=== PATIENT | female | born 1935 | race Caucasian/White ===

== ENCOUNTER 2016-12-11 11:15 | Inpatient (IN) | payer MEDICARE, MEDICAID ==
[2016-12-11 11:16] VITALS: PULSE 81
--- NOTE | 2016-12-11 11:25 | ED PDOC ---
Arrival/HPI - General Time Seen by Provider: 12/11/16 11:20 Historian: Patient, Family, EMS - History of Present Illness Narrative History of Present Illness (Text): 12/11/16 11:15 Marge Still is an 81 year old female, whose past medical history includes CHF, hypertension, COPD, diabetes, and advanced dementia, who is brought in to the emergency department via EMS for vomiting blood. Family reports patient was vomiting blood just prior to them calling. Due to patient's advanced Alzheimer, there is limited history obtained. PMD: Dr. Viera Time/Duration: Prior to Arrival Symptom Onset: Sudden Context: Home Past Medical History - Provider Review Nursing Documentation Reviewed: Yes - Infectious Disease Hx of Infectious Diseases: None - Tetanus Immunization Tetanus Immunization: Unknown - Cardiac Hx Cardiac Disorders: Yes Hx Congestive Heart Failure: Yes Hx Hypertension: Yes - Pulmonary Hx Respiratory Disorders: Yes Hx Chronic Obstructive Pulmonary Disease (COPD): Yes - Neurological Hx Neurological Disorder: Yes Hx Dementia: Yes - HEENT Hx HEENT Disorder: No - Renal Hx Renal Disorder: No - Endocrine/Metabolic Hx Endocrine Disorders: Yes Hx Diabetes Mellitus Type 2: Yes - Hematological/Oncological Hx Blood Disorders: No - Integumentary Hx Dermatological Disorder: Yes Other/Comment: bilateral heels/feet - Musculoskeletal/Rheumatological Hx Musculoskeletal Disorders: No Hx Falls: No - Gastrointestinal Hx Gastrointestinal Disorders: No - Genitourinary/Gynecological Hx Genitourinary Disorders: Yes Hx Urinary Tract Infection: Yes - Psychiatric Hx Psychophysiologic Disorder: Yes Hx Depression: Yes Hx Substance Use: No - Past Surgical History Past Surgical History: Unable to Obtain - Surgical History Other/Comment: CABG- CARDIAC STENTS - Anesthesia Hx Anesthesia: Yes Hx Anesthesia Reactions: No Hx Malignant Hyperthermia: No - Suicidal Assessment Feels Threatened In Home Enviroment: No Family/Social History - Physician Review Nursing Documentation Reviewed: Yes Family/Social History: Unknown Family HX Smoking Status: Never Smoked Hx Alcohol Use: No Hx Substance Use: No Hx Substance Use Treatment: No Allergies/Home Meds Allergies/Adverse Reactions: Allergies No Known Allergies Allergy (Verified 03/30/16 16:18) Home Medications: Home Meds Medication Instructions Recorded Confirmed Zolpidem [Ambien] 10 mg PO HS 11/30/14 12/11/16 risperiDONE [RisperDAL Tab] 0.25 mg PO Q8 11/30/14 12/11/16 Simvastatin 80 mg PO DAILY 10/07/15 12/11/16 Alprazolam [Xanax] 0.5 mg PO BID 01/12/16 12/11/16 Donepezil [Aricept] 10 mg PO DAILY 01/12/16 12/11/16 amLODIPine [Norvasc] 10 mg PO DAILY 01/12/16 12/11/16 Apixaban [Eliquis] 5 mg PO BID 12/11/16 12/11/16 Clobetasol 0.05% [Temovate] 60 gm TP BID 12/11/16 12/11/16 Clopidogrel [Plavix] 75 mg PO DAILY 12/11/16 12/11/16 Levothyroxine [Synthroid] 100 mcg PO DAILY 12/11/16 12/11/16 Review of Systems - Review of Systems Systems not reviewed;Unavailable: Dementia Constitutional: absent: Fevers Respiratory: absent: Cough Gastrointestinal: Hematemesis Physical Exam - Physical Exam Physical Exam Limitations: Uncooperative Vital Signs Reviewed: Yes Vital Signs Temp Pulse Resp BP Pulse Ox 12/11/16 14:45 97.2 F L 82 18 93/52 L 100 12/11/16 14:23 97.8 F 82 18 97/52 L 12/11/16 14:10 99 12/11/16 14:07 95 12/11/16 14:04 98 F 83 16 93/49 L 12/11/16 11:39 97.3 F L 87 18 89/56 L 100 12/11/16 11:15 98 F 101 H 20 89/56 L 100 Appearance: Positive for: Ill-Appearing Pain Distress: Mild Mental Status: Positive for: Alert and Oriented X 3 - Systems Exam Head: Present: Atraumatic, Normocephalic Pupils: Present: PERRL Extroacular Muscles: Present: EOMI Conjunctiva: Present: Normal Mouth: Present: Other (blood in mouth) Respiratory/Chest: Present: Clear to Auscultation. No: Good Air Exchange, Respiratory Distress, Accessory Muscle Use Cardiovascular: Present: Regular Rate and Rhythm. No: Murmurs, Normal S1, S2 Abdomen: No: Tenderness, Distention, Normal Bowel Sounds, Peritoneal Signs, Rebound, Guarding Rectal: Present: Occult Blood, Other (guaiac (+) window glazier: Nurse Santamaria). No: Gross Blood, Melena Neurological: Present: Other (no focal deficits) Skin: Present: Warm, Dry Psychiatric: Present: Alert, Other (uncooperative with exam ). No: Oriented x 3 Medical Decision Making ED Course and Treatment: Upon arrival the pt had a significant amount of blood in her mouth. I suctioned her mouth and cleared up the blood and did not note any source of bleeding in the mouth or throat. 12/11/16 EKG: Ordered, reviewed, and independently interpreted the EKG. Rate : 89 BPM Rhythm : NSR Interpretation : Left Dawes Deviation. Left bundle branch block. Comparison : No previous EKG for comparison. 12/11/16 12:47 Case was discussed with Delaney Che from for consultation. 12/11/16 13:00 Chest X-ray: Creator : Portia Hurtado MD COMPARISON: 03/30/2016. FINDINGS: LUNGS: There is significant patient rotation to the right. The lungs are well inflated and clear. PLEURA: No significant pleural effusion identified, no pneumothorax apparent. CARDIOVASCULAR: The heart is normal in size. OSSEOUS STRUCTURES: No significant abnormalities. VISUALIZED UPPER ABDOMEN: Normal. OTHER FINDINGS: None. IMPRESSION: No active pulmonary disease. Disc w coal equipment operator who eval the pt in the ED - Critical Care Critical Care Minutes: 60 minutes - Lab Interpretations Lab Results: 12/11/16 11:35 12/11/16 11:35 Lab Results 12/11/16 11:35: Troponin I 0.02 D 12/11/16 11:35: PT 14.3 H, INR 1.29 H, APTT 28.3 12/11/16 11:35: WBC 5.2, RBC 2.66 L, Hgb 5.4 L*, Hct 19.0 L*, MCV 71.4 L, MCH 20.3 L, MCHC 28.4 L, RDW 17.9 H, Plt Count 193, MPV 9.4, Gran % 59.5, Lymph % ( Auto) 32.1, [place] % (Auto) 7.0 H, Eos % (Auto) 1.2 L, Baso % (Auto) 0.2, Gran # 3.08, Lymph # 1.7, [place] # 0.4, Eos # 0.1, Baso # 0.01 12/11/16 11:35: Blood Type A POSITIVE, Antibody Screen Negative, Crossmatch See Detail, BBK History Checked Patient has bt 12/11/16 11:35: Sodium 144, Chloride 111 H, Potassium 3.9, Carbon Dioxide 23, Anion Gap 14, BUN 24 H, Creatinine 0.9, Est GFR ( Amer) > 60, Est GFR ( Non-Af Amer) > 60, Random Glucose 159 H, Calcium 9.5, Total Bilirubin 0.5, AST 25, ALT 32, Alkaline Phosphatase 63, Total Protein 5.8, Albumin 2.9 L, Globulin 2.9, Albumin/Globulin Ratio 1.0 L 12/11/16 11:35: pO2 44, VBG pH 7.36, VBG pCO2 44.0, VBG HCO3 24.9, VBG Total CO2 26.3, VBG O2 Sat (Calc) 83.0 H, VBG Base Excess -0.8 L, VBG Potassium 4.0, Sodium 144.0, Chloride 113.0 H, Glucose 169 H, Lactate 2.9 H, FiO2 21.0, Venous Blood Potassium 4.0 I have reviewed the lab results: Yes - RAD Interpretation Radiology Orders: 12/11/16 11:48 CHEST PORTABLE [RAD] Stat Fisher Trawl Net: Radiologist - EKG Interpretation Interpreted by ED Physician: Yes Type: 12 lead EKG - Medication Orders Current Medication Orders: Cyanocobalamin (Vitamin B12 1000 Mcg/Ml Inj) 1,000 mcg IM DAILY OLGA Pantoprazole Sodium (Protonix 40mg Ivpb) 40 mg in 100 mls @ 20 mls/hr IVPB .Q5H OLGA Last Admin: 12/12/16 05:00 Dose: 20 mls/hr eMAR Start Stop Document 12/12/16 05:00 KGD (Rec: 12/12/16 05:03 KGD [id number]) Intravenous Solution Start Date 12/12/16 Start Time 05:03 Iron Sucrose 100 mg/ Sodium (Chloride) 105 mls @ 210 mls/hr IVPB DAILY OLGA Potassium Chloride 40 meq/ (Dextrose/Sodium Chloride) 1,020 mls @ 75 mls/hr IV .[id number] OLGA Levothyroxine Sodium (Synthroid) 100 mcg PO ACB OLGA Discontinued Medications Diphenhydramine HCl (Benadryl) 25 mg IVP ONCE ONE Stop: 12/11/16 21:22 Last Admin: 12/11/16 21:36 Dose: 25 mg IVP Administration Document 12/11/16 21:36 KGD (Rec: 12/11/16 21:36 KGD [id number]) Charges for Administration # of IVP Administrations 1 Furosemide (Lasix) 40 mg IV ONCE ONE Stop: 12/11/16 17:01 Last Admin: 12/11/16 17:37 Dose: 40 mg eMAR Start Stop Document 12/11/16 17:37 JENS (Rec: 12/11/16 17:37 JENS [id number]) Intravenous Solution Start Date 12/11/16 Start Time 17:37 End Date 12/11/16 MAR Blood Pressure Document 12/11/16 17:37 JENS (Rec: 12/11/16 17:37 JENS [id number]) Blood Pressure Blood Pressure (100/60-150/90) 146/62 Sodium Chloride (Sodium Chloride 0.9%) 1,000 mls @ 999 mls/hr IV .Q1H1M STA Stop: 12/11/16 14:25 Last Admin: 12/11/16 17:37 Dose: Iron Sucrose (Venofer) 100 mg IVP ONCE ONE Stop: 12/11/16 23:33 Pantoprazole Sodium (Protonix Inj) 80 mg IVP STAT STA Stop: 12/11/16 11:49 Last Admin: 12/11/16 12:24 Dose: 80 mg IVP Administration Document 12/11/16 12:24 LA (Rec: 12/11/16 12:25 LA [id number]) Charges for Administration # of IVP Administrations 1 - Scribe Statement The provider has reviewed the documentation as recorded by the Maria Chavez Provider Scribe Attestation: All medical record entries made by the Catarinoibpepito were at my direction and personally dictated by me. I have reviewed the chart and agree that the record accurately reflects my personal performance of the history, physical exam, medical decision making, and the department course for this patient. I have also personally directed, reviewed, and agree with the discharge instructions and disposition. Disposition/Present on Arrival - Present on Arrival Any Indicators Present on Arrival: Yes History of DVT/PE: Yes History of Uncontrolled Diabetes: Yes Urinary Catheter: No History Surgical Site Infection Following: None - Disposition Have Diagnosis and Disposition been Completed?: Yes Diagnosis: Upper GI bleeding Disposition: HOSPITALIZED Disposition Time: 12:48 Patient Problems: Current Active Problems Problem Status Onset Upper GI bleeding Acute Condition: SERIOUS
[2016-12-11 12:24] LABS: BASO # 0.01 K/mm3 (0.0-2.0); BASO % 0.2 % (0.0-3.0); EOS # 0.1 (0.0-0.7); EOS % 1.2 % (1.5-5.0); GRAN # 3.08 (1.4-6.5); GRAN % 59.5 % (50.0-68.0); LYMPH # 1.7 (1.2-3.4); LYMPH % 32.1 % (22.0-35.0); MEAN CELL VOLUME 71.4 fl (80.0-105.0); MEAN CORPUSCULAR HEMOGLOBIN 20.3 pg (25.0-35.0); MEAN CORPUSCULAR HGB CONC 28.4 g/dl (31.0-37.0); MEAN PLATELET VOLUME 9.4 fl (7.0-11.0); MONO # 0.4 (0.1-0.6); RED CELL DISTRIBUTION WIDTH 17.9 % (11.5-14.5); WHITE BLOOD COUNT 5.2 10^3/ul (4.5-11.0)
[2016-12-11 12:26] LABS: VENOUS BLOOD GAS BASE EXCESS -0.8 mmol/L (0.0-2.0); VENOUS BLOOD PH 7.36 (7.32-7.43)
[2016-12-11 12:34] LABS: ALKALINE PHOSPHATASE 63 U/L (38-126); ALT/SGPT 32 U/L (7-56); AST/SGOT 25 U/L (14-36); BILIRUBIN,TOTAL 0.5 mg/dL (0.2-1.3); BLOOD UREA NITROGEN 24 mg/dL (7-21); CALCIUM 9.5 mg/dL (8.4-10.5); CARBON DIOXIDE 23 mmol/L (21-33); CHLORIDE 111 mmol/L (98-107); GFR AFRICAN-AMERICAN > 60; GLUCOSE,RANDOM 159 mg/dL (70-110); POTASSIUM 3.9 mmol/L (3.6-5.0); SODIUM 144 mmol/L (132-148); TOTAL PROTEIN 5.8 g/dL (5.8-8.3)
[2016-12-11 12:43] LABS: INR 1.29 (0.93-1.08); PARTIAL THROMBOPLASTIN TIME 28.3 Seconds (25.1-36.5)
--- NOTE | 2016-12-11 12:59 | RAD ---
HISTORY: gi bleed COMPARISON: 03/30/2016. FINDINGS: LUNGS: There is significant patient rotation to the right. The lungs are well inflated and clear. PLEURA: No significant pleural effusion identified, no pneumothorax apparent. CARDIOVASCULAR: The heart is normal in size. OSSEOUS STRUCTURES: No significant abnormalities. VISUALIZED UPPER ABDOMEN: Normal. OTHER FINDINGS: None. IMPRESSION: No active pulmonary disease.
[2016-12-11] MEDS ORDERED: Sodium Chloride 0.9% 1,000 ML IV STA (13:25)
[2016-12-11 13:56] LABS: BASO # 0.01 K/mm3 (0.0-2.0); BASO % 0.2 % (0.0-3.0); EOS % 0.2 % (1.5-5.0); GRAN # 4.26 (1.4-6.5); LYMPH % 17.6 % (22.0-35.0); MEAN CELL VOLUME 70.5 fl (80.0-105.0); MEAN CORPUSCULAR HEMOGLOBIN 20.1 pg (25.0-35.0); MEAN CORPUSCULAR HGB CONC 28.5 g/dl (31.0-37.0); MEAN PLATELET VOLUME 8.7 fl (7.0-11.0); MONO # 0.4 (0.1-0.6); RED CELL DISTRIBUTION WIDTH 17.7 % (11.5-14.5); WHITE BLOOD COUNT 5.7 10^3/ul (4.5-11.0)
[2016-12-11 14:03] LABS: HEMATOCRIT 15.8 % (36.0-48.0)
[2016-12-11] MEDS: Pantoprazole 40mg/100ml IVPB 40 MG/100 ML BAG IVPB SCH ×3 (14:37→23:56)
--- NOTE | 2016-12-11 16:16 | CP.PCM.CON ---
<Delaney Che - Last Filed: 12/11/16 17:07> History of Present Illness - History of Present Illness History of Present Illness: Seen and examined at bedside in the ER this afternoon, Son Len Galaviz at beside. Request for GI consult is for GI bleeding. HPI:this is an 81-year-old female with a past medical history of hypertension, COPD, Advanced Dementia, CHF, Diabetes was brought to the emergency room by EMS for reports of blood oozing from oral cavity. Patient's son Len Galaviz is at the bedside providing the history, patient is unable to provide history, secondary to Advanced Alzheimer's Disease. Patient's son reports that they notice blood ozzing from her mouth with blood clots, did not witness vomiting, this morning and she was cold and clammy, so they called EMS. The patient otherwise had prior episodes of bleeding. In the ER the patient was found to be guaiac positive, no melena or bright red blood per rectum. The patient has history of PEG tube insertions with infection 2, the family opted for no feeding tube insertions. The patient does take food by mouth mainly with, and sure, clear soup, and applesauce. the patient also has a history of coronary artery disease and CABG, patient is also on Plavix. The patient does have episodes of constipation but no reports of melena or bright red blood per rectum. On admission the patient was found to have a hemoglobin of 5.4. Past medical history: Advanced dementia, hypertension, coronary artery disease, congestive heart failure, COPD, hypothyroidism, CABG, diabetes mellitus Surgical history: CABG Family history: Noncontributory Allergies: No known drug allergies Social history: No history of smoking, EtOH or drugs Medications: Reviewed as per JOSE ROS: Unable to review systems with patient secondary to advanced dementia, see HPI Past Patient History - Infectious Disease Hx of Infectious Diseases: None - Tetanus Immunizations Tetanus Immunization: Unknown - Past Social History Smoking Status: Never Smoked - CARDIAC Hx Cardiac Disorders: Yes Hx Congestive Heart Failure: Yes Hx Hypertension: Yes - PULMONARY Hx Respiratory Disorders: Yes Hx Chronic Obstructive Pulmonary Disease (COPD): Yes - NEUROLOGICAL Hx Neurological Disorder: Yes Hx Dementia: Yes - HEENT Hx HEENT Problems: No - RENAL Hx Chronic Kidney Disease: No - ENDOCRINE/METABOLIC Hx Endocrine Disorders: Yes Hx Diabetes Mellitus Type 2: Yes - HEMATOLOGICAL/ONCOLOGICAL Hx Blood Disorders: No - INTEGUMENTARY Hx Dermatological Problems: Yes Other/Comment: bilateral heels/feet - MUSCULOSKELETAL/RHEUMATOLOGICAL Hx Musculoskeletal Disorders: No Hx Falls: No - GASTROINTESTINAL Hx Gastrointestinal Disorders: No - GENITOURINARY/GYNECOLOGICAL Hx Genitourinary Disorders: Yes Hx Urinary Tract Infection: Yes - PSYCHIATRIC Hx Psychophysiologic Disorder: Yes Hx Depression: Yes Hx Substance Use: No - SURGICAL HISTORY Other/Comment: CABG- CARDIAC STENTS - ANESTHESIA Hx Anesthesia: Yes Hx Anesthesia Reactions: No Hx Malignant Hyperthermia: No Meds Allergies/Adverse Reactions: Allergies Allergy/AdvReac Type Severity Reaction Status Date / Time No Known Allergies Allergy Verified 03/30/16 16:18 - Medications Medications: Current Medications Furosemide (Lasix) 40 mg IV ONCE ONE Stop: 12/11/16 17:01 Pantoprazole Sodium (Protonix 40mg Ivpb) 40 mg in 100 mls @ 20 mls/hr IVPB .Q5H OLGA Last Admin: 12/11/16 14:37 Dose: 20 mls/hr Physical Exam - Constitutional Appears: No Acute Distress - Head Exam Head Exam: NORMOCEPHALIC - Eye Exam Eye Exam: Normal appearance. absent: Scleral icterus - ENT Exam ENT Exam: Mucous Membranes Moist - Respiratory Exam Respiratory Exam: NORMAL BREATHING PATTERN. absent: Respiratory Distress - Cardiovascular Exam Cardiovascular Exam: +S1, +S2 - GI/Abdominal Exam GI & Abdominal Exam: Normal Bowel Sounds, Soft, Tenderness (? patient had facial grimacing on palpation). absent: Guarding, Organomegaly, Rebound - Extremities Exam Extremities exam: Positive for: pedal edema, pedal pulses present - Neurological Exam Neurological exam: Altered (awake, cannot follow commands) - Skin Skin Exam: Dry, Warm Additional comments: pale Results - Vital Signs Recent Vital Signs: Last Vital Signs Temp 97.2 F L 12/11/16 14:45 Pulse 82 12/11/16 14:45 Resp 18 12/11/16 14:45 BP 93/52 L 12/11/16 14:45 Pulse Ox 100 12/11/16 14:45 - Labs Result Diagrams: 12/11/16 13:45 12/11/16 11:35 Labs: Laboratory Results - last 24 hr 12/11/16 13:45 WBC 5.7 RBC 2.24 L Hgb 4.5 L* Hct 15.8 L* MCV 70.5 L MCH 20.1 L MCHC 28.5 L RDW 17.7 H Plt Count 146 MPV 8.7 Gran % 75.0 H Lymph % (Auto) 17.6 L [place] % (Auto) 7.0 H Eos % (Auto) 0.2 L Baso % (Auto) 0.2 Gran # 4.26 Lymph # 1.0 L [place] # 0.4 Eos # 0.0 Baso # 0.01 Assessment & Plan - Assessment and Plan (Free Text) Assessment: Assessment: GI bleed (+) guiac, differential to considers peptic ulcer disease, angiodysplasia, blood oozing from oral cavity, r/o ENT involvement. Anemia likley secondary to bleeding, h/o chronic Anemia Advanced dementia CAD CABG DM HTN PLAN: repeat CBC CBC Q6H Start Protonix drip to receive 2 Units PRBC request ENT evaluation for oral cavity bleeding consider EGD evaluation when optimal NPO, IVF for hydration as per ICU team Spoke to the Len Galaviz at bedside who provided history and give consent for patient, contact number given at [phone] Thank you for this consult and for allowing us to participate in your patient care, will follow closely and make further recommendation based upon clinical course. Case was reviewed and discussed w/ Dr. Mitchell covering for Dr. Parry. <Lee Parry V - Last Filed: 12/11/16 22:16> Meds - Medications Medications: Current Medications Pantoprazole Sodium (Protonix 40mg Ivpb) 40 mg in 100 mls @ 20 mls/hr IVPB .Q5H OLGA Last Admin: 12/11/16 18:49 Dose: 20 mls/hr Results - Vital Signs Recent Vital Signs: Last Vital Signs Temp 98.2 F 12/11/16 17:40 Pulse 87 12/11/16 18:50 Resp 15 12/11/16 18:50 BP 128/69 12/11/16 18:45 Pulse Ox 100 12/11/16 18:50 - Labs Result Diagrams: 12/11/16 21:00 12/11/16 21:00 Labs: Laboratory Results - last 24 hr 12/11/16 12/11/16 12/11/16 13:45 18:40 18:40 WBC 5.7 8.7 D RBC 2.24 L 4.77 Hgb 4.5 L* 12.7 D Hct 15.8 L* 37.0 MCV 70.5 L 77.6 L D MCH 20.1 L 26.6 MCHC 28.5 L 34.3 RDW 17.7 H 17.7 H Plt Count 146 116 L MPV 8.7 9.3 Gran % 75.0 H 73.1 H Lymph % (Auto) 17.6 L 17.5 L [place] % (Auto) 7.0 H 9.1 H Eos % (Auto) 0.2 L 0.2 L Baso % (Auto) 0.2 0.1 Gran # 4.26 6.34 Lymph # 1.0 L 1.5 [place] # 0.4 0.8 H Eos # 0.0 0.0 Baso # 0.01 0.01 pO2 58 H VBG pH 7.22 L VBG pCO2 51.0 VBG HCO3 20.9 L VBG Total CO2 22.5 VBG O2 Sat (Calc) 92.8 H VBG Base Excess -7.1 L VBG Potassium > 20.0 H* Sodium 131.0 L Chloride 112.0 H Glucose 106 H Lactate 1.1 FiO2 21.0 Potassium Venous Blood Potassium > 20.0 H* 12/11/16 12/11/16 21:00 21:00 WBC 8.3 RBC 4.86 Hgb 12.7 Hct 37.3 MCV 76.7 L MCH 26.1 MCHC 34.0 RDW 17.2 H Plt Count 117 L MPV 9.6 Gran % Lymph % (Auto) [place] % (Auto) Eos % (Auto) Baso % (Auto) Gran # Lymph # [place] # Eos # Baso # pO2 VBG pH VBG pCO2 VBG HCO3 VBG Total CO2 VBG O2 Sat (Calc) VBG Base Excess VBG Potassium Sodium Chloride Glucose Lactate FiO2 Potassium 3.8 Venous Blood Potassium Attending/Attestation - Attestation I have personally seen and examined this patient.: Yes I have fully participated in the care of the patient.: Yes I have reviewed all pertinent clinical information: Yes Notes (Text): This is an addendum to GI consult report dictated by Delaney Che APN.The patient was seen and examined earlier. Medical records, lab studies, imagings were reviewed. Last 24 hours events reviewed. Agreed with the above treatment plan as outlined in Delaney Che APN's notes the with the addition of the following this 81-year-old patient [place] the possibility history of dementia,CHF COPD paroxysmal atrial fibrillation on Elaquis, status post removal of the PEG tube in view of infection was found to have some blood from coming out from the mouth by family at home. She was brought to the hospital by EMS. Patient's hemoglobin was found to be low 5.4 it was repeated again it was low 4.5 . Patient did receive 3 units transfusions repeat hemoglobin was 12.6. No further episodes of further bleeding noticed today while in the hospital. No melena. Patient is being on Elaquis and last dose was yesterday. We'll continue to closely follow up the hemoglobin and hematocrit will discuss with the family regarding the endoscopic evaluation Continue Protonix IV Thank you very much for allowing us to participate in the care of the patient 12/11/16 22:11
[2016-12-11 16:20] VITALS: BMI 19.6
[2016-12-11 18:45] LABS: VENOUS BLOOD GAS BASE EXCESS -7.1 mmol/L (0.0-2.0); VENOUS BLOOD PH 7.22 (7.32-7.43)
[2016-12-11 19:46] LABS: BASO # 0.01 K/mm3 (0.0-2.0); BASO % 0.1 % (0.0-3.0); EOS % 0.2 % (1.5-5.0); GRAN # 6.34 (1.4-6.5); GRAN % 73.1 % (50.0-68.0); LYMPH # 1.5 (1.2-3.4); LYMPH % 17.5 % (22.0-35.0); MEAN CELL VOLUME 77.6 fl (80.0-105.0); MEAN CORPUSCULAR HEMOGLOBIN 26.6 pg (25.0-35.0); MEAN CORPUSCULAR HGB CONC 34.3 g/dl (31.0-37.0); MEAN PLATELET VOLUME 9.3 fl (7.0-11.0); MONO # 0.8 (0.1-0.6); MONO % 9.1 % (1.0-6.0); RED CELL DISTRIBUTION WIDTH 17.7 % (11.5-14.5); WHITE BLOOD COUNT 8.7 10^3/ul (4.5-11.0)
[2016-12-11] MEDS ORDERED: DiphenhydrAMINE 50 mg/ml Inj IVP ONE (21:21)
[2016-12-11 21:22] LABS: HEMATOCRIT 37.3 % (36.0-48.0); MEAN CELL VOLUME 76.7 fl (80.0-105.0); MEAN CORPUSCULAR HEMOGLOBIN 26.1 pg (25.0-35.0); MEAN PLATELET VOLUME 9.6 fl (7.0-11.0); RED CELL DISTRIBUTION WIDTH 17.2 % (11.5-14.5); WHITE BLOOD COUNT 8.3 10^3/ul (4.5-11.0)
--- NOTE | 2016-12-11 21:58 | CARD ---
APPROVED REPORT EKG Measurement Heart [id number] 128P [id number] <Conclusion> Normal sinus rhythm Left axis deviation Left bundle branch block Abnormal ECG
[2016-12-11] MEDS ORDERED: Iron Sucrose 100 mg/5 ml Inj IVP ONE (23:32)
--- NOTE | 2016-12-12 01:53 | CON ---
DATE: 12/11/2016 HISTORY OF PRESENT ILLNESS: This is an 81-year-old lady with history of hypertension, hyperlipidemia, advanced Alzheimer dementia, long term resident, PEG, coronary artery disease and DVT, who was brought into [facility] Emergency Room, when she was found to be vomiting with heriberto/bright blood. Upon admission to [facility] ER, she was found with mouth full of fresh blood, however at the time of ICU eval at bedside in ER--no blood noticed, patient is able to protect her airways despite advanced dementia.. No more episodes of hematemesis noticed while in the emergency room. Initially, the patient was hypotensive; however, after 1 L of normal saline, blood pressure went up to 115/56 and the patient is not tachycardic as well. She appears to be comfortable. Reportedly, which I was unable to confirm, the patient had a history of DVT and was on Eliquis. However, Eliquis was not listed as one of her medication in the "summary" [facility]. The patient also is on Plavix. Apparently, several of her coronary arteries were stented, but more than one year ago. Plavix is being held. As the patient has advanced Alzheimer dementia, no more details about her history of present illness available. She does not appear to have abdominal pain, chest pain, or shortness of breath. No history of fever, chills, sweats, nausea or diarrhea available as well. MEDICATIONS: Xanax, risperidone, Norvasc, Ambien, simvastatin, Zestril, Synthroid, Aricept, and Plavix. ALLERGIES: NKDA. SOCIAL HISTORY: No alcohol or illicit drug abuse. No tobacco smoking. FAMILY HISTORY: Noncontributory. REVIEW OF SYSTEMS: Review of 12-organ systems other than mentioned in the history of present illness is negative. PAST MEDICAL HISTORY: Hypercholesteremia, hypertension, hypothyroidism, dementia, coronary artery disease, ?DVT on Eliquis. PHYSICAL EXAMINATION: VITAL SIGNS: Blood pressure 116/56, heart rate 90, oxygen saturation 100% on room air. ENT: Head and neck atraumatic. LUNGS: Clear to auscultation bilaterally. HEART: Regular rate and rhythm. S1 and S2 normal. ABDOMEN: Soft, nontender and nondistended. MUSCULOSKELETAL: No C/C/E. NEUROLOGIC: The patient moves all extremities spontaneously. SKIN: Color is moist. PSYCHIATRIC: The patient has advanced dementia and unable to follow commands. LABORATORY DATA: Sodium 144, potassium 3.9, carbon dioxide 23, chloride 111, BUN 24, creatinine 0.9, glucose 169, AST 25, ALT 32, total bilirubin 0.5, albumin 2.9, alkaline phosphatase 63. VBG showed lactic acid 2.9. INR 1.29. Chest x-ray, no active pulmonary disease. ASSESSMENT AND PLAN: This is an 81-year-old lady with hemorrhagic shock secondary to upper gastrointestinal bleeding. The patient does not have a history of liver disease, does not appear to have stigmata of portal hypertension to consider variceal bleed. At present time, we will proceed with two large bore peripheral IV access. 1 L of normal saline fluid bolus was given. Three units of blood were ordered. If the patient continue to require more blood after that, transfusion of blood products (plats and FFP) will be indicated to avoid dilutional coagulopathy. The patient will be started on Protonix drip. GI consult was requested (Dr. Parry) to consider upper endoscopy. We will continue serial CBC and serial VBG with lactic acid. Troponin is pending, and if elevated, may suggest presence of large lesion/ ulcer in the upper gastrointestinal tract. The patient has advanced dementia. I will touch base with patient's family about overall goals of care and to what extent they would want to be aggressive (surgical back up if unable to control bleeding conservatively). Apparently, antiplatelets and anticoagulants will be held. Mechanical deep venous thrombosis prophylaxis will be considered. We will maintain hemoglobin level above 9. ccm time 40 min Rajinder Larios MD [facility]
[2016-12-12 01:55] LABS: HEMATOCRIT 35.7 % (36.0-48.0); MEAN CELL VOLUME 75.8 fl (80.0-105.0); MEAN CORPUSCULAR HEMOGLOBIN 26.5 pg (25.0-35.0); MEAN PLATELET VOLUME 9.4 fl (7.0-11.0); RED CELL DISTRIBUTION WIDTH 16.8 % (11.5-14.5); WHITE BLOOD COUNT 8.8 10^3/ul (4.5-11.0)
[2016-12-12 01:59] LABS: VENOUS BLOOD GAS BASE EXCESS 2.4 mmol/L (0.0-2.0); VENOUS BLOOD PH 7.45 (7.32-7.43)
--- NOTE | 2016-12-12 02:04 | CON ---
DATE: 12/11/2016 REASON FOR CONSULTATION: Cardiac evaluation, status post massive GI bleed, history of coronary artery stent in the past, history of coronary artery disease, status post stent and dementia. BRIEF CLINICAL HISTORY: This is an 81-year-old female with past medical history significant for coronary artery disease, status post stent 20 years ago, hypertension, COPD, diabetes, advanced dementia who had profuse hematemesis and brought here. Admitting hemoglobin was 5, history of dementia, the patient was unable to give a history and information was obtained from the son. Admitting hemoglobin of 5.4. Also, noted the patient has had rectal bleed as well. The patient denies any chest pain, but has dementia, but not in apparent distress. PAST MEDICAL HISTORY: Hypothyroidism, dementia, coronary artery disease, VRE, status post paroxysmal atrial fibrillation, anemia, hypertension, history of DVT, status post IVC filter, history of multiple stent in the past many years ago. DIAGNOSTIC DATA: Previous cardiac workup as follows: The patient had an echo on 07/07/2014, shows ejection fraction , mild mitral regurgitation, moderate tricuspid regurgitation, and RV systolic pressure of 49. Ulcer on both heels. History of proximal atrial fibrillation. CURRENT MEDICATIONS: The patient at home was taking aspirin, Plavix, Xanax, Aricept, levothyroxine, lisinopril, simvastatin, amlodipine, and Risperdal. ALLERGIES: NO KNOWN DRUG ALLERGIES. REVIEW OF SYSTEMS: As per HPI. PHYSICAL EXAMINATION: As follows: VITAL SIGNS: Temperature is afebrile, heart rate is 80, and blood pressure is 97/52. HEENT: PERRLA. Extraocular muscles are intact. NECK: Supple. No carotid bruits or thyromegaly. CHEST: Clear to auscultation. HEART: S1 and S2 regular. ABDOMEN: Soft. EXTREMITIES: Clubbing and cyanosis negative. LABORATORY DATA: Blood workup as follows: WBC of 5.8, hemoglobin of 5.4, hematocrit of 19, and platelet count of 193. Chemistry shows sodium of 140, potassium of 3.9, chloride of 101, carbon dioxide of 23, anion gap of 40, BUN of 24 and creatinine of 0.9. Troponin is 0.2. Total protein is 5.8, albumin is 2 and albumin-globulin ratio 1. EKG shows normal sinus rhythm and no acute ST-T changes noted. IMPRESSION: Massive gastrointestinal bleed, severe anemia, history of coronary artery disease, history of stent in the past, history of deep venous thrombosis, status post inferior vena cava filter, history of pulmonary embolism, advanced dementia, and paroxysmal atrial fibrillation. RECOMMENDATIONS: Type and cross match and transfuse 2 units of blood. Discontinue Plavix. Hold aspirin for now. Stat GI consult, we will follow. Overall, the patient's condition is critical. Long-term prognosis is guarded. Hold medication that she is taking including lisinopril and amlodipine because of low blood pressure. We will follow with you. Thank you Dr. Viera for providing us the opportunity in taking care of the patient. Dayana Steward MD
[2016-12-12] MEDS: Pantoprazole 40mg/100ml IVPB 40 MG/100 ML BAG IVPB SCH ×4 (05:00→21:38)
--- NOTE | 2016-12-12 06:06 | CON ---
OTOLARYNGOLOGY CONSULTATION DATE: 12/11/2016 REFERRING PHYSICIAN: Dr. Chong. CHIEF COMPLAINT: Hematemesis. HISTORY OF PRESENT ILLNESS: This is an 81-year-old female past medical history of CHF, COPD, hypertension, dementia and diabetes who was seen in the emergency room and was brought via EMS for vomiting blood as per the family reports. The family also stated that the patient was vomiting blood prior to them calling. The patient also has advanced Alzheimer's disease and was unable to respond to commands. History is obtained from other medical records. The patient seemed to have blood in the oral cavity and on the clothes around 3 p.m. early this afternoon. The patient was seen by GI and they have recommended consult for ENT to rule out any bleeding from above the glottis. The patient had a hemoglobin of 4.5 in the emergency room and was transfused 1 unit of packed red blood cells. PAST MEDICAL HISTORY: CHF, hypertension, COPD, diabetes, advanced dementia. PAST SURGICAL HISTORY: Unable to obtain. CURRENT MEDICATIONS: Zolpidem, risperidone, simvastatin, Xanax, Napizole, amlodipine, clopidogrel, levothyroxine. ALLERGIES: NO KNOWN DRUG ALLERGIES. FAMILY HISTORY: No pertinent family history. SOCIAL HISTORY: Unable to be obtained from the patient. REVIEW OF SYSTEMS: Unable to be obtained from the patient due to her Alzheimer's disease. OBJECTIVE: VITAL SIGNS: Temperature 98, pulse 87, blood pressure 128/69, respiratory rate 16, O2 100% on 2 liters nasal cannula. GENERAL: The patient is alert. She is lying in bed. Does not follow commands. She is comfortable appearing. HEAD: Normocephalic, atraumatic. EYES: Extraocular muscles are grossly intact. There are no conjunctivitis. The patient is not tracking. NOSE: Nares are patent bilaterally. Some nasal crusting in the left nares. No gross bleeding visualized. EARS: Auricles appears symmetric. There are no masses. Auricles are nontender. FACE: Facial movements are symmetric. MOUTH: The patient with poor dentition. Mucous membranes are moist. Tongue is midline. Uvula is midline. There is no visualized bleeding in the oral cavity or posterior oropharynx. No blood in the gingiva or buccal sulcus. NECK: Supple. Nontender. Symmetric. No masses palpated. FLEXIBLE LARYNGOSCOPY: After preparing the patient with 50:50 mix of lidocaine and Afrin into the nares bilaterally, a flexible laryngoscope was passed to the right naris. Septum was visualized. There is no bleeding noted. The inferior turbinates were 3+. There was no evidence of bleeding bilaterally, but there was some nasal crusting visualized. The scope was passed along the nasal floor and into the nasopharynx. Bilateral eustachian tubes appeared patent and normal. The soft palate appeared normal. The uvula had appeared normal. The base of tongue appeared normal. The vallecula was clear of secretions. The epiglottis was crisp and normal in appearance. The lateral pharyngeal rubi were normal in appearance. Arytenoids, AE folds, false vocal cord and true vocal cards were all normal in appearance. The true vocal cords adapted normally upon phonation. The piriform sinuses appeared clear. However, full visualization of the pyriform sinus was difficulty due to the patient unable to respond to commands. There is no blood visualized at any part during the exam. No blood noted in the post-glottic space. The scope was then removed under direct visualization. The patient tolerated the procedure with no complications. RADIOLOGY: No imaging to be reviewed. ASSESSMENT: This is an 81-year-old female with advanced dementia, chronic obstructive pulmonary disease, congestive heart failure, diabetes, and other comorbidities who presented to the emergency department with hematemesis. On exam no source of bleeding in the oral cavity, bilateral nares, nasopharynx, hypopharynx or supraglottic areas. PLAN: 1. No bleeding noted on exam. 2. Recommend gastrointestinal endoscopy to rule out upper gastrointestinal bleeding once stable. 3. Blood transfusions as needed. 4. May apply bacitracin gently to the bilateral nares to keep nasal mucosa moist. 5. No ENT intervention at this time. Thank you for the consultation. If any other issues arise please reconsult as needed. Be Vazquez DO
--- NOTE | 2016-12-12 06:32 | HP ---
CHIEF COMPLAINT: Vomiting of the blood and lower GI bleeding. HISTORY OF PRESENT ILLNESS: Ms. Marge Still is an 81-year-old female with past medical history of congestive heart failure, hypertension, COPD, diabetes mellitus, and advanced dementia. She is brought to the Emergency Department via EMS for vomiting of the blood. Family reports the patient was vomiting of blood prior to them calling due to the patient's advanced dementia. There is limited history obtained from the patient, but main history was given by the son, Pedro. The patient was not on her baseline, feeling more lethargic, and pale. No fever. No chills. PAST MEDICAL HISTORY: Congestive heart failure, hypertension, history of respiratory failure, COPD, dementia, diabetes mellitus type 2, history of bilateral heel ulcers, history of repeated urinary tract infection, and depression. FAMILY HISTORY: Father and mother noncontributory. HABITS: No smoking, no drugs, and no ethanol. ALLERGIES: THE PATIENT IS NOT ALLERGIC TO ANY MEDICATIONS. HOME MEDICATIONS: Ambien, Risperdal, simvastatin, Xanax, Aricept, Norvasc, Plavix, and Synthroid. REVIEW OF SYSTEMS: The patient is seen and examined on the bedside in the emergency room and have advanced dementia. No fever. No cough. Has hematemesis. Looking pale. She is like nonverbal. No swelling of the legs. PHYSICAL EXAMINATION: VITAL SIGNS: Temperature 97.3, pulse 67, respiratory rate 18, blood pressure 89/56, and pulse oximetry 100. HEENT: Head is normocephalic and atraumatic. Eyes: PERRLA. Extraocular muscles intact. Conjunctivae clear. Nose patent. Mucous membrane moist. NECK: Supple. No carotid bruit. No JVD or thyromegaly. CHEST: Bilaterally symmetrical. HEART: S1 and S2 positive. LUNGS: Clear to auscultation. ABDOMEN: Soft. Positive bowel sounds. No organomegaly. EXTREMITIES: No edema. No cyanosis. NEUROLOGIC: The patient is awake, alert, moving all 4 extremities, but is not able to obey the command. LABORATORY DATA: White blood cell 5.2, hemoglobin 5.4, hematocrit 19.0, and platelets 193. Sodium 144, potassium 3.9, BUN 24, creatinine 0.9, and glucose 159. ASSESSMENT AND PLAN: Ms. Marge Still is an 81-year-old lady with severe symptomatic anemia, hyperglycemia, dehydration, hyperchloremia, came with hematemesis and hypotension. Seen by Gastroenterology, Delaney Che, nurse practitioner of Dr. Parry, history of advanced dementia, history of hypertension, but today have hypotension, coronary artery disease, congestive heart failure, chronic obstructive pulmonary disease, hypothyroidism, coronary artery bypass graft, diabetes mellitus, stool guaiac is also positive, may be the patient has peptic ulcer disease or may be stress ulcer, angiodysplasia, blood oozing from the oral cavity, rule out ENT involvement; her acute anemia , acute on chronic. Repeat CBC q.6 hours , started on Protonix drip, and gave 2 units of packed RBC. Request ENT consult for oral cavity bleeding, need esophagogastroduodenoscopy when optimal as per ID and p.o. and getting IV hydration. Dr. Mitchell is covering Dr. Parry and Delaney Che had discussion done with Dr. Mitchell. Continue present treatment. We will followup. Colette Viera MD MTDIgor
[2016-12-12 06:44] LABS: BASO # 0.02 K/mm3 (0.0-2.0); BASO % 0.3 % (0.0-3.0); EOS # 0.1 (0.0-0.7); EOS % 0.7 % (1.5-5.0); GRAN # 4.62 (1.4-6.5); GRAN % 64.5 % (50.0-68.0); HEMATOCRIT 35.5 % (36.0-48.0); LYMPH # 1.8 (1.2-3.4); LYMPH % 25.4 % (22.0-35.0); MEAN CELL VOLUME 76.8 fl (80.0-105.0); MEAN CORPUSCULAR HEMOGLOBIN 26.2 pg (25.0-35.0); MEAN CORPUSCULAR HGB CONC 34.1 g/dl (31.0-37.0); MEAN PLATELET VOLUME 9.3 fl (7.0-11.0); MONO # 0.7 (0.1-0.6); MONO % 9.1 % (1.0-6.0); RED CELL DISTRIBUTION WIDTH 17.3 % (11.5-14.5); WHITE BLOOD COUNT 7.2 10^3/ul (4.5-11.0)
[2016-12-12 07:12] LABS: ALKALINE PHOSPHATASE 72 U/L (38-126); ALT/SGPT 36 U/L (7-56); AST/SGOT 30 U/L (14-36); BILIRUBIN,TOTAL 2.1 mg/dL (0.2-1.3); BLOOD UREA NITROGEN 26 mg/dL (7-21); CARBON DIOXIDE 24 mmol/L (21-33); CHLORIDE 114 mmol/L (95-110); CHOLESTEROL 119 mg/dL (130-200); GFR AFRICAN-AMERICAN > 60; GLUCOSE,RANDOM 94 mg/dL (70-110); MAGNESIUM 1.7 mg/dL (1.7-2.2); PHOSPHOROUS 2.8 mg/dL (2.5-4.5); POTASSIUM 3.3 mmol/L (3.6-5.0); SODIUM 146 mmol/L (132-148); TOTAL PROTEIN 5.8 g/dL (5.8-8.3)
[2016-12-12 08:04] LABS: IRON 276 ug/dL (45-180)
[2016-12-12] MEDS ORDERED: Potassium Chloride 40 MEQ in Dextrose 5%/0.9% NS 1,000 ML IV SCH ×2 (08:45→09:45)
[2016-12-12] MEDS: Levothyroxine 100 MCG TAB PO SCH (09:50)
[2016-12-12] MEDS ORDERED: Iron Sucrose 100 mg/5 ml Inj IVP SCH (10:00)
--- NOTE | 2016-12-12 12:36 | PN ---
REASON FOR CONSULTATION AND FOLLOWUP: Cardiac evaluation, status post massive GI bleed, history of coronary artery disease, history of stent in the past, status post PTCA, dementia and paroxysmal atrial fibrillation. SUBJECTIVE: The patient is lying in the bed, history of dementia, unable to communicate. OBJECTIVE: GENERAL: Not in apparent distress. VITAL SIGNS: As follows: Temperature afebrile, heart rate 77 and blood pressure 121/67. HEENT: PERRLA. Extraocular muscles intact. NECK: Supple. No carotid bruits or thyromegaly. CHEST: Clear to auscultation. HEART: S1 and S2 regular. ABDOMEN: Soft. EXTREMITIES: Clubbing and cyanosis negative. LABORATORY DATA: Blood workup as follows: WBC 7.2, hemoglobin 12.1, hematocrit 35.5, and platelet count 125. Chemistry shows sodium 130, potassium 3.3, chloride 104, carbon dioxide 24, anion gap of 11, BUN 26 and creatinine 0.8. TSH 0.02. Total protein 5.8, albumin 2.9, albumin-globulin ratio 1. Triglyceride 123, cholesterol 119, LDL 66, HDL 29. Telemetry shows normal sinus, left bundle branch block. The patient has massive GI bleed; admitting hemoglobin 5.4, repeat 4.5. The patient got 3 units of blood and increased to 12.1, persistently 12.1. IMPRESSION: Massive gastrointestinal bleed, bleeding per rectum also noted and upper gastrointestinal fresh blood from oral cavity and nasal cavity; history of coronary artery disease; history of percutaneous transluminal coronary angioplasty ; history of dementia; history of paroxysmal atrial fibrillation and chronic obstructive pulmonary disease. Last echo showed preserved left ventricular function, ejection fraction 55% to 60%, moderate tricuspid regurgitation, mild mitral regurgitation, right ventricular systolic pressure of 49, dated 07/07/2014. RECOMMENDATIONS: Keep n.p.o., off aspirin and Plavix. The patient is cleared from cardiology point of view to go for endoscopy with moderate risk to underlying comorbidity. Dr. Larios asked about the patient. Family mentioned the patient was on Eliquis, I do not require the patient to be on Eliquis, I will talk to Dr. Galaviz in reference to Eliquis, but every anticoagulation and aspirin and Plavix are off. History of DVT, status post IVC filter. We will get eco to assess LV function. Supplement potassium. The patient again is cleared to go for endoscopy, colonoscopy as mentioned yesterday in my physician and nurse communication. Thank you Dr. Viera for providing us the opportunity in taking care of the patient, Marge Still. Dayana Steward MD
--- NOTE | 2016-12-12 12:57 | CARD ---
APPROVED REPORT EXAM: Two-dimensional and M-mode echocardiogram with Doppler and color Doppler. INDICATION Cardiac Disease: CAD 2D DIMENSIONS Left Atrium (2D)3.8 (1.6-4.0cm)IVSd1.1 (0.7-1.1cm) LVDd3.8 (3.9-5.9cm)PWd1.2 (0.7-1.1cm) M-Mode DIMENSIONS Aortic Root2.20 (2.2-3.7cm) Aortic Valve AoV Peak Zinvtqzl523.0cm/Jareth Peak GR.9mmHg Mitral Valve MV E Chjhwmao18.4cm/sMV A Lmplbnsg456.0cm/sE/A ratio0.4 TDI E/Lateral E'0.0E/Medial E'0.0 Tricuspid Valve TR Peak Eyipwopg407kd/sRAP [id number] Peak Gr.39mmHg [id number] LEFT VENTRICLE The Left Ventricle is borderline dilated. There is mild concentric left ventricular hypertrophy. Proximal septal thickening is noted. The systolic function is moderately to severely impaired.EF-25% Significant regional wall motion abnormalities noted. There is severe hypokinesis in the apical anterior wall. Transmitral Doppler flow pattern is Grade III-reversible restrictive diastolic dysfunction. No left ventricle thrombus noted on this study. There is no ventricular septal defect visualized. There is no left ventricular aneurysm. There is no mass noted in the left ventricle. RIGHT VENTRICLE The right ventricle is normal size. There is normal right ventricular wall thickness. The right ventricular systolic function is normal. ATRIA The left atrium size is normal. The right atrium size is normal. The interatrial septum is intact with no evidence for an atrial septal defect. AORTIC VALVE The aortic valve is calcified and displays decreased opening. There is trace aortic regurgitation. There is mild valvular aortic stenosis. There is no aortic valvular vegetation. MITRAL VALVE The mitral valve is thickened but opens well. Mitral annular calcification is mild. Mitral regurgitation is trace. There is no mitral valve stenosis. There is no evidence of mitral valve prolapse. TRICUSPID VALVE The tricuspid valve leaflets are thickened , but open well. There is mild tricuspid regurgitation.[id number] mmof hg. There is no tricuspid valve stenosis. There is no tricuspid valve prolapse or vegetation. PULMONIC VALVE The pulmonic valve is not well visualized. GREAT VESSELS The aortic root is normal in size. The ascending aorta is normal in size. The pulmonary artery is normal. The IVC is normal in size and collapses >50% with inspiration. PERICARDIAL EFFUSION There is no pleural effusion. There is no pericardial effusion. <Conclusion> The Left Ventricle is borderline dilated. There is mild concentric left ventricular hypertrophy. Proximal septal thickening is noted. The systolic function is moderately to severely impaired.EF-25% There is trace aortic regurgitation. Mitral regurgitation is trace. There is mild tricuspid regurgitation.[id number] mmof hg. The IVC is normal in size and collapses >50% with inspiration. There is no pericardial effusion.
--- NOTE | 2016-12-12 13:12 | CP.CCUPN ---
<Atul Ray - Last Filed: 12/12/16 13:05> CCU Subjective - Physician Review Subjective (Free Text): 12/12/16 13:06 Atul Ray D.O. PGY-2, Critical Care Progress Note 81 year old female with a PMH of advanced Alzheimer's dementia and CAD who [place] [facility] [place] [facility] [place] for complaints of fresh bright red blood per mouth per family. Patient was seen and examined at bedside. Patient overnight had no acute events. Patient is nonverbal so unable to obtain information. CCU Objective - Vital Signs / Intake & Output Intake and Output (Last 8hrs): Intake & Output 12/11/16 12/12/16 12/12/16 22:59 06:59 14:59 Intake Total 1035 300 Balance 1035 300 Weight 52 kg Intake: IV 60 300 Left Wrist 300 Right Wrist 60 Blood Product 975 Red Blood Cells Cp2d As3 325 Lr Unit [id number] Red Blood Cells Cpd As1 325 Lr Unit [id number] Red Blood Cells Cpd As1 325 Lr Unit [id number] - Physical Exam Head: Positive for: Atraumatic, Normocephalic Pupils: Positive for: PERRL Extroacular Muscles: Positive for: EOMI Conjunctiva: Positive for: Normal Ears: Positive for: Normal Mouth: Positive for: Dry Nose (External): Positive for: Atraumatic Respiratory/Chest: Positive for: Clear to Auscultation. Negative for: Good Air Exchange, Respiratory Distress, Accessory Muscle Use Cardiovascular: Positive for: Regular Rate and Rhythm. Negative for: Murmurs, Normal S1, S2 Abdomen: Negative for: Tenderness, Distention, Normal Bowel Sounds, Peritoneal Signs, Rebound, Guarding Rectal: Negative for: Gross Blood, Melena Upper Extremity: Positive for: Other (contracted). Negative for: Edema Lower Extremity: Negative for: Edema Neurological: Positive for: Other (awake but not alert, nonverbal at baseline, contracted, does move all 4 extremities) Skin: Positive for: Warm, Dry - Medications Active Medications: Active Medications Generic Name Dose Route Start Last Admin Trade Name Freq PRN Reason Stop Dose Admin Cyanocobalamin 1,000 mcg 12/12/16 10:00 12/12/16 10:00 Vitamin B12 1000 Mcg/Ml Inj IM 1,000 mcg DAILY OLGA Administration Pantoprazole Sodium 40 mg in 100 mls @ 20 mls/hr 12/11/16 13:30 12/12/16 10: 05 Protonix 40mg Ivpb IVPB 20 mls/hr .Q5H OLGA Administration Iron Sucrose 100 mg/ Sodium 105 mls @ 210 mls/hr 12/12/16 10:00 12/12/16 10: 06 Chloride IVPB 210 mls/hr DAILY OLGA Administration Potassium Chloride 40 meq/ 1,020 mls @ 70 mls/hr 12/12/16 09:45 12/12/16 09: 59 Dextrose/Sodium Chloride IV 12/13/16 00:19 70 mls/hr .[id number] OLGA Administration Levothyroxine Sodium 100 mcg 12/12/16 07:30 12/12/16 09:50 Synthroid PO Not Given ACB OLGA - Patient Studies Lab Studies: Lab Studies 12/12/16 12/12/16 12/12/16 Range/Units 05:50 05:50 05:50 WBC (4.5-11.0) 10^3/ul RBC (3.5-6.1) 10^6/uL Hgb (12.0-16.0) g/dL Hct (36.0-48.0) % MCV (80.0-105.0) fl MCH (25.0-35.0) pg MCHC (31.0-37.0) g/dl RDW (11.5-14.5) % Plt Count (120.0-450.0) 10^3/uL MPV (7.0-11.0) fl Gran % (50.0-68.0) % Lymph % (Auto) (22.0-35.0) % [place] % (Auto) (1.0-6.0) % Eos % (Auto) (1.5-5.0) % Baso % (Auto) (0.0-3.0) % Gran # (1.4-6.5) Lymph # (1.2-3.4) [place] # (0.1-0.6) Eos # (0.0-0.7) Baso # (0.0-2.0) K/mm3 pO2 (30-55) mm/Hg VBG pH (7.32-7.43) VBG pCO2 (40-60) VBG HCO3 (21-28) mmol/l VBG Total CO2 (22-28) mmol.L VBG O2 Sat (Calc) (40-65) % VBG Base Excess (0.0-2.0) mmol/L VBG Potassium (3.6-5.2) mmol/L Sodium 146 (132-148) mmol/L Chloride 114 H (98-107) mmol/L Glucose (65-105) mg/dl Lactate (0.7-2.1) mmol/L FiO2 % Potassium 3.3 L (3.6-5.0) mmol/L Carbon Dioxide 24 (21-33) mmol/L Anion Gap 11 (10-20) BUN 26 H (7-21) mg/dL Creatinine 0.8 (0.7-1.2) mg/dL Est GFR ( Amer) > 60 Est GFR (Non-Af Amer) > 60 POC Glucose (mg/dL) (65-110) mg/dL Random Glucose 94 (70-110) mg/dL Hemoglobin A1c 5.9 (4.2-6.5) % Calcium 9.0 (8.4-10.5) mg/dL Phosphorus 2.8 (2.5-4.5) mg/dL Magnesium 1.7 (1.7-2.2) mg/dL Iron (45-180) ug/dL TIBC (265-497) ug/dL % Saturation (20-55) % Total Bilirubin 2.1 H (0.2-1.3) mg/dL AST 30 (14-36) U/L ALT 36 (7-56) U/L Alkaline Phosphatase 72 (38-126) U/L Total Protein 5.8 (5.8-8.3) g/dL Albumin 2.9 L (3.0-4.8) g/dL Globulin 2.9 gm/dL Albumin/Globulin Ratio 1.0 L (1.1-1.8) Triglycerides 123 (35-160) mg/dL Cholesterol 119 L (130-200) mg/dL LDL Cholesterol Direct 66 (0-129) mg/dL HDL Cholesterol 29 (29-60) mg/dL TSH 3rd Generation 0.02 L (0.46-4.68) mIU/mL Venous Blood Potassium (3.6-5.2) mmol/L 12/12/16 12/12/16 12/12/16 Range/Units 05:50 05:50 01:35 WBC 7.2 8.8 (4.5-11.0) 10^3/ul RBC 4.62 4.71 (3.5-6.1) 10^6/uL Hgb 12.1 12.5 (12.0-16.0) g/dL Hct 35.5 L 35.7 L (36.0-48.0) % MCV 76.8 L 75.8 L (80.0-105.0) fl MCH 26.2 26.5 (25.0-35.0) pg MCHC 34.1 35.0 (31.0-37.0) g/dl RDW 17.3 H 16.8 H (11.5-14.5) % Plt Count 125 114 L (120.0-450.0) 10^3/uL MPV 9.3 9.4 (7.0-11.0) fl Gran % 64.5 (50.0-68.0) % Lymph % (Auto) 25.4 (22.0-35.0) % [place] % (Auto) 9.1 H (1.0-6.0) % Eos % (Auto) 0.7 L (1.5-5.0) % Baso % (Auto) 0.3 (0.0-3.0) % Gran # 4.62 (1.4-6.5) Lymph # 1.8 (1.2-3.4) [place] # 0.7 H (0.1-0.6) Eos # 0.1 (0.0-0.7) Baso # 0.02 (0.0-2.0) K/mm3 pO2 (30-55) mm/Hg VBG pH (7.32-7.43) VBG pCO2 (40-60) VBG HCO3 (21-28) mmol/l VBG Total CO2 (22-28) mmol.L VBG O2 Sat (Calc) (40-65) % VBG Base Excess (0.0-2.0) mmol/L VBG Potassium (3.6-5.2) mmol/L Sodium (132-148) mmol/L Chloride (98-107) mmol/L Glucose (65-105) mg/dl Lactate (0.7-2.1) mmol/L FiO2 % Potassium (3.6-5.0) mmol/L Carbon Dioxide (21-33) mmol/L Anion Gap (10-20) BUN (7-21) mg/dL Creatinine (0.7-1.2) mg/dL Est GFR ( Amer) Est GFR (Non-Af Amer) POC Glucose (mg/dL) (65-110) mg/dL Random Glucose (70-110) mg/dL Hemoglobin A1c (4.2-6.5) % Calcium (8.4-10.5) mg/dL Phosphorus (2.5-4.5) mg/dL Magnesium (1.7-2.2) mg/dL Iron 276 H (45-180) ug/dL TIBC 355 (265-497) ug/dL % Saturation 78 H (20-55) % Total Bilirubin (0.2-1.3) mg/dL AST (14-36) U/L ALT (7-56) U/L Alkaline Phosphatase (38-126) U/L Total Protein (5.8-8.3) g/dL Albumin (3.0-4.8) g/dL Globulin gm/dL Albumin/Globulin Ratio (1.1-1.8) Triglycerides (35-160) mg/dL Cholesterol (130-200) mg/dL LDL Cholesterol Direct (0-129) mg/dL HDL Cholesterol (29-60) mg/dL TSH 3rd Generation (0.46-4.68) mIU/mL Venous Blood Potassium (3.6-5.2) mmol/L 12/12/16 12/11/16 12/11/16 Range/Units 01:24 22:09 21:00 WBC 8.3 (4.5-11.0) 10^3/ul RBC 4.86 (3.5-6.1) 10^6/uL Hgb 12.7 (12.0-16.0) g/dL Hct 37.3 (36.0-48.0) % MCV 76.7 L (80.0-105.0) fl MCH 26.1 (25.0-35.0) pg MCHC 34.0 (31.0-37.0) g/dl RDW 17.2 H (11.5-14.5) % Plt Count 117 L (120.0-450.0) 10^3/uL MPV 9.6 (7.0-11.0) fl Gran % (50.0-68.0) % Lymph % (Auto) (22.0-35.0) % [place] % (Auto) (1.0-6.0) % Eos % (Auto) (1.5-5.0) % Baso % (Auto) (0.0-3.0) % Gran # (1.4-6.5) Lymph # (1.2-3.4) [place] # (0.1-0.6) Eos # (0.0-0.7) Baso # (0.0-2.0) K/mm3 pO2 50 (30-55) mm/Hg VBG pH 7.45 H (7.32-7.43) VBG pCO2 38.0 L (40-60) VBG HCO3 26.4 (21-28) mmol/l VBG Total CO2 27.6 (22-28) mmol.L VBG O2 Sat (Calc) 92.7 H (40-65) % VBG Base Excess 2.4 H (0.0-2.0) mmol/L VBG Potassium 3.4 L (3.6-5.2) mmol/L Sodium 145.0 (132-148) mmol/L Chloride 114.0 H (98-107) mmol/L Glucose 108 H (65-105) mg/dl Lactate 1.0 (0.7-2.1) mmol/L FiO2 21.0 % Potassium (3.6-5.0) mmol/L Carbon Dioxide (21-33) mmol/L Anion Gap (10-20) BUN (7-21) mg/dL Creatinine (0.7-1.2) mg/dL Est GFR ( Amer) Est GFR (Non-Af Amer) POC Glucose (mg/dL) 95 (65-110) mg/dL Random Glucose (70-110) mg/dL Hemoglobin A1c (4.2-6.5) % Calcium (8.4-10.5) mg/dL Phosphorus (2.5-4.5) mg/dL Magnesium (1.7-2.2) mg/dL Iron (45-180) ug/dL TIBC (265-497) ug/dL % Saturation (20-55) % Total Bilirubin (0.2-1.3) mg/dL AST (14-36) U/L ALT (7-56) U/L Alkaline Phosphatase (38-126) U/L Total Protein (5.8-8.3) g/dL Albumin (3.0-4.8) g/dL Globulin gm/dL Albumin/Globulin Ratio (1.1-1.8) Triglycerides (35-160) mg/dL Cholesterol (130-200) mg/dL LDL Cholesterol Direct (0-129) mg/dL HDL Cholesterol (29-60) mg/dL TSH 3rd Generation (0.46-4.68) mIU/mL Venous Blood Potassium 3.4 L (3.6-5.2) mmol/L 12/11/16 12/11/16 12/11/16 Range/Units 21:00 18:40 18:40 WBC 8.7 D (4.5-11.0) 10^3/ul RBC 4.77 (3.5-6.1) 10^6/uL Hgb 12.7 D (12.0-16.0) g/dL Hct 37.0 (36.0-48.0) % MCV 77.6 L D (80.0-105.0) fl MCH 26.6 (25.0-35.0) pg MCHC 34.3 (31.0-37.0) g/dl RDW 17.7 H (11.5-14.5) % Plt Count 116 L (120.0-450.0) 10^3/uL MPV 9.3 (7.0-11.0) fl Gran % 73.1 H (50.0-68.0) % Lymph % (Auto) 17.5 L (22.0-35.0) % [place] % (Auto) 9.1 H (1.0-6.0) % Eos % (Auto) 0.2 L (1.5-5.0) % Baso % (Auto) 0.1 (0.0-3.0) % Gran # 6.34 (1.4-6.5) Lymph # 1.5 (1.2-3.4) [place] # 0.8 H (0.1-0.6) Eos # 0.0 (0.0-0.7) Baso # 0.01 (0.0-2.0) K/mm3 pO2 58 H (30-55) mm/Hg VBG pH 7.22 L (7.32-7.43) VBG pCO2 51.0 (40-60) VBG HCO3 20.9 L (21-28) mmol/l VBG Total CO2 22.5 (22-28) mmol.L VBG O2 Sat (Calc) 92.8 H (40-65) % VBG Base Excess -7.1 L (0.0-2.0) mmol/L VBG Potassium > 20.0 H* (3.6-5.2) mmol/L Sodium 131.0 L (132-148) mmol/L Chloride 112.0 H (98-107) mmol/L Glucose 106 H (65-105) mg/dl Lactate 1.1 (0.7-2.1) mmol/L FiO2 21.0 % Potassium 3.8 (3.6-5.0) mmol/L Carbon Dioxide (21-33) mmol/L Anion Gap (10-20) BUN (7-21) mg/dL Creatinine (0.7-1.2) mg/dL Est GFR ( Amer) Est GFR (Non-Af Amer) POC Glucose (mg/dL) (65-110) mg/dL Random Glucose (70-110) mg/dL Hemoglobin A1c (4.2-6.5) % Calcium (8.4-10.5) mg/dL Phosphorus (2.5-4.5) mg/dL Magnesium (1.7-2.2) mg/dL Iron (45-180) ug/dL TIBC (265-497) ug/dL % Saturation (20-55) % Total Bilirubin (0.2-1.3) mg/dL AST (14-36) U/L ALT (7-56) U/L Alkaline Phosphatase (38-126) U/L Total Protein (5.8-8.3) g/dL Albumin (3.0-4.8) g/dL Globulin gm/dL Albumin/Globulin Ratio (1.1-1.8) Triglycerides (35-160) mg/dL Cholesterol (130-200) mg/dL LDL Cholesterol Direct (0-129) mg/dL HDL Cholesterol (29-60) mg/dL TSH 3rd Generation (0.46-4.68) mIU/mL Venous Blood Potassium > 20.0 H* (3.6-5.2) mmol/L 12/11/ Range/Units 13:45 WBC 5.7 (4.5-11.0) 10^3/ul RBC 2.24 L (3.5-6.1) 10^6/uL Hgb 4.5 L* (12.0-16.0) g/dL Hct 15.8 L* (36.0-48.0) % MCV 70.5 L (80.0-105.0) fl MCH 20.1 L (25.0-35.0) pg MCHC 28.5 L (31.0-37.0) g/dl RDW 17.7 H (11.5-14.5) % Plt Count 146 (120.0-450.0) 10^3/uL MPV 8.7 (7.0-11.0) fl Gran % 75.0 H (50.0-68.0) % Lymph % (Auto) 17.6 L (22.0-35.0) % [place] % (Auto) 7.0 H (1.0-6.0) % Eos % (Auto) 0.2 L (1.5-5.0) % Baso % (Auto) 0.2 (0.0-3.0) % Gran # 4.26 (1.4-6.5) Lymph # 1.0 L (1.2-3.4) [place] # 0.4 (0.1-0.6) Eos # 0.0 (0.0-0.7) Baso # 0.01 (0.0-2.0) K/mm3 pO2 (30-55) mm/Hg VBG pH (7.32-7.43) VBG pCO2 (40-60) VBG HCO3 (21-28) mmol/l VBG Total CO2 (22-28) mmol.L VBG O2 Sat (Calc) (40-65) % VBG Base Excess (0.0-2.0) mmol/L VBG Potassium (3.6-5.2) mmol/L Sodium (132-148) mmol/L Chloride (98-107) mmol/L Glucose (65-105) mg/dl Lactate (0.7-2.1) mmol/L FiO2 % Potassium (3.6-5.0) mmol/L Carbon Dioxide (21-33) mmol/L Anion Gap (10-20) BUN (7-21) mg/dL Creatinine (0.7-1.2) mg/dL Est GFR ( Amer) Est GFR (Non-Af Amer) POC Glucose (mg/dL) (65-110) mg/dL Random Glucose (70-110) mg/dL Hemoglobin A1c (4.2-6.5) % Calcium (8.4-10.5) mg/dL Phosphorus (2.5-4.5) mg/dL Magnesium (1.7-2.2) mg/dL Iron (45-180) ug/dL TIBC (265-497) ug/dL % Saturation (20-55) % Total Bilirubin (0.2-1.3) mg/dL AST (14-36) U/L ALT (7-56) U/L Alkaline Phosphatase (38-126) U/L Total Protein (5.8-8.3) g/dL Albumin (3.0-4.8) g/dL Globulin gm/dL Albumin/Globulin Ratio (1.1-1.8) Triglycerides (35-160) mg/dL Cholesterol (130-200) mg/dL LDL Cholesterol Direct (0-129) mg/dL HDL Cholesterol (29-60) mg/dL TSH 3rd Generation (0.46-4.68) mIU/mL Venous Blood Potassium (3.6-5.2) mmol/L Laboratory Results - last 24 hr 12/11/16 12/11/16 12/11/16 13:45 18:40 18:40 WBC 5.7 8.7 D RBC 2.24 L 4.77 Hgb 4.5 L* 12.7 D Hct 15.8 L* 37.0 MCV 70.5 L 77.6 L D MCH 20.1 L 26.6 MCHC 28.5 L 34.3 RDW 17.7 H 17.7 H Plt Count 146 116 L MPV 8.7 9.3 Gran % 75.0 H 73.1 H Lymph % (Auto) 17.6 L 17.5 L [place] % (Auto) 7.0 H 9.1 H Eos % (Auto) 0.2 L 0.2 L Baso % (Auto) 0.2 0.1 Gran # 4.26 6.34 Lymph # 1.0 L 1.5 [place] # 0.4 0.8 H Eos # 0.0 0.0 Baso # 0.01 0.01 pO2 58 H VBG pH 7.22 L VBG pCO2 51.0 VBG HCO3 20.9 L VBG Total CO2 22.5 VBG O2 Sat (Calc) 92.8 H VBG Base Excess -7.1 L VBG Potassium > 20.0 H* Sodium 131.0 L Chloride 112.0 H Glucose 106 H Lactate 1.1 FiO2 21.0 Potassium Carbon Dioxide Anion Gap BUN Creatinine Est GFR ( Amer) Est GFR (Non-Af Amer) POC Glucose (mg/dL) Random Glucose Hemoglobin A1c Calcium Phosphorus Magnesium Iron TIBC % Saturation Total Bilirubin AST ALT Alkaline Phosphatase Total Protein Albumin Globulin Albumin/Globulin Ratio Triglycerides Cholesterol LDL Cholesterol Direct HDL Cholesterol TSH 3rd Generation Venous Blood Potassium > 20.0 H* 12/11/16 12/11/16 12/11/16 21:00 21:00 22:09 WBC 8.3 RBC 4.86 Hgb 12.7 Hct 37.3 MCV 76.7 L MCH 26.1 MCHC 34.0 RDW 17.2 H Plt Count 117 L MPV 9.6 Gran % Lymph % (Auto) [place] % (Auto) Eos % (Auto) Baso % (Auto) Gran # Lymph # [place] # Eos # Baso # pO2 VBG pH VBG pCO2 VBG HCO3 VBG Total CO2 VBG O2 Sat (Calc) VBG Base Excess VBG Potassium Sodium Chloride Glucose Lactate FiO2 Potassium 3.8 Carbon Dioxide Anion Gap BUN Creatinine Est GFR ( Amer) Est GFR (Non-Af Amer) POC Glucose (mg/dL) 95 Random Glucose Hemoglobin A1c Calcium Phosphorus Magnesium Iron TIBC % Saturation Total Bilirubin AST ALT Alkaline Phosphatase Total Protein Albumin Globulin Albumin/Globulin Ratio Triglycerides Cholesterol LDL Cholesterol Direct HDL Cholesterol TSH 3rd Generation Venous Blood Potassium 12/12/16 12/12/16 12/12/16 01:24 01:35 05:50 WBC 8.8 RBC 4.71 Hgb 12.5 Hct 35.7 L MCV 75.8 L MCH 26.5 MCHC 35.0 RDW 16.8 H Plt Count 114 L MPV 9.4 Gran % Lymph % (Auto) [place] % (Auto) Eos % (Auto) Baso % (Auto) Gran # Lymph # [place] # Eos # Baso # pO2 50 VBG pH 7.45 H VBG pCO2 38.0 L VBG HCO3 26.4 VBG Total CO2 27.6 VBG O2 Sat (Calc) 92.7 H VBG Base Excess 2.4 H VBG Potassium 3.4 L Sodium 145.0 Chloride 114.0 H Glucose 108 H Lactate 1.0 FiO2 21.0 Potassium Carbon Dioxide Anion Gap BUN Creatinine Est GFR ( Amer) Est GFR (Non-Af Amer) POC Glucose (mg/dL) Random Glucose Hemoglobin A1c Calcium Phosphorus Magnesium Iron 276 H TIBC 355 % Saturation 78 H Total Bilirubin AST ALT Alkaline Phosphatase Total Protein Albumin Globulin Albumin/Globulin Ratio Triglycerides Cholesterol LDL Cholesterol Direct HDL Cholesterol TSH 3rd Generation Venous Blood Potassium 3.4 L 12/12/16 12/12/16 12/12/16 05:50 05:50 05:50 WBC 7.2 RBC 4.62 Hgb 12.1 Hct 35.5 L MCV 76.8 L MCH 26.2 MCHC 34.1 RDW 17.3 H Plt Count 125 MPV 9.3 Gran % 64.5 Lymph % (Auto) 25.4 [place] % (Auto) 9.1 H Eos % (Auto) 0.7 L Baso % (Auto) 0.3 Gran # 4.62 Lymph # 1.8 [place] # 0.7 H Eos # 0.1 Baso # 0.02 pO2 VBG pH VBG pCO2 VBG HCO3 VBG Total CO2 VBG O2 Sat (Calc) VBG Base Excess VBG Potassium Sodium 146 Chloride 114 H Glucose Lactate FiO2 Potassium 3.3 L Carbon Dioxide 24 Anion Gap 11 BUN 26 H Creatinine 0.8 Est GFR ( Amer) > 60 Est GFR (Non-Af Amer) > 60 POC Glucose (mg/dL) Random Glucose 94 Hemoglobin A1c 5.9 Calcium 9.0 Phosphorus 2.8 Magnesium 1.7 Iron TIBC % Saturation Total Bilirubin 2.1 H AST 30 ALT 36 Alkaline Phosphatase 72 Total Protein 5.8 Albumin 2.9 L Globulin 2.9 Albumin/Globulin Ratio 1.0 L Triglycerides 123 Cholesterol 119 L LDL Cholesterol Direct 66 HDL Cholesterol 29 TSH 3rd Generation Venous Blood Potassium 12/12/16 05:50 WBC RBC Hgb Hct MCV MCH MCHC RDW Plt Count MPV Gran % Lymph % (Auto) [place] % (Auto) Eos % (Auto) Baso % (Auto) Gran # Lymph # [place] # Eos # Baso # pO2 VBG pH VBG pCO2 VBG HCO3 VBG Total CO2 VBG O2 Sat (Calc) VBG Base Excess VBG Potassium Sodium Chloride Glucose Lactate FiO2 Potassium Carbon Dioxide Anion Gap BUN Creatinine Est GFR ( Amer) Est GFR (Non-Af Amer) POC Glucose (mg/dL) Random Glucose Hemoglobin A1c Calcium Phosphorus Magnesium Iron TIBC % Saturation Total Bilirubin AST ALT Alkaline Phosphatase Total Protein Albumin Globulin Albumin/Globulin Ratio Triglycerides Cholesterol LDL Cholesterol Direct HDL Cholesterol TSH 3rd Generation 0.02 L Venous Blood Potassium Fingerstick Blood Sugar Results: 203 Assessment/Plan - Assessment and Plan (Free Text) Assessment: 81 year old female with a PMH of advanced Alzheimer's dementia and CAD who presented for complaints of fresh bright red blood per mouth per family, found to have anemia with Hgb of 5.4 and repeat of 4.5. Plan: Neurological At baseline mentation per family, known advanced Alzheimer's disease and nonverbal No acute changes Continue to monitor Cardiovascular Hemodynamically stable On monitor Pulmnologic Protecting airway, satting well on 2L NC Continue to maintain O2 sat >92% GI Blood likely from GIB, GI consulted and following Minimal intake per PO at home, still NPO Nephro/Electrolytes Mild increase in BUN, started on D5 1/2 NS +40mEq KCl for hypokalemia Follow BMP kelly AM ID Afebrile with no leukocytosis No signs of infection Heme Blood also possibly GIB or upper airway, seen by ENT and had endoscopy without any signs of bleeding S/p 3U PRBCs, Hgb stable in the 12s Following with CBC GI/DVT ppx: protonix/SCDs Dispo: now that her condition has improved we will transfer to med/surg for continued workup Patient was seen and examined and case was discussed at length with attending physician. - Date & Time Date: 12/12/16 Time: 07:50 <Kb Rausch - Last Filed: 12/12/16 13:35> CCU Objective - Vital Signs / Intake & Output Intake and Output (Last 8hrs): Intake & Output 12/11/16 12/12/16 12/12/16 22:59 06:59 14:59 Intake Total 1035 300 Balance 1035 300 Weight 114 lb 10.246 oz Intake: IV 60 300 Left Wrist 300 Right Wrist 60 Blood Product 975 Red Blood Cells Cp2d As3 325 Lr Unit [id number] Red Blood Cells Cpd As1 325 Lr Unit [id number] Red Blood Cells Cpd As1 325 Lr Unit [id number] - Medications Active Medications: Active Medications Generic Name Dose Route Start Last Admin Trade Name Freq PRN Reason Stop Dose Admin Cyanocobalamin 1,000 mcg 12/12/16 10:00 12/12/16 10:00 Vitamin B12 1000 Mcg/Ml Inj IM 1,000 mcg DAILY OLGA Administration Pantoprazole Sodium 40 mg in 100 mls @ 20 mls/hr 12/11/16 13:30 12/12/16 10: 05 Protonix 40mg Ivpb IVPB 20 mls/hr .Q5H OLGA Administration Iron Sucrose 100 mg/ Sodium 105 mls @ 210 mls/hr 12/12/16 10:00 12/12/16 10: 06 Chloride IVPB 210 mls/hr DAILY OLGA Administration Potassium Chloride 40 meq/ 1,020 mls @ 70 mls/hr 12/12/16 09:45 12/12/16 09: 59 Dextrose/Sodium Chloride IV 12/13/16 00:19 70 mls/hr .[id number] OLGA Administration Levothyroxine Sodium 100 mcg 12/12/16 07:30 12/12/16 09:50 Synthroid PO Not Given ACB OLGA - Patient Studies Lab Studies: Lab Studies 12/12/16 12/12/16 12/12/16 Range/Units 05:50 05:50 05:50 WBC (4.5-11.0) 10^3/ul RBC (3.5-6.1) 10^6/uL Hgb (12.0-16.0) g/dL Hct (36.0-48.0) % MCV (80.0-105.0) fl MCH (25.0-35.0) pg MCHC (31.0-37.0) g/dl RDW (11.5-14.5) % Plt Count (120.0-450.0) 10^3/uL MPV (7.0-11.0) fl Gran % (50.0-68.0) % Lymph % (Auto) (22.0-35.0) % [place] % (Auto) (1.0-6.0) % Eos % (Auto) (1.5-5.0) % Baso % (Auto) (0.0-3.0) % Gran # (1.4-6.5) Lymph # (1.2-3.4) [place] # (0.1-0.6) Eos # (0.0-0.7) Baso # (0.0-2.0) K/mm3 pO2 (30-55) mm/Hg VBG pH (7.32-7.43) VBG pCO2 (40-60) VBG HCO3 (21-28) mmol/l VBG Total CO2 (22-28) mmol.L VBG O2 Sat (Calc) (40-65) % VBG Base Excess (0.0-2.0) mmol/L VBG Potassium (3.6-5.2) mmol/L Sodium 146 (132-148) mmol/L Chloride 114 H (98-107) mmol/L Glucose (65-105) mg/dl Lactate (0.7-2.1) mmol/L FiO2 % Potassium 3.3 L (3.6-5.0) mmol/L Carbon Dioxide 24 (21-33) mmol/L Anion Gap 11 (10-20) BUN 26 H (7-21) mg/dL Creatinine 0.8 (0.7-1.2) mg/dL Est GFR ( Amer) > 60 Est GFR (Non-Af Amer) > 60 POC Glucose (mg/dL) (65-110) mg/dL Random Glucose 94 (70-110) mg/dL Hemoglobin A1c 5.9 (4.2-6.5) % Calcium 9.0 (8.4-10.5) mg/dL Phosphorus 2.8 (2.5-4.5) mg/dL Magnesium 1.7 (1.7-2.2) mg/dL Iron (45-180) ug/dL TIBC (265-497) ug/dL % Saturation (20-55) % Total Bilirubin 2.1 H (0.2-1.3) mg/dL AST 30 (14-36) U/L ALT 36 (7-56) U/L Alkaline Phosphatase 72 (38-126) U/L Total Protein 5.8 (5.8-8.3) g/dL Albumin 2.9 L (3.0-4.8) g/dL Globulin 2.9 gm/dL Albumin/Globulin Ratio 1.0 L (1.1-1.8) Triglycerides 123 (35-160) mg/dL Cholesterol 119 L (130-200) mg/dL LDL Cholesterol Direct 66 (0-129) mg/dL HDL Cholesterol 29 (29-60) mg/dL Vitamin B12 (239-931) pg/mL Folate ng/mL TSH 3rd Generation 0.02 L (0.46-4.68) mIU/mL Venous Blood Potassium (3.6-5.2) mmol/L 12/12/16 12/12/16 12/12/16 Range/Units 05:50 05:50 05:50 WBC 7.2 (4.5-11.0) 10^3/ul RBC 4.62 (3.5-6.1) 10^6/uL Hgb 12.1 (12.0-16.0) g/dL Hct 35.5 L (36.0-48.0) % MCV 76.8 L (80.0-105.0) fl MCH 26.2 (25.0-35.0) pg MCHC 34.1 (31.0-37.0) g/dl RDW 17.3 H (11.5-14.5) % Plt Count 125 (120.0-450.0) 10^3/uL MPV 9.3 (7.0-11.0) fl Gran % 64.5 (50.0-68.0) % Lymph % (Auto) 25.4 (22.0-35.0) % [place] % (Auto) 9.1 H (1.0-6.0) % Eos % (Auto) 0.7 L (1.5-5.0) % Baso % (Auto) 0.3 (0.0-3.0) % Gran # 4.62 (1.4-6.5) Lymph # 1.8 (1.2-3.4) [place] # 0.7 H (0.1-0.6) Eos # 0.1 (0.0-0.7) Baso # 0.02 (0.0-2.0) K/mm3 pO2 (30-55) mm/Hg VBG pH (7.32-7.43) VBG pCO2 (40-60) VBG HCO3 (21-28) mmol/l VBG Total CO2 (22-28) mmol.L VBG O2 Sat (Calc) (40-65) % VBG Base Excess (0.0-2.0) mmol/L VBG Potassium (3.6-5.2) mmol/L Sodium (132-148) mmol/L Chloride (98-107) mmol/L Glucose (65-105) mg/dl Lactate (0.7-2.1) mmol/L FiO2 % Potassium (3.6-5.0) mmol/L Carbon Dioxide (21-33) mmol/L Anion Gap (10-20) BUN (7-21) mg/dL Creatinine (0.7-1.2) mg/dL Est GFR ( Amer) Est GFR (Non-Af Amer) POC Glucose (mg/dL) (65-110) mg/dL Random Glucose (70-110) mg/dL Hemoglobin A1c (4.2-6.5) % Calcium (8.4-10.5) mg/dL Phosphorus (2.5-4.5) mg/dL Magnesium (1.7-2.2) mg/dL Iron 276 H (45-180) ug/dL TIBC 355 (265-497) ug/dL % Saturation 78 H (20-55) % Total Bilirubin (0.2-1.3) mg/dL AST (14-36) U/L ALT (7-56) U/L Alkaline Phosphatase (38-126) U/L Total Protein (5.8-8.3) g/dL Albumin (3.0-4.8) g/dL Globulin gm/dL Albumin/Globulin Ratio (1.1-1.8) Triglycerides (35-160) mg/dL Cholesterol (130-200) mg/dL LDL Cholesterol Direct (0-129) mg/dL HDL Cholesterol (29-60) mg/dL Vitamin B12 759 (239-931) pg/mL Folate > 20.0 ng/mL TSH 3rd Generation (0.46-4.68) mIU/mL Venous Blood Potassium (3.6-5.2) mmol/L 12/12/16 12/12/16 12/11/16 Range/Units 01:35 01:24 22:09 WBC 8.8 (4.5-11.0) 10^3/ul RBC 4.71 (3.5-6.1) 10^6/uL Hgb 12.5 (12.0-16.0) g/dL Hct 35.7 L (36.0-48.0) % MCV 75.8 L (80.0-105.0) fl MCH 26.5 (25.0-35.0) pg MCHC 35.0 (31.0-37.0) g/dl RDW 16.8 H (11.5-14.5) % Plt Count 114 L (120.0-450.0) 10^3/uL MPV 9.4 (7.0-11.0) fl Gran % (50.0-68.0) % Lymph % (Auto) (22.0-35.0) % [place] % (Auto) (1.0-6.0) % Eos % (Auto) (1.5-5.0) % Baso % (Auto) (0.0-3.0) % Gran # (1.4-6.5) Lymph # (1.2-3.4) [place] # (0.1-0.6) Eos # (0.0-0.7) Baso # (0.0-2.0) K/mm3 pO2 50 (30-55) mm/Hg VBG pH 7.45 H (7.32-7.43) VBG pCO2 38.0 L (40-60) VBG HCO3 26.4 (21-28) mmol/l VBG Total CO2 27.6 (22-28) mmol.L VBG O2 Sat (Calc) 92.7 H (40-65) % VBG Base Excess 2.4 H (0.0-2.0) mmol/L VBG Potassium 3.4 L (3.6-5.2) mmol/L Sodium 145.0 (132-148) mmol/L Chloride 114.0 H (98-107) mmol/L Glucose 108 H (65-105) mg/dl Lactate 1.0 (0.7-2.1) mmol/L FiO2 21.0 % Potassium (3.6-5.0) mmol/L Carbon Dioxide (21-33) mmol/L Anion Gap (10-20) BUN (7-21) mg/dL Creatinine (0.7-1.2) mg/dL Est GFR ( Amer) Est GFR (Non-Af Amer) POC Glucose (mg/dL) 95 (65-110) mg/dL Random Glucose (70-110) mg/dL Hemoglobin A1c (4.2-6.5) % Calcium (8.4-10.5) mg/dL Phosphorus (2.5-4.5) mg/dL Magnesium (1.7-2.2) mg/dL Iron (45-180) ug/dL TIBC (265-497) ug/dL % Saturation (20-55) % Total Bilirubin (0.2-1.3) mg/dL AST (14-36) U/L ALT (7-56) U/L Alkaline Phosphatase (38-126) U/L Total Protein (5.8-8.3) g/dL Albumin (3.0-4.8) g/dL Globulin gm/dL Albumin/Globulin Ratio (1.1-1.8) Triglycerides (35-160) mg/dL Cholesterol (130-200) mg/dL LDL Cholesterol Direct (0-129) mg/dL HDL Cholesterol (29-60) mg/dL Vitamin B12 (239-931) pg/mL Folate ng/mL TSH 3rd Generation (0.46-4.68) mIU/mL Venous Blood Potassium 3.4 L (3.6-5.2) mmol/L 12/11/16 12/11/16 12/11/16 Range/Units 21:00 21:00 18:40 WBC 8.3 (4.5-11.0) 10^3/ul RBC 4.86 (3.5-6.1) 10^6/uL Hgb 12.7 (12.0-16.0) g/dL Hct 37.3 (36.0-48.0) % MCV 76.7 L (80.0-105.0) fl MCH 26.1 (25.0-35.0) pg MCHC 34.0 (31.0-37.0) g/dl RDW 17.2 H (11.5-14.5) % Plt Count 117 L (120.0-450.0) 10^3/uL MPV 9.6 (7.0-11.0) fl Gran % (50.0-68.0) % Lymph % (Auto) (22.0-35.0) % [place] % (Auto) (1.0-6.0) % Eos % (Auto) (1.5-5.0) % Baso % (Auto) (0.0-3.0) % Gran # (1.4-6.5) Lymph # (1.2-3.4) [place] # (0.1-0.6) Eos # (0.0-0.7) Baso # (0.0-2.0) K/mm3 pO2 58 H (30-55) mm/Hg VBG pH 7.22 L (7.32-7.43) VBG pCO2 51.0 (40-60) VBG HCO3 20.9 L (21-28) mmol/l VBG Total CO2 22.5 (22-28) mmol.L VBG O2 Sat (Calc) 92.8 H (40-65) % VBG Base Excess -7.1 L (0.0-2.0) mmol/L VBG Potassium > 20.0 H* (3.6-5.2) mmol/L Sodium 131.0 L (132-148) mmol/L Chloride 112.0 H (98-107) mmol/L Glucose 106 H (65-105) mg/dl Lactate 1.1 (0.7-2.1) mmol/L FiO2 21.0 % Potassium 3.8 (3.6-5.0) mmol/L Carbon Dioxide (21-33) mmol/L Anion Gap (10-20) BUN (7-21) mg/dL Creatinine (0.7-1.2) mg/dL Est GFR ( Amer) Est GFR (Non-Af Amer) POC Glucose (mg/dL) (65-110) mg/dL Random Glucose (70-110) mg/dL Hemoglobin A1c (4.2-6.5) % Calcium (8.4-10.5) mg/dL Phosphorus (2.5-4.5) mg/dL Magnesium (1.7-2.2) mg/dL Iron (45-180) ug/dL TIBC (265-497) ug/dL % Saturation (20-55) % Total Bilirubin (0.2-1.3) mg/dL AST (14-36) U/L ALT (7-56) U/L Alkaline Phosphatase (38-126) U/L Total Protein (5.8-8.3) g/dL Albumin (3.0-4.8) g/dL Globulin gm/dL Albumin/Globulin Ratio (1.1-1.8) Triglycerides (35-160) mg/dL Cholesterol (130-200) mg/dL LDL Cholesterol Direct (0-129) mg/dL HDL Cholesterol (29-60) mg/dL Vitamin B12 (239-931) pg/mL Folate ng/mL TSH 3rd Generation (0.46-4.68) mIU/mL Venous Blood Potassium > 20.0 H* (3.6-5.2) mmol/L 12/11/16 12/11/16 Range/Units 18:40 13:45 WBC 8.7 D 5.7 (4.5-11.0) 10^3/ul RBC 4.77 2.24 L (3.5-6.1) 10^6/uL Hgb 12.7 D 4.5 L* (12.0-16.0) g/dL Hct 37.0 15.8 L* (36.0-48.0) % MCV 77.6 L D 70.5 L (80.0-105.0) fl MCH 26.6 20.1 L (25.0-35.0) pg MCHC 34.3 28.5 L (31.0-37.0) g/dl RDW 17.7 H 17.7 H (11.5-14.5) % Plt Count 116 L 146 (120.0-450.0) 10^3/uL MPV 9.3 8.7 (7.0-11.0) fl Gran % 73.1 H 75.0 H (50.0-68.0) % Lymph % (Auto) 17.5 L 17.6 L (22.0-35.0) % [place] % (Auto) 9.1 H 7.0 H (1.0-6.0) % Eos % (Auto) 0.2 L 0.2 L (1.5-5.0) % Baso % (Auto) 0.1 0.2 (0.0-3.0) % Gran # 6.34 4.26 (1.4-6.5) Lymph # 1.5 1.0 L (1.2-3.4) [place] # 0.8 H 0.4 (0.1-0.6) Eos # 0.0 0.0 (0.0-0.7) Baso # 0.01 0.01 (0.0-2.0) K/mm3 pO2 (30-55) mm/Hg VBG pH (7.32-7.43) VBG pCO2 (40-60) VBG HCO3 (21-28) mmol/l VBG Total CO2 (22-28) mmol.L VBG O2 Sat (Calc) (40-65) % VBG Base Excess (0.0-2.0) mmol/L VBG Potassium (3.6-5.2) mmol/L Sodium (132-148) mmol/L Chloride (98-107) mmol/L Glucose (65-105) mg/dl Lactate (0.7-2.1) mmol/L FiO2 % Potassium (3.6-5.0) mmol/L Carbon Dioxide (21-33) mmol/L Anion Gap (10-20) BUN (7-21) mg/dL Creatinine (0.7-1.2) mg/dL Est GFR ( Amer) Est GFR (Non-Af Amer) POC Glucose (mg/dL) (65-110) mg/dL Random Glucose (70-110) mg/dL Hemoglobin A1c (4.2-6.5) % Calcium (8.4-10.5) mg/dL Phosphorus (2.5-4.5) mg/dL Magnesium (1.7-2.2) mg/dL Iron (45-180) ug/dL TIBC (265-497) ug/dL % Saturation (20-55) % Total Bilirubin (0.2-1.3) mg/dL AST (14-36) U/L ALT (7-56) U/L Alkaline Phosphatase (38-126) U/L Total Protein (5.8-8.3) g/dL Albumin (3.0-4.8) g/dL Globulin gm/dL Albumin/Globulin Ratio (1.1-1.8) Triglycerides (35-160) mg/dL Cholesterol (130-200) mg/dL LDL Cholesterol Direct (0-129) mg/dL HDL Cholesterol (29-60) mg/dL Vitamin B12 (239-931) pg/mL Folate ng/mL TSH 3rd Generation (0.46-4.68) mIU/mL Venous Blood Potassium (3.6-5.2) mmol/L Laboratory Results - last 24 hr 12/11/16 12/11/16 12/11/16 13:45 18:40 18:40 WBC 5.7 8.7 D RBC 2.24 L 4.77 Hgb 4.5 L* 12.7 D Hct 15.8 L* 37.0 MCV 70.5 L 77.6 L D MCH 20.1 L 26.6 MCHC 28.5 L 34.3 RDW 17.7 H 17.7 H Plt Count 146 116 L MPV 8.7 9.3 Gran % 75.0 H 73.1 H Lymph % (Auto) 17.6 L 17.5 L [place] % (Auto) 7.0 H 9.1 H Eos % (Auto) 0.2 L 0.2 L Baso % (Auto) 0.2 0.1 Gran # 4.26 6.34 Lymph # 1.0 L 1.5 [place] # 0.4 0.8 H Eos # 0.0 0.0 Baso # 0.01 0.01 pO2 58 H VBG pH 7.22 L VBG pCO2 51.0 VBG HCO3 20.9 L VBG Total CO2 22.5 VBG O2 Sat (Calc) 92.8 H VBG Base Excess -7.1 L VBG Potassium > 20.0 H* Sodium 131.0 L Chloride 112.0 H Glucose 106 H Lactate 1.1 FiO2 21.0 Potassium Carbon Dioxide Anion Gap BUN Creatinine Est GFR ( Amer) Est GFR (Non-Af Amer) POC Glucose (mg/dL) Random Glucose Hemoglobin A1c Calcium Phosphorus Magnesium Iron TIBC % Saturation Total Bilirubin AST ALT Alkaline Phosphatase Total Protein Albumin Globulin Albumin/Globulin Ratio Triglycerides Cholesterol LDL Cholesterol Direct HDL Cholesterol Vitamin B12 Folate TSH 3rd Generation Venous Blood Potassium > 20.0 H* 12/11/16 12/11/16 12/11/16 21:00 21:00 22:09 WBC 8.3 RBC 4.86 Hgb 12.7 Hct 37.3 MCV 76.7 L MCH 26.1 MCHC 34.0 RDW 17.2 H Plt Count 117 L MPV 9.6 Gran % Lymph % (Auto) [place] % (Auto) Eos % (Auto) Baso % (Auto) Gran # Lymph # [place] # Eos # Baso # pO2 VBG pH VBG pCO2 VBG HCO3 VBG Total CO2 VBG O2 Sat (Calc) VBG Base Excess VBG Potassium Sodium Chloride Glucose Lactate FiO2 Potassium 3.8 Carbon Dioxide Anion Gap BUN Creatinine Est GFR ( Amer) Est GFR (Non-Af Amer) POC Glucose (mg/dL) 95 Random Glucose Hemoglobin A1c Calcium Phosphorus Magnesium Iron TIBC % Saturation Total Bilirubin AST ALT Alkaline Phosphatase Total Protein Albumin Globulin Albumin/Globulin Ratio Triglycerides Cholesterol LDL Cholesterol Direct HDL Cholesterol Vitamin B12 Folate TSH 3rd Generation Venous Blood Potassium 12/12/16 12/12/16 12/12/16 01:24 01:35 05:50 WBC 8.8 RBC 4.71 Hgb 12.5 Hct 35.7 L MCV 75.8 L MCH 26.5 MCHC 35.0 RDW 16.8 H Plt Count 114 L MPV 9.4 Gran % Lymph % (Auto) [place] % (Auto) Eos % (Auto) Baso % (Auto) Gran # Lymph # [place] # Eos # Baso # pO2 50 VBG pH 7.45 H VBG pCO2 38.0 L VBG HCO3 26.4 VBG Total CO2 27.6 VBG O2 Sat (Calc) 92.7 H VBG Base Excess 2.4 H VBG Potassium 3.4 L Sodium 145.0 Chloride 114.0 H Glucose 108 H Lactate 1.0 FiO2 21.0 Potassium Carbon Dioxide Anion Gap BUN Creatinine Est GFR ( Amer) Est GFR (Non-Af Amer) POC Glucose (mg/dL) Random Glucose Hemoglobin A1c Calcium Phosphorus Magnesium Iron 276 H TIBC 355 % Saturation 78 H Total Bilirubin AST ALT Alkaline Phosphatase Total Protein Albumin Globulin Albumin/Globulin Ratio Triglycerides Cholesterol LDL Cholesterol Direct HDL Cholesterol Vitamin B12 Folate TSH 3rd Generation Venous Blood Potassium 3.4 L 12/12/16 12/12/16 12/12/16 05:50 05:50 05:50 WBC 7.2 RBC 4.62 Hgb 12.1 Hct 35.5 L MCV 76.8 L MCH 26.2 MCHC 34.1 RDW 17.3 H Plt Count 125 MPV 9.3 Gran % 64.5 Lymph % (Auto) 25.4 [place] % (Auto) 9.1 H Eos % (Auto) 0.7 L Baso % (Auto) 0.3 Gran # 4.62 Lymph # 1.8 [place] # 0.7 H Eos # 0.1 Baso # 0.02 pO2 VBG pH VBG pCO2 VBG HCO3 VBG Total CO2 VBG O2 Sat (Calc) VBG Base Excess VBG Potassium Sodium 146 Chloride 114 H Glucose Lactate FiO2 Potassium 3.3 L Carbon Dioxide 24 Anion Gap 11 BUN 26 H Creatinine 0.8 Est GFR ( Amer) > 60 Est GFR (Non-Af Amer) > 60 POC Glucose (mg/dL) Random Glucose 94 Hemoglobin A1c Calcium 9.0 Phosphorus 2.8 Magnesium 1.7 Iron TIBC % Saturation Total Bilirubin 2.1 H AST 30 ALT 36 Alkaline Phosphatase 72 Total Protein 5.8 Albumin 2.9 L Globulin 2.9 Albumin/Globulin Ratio 1.0 L Triglycerides 123 Cholesterol 119 L LDL Cholesterol Direct 66 HDL Cholesterol 29 Vitamin B12 759 Folate > 20.0 TSH 3rd Generation Venous Blood Potassium 12/12/16 12/12/16 05:50 05:50 WBC RBC Hgb Hct MCV MCH MCHC RDW Plt Count MPV Gran % Lymph % (Auto) [place] % (Auto) Eos % (Auto) Baso % (Auto) Gran # Lymph # [place] # Eos # Baso # pO2 VBG pH VBG pCO2 VBG HCO3 VBG Total CO2 VBG O2 Sat (Calc) VBG Base Excess VBG Potassium Sodium Chloride Glucose Lactate FiO2 Potassium Carbon Dioxide Anion Gap BUN Creatinine Est GFR ( Amer) Est GFR (Non-Af Amer) POC Glucose (mg/dL) Random Glucose Hemoglobin A1c 5.9 Calcium Phosphorus Magnesium Iron TIBC % Saturation Total Bilirubin AST ALT Alkaline Phosphatase Total Protein Albumin Globulin Albumin/Globulin Ratio Triglycerides Cholesterol LDL Cholesterol Direct HDL Cholesterol Vitamin B12 Folate TSH 3rd Generation 0.02 L Venous Blood Potassium Assessment/Plan - Assessment and Plan (Free Text) Plan: Patient seen and examined on rounds with resident, agree with note with following additions/exceptions: Pt is 81 year old female with a PMH of advanced Alzheimer's dementia and CAD who presented for complaints of fresh bright red blood per mouth per family, found to have anemia with Hgb of 5.4 and repeat of 4.5 s/p 3u PRBC, with repeat Hgb 12.3 x 2. Pt afebrile, HD stable, comfortable, awake, mental status is at baseline. GI is following. Anemia GIB Alzheimers disease Recommend: - supp o2 as needed - follow up cultures - hold BP meds - monitor HH, would hold off further transfusions for now, HH 12.3, INR acceptable - follow up ECHO - follow up GI - NPO - PPI drip - DVT ppx, SCDs - Stable, transfer to telemetry
[2016-12-12 13:23] LABS: FOLATE > 20.0 ng/mL
[2016-12-12 14:14] LABS: VENOUS BLOOD GAS BASE EXCESS 1.2 mmol/L (0.0-2.0); VENOUS BLOOD PH 7.39 (7.32-7.43)
[2016-12-12] MEDS ORDERED: Etomidate 20 mg/10ml Inj IV ONE ×2 (15:36→15:40)
[2016-12-12] MEDS ORDERED: Propofol 10 mg/ml Inj (20 ML) ONE (15:37)
--- NOTE | 2016-12-12 22:52 | PN ---
SUBJECTIVE: The patient is an 81-year-old female. The patient is seen and examined on the bedside, looking comfortable. is getting better. Blood pressure is stabilizing. The patient is not verbal, is not able to give us review of system or complaints, but no fever, no chills. No nausea, vomiting or diarrhea. No more bleeding. PHYSICAL EXAMINATION: VITAL SIGNS: Temperature 98, pulse 84, blood pressure 139/81 and respiratory rate 20. HEENT: Head is normocephalic and atraumatic. Eyes: PERRLA. Extraocular muscles are intact. Conjunctivae are clear. Nose is patent. NECK: Supple. No carotid bruits, JVD or thyromegaly. CHEST: Bilaterally symmetrical. HEART: S1 and S2 positive. LUNGS: Clear to auscultation. ABDOMEN: Soft. Bowel sounds present. No organomegaly. EXTREMITIES: No edema. No cyanosis. NEUROLOGICALLY: The patient is awake and alert. Moving all 4 extremities. No focal deficits. MEDICATIONS: Ambien, iron, potassium, Protonix, Synthroid, vitamin and Xanax. LABORATORY DATA: White blood cell 7.2; hemoglobin 12.1, on admission it was 5.4; hematocrit 35.5 and platelets 125. Sodium 146, potassium 3.3, chloride 114, BUN 23, creatinine 0.8. Total bilirubin 2.1. ASSESSMENT AND PLAN: Ms. Marge Still is an 81-year-old lady who cam with symptomatic severe anemia; hypokalemia; hyperchloremia; has massive gastrointestinal bleeding, bleeding per rectum, also noted an upper gastrointestinal fresh blood came from oral cavity and nasal cavity; history of coronary artery disease, history of percutaneous transluminal coronary angioplasty; advanced dementia; paroxysmal atrial fibrillation; chronic obstructive pulmonary disease. Echocardiography done, reviewed by me. The patient was n.p.o., off the aspirin and Plavix. History of deep venous thrombosis, status post inferior vena cava filter. Supplement potassium. Drum Straightener cleared the patient for colonoscopy and endoscopy. Seen by the ICU team. Seen by Be Vazquez also. History of hypothyroidism. The patient is nonverbal, is not able to give review of system. Cardiovascularly hemodynamically stable. Blood pressure is sustaining. Oxygen saturation is in 90s. GI is on the case. The patient has a history of suction with methicillin-resistant Staphylococcus aureus in the foot, ID consult also called. I asked the ICU team if the patient is stable enough to be transferred out of the ICU. Meanwhile continue present treatment with labs. We will follow up. Colette Viera MD [facility]
--- NOTE | 2016-12-13 02:06 | CON ---
PULMONARY CONSULTATION DATE: 12/12/2016 REFERRING PHYSICIAN: Dr. Viera. REASON FOR CONSULTATION: The patient has hemoptysis versus hematemesis, witnessed by the family, brought in to emergency room: HISTORY OF PRESENT ILLNESS: Has multiple other medical issues including advanced dementia, severe cardiomyopathy and LV ejection fraction about 20% or so, also has a pulmonary hypertension, hypertension, diabetes, chronic lung disease. She was seen by ENT. No bleeding site was observed, but ENT recommended Robitussin to the nostril to avoid dryness and bleed. No mucosal bleeding was noted also. GI consult was called and has endoscopy. There is no obvious site of bleeding and no active blood were seen. She is lying in bed, head at 35 degrees. Family is at the bedside. Presently, there is no bleeding. No vomiting. No hematuria apparently. She used to have a G-tube, but after multiple incidents of pulling the G-tube, family decided not to place one. Understanding risks of aspiration and respiratory failure. PAST MEDICAL HISTORY: As per history of present illness. FAMILY HISTORY: Not significant cardiopulmonary disease reported. SOCIAL HISTORY: Nonsmoker, nondrinker. ALLERGIES: NONE KNOWN. MEDICATIONS: She is on IV iron supplement, potassium and fluid, Protonix 40 mg daily, Synthroid 100 mcg daily, vitamin B12 of 1000 mcg IM daily. REVIEW OF SYSTEMS: She had episode of blood from the mouth, vomiting versus epistaxis versus hemoptysis. No chest pain reported. No vomiting. No leg pain or leg swelling. PHYSICAL EXAMINATION GENERAL: Lying in the bed, no acute distress. VITAL SIGNS: Temperature is 98, heart rate is 84, respiratory rate is 20, blood pressure 139/81, pulse ox 100% on 3 L nasal cannula. HEENT: Dry mucous membrane. NECK: Supple. No JVD. LUNGS: With poor effort, but fair airflow. HEART: S1 and S2. ABDOMEN: Soft, nontender and nondistended. EXTREMITIES: There is no edema. NEUROLOGICAL: Awake, alert, nonverbal. Does not follow my command. LABORATORY DATA: Shows hemoglobin 12.1. On admission, her hemoglobin was 4.5, hematocrit 15.8, WBC 5.7. The last hemoglobin from today 12.1, hematocrit 35.5, WBC 7.2. Her INR was 1.29, PTT 28. Blood gas shows pH 7.39. It is a VBG. PCO2 of 44, O2 of 22. Chemistry shows sodium 136, potassium 3.3, chloride 114, bicarbonate 24, BUN 26, creatinine 0.8, glucose 94, hemoglobin A1c 5.9, calcium 9.0, phosphorus 2.8, magnesium 1.7, iron is 276, AST 30, total bili 2.1, ALT is 36, albumin is 2.9, cholesterol is 119, vitamin B12 is 759, folate is more than 20, TSH is 0.07. Microbiology: Blood cultures have been negative. Endoscopy report review other than polyp, there is no other finding. Echocardiogram shows severe cardiomyopathy with pulmonary hypertension. IMPRESSION AND PLAN: Severe anemia, witnessed blood from the mouth, advanced dementia, cardiomyopathy, pulmonary hypertension, hypertension, chronic lung disease. The patient had been on Plavix, which had been discontinued. Also, had been on Coumadin, which is stopped. I have suggested getting a CAT scan of the chest and neck soft tissue, rule out any site of bleeding. Continue follow hemoglobin and hematocrit closely, but for now no more anticoagulation. Understanding risk of thromboembolic disease. Overall, poor prognosis. Continue supportive care. Thank you and we will follow with you. Dayana Simms MD
[2016-12-13 06:40] LABS: BASO # 0.01 K/mm3 (0.0-2.0); EOS # 0.1 (0.0-0.7); RED CELL DISTRIBUTION WIDTH 17.6 % (11.5-14.5)
[2016-12-13 07:33] LABS: ALB/GLOB RATIO 0.9 (1.1-1.8); ALKALINE PHOSPHATASE 67 U/L (38-126); ALT/SGPT 35 U/L (7-56); AST/SGOT 25 U/L (14-36); BILIRUBIN,TOTAL 1.3 mg/dL (0.2-1.3); BLOOD UREA NITROGEN 12 mg/dL (7-21); CALCIUM 9.2 mg/dL (8.4-10.5); CARBON DIOXIDE 25 mmol/L (21-33); CHLORIDE 118 mmol/L (95-110); GFR AFRICAN-AMERICAN > 60; GLUCOSE,RANDOM 127 mg/dL (70-110); MAGNESIUM 1.6 mg/dL (1.7-2.2); PHOSPHOROUS 2.5 mg/dL (2.5-4.5); POTASSIUM 3.6 mmol/L (3.6-5.0); SODIUM 148 mmol/L (132-148); TOTAL PROTEIN 5.3 g/dL (5.8-8.3)
[2016-12-13 07:51] LABS: BASO % 0.1 % (0.0-3.0); EOS % 1.2 % (1.5-5.0); GRAN # 5.2 (1.4-6.5); GRAN % 70.7 % (50.0-68.0); HEMATOCRIT 33.8 % (36.0-48.0); LYMPH # 1.3 (1.2-3.4); LYMPH % 17.6 % (22.0-35.0); MEAN CELL VOLUME 77.9 fl (80.0-105.0); MEAN CORPUSCULAR HEMOGLOBIN 25.6 pg (25.0-35.0); MEAN CORPUSCULAR HGB CONC 32.8 g/dl (31.0-37.0); MEAN PLATELET VOLUME 9.1 fl (7.0-11.0); MONO # 0.8 (0.1-0.6); MONO % 10.4 % (1.0-6.0); WHITE BLOOD COUNT 7.4 10^3/ul (4.5-11.0)
[2016-12-13] MEDS: Levothyroxine 100 MCG TAB PO SCH (08:45)
--- NOTE | 2016-12-13 09:56 | CT ---
PROCEDURE: CT Neck, Chest, without contrast HISTORY: hemoptosis COMPARISON: None. TECHNIQUE: Contrast dose: Radiation dose: Total exam DLP = 870 mGy-cm. This CT exam was performed using one or more of the following dose reduction techniques: Automated exposure control, adjustment of the mA and/or kV according to patient size, and/or use of iterative reconstruction technique. FINDINGS: CT OF THE NECK: PHARYNX: Nasopharynx: Unremarkable. Oropharnx: Unremarkable. Hypopharynx: Unremarkable. LYMPH NODES: Unremarkable. VASCULATURE: Unremarkable. GLANDS: Unremarkable. CERVICAL SPINE: Unremarkable. CT OF THE CHEST: LUNGS: Clear lungs. Visualized airway clear. MEDIASTINUM: Unremarkable thoracic aorta. No aneurysm or dissection. Coronary artery calcifications. The heart is normal in size Pulmonary arterial truck unremarkable. No vascular congestion. No lymphadenopathy. PLEURA: No pleural fluid. No pneumothorax. BONES: No fracture. No destructive lesion. IMPRESSION: No acute findings. No evidence of pulmonary infiltrate or mass.
[2016-12-13] MEDS: Pantoprazole 40mg/100ml IVPB 40 MG/100 ML BAG IVPB SCH (10:23)
--- NOTE | 2016-12-13 13:04 | CP.PCM.PN ---
<Delaney Che - Last Filed: 12/13/16 13:04> Subjective - Date & Time of Evaluation Date of Evaluation: 12/13/16 Time of Evaluation: 10:35 - Subjective Subjective: S&E at bedside, no acute overnight events reported. No reports of overt GI bleeding. Had EGD yesterday found to have ulcerated polyps with biopsy done, no active bleeding. Await for swallow evaluation. Objective - Vital Signs/Intake and Output Vital Signs (last 24 hours): Temp Pulse Resp BP Pulse Ox 98.7 F 73 18 120/76 98 12/13/16 07:58 12/13/16 07:58 12/13/16 07:58 12/13/16 07:58 12/13/16 07:58 Intake and Output: 12/13/16 12/13/16 06:59 18:59 Intake Total 600 Output Total 650 Balance -50 - Medications Medications: Current Medications Alprazolam (Xanax) 0.25 mg PO HS OLGA PRN Reason: Protocol Stop: 12/19/16 22:01 Last Admin: 12/12/16 22:15 Dose: 0.25 mg Cyanocobalamin (Vitamin B12 1000 Mcg/Ml Inj) 1,000 mcg IM DAILY OLGA Last Admin: 12/13/16 10:24 Dose: 1,000 mcg Iron Sucrose 100 mg/ Sodium (Chloride) 105 mls @ 210 mls/hr IVPB DAILY OLGA Last Admin: 12/13/16 10:24 Dose: 210 mls/hr Levothyroxine Sodium (Synthroid) 100 mcg PO ACB OLGA Last Admin: 12/13/16 08:45 Dose: Not Given Pantoprazole Sodium (Protonix Inj) 40 mg IVP DAILY OLGA Zolpidem Tartrate (Ambien) 10 mg PO HS PRN; Protocol PRN Reason: Insomnia Last Admin: 12/12/16 22:15 Dose: 10 mg - Labs Labs: 12/13/16 07:45 12/13/16 06:15 PT 14.3 SECONDS (9.4-12.5) H 12/11/16 11:35 INR 1.29 (0.93-1.08) H 12/11/16 11:35 APTT 28.3 Seconds (25.1-36.5) 12/11/16 11:35 - Constitutional Appears: No Acute Distress - Eye Exam Eye Exam: Normal appearance. absent: Scleral icterus - ENT Exam ENT Exam: Mucous Membranes Moist - Neck Exam Neck Exam: Normal Inspection - Respiratory Exam Respiratory Exam: NORMAL BREATHING PATTERN. absent: Respiratory Distress - Cardiovascular Exam Cardiovascular Exam: +S2. absent: +S1 - GI/Abdominal Exam GI & Abdominal Exam: Soft, Normal Bowel Sounds. absent: Guarding, Tenderness, Rebound - Extremities Exam Extremities Exam: absent: Pedal Edema Additional comments: contracted left lower leg - Neurological Exam Neurological Exam: Altered, Awake - Skin Skin Exam: Dry, Warm Assessment and Plan - Assessment and Plan (Free Text) Assessment: Assessment: GI bleed (+) guiac, s/p EGD ulcerated polyp w/ biopsy Anemia likley secondary to bleeding, h/o chronic Anemia Advanced dementia CAD CABG DM HTN PLAN: monitor H/H on Iron and B12 fu egd bx decrease Protonix to daily, dc drip can advance diet to puree, pending swallow evaluation. Seen and discussed w/ Dr. Parry. <Lee Parry V - Last Filed: 12/13/16 23:18> Objective - Vital Signs/Intake and Output Vital Signs (last 24 hours): Temp Pulse Resp BP Pulse Ox 97.4 F L 74 20 120/78 94 L 12/13/16 16:00 12/13/16 16:00 12/13/16 16:00 12/13/16 16:00 12/13/16 16:00 Intake and Output: 12/13/16 12/14/16 18:59 06:59 Intake Total 120 120 Balance 120 120 - Medications Medications: Current Medications Alprazolam (Xanax) 0.25 mg PO HS [facility] PRN Reason: Protocol Stop: 12/19/16 22:01 Last Admin: 12/13/16 22:21 Dose: 0.25 mg Cyanocobalamin (Vitamin B12 1000 Mcg/Ml Inj) 1,000 mcg IM DAILY [facility] Last Admin: 12/13/16 10:24 Dose: 1,000 mcg Iron Sucrose 100 mg/ Sodium (Chloride) 105 mls @ 210 mls/hr IVPB DAILY OLGA Last Admin: 12/13/16 10:24 Dose: 210 mls/hr Levothyroxine Sodium (Synthroid) 100 mcg PO ACB [facility] Last Admin: 12/13/16 08:45 Dose: Not Given Pantoprazole Sodium (Protonix Inj) 40 mg IVP DAILY OLGA Zolpidem Tartrate (Ambien) 10 mg PO HS PRN; Protocol PRN Reason: Insomnia Last Admin: 12/13/16 22:21 Dose: 10 mg - Labs Labs: 12/13/16 07:45 12/13/16 06:15 PT 14.3 SECONDS (9.4-12.5) H 12/11/16 11:35 INR 1.29 (0.93-1.08) H 12/11/16 11:35 APTT 28.3 Seconds (25.1-36.5) 12/11/16 11:35 Attending/Attestation - Attestation I have personally seen and examined this patient.: Yes I have fully participated in the care of the patient.: Yes I have reviewed all pertinent clinical information, including history, physical exam and plan: Yes Notes (Text): p 12/13/16 23:18
[2016-12-13] MEDS ORDERED: Magnesium Sulfate 1 gm in D5W 1 GM/100 ML BAG IVPB ONE (14:24)
--- NOTE | 2016-12-13 15:52 | PN ---
DATE: 12/13/2016 PULMONARY PROGRESS NOTE REFERRING PHYSICIAN: Dr. Viera. SUBJECTIVE: She is lying in the bed, head at 45 degrees. Daughter is at bedside, just had her lunch. She has no acute distress since hospitalization. There is no more bleeding. Had a CT of the neck and chest done. There is no cough. No sputum production. No hemoptysis. No hematemesis. No hematuria. No diarrhea reported. She does with p.o. intake. She is on modified diet. PHYSICAL EXAMINATION: GENERAL: In no acute distress. VITAL SIGNS: Temperature is 98, heart rate is 73, respiratory rate is 18, blood pressure 120/76, pulse ox 98% on room air. HEENT: Dry mucous membrane. Small oral cavity. NECK: Supple. No JVD. LUNGS: With poor effort, but fair airflow with few rhonchi. HEART: S1 and S2. ABDOMEN: Soft, nontender. No organomegaly. EXTREMITIES: There is no edema. NEUROLOGIC: Awake, alert, nonverbal. Does not follow much command. MEDICATIONS: She is on Ambien 10 mg at bedtime p.r.n. She is on IV iron, also Protonix 40 mg daily, Synthroid 100 mcg daily, vitamin B12 1000 mcg IM daily, Xanax 0.25 mg at bedtime. LABORATORY DATA: Shows hemoglobin 11.1, hematocrit 36.8, WBC 7.4, platelets are 103. VBG shows pH 7.39, pCO2 of 44, O2 of 22. Her sodium is 148, potassium 3.6, chloride 118, bicarbonate is 25, BUN 12, creatinine 0.7, glucose 127, calcium 9.2, phosphorus 2.5, magnesium is 1.6, AST 26, ALT 35, alkaline phosphatase is 67, albumin is 2.5, TSH of 0.02. Microbiology: Blood cultures have been negative. CT of the soft tissue of the neck and chest is unremarkable. IMPRESSION AND PLAN: Severe anemia. No sign of active bleed. All the workup is negative including endoscopy, panendoscopy, CT of the neck and chest. Since admission, no more bleeding status post transfusion. Also Plavix has been discontinued. Has advanced dementia, cardiomyopathy, pulmonary hypertension, hypertension, chronic lung disease. Spoke to the patient's family at bedside. All the questions answered. We will recommend to keep head elevated at 45 degrees, very high risk for recurrent aspiration. Continue supportive care. Followup H and H. May need to keep her off the anticoagulation. Follow up labs in the morning. Thank you and we will follow with you. Dayana Simms MD
--- NOTE | 2016-12-14 00:48 | PN ---
DATE: 12/13/2016 LOCATION: The patient is in room #567, bed #1. REASON FOR FOLLOWUP: Coronary artery disease, history of stent insertion, dementia, paroxysmal atrial fibrillation, massive GI bleeding, severe anemia. SUBJECTIVE: The patient is lying flat in bed without any respiratory distress. PHYSICAL EXAMINATION: VITAL SIGNS: Blood pressure 120/78, respirations 20, pulse 74, temperature 97.4. HEENT: Head is normocephalic. Eyes: Pupils normal. Conjunctivae normal. NECK: JVP low. Carotids equal. THORAX: AP diameter normal. LUNGS: Clear. CARDIOVASCULAR: S1 and S2. ABDOMEN: Soft and nontender. There is no organomegaly. Bowel sounds normal. EXTREMITIES: No clubbing, no cyanosis. LABORATORY DATA: WBC 7.4. Hemoglobin 11.1; on admission, the patient's hemoglobin was 4.5. Hematocrit 33.8; on admission, hematocrit was 15.8. Platelets are 103; on admission, it was 146. Sodium 148, potassium 3.6, BUN 12, creatinine 0.7 and random sugar 110. Calcium and phosphorus are normal. Magnesium 1.6. AST 25, ALT 35. Total protein 5.3, bilirubin 2.5. TSH 0.02. CAT scan of the chest and neck is negative. DIAGNOSES: Massive gastrointestinal bleeding post endoscopy, the patient had 2 polyps, one was ulcerated; probably, she bled from that ulcerated polyp, biopsy was taken, biopsy reports are pending; coronary artery disease; history of coronary angioplasty and stent insertion; dementia; history of paroxysmal atrial fibrillation. The patient had echocardiography on 12/12/2016, showed borderline dilated LV, mild concentric left ventricular hypertrophy, proximal septal thickening is noted, systolic function is moderate to severely decreased with moderate to severely impaired LV function with ejection fraction approximately 25%, trace aortic regurgitation, mitral regurgitation is trace, mild tricuspid regurgitation, RVSP 49 mmHg. Hypomagnesemia. PLAN: We will give magnesium. We will repeat labs in the morning. We will repeat T3, free T4 and TSH again. We will check CBC also in the morning. The patient's biopsy reports on gastric polyps are pending. We will start pureed and Ensure Plus and we will follow. Dayana Galaviz MD
--- NOTE | 2016-12-14 03:31 | CON ---
DATE: 12/13/2016 The patient is in bed, was seen earlier this morning in room #567, bed #1. CHIEF COMPLAINT: The patient has advanced dementia, unable to give any history. HISTORY OF PRESENT ILLNESS: This is an 81-year-old female with end-stage dementia, pseudomembranous colitis, atrial fibrillation, coronary artery disease, history of E. coli bacteremia secondary to E. coli urinary tract infection, anxiety and hypothyroidism, history of PEG tube placement, PTCA, IVC filter, with no known allergies, was admitted with acute blood loss and gastrointestinal bleeding with severe anemia, found to have a heel ulcer which in the past had gone VRE, and Infectious Disease consultation requested. REVIEW OF SYSTEMS: Reveals no fevers or chills. Reported no chest pain. Reported no shortness of breath. The patient is a poor historian. PAST MEDICAL HISTORY: Significant for advanced end-stage dementia, pseudomembranous colitis, atrial fibrillation, coronary artery disease, E. coli bacteremia, E. coli urinary tract infection, anxiety and hypothyroidism. PAST SURGICAL HISTORY: Significant for PEG tube, PTCA, IVC. ALLERGIES: THE PATIENT HAS NO KNOWN ALLERGIES. MEDICATIONS AT HOME: She is on Eliquis, Risperdal, Zestril, Ambien, Plavix, Aricept and Synthroid. PHYSICAL EXAMINATION GENERAL: The patient is in bed, in no acute distress, chronically ill, debilitated, cachectic. VITAL SIGNS: Temperature is 97, blood pressure is 120/70, respiratory rate of 20 and heart rate of 73 with a BMI of 17. HEENT: Unremarkable. NECK: Supple. LUNGS: Decreased breath sounds. HEART: Normal S1 and S2. ABDOMEN: Soft, nontender. EXTREMITIES: Examination of the left heel reveals a small ulcer, approximately the size of a nickel and is superficial with no evidence of any discharge. No evidence of any infection. LABORATORY DATA: Laboratory examination reveals patient's initial hemoglobin was 4.5 and when the patient received transfusion, hemoglobin was upto 11. Coagulation is noted. Chemistries were reviewed. ASSESSMENT AND PLAN: This is an 81-year-old female with dementia, advanced end-stage; pseudomembranous colitis; atrial fibrillation; coronary artery disease; Escherichia coli bacteremia; Escherichia coli urinary tract infection; anxiety and hypothyroidism, severe. 1. Acute blood loss, gastrointestinal bleed with severe anemia with hemoglobin of 4. 2. Left heel ulcer with a history of vancomycin-resistant enterococci, no evidence of infection at this time. We would not treat with any antibiotics, and the patient as described above has infection. We will follow closely. Indra Curtis MD
[2016-12-14 06:48] LABS: HEMATOCRIT 29.7 % (36.0-48.0); MEAN CELL VOLUME 78.6 fl (80.0-105.0); MEAN CORPUSCULAR HEMOGLOBIN 25.9 pg (25.0-35.0); MEAN PLATELET VOLUME 9.7 fl (7.0-11.0); RED CELL DISTRIBUTION WIDTH 18.6 % (11.5-14.5); WHITE BLOOD COUNT 6.2 10^3/ul (4.5-11.0)
[2016-12-14 07:14] LABS: BLOOD UREA NITROGEN 17 mg/dL (7-21); CALCIUM 8.9 mg/dL (8.4-10.5); CARBON DIOXIDE 25 mmol/L (21-33); CHLORIDE 117 mmol/L (98-107); GFR AFRICAN-AMERICAN > 60; GLUCOSE,RANDOM 107 mg/dL (70-110); MAGNESIUM 2.1 mg/dL (1.7-2.2); PHOSPHOROUS 2.8 mg/dL (2.5-4.5); POTASSIUM 3.7 mmol/L (3.6-5.0); SODIUM 147 mmol/L (132-148)
[2016-12-14 07:21] LABS: FREE T4 3.02 ng/dL (0.78-2.19)
[2016-12-14 07:34] LABS: T3 0.56 ng/mL (0.97-1.69); THYROID STIMULATING HORMONE 0.19 mIU/mL (0.46-4.68)
--- NOTE | 2016-12-14 08:41 | CP.PCM.PN ---
<Delaney Che - Last Filed: 12/14/16 08:41> Subjective - Date & Time of Evaluation Date of Evaluation: 12/14/16 Time of Evaluation: 08:37 - Subjective Subjective: S&E at bedside, chart reviewed, no acute overnight events reported. Patient had swallow eval and recommend puree thin, pt. tolerated intake, no hematemesis or bleeding per rectum. Neck and chest Ct scan negative for acute findings. Objective - Vital Signs/Intake and Output Vital Signs (last 24 hours): Temp Pulse Resp BP Pulse Ox 97.0 F L 91 H 18 112/62 94 L 12/14/16 07:30 12/14/16 07:30 12/14/16 07:30 12/14/16 07:30 12/14/16 07:30 Intake and Output: 12/14/16 12/14/16 06:59 18:59 Intake Total 120 Balance 120 - Medications Medications: Current Medications Alprazolam (Xanax) 0.25 mg PO HS [facility] PRN Reason: Protocol Stop: 12/19/16 22:01 Last Admin: 12/13/16 22:21 Dose: 0.25 mg Cyanocobalamin (Vitamin B12 1000 Mcg/Ml Inj) 1,000 mcg IM DAILY [facility] Last Admin: 12/13/16 10:24 Dose: 1,000 mcg Iron Sucrose 100 mg/ Sodium (Chloride) 105 mls @ 210 mls/hr IVPB DAILY [facility] Last Admin: 12/13/16 10:24 Dose: 210 mls/hr Levothyroxine Sodium (Synthroid) 100 mcg PO ACB [facility] Last Admin: 12/13/16 08:45 Dose: Not Given Pantoprazole Sodium (Protonix Inj) 40 mg IVP DAILY [facility] Zolpidem Tartrate (Ambien) 10 mg PO HS PRN; Protocol PRN Reason: Insomnia Last Admin: 12/13/16 22:21 Dose: 10 mg - Labs Labs: 12/14/16 06:41 12/14/16 06:41 PT 14.3 SECONDS (9.4-12.5) H 12/11/16 11:35 INR 1.29 (0.93-1.08) H 12/11/16 11:35 APTT 28.3 Seconds (25.1-36.5) 12/11/16 11:35 - Constitutional Appears: No Acute Distress - Eye Exam Eye Exam: Normal appearance. absent: Scleral icterus - ENT Exam ENT Exam: Mucous Membranes Moist - Neck Exam Neck Exam: Normal Inspection - Respiratory Exam Respiratory Exam: NORMAL BREATHING PATTERN. absent: Respiratory Distress - Cardiovascular Exam Cardiovascular Exam: +S1, +S2 - GI/Abdominal Exam GI & Abdominal Exam: Soft, Normal Bowel Sounds. absent: Guarding, Tenderness, Rebound - Extremities Exam Extremities Exam: Normal Capillary Refill. absent: Calf Tenderness, Pedal Edema - Neurological Exam Neurological Exam: Altered, Awake - Skin Skin Exam: Dry, Warm Assessment and Plan - Assessment and Plan (Free Text) Assessment: Assessment: GI bleed (+) guiac, s/p EGD ulcerated polyp w/ biopsy Anemia likley secondary to bleeding, h/o chronic Anemia Advanced dementia CAD CABG DM HTN PLAN: monitor H/H on IV Iron and B12 fu egd bx, results pending continue Protonix to daily continue diet to puree Seen and discussed w/ Dr. Parry. <Lee Parry V - Last Filed: 12/14/16 22:16> Objective - Vital Signs/Intake and Output Vital Signs (last 24 hours): Temp Pulse Resp BP Pulse Ox 98 F 77 18 123/68 96 12/14/16 16:03 12/14/16 16:03 12/14/16 16:03 12/14/16 16:03 12/14/16 16:03 Intake and Output: 12/14/16 12/15/16 18:59 06:59 Intake Total 540 60 Balance 540 60 - Medications Medications: Current Medications Alprazolam (Xanax) 0.25 mg PO [facility] PRN Reason: Protocol Stop: 12/19/16 22:01 Last Admin: 12/13/16 22:21 Dose: 0.25 mg Cyanocobalamin (Vitamin B12 1000 Mcg/Ml Inj) 1,000 mcg IM DAILY [facility] Last Admin: 12/14/16 12:01 Dose: 1,000 mcg Iron Sucrose 100 mg/ Sodium (Chloride) 105 mls @ 210 mls/hr IVPB DAILY [facility] Last Admin: 12/14/16 12:01 Dose: 210 mls/hr Levothyroxine Sodium (Synthroid) 100 mcg PO ACB [facility] Last Admin: 12/14/16 12:01 Dose: 100 mcg Pantoprazole Sodium (Protonix Inj) 40 mg IVP DAILY [facility] Last Admin: 12/14/16 12:01 Dose: 40 mg Zolpidem Tartrate (Ambien) 10 mg PO HS PRN; Protocol PRN Reason: Insomnia Last Admin: 12/13/16 22:21 Dose: 10 mg - Labs Labs: 12/14/16 06:41 12/14/16 06:41 PT 14.3 SECONDS (9.4-12.5) H 12/11/16 11:35 INR 1.29 (0.93-1.08) H 12/11/16 11:35 APTT 28.3 Seconds (25.1-36.5) 12/11/16 11:35 Attending/Attestation - Attestation I have personally seen and examined this patient.: Yes I have fully participated in the care of the patient.: Yes I have reviewed all pertinent clinical information, including history, physical exam and plan: Yes Notes (Text): p 12/14/16 22:16
--- NOTE | 2016-12-14 08:55 | PN ---
DATE: 12/13/2016 SUBJECTIVE: The patient is an 81-year-old female. The patient was seen and examined at the bedside in the morning, looks comfortable. No nausea, vomiting, diarrhea. No fever. No chills. The patient has advanced dementia. She is not able to give review of systems. Started feeding. No more bleeding. No cough, wheezing, or shortness of breath. No sputum production. No constipation or diarrhea. She is getting modified diet. PHYSICAL EXAMINATION: VITAL SIGNS: Temperature 98, heart rate 73, respiratory rate 18, blood pressure 120/76, and pulse oximetry 98% on room air. HEENT: Head; normocephalic and atraumatic. Eyes; PERRLA. Extraocular muscles intact. Conjunctivae clear. Nose patent. NECK: Supple. No carotid bruits, JVD, or thyromegaly. CHEST: Bilaterally symmetrical. HEART: S1 and S2 positive. LUNGS: Clear to auscultation. ABDOMEN: Soft. Nontender. No organomegaly. EXTREMITIES: No edema, no cyanosis. NEUROLOGICAL: The patient is awake and alert, nonverbal. Does not follow simple commands, but moving all 4 extremities. MEDICATIONS: Ambien, Protonix, Synthroid, vitamin B12, and Xanax. LABORATORY DATA: Hemoglobin 11.1, hematocrit 36.8, white blood cells 7.4, platelets 103. Sodium 148, potassium 3.6, BUN 12, creatinine 0.7, glucose 127. AST 26, ALT 35, Blood cultures have been negative. CT of the soft tissues of the neck and chest is unremarkable. ASSESSMENT AND PLAN: Ms. Cheko Bird is an 81-year-old lady with advanced dementia, multiple medical problems, came with severe symptomatic anemia. No signs of active bleeding. All workup is negative including endoscopy. CT of the neck and chest is unremarkable. Couple of blood transfusions given. Catheter discontinued by the bible worker. Cardiomyopathy, pulmonary hypertension, hypertension and coronary artery disease. We recommended to keep head elevated at 45 degrees to avoid aspiration precautions. Continue supportive care. Monitoring hemoglobin and hematocrit. Gastric and deep venous thrombosis prophylaxis. Reviewed Dr. Simms's notes and Delaney Che' notes. We will follow up. Colette Maximiliano, MD [facility] # [id number] [facility]
[2016-12-14] MEDS: Levothyroxine 100 MCG TAB PO SCH (12:01)
--- NOTE | 2016-12-15 00:07 | PN ---
DATE: 12/14/2016 LOCATION: The patient is in room 567, bed 1. REASON FOR CONSULTATION: Coronary artery disease, history of stent insertion, dementia, paroxysmal atrial fibrillation, massive GI bleeding, severe anemia. SUBJECTIVE: The patient is lying flat in bed without any respiratory distress. PHYSICAL EXAMINATION VITAL SIGNS: Blood pressure 123/68, respirations 18, pulse 77 and temperature 98. HEENT: Head is normocephalic. Eyes; pupils normal. Conjunctivae slightly pale. NECK: JVP low. Carotids equal. THORAX: AP diameter normal. LUNGS: Clear. CARDIOVASCULAR: S1 and S2. ABDOMEN: Soft and nontender. There is no organomegaly. EXTREMITIES: No clubbing, no cyanosis. LABORATORY DATA: WBC 6.2, hemoglobin 9.8, hematocrit 29.7 and platelets are 114. Sodium 147, potassium 3.7, BUN 17, creatinine 0.7, sugar random 134, calcium 7.8, phosphorus 2.8 and magnesium 2.1. Free T4 of 3.02, total T3 of 0.[address] chest and neck is negative. DIAGNOSES: Massive gastrointestinal bleeding, status post endoscopy, biopsies of 2 polyps were done, one polyp was ulcerated which probably was the cause of bleeding. Depending on the biopsy reports from the polyps further therapy will be initiated, history of coronary artery disease, history of coronary angioplasty, stent insertion, dementia, history of paroxysmal atrial fibrillation, cardiomyopathy on echo 12/12/2016 with left ventricular ejection fraction close to 25%, mild tricuspid regurgitation, right ventricular systolic pressure 49 mmHg. PLAN:Low TSH, High T3 so will hold Synthyriod Medication The patient's magnesium is normal today. The patient's biopsy report is pending. In the meantime, the patient is on Protonix 40 IV daily, we will hold levothyroxine until TSH come down and we will follow with you closely. Dayana Galaviz MD [facility]
--- NOTE | 2016-12-15 04:07 | PN ---
DATE: 12/14/2016 SUBJECTIVE: The patient is in bed, in no acute distress, nontoxic. PHYSICAL EXAMINATION VITAL SIGNS: Temperature is 98, blood pressure is 120/60 and respiratory rate of 18. HEENT: Unremarkable. NECK: Supple. LUNGS: Decreased breath sounds. HEART: Normal S1 and S2. ABDOMEN: Soft and nontender. LABORATORY DATA: Reveals a white count of 6.2, hemoglobin of 9 and platelets of 114. Chemistry reveals a BUN of 17 and creatinine of 0.7. Microbiology reveals blood cultures negative. ASSESSMENT AND PLAN: 1. This is an 81-year-old female with end-stage dementia, pseudomembranous colitis, atrial fibrillation, coronary artery disease, history of Escherichia coli bacteremia secondary to Escherichia coli urinary tract infection, anxiety, hypothyroidism, history of percutaneous endoscopic gastrostomy tube placement, percutaneous transluminal coronary angioplasty, inferior vena cava filter placement, and admitted in this admission with acute blood loss, gastrointestinal bleeding with severe anemia with hemoglobin of 4. 2. Left heel ulcer, history of a vancomycin-resistant enterococcus from that ulcer, currently no evidence of infection at that site and patient is seen early this morning. The patient is currently off of antibiotics. Gastroenterology is following the patient. Overall prognosis is poor. Indra Curtis MD
--- NOTE | 2016-12-15 05:21 | PN ---
DATE: 12/14/2016 REFERRING PHYSICIAN: Dr. Viera. SUBJECTIVE: She is lying in the bed, head at 45 degrees. Very quiet. Does not follow command. Occasionally verbalizes. No cough. No sputum production. No hemoptysis. No hematemesis. No hematuria. No diarrhea. No leg pain or leg swelling. OBJECTIVE: GENERAL: No acute distress. VITAL SIGNS: Temperature is 98, heart rate is 77, respiratory rate is 18, blood pressure 123/68 and pulse ox 96% on room air. HEENT: Moist mucous membrane. No ulcer or thrush noted. NECK: Supple. No JVD. LUNGS: Fair airflow with rhonchi. HEART: S1 and S2. ABDOMEN: Soft, nontender and nondistended. EXTREMITIES: No edema. NEUROLOGIC: Awake, alert, not much verbal. Does not follow commands. MEDICATIONS: She is on Ambien 10 mg at bedtime p.r.n., IV iron, Protonix 40 mg daily, Synthroid 100 mcg daily, vitamin B12 1000 mcg IM daily and Xanax 0.25 mg at bedtime p.r.n. LABORATORY DATA: Shows hemoglobin 9.8, hematocrit 29.7, WBC 6.2 and platelets 114. Sodium 147, potassium 3.7, chloride 117, bicarbonate 25, BUN 17, creatinine 0.7, glucose 107, calcium 8.9, phosphorus 2.8 and magnesium 2.1. Microbiology; blood cultures have been negative. IMPRESSION AND PLAN: Severe anemia, status post transfusion on IV iron and B12, status post endoscopy, panendoscopy, CT of the neck and chest, which are all unremarkable. She has advanced dementia, been on Plavix and aspirin for severe cardiomyopathy and cardiac arrhythmia, presently off anticoagulation. High risk for thromboembolic disease, but cannot anticoagulate because of severe anemia. I would suggest continue iron, B12, keep head at 45 degrees, fall precautions and aspiration precautions. Thank you and we will follow with you. Dayana Simms MD
--- NOTE | 2016-12-15 08:27 | PN ---
SUBJECTIVE: The patient is an 81 years old female. The patient is seen and examined at the bedside, looking comfortable. No nausea, vomiting, diarrhea. No hematuria or hematochezia. No swelling of the legs. No chest pain or palpitations. The patient is nonverbal. She is not able to give a review of systems, but do not like fever. Neck and chest CAT scan is negative for acute findings. PHYSICAL EXAMINATION: VITAL SIGNS: Temperature 97.0, pulse 91, respiratory rate 18, blood pressure 112/52, and pulse oximetry 94. HEENT: Head is normocephalic and atraumatic. Eyes: PERRLA. Extraocular muscles intact. Conjunctivae clear. Nose patent. Mucous membrane moist. NECK: Supple. No carotid bruit. No JVD or thyromegaly. CHEST: Bilaterally symmetrical. HEART: S1 and S2 positive. LUNGS: Clear to auscultation. ABDOMEN: Soft. Bowel sounds present. No organomegaly. EXTREMITIES: No edema. No cyanosis. NEUROLOGIC: The patient is awake, alert, moving all 4 extremities. No focal deficits. MEDICATIONS: Xanax, cyanocobalamin, chloride, Synthroid, Protonix, and Somnia. LABORATORY DATA: White blood cell 6.2, hemoglobin 9.2, hematocrit 29.7, platelets 140. Sodium 143, potassium 3.7, BUN 17, creatinine 0.7, glucose of 107. ASSESSMENT AND PLAN: Ms. Marge Still is an 81 years old lady with anemia, status post blood transfusion; thrombocytopenia; has a history of gastrointestinal bleeding, stool guaiac positive, ulceration, polyp with biopsy; anemia likely secondary to bleeding with history of chronic anemia; advanced dementia; coronary artery disease, coronary artery bypass grafting; diabetes mellitus; hypertension. getting intravenous iron infusion and B12. Follow up with esophagogastroduodenoscopy, biopsy, results are pending. Continue Protonix daily. Continue diet, puree, as tolerated as per Gastrointestinal. Reviewed Dr. Curtis, Dr. Galaviz, and Dr. Simms's notes also. History of percutaneous endoscopic gastrostomy tube placement, inferior vena cava filter, advanced dementia, pseudomembranous colitis, history of atrial fibrillation, hypothyroidism, history of Escherichia coli bacteremia, acute blood loss, ulcer with the history of vancomycin-resistant Enterococcus. No evidence of infection at this time and so, according to Infectious Disease, we will not give any antibiotics. We will follow up. Gastrointestinal and deep venous thrombosis prophylaxis. Colette Viera MD [facility]
--- NOTE | 2016-12-15 11:23 | PN ---
DATE: 12/15/2016 The patient is an 81-year-old female. REASON FOR CONSULTATION/FOLLOW UP: Coronary artery disease, history of severe dementia, paroxysmal atrial fibrillation, massive GI bleeding, severe anemia status post multiple packed RBC transfusion, status post EGD. SUBJECTIVE: The patient is demented and unable to give any history, but not in apparent distress. OBJECTIVE: GENERAL: Lying flat in the bed, not in apparent distress. VITAL SIGNS: As follows; temperature afebrile, heart rate 77, and blood pressure 128/59. HEENT: PERRLA. Extraocular muscles intact. NECK: Supple. No carotid bruits or thyromegaly. CHEST: Clear to auscultation. HEART: S1 and S2 regular. ABDOMEN: Soft. EXTREMITIES: Clubbing and cyanosis negative. LABORATORY DATA: Blood workup as follows, WBC 6.2, hemoglobin , hematocrit 29.7, and platelet count 114. Chemistry shows sodium 147, potassium 3.7, chloride 101, carbon dioxide 25, anion gap of 9, BUN 23 and creatinine 0.7. IMPRESSION: Massive gastrointestinal bleed, status post endoscopy,biopsies of 2 polyps were done. Ulcerated polyp probably because of bleeding. History of coronary artery disease, history of multiple stent placement, dementia,paroxysmal atrial fibrillation, cardiomyopathy, last echocardiogram 12/12/2016, left ventricle ejection fraction of 25%, mild mitral regurgitation, right ventricular systolic pressure 49, history of deep vein thrombosis, history of pulmonary embolism, the patient was on Eliquis at home. Yesterday, TSH was 0.02, probably secondary to exogenic Levoxyl being given. Monitor hemoglobin and hematocrit closely because the patient dropped yesterday. Repeat blood workup tomorrow. The patient was on 100 mcg of levothyroxine, repeat on Sunday. Hold all anticoagulation as well as Eliquis. We will follow with you H and H. Repeat the blood workup in the morning. Thank you Dr. Viera for providing us the opportunity in taking care of the patient. Dayana Steward MD
--- NOTE | 2016-12-15 13:12 | CP.PCM.PN ---
<Delaney Che - Last Filed: 12/15/16 13:12> Subjective - Date & Time of Evaluation Date of Evaluation: 12/15/16 Time of Evaluation: 10:25 - Subjective Subjective: Patient was seen and examined at the bedside earlier this morning,tolerated Ensure, no reports of hematemesis or melena. No acute overnight events reported. Objective - Vital Signs/Intake and Output Vital Signs (last 24 hours): Temp Pulse Resp BP Pulse Ox 98.9 F 77 18 128/59 L 97 12/15/16 07:24 12/15/16 07:24 12/15/16 07:24 12/15/16 07:24 12/15/16 07:24 Intake and Output: 12/15/16 12/15/16 06:59 18:59 Intake Total 160 Output Total 0 Balance 160 - Medications Medications: Current Medications Alprazolam (Xanax) 0.25 mg PO HS [facility] PRN Reason: Protocol Stop: 12/19/16 22:01 Last Admin: 12/14/16 22:20 Dose: 0.25 mg Cyanocobalamin (Vitamin B12 1000 Mcg/Ml Inj) 1,000 mcg IM DAILY [facility] Last Admin: 12/15/16 09:35 Dose: 1,000 mcg Iron Sucrose 100 mg/ Sodium (Chloride) 105 mls @ 210 mls/hr IVPB DAILY [facility] Last Admin: 12/15/16 09:35 Dose: 210 mls/hr Levothyroxine Sodium (Synthroid) 100 mcg PO ACB [facility] Last Admin: 12/14/16 12:01 Dose: 100 mcg Pantoprazole Sodium (Protonix Inj) 40 mg IVP DAILY [facility] Last Admin: 12/15/16 09:34 Dose: 40 mg Zolpidem Tartrate (Ambien) 10 mg PO HS PRN; Protocol PRN Reason: Insomnia Last Admin: 12/14/16 22:26 Dose: 10 mg - Labs Labs: 12/14/16 06:41 12/14/16 06:41 PT 14.3 SECONDS (9.4-12.5) H 12/11/16 11:35 INR 1.29 (0.93-1.08) H 12/11/16 11:35 APTT 28.3 Seconds (25.1-36.5) 12/11/16 11:35 - Constitutional Appears: No Acute Distress - Eye Exam Eye Exam: Normal appearance. absent: Scleral icterus - ENT Exam ENT Exam: Mucous Membranes Moist - Respiratory Exam Respiratory Exam: NORMAL BREATHING PATTERN. absent: Respiratory Distress - Cardiovascular Exam Cardiovascular Exam: +S1, +S2 - GI/Abdominal Exam GI & Abdominal Exam: Soft, Normal Bowel Sounds. absent: Guarding, Tenderness, Rebound - Neurological Exam Neurological Exam: Altered, Awake - Skin Skin Exam: Dry, Warm Assessment and Plan - Assessment and Plan (Free Text) Assessment: Assessment: GI bleed (+) guiac, s/p EGD ulcerated polyp w/ biopsy Anemia likley secondary to bleeding, h/o chronic Anemia Advanced dementia CAD CABG DM HTN PLAN: monitor H/H on IV Iron and B12 fu egd bx, results pending continue Protonix to daily continue diet to puree Seen and discussed w/ Dr. Parry.RU I did I had <Lee Parry V - Last Filed: 12/15/16 23:52> Objective - Vital Signs/Intake and Output Vital Signs (last 24 hours): Temp Pulse Resp BP Pulse Ox 99.3 F 83 20 123/81 93 L 12/15/16 16:00 12/15/16 16:00 12/15/16 16:00 12/15/16 16:00 12/15/16 16:00 Intake and Output: 12/15/16 12/16/16 18:59 06:59 Intake Total 360 180 Balance 360 180 - Medications Medications: Current Medications Alprazolam (Xanax) 0.25 mg PO HS [facility] PRN Reason: Protocol Stop: 12/19/16 22:01 Last Admin: 12/15/16 22:10 Dose: 0.25 mg Cyanocobalamin (Vitamin B12 1000 Mcg/Ml Inj) 1,000 mcg IM DAILY [facility] Last Admin: 12/15/16 09:35 Dose: 1,000 mcg Iron Sucrose 100 mg/ Sodium (Chloride) 105 mls @ 210 mls/hr IVPB DAILY [facility] Last Admin: 12/15/16 09:35 Dose: 210 mls/hr Levothyroxine Sodium (Synthroid) 100 mcg PO ACB [facility] Last Admin: 12/14/16 12:01 Dose: 100 mcg Pantoprazole Sodium (Protonix Inj) 40 mg IVP DAILY [facility] Last Admin: 12/15/16 09:34 Dose: 40 mg Zolpidem Tartrate (Ambien) 10 mg PO HS PRN; Protocol PRN Reason: Insomnia Last Admin: 12/15/16 22:10 Dose: 10 mg - Labs Labs: 12/14/16 06:41 12/14/16 06:41 PT 14.3 SECONDS (9.4-12.5) H 12/11/16 11:35 INR 1.29 (0.93-1.08) H 12/11/16 11:35 APTT 28.3 Seconds (25.1-36.5) 12/11/16 11:35 Attending/Attestation - Attestation I have personally seen and examined this patient.: Yes I have fully participated in the care of the patient.: Yes I have reviewed all pertinent clinical information, including history, physical exam and plan: Yes Notes (Text): p 12/15/16 23:52
--- NOTE | 2016-12-15 18:15 | PN ---
DATE: 12/15/2016 PULMONARY PROGRESS NOTE REFERRING PHYSICIAN: Colette Viera MD SUBJECTIVE: The patient lying in the bed, sleepy, arousable. Does not follow much command. Not much verbal. Had some cough. No hemoptysis or hematemesis. No hematuria. No diarrhea reported. OBJECTIVE: GENERAL: In no acute distress. VITAL SIGNS: Temperature is 98, heart rate is 77, respiratory rate is 18, blood pressure 128/59, pulse ox 97% on room air. HEENT: Moist mucous membranes. No ulcer or thrush noted. NECK: Supple. No JVD. LUNGS: Has a poor effort, but fair airflow with few rhonchi. HEART: S1 and S2. ABDOMEN: Soft, nontender, and nondistended. EXTREMITIES: There is no edema. NEUROLOGIC: Sleepy, arousable, nonverbal. Does not follow commands. MEDICATIONS: She is on Ambien 10 mg at bedtime p.r.n., IV iron. Also on Protonix 40 mg daily, Synthroid 100 mcg vitamin B12 at 1000 mcg IM daily, and Xanax 0.25 mg at bedtime. LABORATORY DATA: Shows blood sugar of 128. Microbiology: Blood culture has been negative. Rectal swab shows no VRE detected. IMPRESSION AND PLAN: Severe anemia status post transfusion and anticoagulation and platelet inhibitor, has severe dementia, oropharyngeal dysphagia, high risk for aspiration. Has some cough which probably is related to aspiration causing bronchitis. She has a cardiomyopathy with cardiac arrhythmia, high risk for thromboembolic disease, being treated conservatively, supportive care is being done. Keep head elevated at 45 degrees. Aspiration precautions. Fall precautions. Follow up labs. Overall, poor prognosis. We will keep the patient comfortable. Dayana Simms MD
[2016-12-16 07:18] LABS: BASO # 0.01 K/mm3 (0.0-2.0); BASO % 0.2 % (0.0-3.0); EOS # 0.2 (0.0-0.7); GRAN # 3.54 (1.4-6.5); HEMATOCRIT 29.4 % (36.0-48.0); LYMPH # 1.6 (1.2-3.4); LYMPH % 27.7 % (22.0-35.0); MEAN CELL VOLUME 82.6 fl (80.0-105.0); MEAN CORPUSCULAR HEMOGLOBIN 26.1 pg (25.0-35.0); MEAN CORPUSCULAR HGB CONC 31.6 g/dl (31.0-37.0); MEAN PLATELET VOLUME 10.3 fl (7.0-11.0); MONO # 0.5 (0.1-0.6); MONO % 9.1 % (1.0-6.0); WHITE BLOOD COUNT 5.9 10^3/ul (4.5-11.0)
[2016-12-16 07:33] LABS: ALKALINE PHOSPHATASE 57 U/L (38-126); ALT/SGPT 27 U/L (7-56); AST/SGOT 18 U/L (14-36); BILIRUBIN,TOTAL 0.9 mg/dL (0.2-1.3); BLOOD UREA NITROGEN 21 mg/dL (7-21); CALCIUM 9.3 mg/dL (8.4-10.5); CARBON DIOXIDE 27 mmol/L (21-33); CHLORIDE 121 mmol/L (98-107); GFR AFRICAN-AMERICAN > 60; GLUCOSE,RANDOM 111 mg/dL (70-110); MAGNESIUM 2.1 mg/dL (1.7-2.2); PHOSPHOROUS 2.2 mg/dL (2.5-4.5); POTASSIUM 3.7 mmol/L (3.6-5.0); SODIUM 154 mmol/L (132-148); TOTAL PROTEIN 5.3 g/dL (5.8-8.3)
--- NOTE | 2016-12-16 11:49 | CON ---
HISTORY OF PRESENT ILLNESS: An 81-year-old female, well-known to the [facility] Team, seen at bedside for a consultation, evaluation and management of the right heel ulceration. The patient has a history of heel ulcerations that have gone on to resolve in the past. PAST MEDICAL HISTORY: Significant for advanced dementia, coronary artery disease, congestive heart failure, longstanding diabetes, hypertension, COPD, hypothyroidism. PAST SURGICAL HISTORY: Significant for coronary artery bypass graft. FAMILY HISTORY: Unremarkable. ALLERGIES: THE PATIENT HAS NO KNOWN DRUG ALLERGIES. SOCIAL HISTORY: There is no history of illicit drug use, alcohol abuse, smoking, or tobacco products. MEDICATIONS: All medications are noted in an MAR. LABORATORY FINDINGS: Reveal a white count of 5.9, hemoglobin of 9.3, hematocrit of 29.4, platelet count of 110. There is no microbiology report on her wound. PHYSICAL EXAMINATION: VITAL SIGNS: Revealed temperature of 98.4, pulse rate of 74, blood pressure of 121/65, respiratory rate of 20. OBJECTIVE: EXTREMITIES: Nonpalpable posterior tibial pulse and a weakly palpable dorsalis pedis pulse noted bilaterally. The patient does not respond to 5.07 g monofilament wire testing bilaterally. Capillary filling time is delayed x10. Lower extremity skin presents thin, shining and discolored. There is noted to be a full-thickness ulceration on the right heel that measures approximately 1.5 cm x 0.8 cm x 0.2 cm. Base of the ulcer is a mixture of fibrotic and granular tissue. The wound does not probe to bone. There is no purulence to suggest underlying abscess formation. The area is void of any edema or erythema to suggest cellulitis. ASSESSMENT: Diabetic right heel ulceration. PLAN: The patient's wound was examined. Culture was taken and submitted for sensitivities. X-rays will be ordered to rule out osteomyelitis. Wound was cleansed with normal sterile saline and application of Bactroban and a dry sterile dressing was applied. We will continue to offload it all times using the foam multi Podus boots. Dr. Curtis's note was read and appreciated. We will await culture and sensitivity results, and the patient will be seen and followed daily. Flakito Paul DPM
--- NOTE | 2016-12-16 14:35 | RAD ---
PROCEDURE: Right Foot Radiographs. HISTORY: right heel ulceration COMPARISON: None. FINDINGS: BONES: No evidence of osteomyelitis. Considerable by artifact created by overlying bandages. Diffuse osteopenia. JOINTS: Multi joint degenerative change. SOFT TISSUES: Normal. OTHER FINDINGS: None. IMPRESSION: No acute findings related to/accounting for the clinical presentation. Limitations of the current examination: Overlying bandage obscures fine detail.
--- NOTE | 2016-12-16 23:39 | PN ---
PULMONARY PROGRESS NOTE DATE: 12/16/2016 REFERRING PHYSICIAN: Colette Viera MD SUBJECTIVE: The patient is lying in the bed. Family, son and daughter is at bedside. She is sleepy, arousable. Not much cough. No sputum production. Very poor p.o. intake. Does have a cough with feedings. No vomiting. No hematuria. No diarrhea reported. PHYSICAL EXAMINATION GENERAL: No acute distress. VITAL SIGNS: Temperature is 98, heart rate is 74, respiratory rate is 20, blood pressure is 121/65 and pulse oximetry 99% on room air. HEENT: Moist mucous membranes. Small oral cavity. NECK: Supple. No JVD. LUNGS: Has poor effort, but scattered rhonchi. HEART: S1 and S2. ABDOMEN: Soft and nontender. No organomegaly. EXTREMITIES: No edema. NEUROLOGIC: Sleepy and arousable, not much verbal. Does not follows commands. MEDICATIONS: She is Ambien 10 mg at bedtime p.r.n., Bactroban ointment to affected area twice a day, IV iron, Protonix 40 mg daily, Synthroid 100 mcg ACB, vitamin B12 1000 mcg IM daily and Xanax 0.25 mg at bedtime. LABORATORY DATA: Shows hemoglobin 9.3, hematocrit 29.4, WBC 5.9 and platelet count is 110. Sodium 154, potassium 3.7, chloride 121, bicarbonate 27, BUN 21, creatinine 0.7, glucose 111, calcium is 9.3, phosphorous 2.2 and magnesium 2.1. AST 18, ALT 27, alk phos is 57 and albumin is 2.6. Microbiology; blood cultures, there is no growth. Has a foot x-ray done, ordered by Podiatry, shows no acute finding related to accounting for a clinical presentation. IMPRESSION AND PLAN: Severe anemia status post transfusion, severe upper gastrointestinal bleed, dementia, oropharyngeal dysphagia, high risk for aspiration. The patient has a cardiomyopathy, cardiac arrhythmia. On admission, the patient was on antiplatelet and anticoagulation, which have been stopped. So far there is no sign of bleed. The patient was started on iron. Spoke to the patient's family at bedside. All the questions answered. Overall poor prognosis. Continue supportive care. Keep head 45 degrees. High risk for thromboembolic disease as well as pressure ulcer. Thank you and we will follow with you. Dayana Simms MD [facility] # [phone]
--- NOTE | 2016-12-17 12:53 | CP.PCM.PN ---
Subjective - Date & Time of Evaluation Date of Evaluation: 12/17/16 Time of Evaluation: 11:55 - Subjective Subjective: Comfortable in bed, no fevers. Objective - Vital Signs/Intake and Output Vital Signs (last 24 hours): Temp Pulse Resp BP Pulse Ox 97.6 F 84 18 116/60 99 12/17/16 07:41 12/17/16 07:41 12/17/16 07:41 12/17/16 07:41 12/17/16 07:41 Intake and Output: 12/17/16 12/17/16 06:59 18:59 Intake Total Balance - Medications Medications: Current Medications Alprazolam (Xanax) 0.25 mg PO HS [facility] PRN Reason: Protocol Stop: 12/19/16 22:01 Last Admin: 12/16/16 21:38 Dose: 0.25 mg Cyanocobalamin (Vitamin B12 1000 Mcg/Ml Inj) 1,000 mcg IM DAILY [facility] Last Admin: 12/17/16 10:35 Dose: 1,000 mcg Iron Sucrose 100 mg/ Sodium (Chloride) 105 mls @ 210 mls/hr IVPB DAILY [facility] Last Admin: 12/17/16 10:35 Dose: 210 mls/hr Levothyroxine Sodium (Synthroid) 100 mcg PO ACB [facility] Last Admin: 12/14/16 12:01 Dose: 100 mcg Mupirocin (Bactroban Ointment) 0 gm TOP BID [facility] Last Admin: 12/17/16 10:44 Dose: 1 applic Pantoprazole Sodium (Protonix Inj) 40 mg IVP DAILY [facility] Last Admin: 12/17/16 10:35 Dose: 40 mg Zolpidem Tartrate (Ambien) 10 mg PO HS PRN; Protocol PRN Reason: Insomnia Last Admin: 12/16/16 21:38 Dose: 10 mg - Labs Labs: 12/16/16 07:00 12/16/16 07:00 PT 14.3 SECONDS (9.4-12.5) H 12/11/16 11:35 INR 1.29 (0.93-1.08) H 12/11/16 11:35 APTT 28.3 Seconds (25.1-36.5) 12/11/16 11:35 - Constitutional Appears: Non-toxic - Head Exam Head Exam: NORMAL INSPECTION - ENT Exam ENT Exam: Mucous Membranes Moist - Neck Exam Neck Exam: absent: Meningismus - Respiratory Exam Respiratory Exam: Decreased Breath Sounds - Cardiovascular Exam Cardiovascular Exam: +S1, +S2 - GI/Abdominal Exam GI & Abdominal Exam: Soft. absent: Tenderness Assessment and Plan - Assessment and Plan (Free Text) Plan: Assessment bilateral heel infected ulcers without evidence of infection history of heel ulcer infections with VRE, Corynebacterium and Pseudomonas ( localized infection without systemic signs of infection) history of urinary tract infection with ESBL E. coli UTI history of right foot skin and skin structure infection history of PEG site skin and skin structure infection with Strep and Klebsiella dementia COPD HTN anxiety coronary artery disease atrial fibrillation history of E. coli bacteremia and UTI Plan continue to monitor off systemic antibiotics since she is at risk for nosocomial infections
--- NOTE | 2016-12-17 13:40 | CP.PCM.PN ---
<Sachin England - Last Filed: 12/17/16 13:35> Subjective - Date & Time of Evaluation Date of Evaluation: 12/17/16 Time of Evaluation: 13:35 - Subjective Subjective: Podiatry Progress Note - Dr. Thomas 81 year old female patient PMHx dementia, CAD, CHF, DM, HTN, COPD, hypothyroidism seen at bedside regarding right heel ulcerations. HPI unable to be obtained due to patient's mental status. Patient awake, grimacing, and moaning during time of visit. Nursing denies any acute events overnight. Objective - Vital Signs/Intake and Output Vital Signs (last 24 hours): Temp Pulse Resp BP Pulse Ox 97.6 F 84 18 116/60 99 12/17/16 07:41 12/17/16 07:41 12/17/16 07:41 12/17/16 07:41 12/17/16 07:41 Intake and Output: 12/17/16 12/17/16 06:59 18:59 Intake Total 240 Balance 240 - Medications Medications: Current Medications Alprazolam (Xanax) 0.25 mg PO HS [facility] PRN Reason: Protocol Stop: 12/19/16 22:01 Last Admin: 12/16/16 21:38 Dose: 0.25 mg Cyanocobalamin (Vitamin B12 1000 Mcg/Ml Inj) 1,000 mcg IM DAILY [facility] Last Admin: 12/17/16 10:35 Dose: 1,000 mcg Iron Sucrose 100 mg/ Sodium (Chloride) 105 mls @ 210 mls/hr IVPB DAILY [facility] Last Admin: 12/17/16 10:35 Dose: 210 mls/hr Levothyroxine Sodium (Synthroid) 100 mcg PO ACB [facility] Last Admin: 12/14/16 12:01 Dose: 100 mcg Mupirocin (Bactroban Ointment) 0 gm TOP BID [facility] Last Admin: 12/17/16 10:44 Dose: 1 applic Pantoprazole Sodium (Protonix Inj) 40 mg IVP DAILY [facility] Last Admin: 12/17/16 10:35 Dose: 40 mg Zolpidem Tartrate (Ambien) 10 mg PO HS PRN; Protocol PRN Reason: Insomnia Last Admin: 12/16/16 21:38 Dose: 10 mg - Labs Labs: 12/16/16 07:00 12/16/16 07:00 PT 14.3 SECONDS (9.4-12.5) H 12/11/16 11:35 INR 1.29 (0.93-1.08) H 12/11/16 11:35 APTT 28.3 Seconds (25.1-36.5) 12/11/16 11:35 - Constitutional Appears: Well, Non-toxic, No Acute Distress - Extremities Exam Additional comments: Vasc: DP pulses weakly palpable 1/4 b/l. PT pulses nonpalpable b/l. CFT delayed x10. Temperature gradient cool to cool. No edema noted. Neuro: Unable to be assessed 2/2 patient's mental status. Derm: Lower extremity skin appears thin and friable with waxy, hypopigmented skin to bilateral heels from previously healed ulcerations. Xerosis overlying right heel hypopigmentation. No open lesions noted. Ortho: Rigid contracture of knee joints, L>R. Digital contractures bilateral. Pain on palpation unable to be fully assessed 2/2 mental status however patient winces with movement of bilateral feet. - Neurological Exam Neurological Exam: Awake Assessment and Plan - Assessment and Plan (Free Text) Assessment: 81 year old female patient PMHx dementia, DM with healed bilateral heel ulcerations Plan: Patient seen and evaluated at bedside Discussed with attending, Dr. Thomas Labs and vitals reviewed = afebrile, WBC 5.9 yesterday 12/16/16 Right Foot XR reviewed - negative for OM Optifoam applied to bilateral heels Will continue to monitor for skin breakdown to heels b/l Continue heel offloading boots Podiatry will continue to follow patient while in house <Bess Thomas - Last Filed: 12/24/16 13:34> Objective - Vital Signs/Intake and Output Vital Signs (last 24 hours): Temp Pulse Resp BP Pulse Ox 98.7 F 68 20 126/77 97 12/24/16 07:26 12/24/16 07:26 12/24/16 07:26 12/24/16 07:26 12/24/16 07:26 Intake and Output: 12/24/16 12/24/16 06:59 18:59 Intake Total 240 Balance 240 - Medications Medications: Current Medications Cyanocobalamin (Vitamin B12 1000 Mcg/Ml Inj) 1,000 mcg IM DAILY [facility] Last Admin: 12/24/16 09:45 Dose: 1,000 mcg Iron Sucrose 100 mg/ Sodium (Chloride) 105 mls @ 210 mls/hr IVPB DAILY [facility] Last Admin: 12/24/16 12:51 Dose: 210 mls/hr Insulin Human Lispro (Humalog Low) 0 units SC ACHS [facility] PRN Reason: Protocol Last Admin: 12/24/16 12:50 Dose: Not Given Levothyroxine Sodium (Synthroid) 112 mcg PO ACB [facility] Last Admin: 12/24/16 08:05 Dose: 112 mcg Mupirocin (Bactroban Ointment) 0 gm TOP BID [facility] Last Admin: 12/24/16 09:45 Dose: 1 applic Pantoprazole Sodium (Protonix Inj) 40 mg IVP Q12 [facility] Last Admin: 12/24/16 09:45 Dose: 40 mg Potassium Phos/Sodium Phos (Neutra-Phos) 1 pkt PO TID [facility] Stop: 12/24/16 23:59 Last Admin: 12/24/16 13:01 Dose: 1 pkt Potassium Phos/Sodium Phos (Neutra-Phos) 1 pkt PO TID [facility] Stop: 12/26/16 23:59 Zolpidem Tartrate (Ambien) 10 mg PO HS PRN; Protocol PRN Reason: Insomnia Last Admin: 12/24/16 00:50 Dose: 10 mg - Labs Labs: 12/24/16 07:20 12/24/16 07:20 PT 12.1 SECONDS (9.4-12.5) 12/18/16 09:00 INR 1.10 (0.93-1.08) H 12/18/16 09:00 APTT 29.1 Seconds (25.1-36.5) 12/18/16 09:00 Attending/Attestation - Attestation I have personally seen and examined this patient.: Yes I have fully participated in the care of the patient.: Yes I have reviewed all pertinent clinical information, including history, physical exam and plan: Yes
--- NOTE | 2016-12-17 18:45 | PN ---
PULMONARY PROGRESS NOTE DATE: 12/17/2016 REFERRING PHYSICIAN: Dr. Viera. SUBJECTIVE: The patient is lying in the bed. Daughter is at bedside. Feeding her lunch. She is not much verbal. Does not follow commands. Not much cough today. No vomiting. No hematuria. No diarrhea. No leg swelling reported. PHYSICAL EXAMINATION: GENERAL: In no acute distress. VITAL SIGNS: Temperature is 98, heart rate is 84, respiratory rate is 18, blood pressure 116/60 and pulse ox 99% on room air. HEENT: Moist mucous membrane. NECK: Supple. No JVD. LUNGS: Few scattered rhonchi. HEART: S1 and S2. ABDOMEN: Soft and nontender. No organomegaly. EXTREMITIES: No edema. NEUROLOGIC: Awake, alert and nonverbal. Does not follow command. MEDICATIONS: She is on Ambien 10 mg h.s. p.r.n., bacitracin ointment to affected area, iron sucrose IV daily, Protonix 40 mg daily, Synthroid 100 mcg daily, vitamin B12 1000 mcg IM daily and Xanax 0.25 mg h.s. LABORATORY DATA: Shows hemoglobin 9.3, hematocrit 29.4, WBC 5.9 and platelets 110. Blood sugar is 116. Microbiology: Blood cultures, there is not growth. IMPRESSION AND PLAN: Severe anemia, status post transfusion, presently on IV iron and B12 vitamins. Has advanced dementia, oropharyngeal dysphagia, high risk for aspiration and high risk for pressure ulcers. Spoke to the patient's daughter at bedside. All their questions answered. Severe cardiomyopathy with cardiac arrhythmia. High risk for thromboembolic disease. Continue supportive care and aspiration precaution. Thank you and we will follow with you. Dayana Simms MD
--- NOTE | 2016-12-17 20:31 | PN ---
DATE: SUBJECTIVE: The patient is an 81-year-old female. The patient seen and examined at the bedside. The patient is awake, alert, and but confused. No nausea or vomiting. No fever. No chest pain. The patient is not good historian, but do not look like he has swelling of the body. PHYSICAL EXAMINATION VITAL SIGNS: Temperature 97.6, pulse 84, respiratory rate 18, blood pressure 116/60, and pulse oximetry 99. HEENT: Head is normocephalic and atraumatic. Eyes: PERRLA. Extraocular muscles intact. Conjunctivae clear. Nose patent. Mucous membrane moist. NECK: Supple. No carotid bruit. No JVD or thyromegaly. CHEST: Bilaterally symmetrical. HEART: S1 and S2 positive. LUNGS: Clear to auscultation. ABDOMEN: Soft. Bowel sounds present. No organomegaly. EXTREMITIES: No edema. No cyanosis. NEUROLOGIC: The patient is awake, alert, but is confused. MEDICATIONS: Xanax, vitamin B12, iron, levothyroxine, Bactroban, pantoprazole, Ambien. LABORATORY DATA: White blood cell 5.9, hemoglobin 9.3, hematocrit 29.4, platelets 110. Sodium 154, potassium 3.7, BUN 21, creatinine 0.7, glucose of 111. ASSESSMENT AND PLAN: Ms. Marge Still is an 81-year-old female with anemia, hyperglycemia, hyperchloremia, thrombocytopenia, has bilaterally heel infected ulcers without evidence of infection, history of heel ulcers, infection with vancomycin-resistant enterococcus, Corynebacterium and pseudomonas localize infection without systemic signs of infection, history of urinary tract infection with ESBL urinary tract infection, history of right foot skin and skin structure infection, history of percutaneous endoscopic gastrostomy tube placement and removed and history of infection of the percutaneous endoscopic gastrostomy tube place, dementia, advanced chronic obstructive pulmonary disease, hypertension, anxiety, hypothyroidism, coronary artery disease, atrial fibrillation. The patient has severe anemia, status post blood transfusion. [place] on the case. Gastrointestinal and deep venous thrombosis prophylaxis. Repeat labs. We will follow. Colette Viera MD
--- NOTE | 2016-12-18 02:00 | PN ---
DATE: 12/16/2016 SUBJECTIVE: The patient is an 81-year-old female. The patient was seen and examined on 12/16/2016. No change in the status. Discussion done with the family. No fever. No chills. Does have cough with feeding. No vomiting. No diarrhea. No hematuria or hematochezia. No shortness of breath. PHYSICAL EXAMINATION: VITAL SIGNS: Temperature 98, heart rate 74, respiratory rate 20, blood pressure 120/65, and pulse oximetry 99% on room air. HEENT: Head normocephalic and atraumatic. Eyes; PERRLA. Extraocular muscles intact. Conjunctivae clear. Nose patent. NECK: Supple. No carotid bruit. No JVD or thyromegaly. LUNGS: Has poor effort, but scattered rhonchi.. HEART: S1 and S2 positive. ABDOMEN: Soft. No organomegaly. EXTREMITIES: No edema. No cyanosis. NEUROLOGICALLY: The patient is awake. Not follows command and is not much verbal, awake, but is confused. LABORATORY DATA: Hemoglobin 9.3, hematocrit 29.4, white blood cells 5.9, platelets 110. Sodium 154, potassium 3.47. BUN 21 and creatinine 0.7. AST 18 and ALT 27. MEDICATIONS: Ambien, Bactroban, Protonix, Synthroid, vitamin B 12 injections, and Xanax. ASSESSMENT AND PLAN: Ms. Marge Still is an 81-year-old lady with severe anemia status post blood transfusion, history of coronary artery disease, history of gastrointestinal bleeding, dementia, oropharyngeal dysphagia, high risk of aspiration, history of hypothyroidism, cardiomyopathy, and cardiac arrhythmias. The patient was on antiplatelets, anticoagulation, which have been stopped because of severe anemia. There are no obvious signs of bleeding. The patient is getting iron and B12. Discussion done with the family. Discussion done with Dr. Parry. Prognosis is poor overall. Gastrointestinal and deep venous thrombosis prophylaxis. We will follow up. Colette Viera MD
--- NOTE | 2016-12-18 04:21 | PN ---
DATE: 12/17/2016 SUBJECTIVE: This patient was seen and evaluated earlier today. The patient is being on pureed diet being fed by the family members mostly. Tolerating it. PHYSICAL EXAMINATION: VITAL SIGNS: Temperature is 99, blood pressure 139/62. HEENT: Atraumatic. Anicteric. NECK: Supple. HEART: S1 and S2 heard. LUNGS: Bilateral air entry present. ABDOMEN: Soft. No mass, no tenderness. EXTREMITIES: Dressings present of the wound. LABORATORY DATA: There is no recent labs today. IMPRESSION: This 81-year-old patient with advanced dementia on pureed diet with assistance, presented with upper gastrointestinal bleeding. The patient was on Eliquis for paroxysmal atrial fibrillation, history of deep venous thrombosis before. The patient was found to have endoscopy, found to have a large ulcerated polypoid lesion from the fundus extending to the cardia. There was also another polypoid lesion noticed in the antrum in the pylorus extending both into the prepyloric area and also in the duodenum. 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 The one ulcerated polyp in the fundus was hyperplastic polyp. PLAN: Plan is for endoscopy and polypectomy of the fundal polyp. We may consider attempt to polypectomy and also argon plasma coagulation treatment of this adenomatous areas in the duodenum. I will continue to closely follow up her care and suggest further management based on the clinical course. Lee Parry MD
[2016-12-18] MEDS ORDERED: Dextrose 5%/0.45% NS 1,000 ML IV SCH (08:45)
--- NOTE | 2016-12-18 08:59 | PN ---
DATE: 12/15/2016 SUBJECTIVE: The patient is an 81-year-old female. The patient is seen and examined on the bedside, looking comfortable. No nausea, vomiting, diarrhea. No hematochezia. No hematuria. No swelling of the legs. No chest pain, no palpitation. No headache. No dizziness. The patient is nonverbal. She is not a good historian. PHYSICAL EXAMINATION: VITAL SIGNS: Temperature 98, heart rate 77, respiratory rate 18, blood pressure 128/59, and pulse oximetry 97% on room air. HEENT: Head is normocephalic and atraumatic. Eyes; PERRLA. Extraocular muscles are intact. Conjunctivae are clear. Nose is patent. Mucous membranes are moist. NECK: Supple. No carotid bruits. No JVD or thyromegaly. CHEST: Bilaterally symmetrical. HEART: S1 and S2 positive. ABDOMEN: Soft. Nontender. No organomegaly. EXTREMITIES: No edema. No cyanosis. NEUROLOGIC: The patient is sleepy. Arousable. Nonverbal. Does not follow command. MEDICATIONS: Ambien, iron infusion, Protonix, Synthroid, vitamin B12, and Xanax. LABORATORY DATA: We do not have recent labs today, but I reviewed old labs. Blood sugar is 128. ASSESSMENT AND PLAN: Ms. Cheko Bird is an 81-year-old female with severe anemia, status post blood transfusion, was on anticoagulation , oropharyngeal dysphagia, high risk for aspiration, hypothyroidism, coronary artery disease, history of sacral and feet decubitus ulcer, severe dementia, cardiomyopathy, cardiac arrhythmias, high risk of thromboembolic disease, treated by conservatively. Supportive care is being done. Keep head elevated. Aspiration precautions. Gastrointestinal and deep venous thrombosis prophylaxis. Repeat labs. We will follow up. Lots of family discussion done with Dr. Parry to plan about workup to know the cause of anemia, but he said he will discuss with the patient's brother and Dr. Galaviz and will plan according to that. Colette Viera MD [facility]
[2016-12-18 09:28] LABS: BASO # 0.01 K/mm3 (0.0-2.0); BASO % 0.2 % (0.0-3.0); EOS # 0.2 (0.0-0.7); EOS % 3.2 % (1.5-5.0); GRAN # 2.79 (1.4-6.5); HEMATOCRIT 28.5 % (36.0-48.0); LYMPH # 1.4 (1.2-3.4); LYMPH % 29.6 % (22.0-35.0); MEAN CELL VOLUME 85.1 fl (80.0-105.0); MEAN CORPUSCULAR HEMOGLOBIN 26.3 pg (25.0-35.0); MEAN CORPUSCULAR HGB CONC 30.9 g/dl (31.0-37.0); MONO # 0.4 (0.1-0.6); RED CELL DISTRIBUTION WIDTH 22.3 % (11.5-14.5); WHITE BLOOD COUNT 4.7 10^3/ul (4.5-11.0)
[2016-12-18 09:37] LABS: ALB/GLOB RATIO 0.8 (1.1-1.8); ALKALINE PHOSPHATASE 52 U/L (38-126); ALT/SGPT 27 U/L (7-56); AST/SGOT 17 U/L (14-36); BILIRUBIN,TOTAL 0.6 mg/dL (0.2-1.3); BLOOD UREA NITROGEN 25 mg/dL (7-21); CALCIUM 9.2 mg/dL (8.4-10.5); CARBON DIOXIDE 31 mmol/L (21-33); CHLORIDE 122 mmol/L (98-107); GFR AFRICAN-AMERICAN > 60; GLUCOSE,RANDOM 113 mg/dL (70-110); POTASSIUM 3.6 mmol/L (3.6-5.0); SODIUM 155 mmol/L (132-148); TOTAL PROTEIN 5.3 g/dL (5.8-8.3)
[2016-12-18 09:58] LABS: INR 1.1 (0.93-1.08); PARTIAL THROMBOPLASTIN TIME 29.1 Seconds (25.1-36.5)
--- NOTE | 2016-12-18 13:29 | CP.PCM.PN ---
<Delaney Che - Last Filed: 12/18/16 13:30> Subjective - Date & Time of Evaluation Date of Evaluation: 12/18/16 Time of Evaluation: 13:23 - Subjective Subjective: S&E at bedside earlier today, No acute overnight events reported, was to have repeat EGD for polyp removal today, sodium elevated. No reports of N/V or overt GI bleeding. Objective - Vital Signs/Intake and Output Vital Signs (last 24 hours): Temp Pulse Resp BP Pulse Ox 98.8 F 71 16 112/71 99 12/18/16 07:30 12/18/16 07:30 12/18/16 07:30 12/18/16 07:30 12/18/16 07:30 Intake and Output: 12/18/16 12/18/16 06:59 18:59 Intake Total 120 Balance 120 - Medications Medications: Current Medications Alprazolam (Xanax) 0.25 mg PO HS OLGA PRN Reason: Protocol Stop: 12/19/16 22:01 Last Admin: 12/17/16 21:16 Dose: 0.25 mg Cyanocobalamin (Vitamin B12 1000 Mcg/Ml Inj) 1,000 mcg IM DAILY OLGA Last Admin: 12/18/16 09:33 Dose: 1,000 mcg Iron Sucrose 100 mg/ Sodium (Chloride) 105 mls @ 210 mls/hr IVPB DAILY OLGA Last Admin: 12/18/16 09:32 Dose: 210 mls/hr Dextrose (Dextrose 5% In Water 1000 Ml) 1,000 mls @ 100 mls/hr IV .Q10H OLGA Insulin Human Lispro (Humalog Low) 0 units SC ACHS OLGA PRN Reason: Protocol Levothyroxine Sodium (Synthroid) 100 mcg PO ACB OLGA Last Admin: 12/14/16 12:01 Dose: 100 mcg Mupirocin (Bactroban Ointment) 0 gm TOP BID OLGA Last Admin: 12/18/16 09:31 Dose: 1 applic Pantoprazole Sodium (Protonix Inj) 40 mg IVP DAILY OLGA Last Admin: 12/17/16 10:35 Dose: 40 mg Zolpidem Tartrate (Ambien) 10 mg PO HS PRN; Protocol PRN Reason: Insomnia Last Admin: 12/17/16 21:16 Dose: 10 mg - Labs Labs: 12/18/16 09:00 12/18/16 09:00 PT 12.1 SECONDS (9.4-12.5) 12/18/16 09:00 INR 1.10 (0.93-1.08) H 12/18/16 09:00 APTT 29.1 Seconds (25.1-36.5) 12/18/16 09:00 - Constitutional Appears: No Acute Distress - Eye Exam Eye Exam: Normal appearance. absent: Scleral icterus - ENT Exam ENT Exam: Mucous Membranes Moist - Neck Exam Neck Exam: Normal Inspection - Respiratory Exam Respiratory Exam: NORMAL BREATHING PATTERN. absent: Respiratory Distress - Cardiovascular Exam Cardiovascular Exam: +S1, +S2 - GI/Abdominal Exam GI & Abdominal Exam: Soft, Normal Bowel Sounds. absent: Guarding, Tenderness, Rebound - Extremities Exam Extremities Exam: absent: Calf Tenderness, Pedal Edema - Neurological Exam Neurological Exam: Altered, Awake - Skin Skin Exam: Dry, Warm Assessment and Plan - Assessment and Plan (Free Text) Assessment: Assessment: Hypernatremia GI bleed (+) guiac, s/p EGD ulcerated polyp, gastric antrum adenomatous polyp, no H pylori Anemia likley secondary to bleeding, h/o chronic Anemia Advanced dementia CAD CABG DM HTN PLAN: monitor H/H on D5W@100cc/hr on IV Iron and B12 continue Protonix to daily resume diet to puree NPO 12 midnight for egd 02/18/16 Elevated sodium, case reviewed w/ Dr. Samuel, anesthesia, recommend to correct sodium, will plan for tomorrow, spoke to nursing staff Seen and discussed w/ Dr. Parry. <Lee Parry V - Last Filed: 12/18/16 22:12> Objective - Vital Signs/Intake and Output Vital Signs (last 24 hours): Temp Pulse Resp BP Pulse Ox 99.3 F 71 21 126/77 100 12/18/16 16:00 12/18/16 16:00 12/18/16 16:00 12/18/16 16:00 12/18/16 16:00 Intake and Output: 12/18/16 12/19/16 18:59 06:59 Intake Total 0 Balance 0 - Medications Medications: Current Medications Alprazolam (Xanax) 0.25 mg PO HS OLGA PRN Reason: Protocol Stop: 12/19/16 22:01 Last Admin: 12/18/16 21:04 Dose: 0.25 mg Cyanocobalamin (Vitamin B12 1000 Mcg/Ml Inj) 1,000 mcg IM DAILY [facility] Last Admin: 12/18/16 09:33 Dose: 1,000 mcg Iron Sucrose 100 mg/ Sodium (Chloride) 105 mls @ 210 mls/hr IVPB DAILY OLGA Last Admin: 12/18/16 09:32 Dose: 210 mls/hr Dextrose (Dextrose 5% In Water 1000 Ml) 1,000 mls @ 100 mls/hr IV .Q10H OLGA Last Admin: 12/18/16 15:45 Dose: 100 mls/hr Insulin Human Lispro (Humalog Low) 0 units SC ACHS OLGA PRN Reason: Protocol Last Admin: 12/18/16 21:04 Dose: Not Given Levothyroxine Sodium (Synthroid) 100 mcg PO ACB OLGA Last Admin: 12/14/16 12:01 Dose: 100 mcg Mupirocin (Bactroban Ointment) 0 gm TOP BID [facility] Last Admin: 12/18/16 17:20 Dose: 1 applic Pantoprazole Sodium (Protonix Inj) 40 mg IVP DAILY [facility] Last Admin: 12/18/16 10:45 Dose: 40 mg Zolpidem Tartrate (Ambien) 10 mg PO HS PRN; Protocol PRN Reason: Insomnia Last Admin: 12/18/16 21:04 Dose: 10 mg - Labs Labs: 12/18/16 09:00 12/18/16 09:00 PT 12.1 SECONDS (9.4-12.5) 12/18/16 09:00 INR 1.10 (0.93-1.08) H 12/18/16 09:00 APTT 29.1 Seconds (25.1-36.5) 12/18/16 09:00 Attending/Attestation - Attestation I have personally seen and examined this patient.: Yes I have fully participated in the care of the patient.: Yes I have reviewed all pertinent clinical information, including history, physical exam and plan: Yes Notes (Text): This is an addendum to GI progress report dictated by Delaney Che APN.The patient was seen and examined earlier. Medical records, lab studies, imagings were reviewed. Last 24 hours events reviewed. Agreed with the above treatment plan as outlined in Delaney Che APN's notes the with the addition of the following the patient was scheduled for EGD polypectomy off the fundal polyp which was ulcerated. The pylorus polypoid lesion extending to the antrum and the bulb was found to be adenomatous present time would not contemplate treating both at the same time. Today's labs sodium was found to be high. Discussed with anesthesiologist the procedure was rescheduled further optimization and correction of the hypernatremia . 12/18/16 22:08 EGD
--- NOTE | 2016-12-18 16:43 | PN ---
DATE: 12/18/2016 LOCATION: The patient in room 567, bed 1 REASON FOR CONSULTATION AND FOLLOWUP: Coronary artery disease, history of severe dementia, paroxysmal atrial fibrillation, massive GI bleeding, severe, anemia, status post multiple blood transfusions, status post EGD. SUBJECTIVE: The patient lying flat in bed without any apparent respiratory distress. PHYSICAL EXAMINATION: VITAL SIGNS: Blood pressure 112/71, respirations 16, pulse 71, and temperature 98.8. HEENT: Head is normocephalic. Eyes: Pupils normal. Conjunctivae slightly pale. NECK: JVP low. Carotid equal. THORAX: AP diameter normal. LUNGS: Clear. CARDIOVASCULAR: S1 and S2. ABDOMEN: Soft and nontender. No organomegaly. EXTREMITIES: No clubbing. No cyanosis. LABORATORY DATA: WBC 4.7, hemoglobin 8.8, hematocrit 28.5, and platelet 122. Sodium 155, potassium 3.6, BUN 25, creatinine is 0.8. Random sugar 157. AST 17, ALT 27, total protein 5.3, albumin 2.4. DIAGNOSES: Massive gastrointestinal bleeding, severe anemia, multiple blood transfusions, two polyps in the stomach on esophagogastroduodenoscopy status post biopsy. Biopsy report shows one is hyperplastic gastric mucosa and second is tubular adenoma and stain for Helicobacter pylori is negative. Cardiomyopathy, last echocardiogram on 12/12/2016, showed left ventricle ejection fraction of 25%, mild mitral regurgitation, right ventricle systolic pressure 49 mmHg, history of deep vein thrombosis, history of pulmonary embolism. The patient was on Eliquis at home. TSH decreased on this admission. High sodium suggestive of dehydration. PLAN: The patient's levothyroxine has been already put on hold. We will start 5% dextrose in water to help hypernatremia, which is related to dehydration. Protonix 40 mg IV daily. Iron sucrose has been already ordered. The patient on D normal saline 60 mL an hour. We will change it to D5W 100 mL an hour and repeat labs in the morning. The patient is supposed to go for endoscopy for removal of polyp today and we will continue to follow. Dayana Galaviz MD
[2016-12-18] MEDS: Insulin Lispro (humaLOG) LOW Coverage SC SCH ×2 (17:20→21:04)
--- NOTE | 2016-12-19 00:43 | PN ---
PULMONARY PROGRESS NOTE REFERRING PHYSICIAN: Dr. Viera. SUBJECTIVE: She is lying in the bed. Family is at bedside. Has been n.p.o for possible endoscopy. Not much cough. No sputum production. No hematuria. No diarrhea. No leg swelling reported. OBJECTIVE: GENERAL: In no acute distress. VITAL SIGNS: Temperature is 98, heart rate is 71, respiratory rate is 20, blood pressure 126/77 and pulse ox 100% on room air. HEENT: Moist mucous membrane. Has some secretion. NECK: Supple. No JVD. LUNGS: Fair airflow with few rhonchi. HEART: S1 and S2. ABDOMEN: Soft and nontender. No organomegaly. EXTREMITIES: No edema. NEUROLOGIC: Awake, alert and nonverbal. Does not follow command. MEDICATIONS: She is on Ambien 10 mg at bedtime p.r.n., Bactroban ointment twice a day, IV fluid D5 100 mL per hour, insulin coverage, iron IV, Protonix 40 mg daily, Synthroid 100 mcg a.c.b., vitamin B12 1000 mcg daily and Xanax 0.25 mg at bedtime LABORATORY DATA: Shows hemoglobin 8.8, hematocrit 28.5, WBC 4.7 and platelet count is 122. INR 1.10, PTT 29. Sodium 155, potassium 3.6, chloride 122, bicarbonate 31, BUN 25, creatinine 0.8, glucose 113, calcium 9.2, AST 17, ALT 27, alk phos is 52 and albumin is 2.4. Microbiology; blood culture, there is no growth. IMPRESSION AND PLAN: Severe anemia, status post transfusion, presently on IV iron and B12, advanced dementia, oropharyngeal dysphagia, high risk for aspiration, high risk for pressure ulcer. The patient is n.p.o for endoscopy today. The patient seen by me in the morning. Thank you and we will follow with you. Dayana Simms MD
[2016-12-19 07:19] LABS: BASO # 0.01 K/mm3 (0.0-2.0); BASO % 0.2 % (0.0-3.0); EOS # 0.2 (0.0-0.7); EOS % 2.6 % (1.5-5.0); GRAN # 3.75 (1.4-6.5); GRAN % 58.4 % (50.0-68.0); HEMATOCRIT 26.8 % (36.0-48.0); LYMPH % 30.5 % (22.0-35.0); MEAN CELL VOLUME 84.5 fl (80.0-105.0); MEAN CORPUSCULAR HEMOGLOBIN 26.2 pg (25.0-35.0); MEAN PLATELET VOLUME 9.9 fl (7.0-11.0); MONO # 0.5 (0.1-0.6); MONO % 8.3 % (1.0-6.0); RED CELL DISTRIBUTION WIDTH 22.4 % (11.5-14.5); WHITE BLOOD COUNT 6.4 10^3/ul (4.5-11.0)
[2016-12-19] MEDS: Insulin Lispro (humaLOG) LOW Coverage SC SCH ×4 (07:47→21:49)
[2016-12-19 08:02] LABS: ALB/GLOB RATIO 0.9 (1.1-1.8); ALKALINE PHOSPHATASE 42 U/L (38-126); ALT/SGPT 25 U/L (7-56); AST/SGOT 21 U/L (14-36); BILIRUBIN,TOTAL 0.6 mg/dL (0.2-1.3); BLOOD UREA NITROGEN 23 mg/dL (7-21); CALCIUM 8.5 mg/dL (8.4-10.5); CARBON DIOXIDE 27 mmol/L (21-33); CHLORIDE 112 mmol/L (98-107); GFR AFRICAN-AMERICAN > 60; GLUCOSE,RANDOM 131 mg/dL (70-110); PHOSPHOROUS 1.7 mg/dL (2.5-4.5); POTASSIUM 3.6 mmol/L (3.6-5.0); SODIUM 142 mmol/L (132-148); TOTAL PROTEIN 4.9 g/dL (5.8-8.3)
--- NOTE | 2016-12-19 08:13 | PN ---
DATE: 12/18/2016 SUBJECTIVE: The patient was seen and examined on the bedside, looking comfortable. No nausea, vomiting, or diarrhea. No hematuria or hematochezia. No swelling of the legs. No chest pain, no palpitations. No fever. No chills. The patient is a very poor historian and is not able to give the review of systems. Daughter was on the bedside, a length of time discussion done, all questions answered. The patient does not look like in acute overnight events reported. She is supposed to go for EGD for polyp removal today. Sodium was elevated. No reports of nausea or vomiting and overt GI bleeding as per family. Procedure was postponed due to the abnormal electrolytes. PHYSICAL EXAMINATION: VITAL SIGNS: Temperature 98.8, pulse 71, respiratory rate 16, blood pressure 112/71, and pulse oximetry 99. HEENT: Head is normocephalic and atraumatic. Eyes; PERRLA. EOMs are intact. Conjunctivae are clear. Nose is patent. Mucous membrane moist. NECK: Supple. No carotid bruits, JVD, or thyromegaly. CHEST: Bilaterally symmetrical. HEART: S1 and S2 positive. LUNGS: Clear to auscultation. ABDOMEN: Soft. Bowel sounds present. No organomegaly. EXTREMITIES: No edema. No cyanosis. NEUROLOGIC: The patient is awake and alert. Moving all four extremities. No focal deficits. MEDICATIONS: Vitamin B12 , dextrose, lispro, Synthroid, Bactroban ointment, Protonix, and Ambien. LABORATORY DATA: White blood cell 4.7, hemoglobin 8.8, hematocrit 28.5, and platelet 122. Sodium 155, potassium 3.6, BUN 25, creatinine 0.8, and glucose 113. ASSESSMENT AND PLAN: Ms. Cheko Bird is an 81-year-old lady with severe anemia, hypernatremia, hyperchloremia, hyper BUN, and hyperglycemia; has gastrointestinal bleeding, guaiac positive, status post EGD with resection of polyp, gastric antrum, adenoma, status polyp but no history of Helicobacter pylori, anemia likely secondary to bleeding, history of chronic anemia, advanced dementia, coronary artery disease, coronary artery bypass graft, diabetes mellitus, hypertension, hypothyroidism. The patient is supposed to go for EGD today and removal of the polyp, but because of hypernatremia, the procedure was held. After fixing electrolytes . tomorrow, we will go for endoscopy as per GI . Discussion done with the daughter. We will follow up. Colette Viera MD MTDIgor
[2016-12-19] MEDS ORDERED: Propofol 10 mg/ml Inj (20 ML) ONE (13:29)
[2016-12-19] MEDS ORDERED: Etomidate 20 mg/10ml Inj IV ONE (13:31)
--- NOTE | 2016-12-19 13:51 | PN ---
DATE: 12/19/2016 REASON FOR CONSULTATION AND FOLLOWUP: Coronary artery disease, history of advance dementia, paroxysmal atrial fibrillation, massive GI bleed, fever, anemia, status post multiple packed RBC transfusion for EGD today and removal of the gastric polyp. SUBJECTIVE: Unable to communicate because of severe advanced dementia. PHYSICAL EXAMINATION GENERAL: Lying flat in the bed, not in apparent distress. Not active bleeding. VITAL SIGNS: Temperature afebrile, heart rate 60, blood pressure 115/64. HEENT: PERRLA intact. NECK: Supple. No carotid bruits or thyromegaly. CHEST: Clear to auscultation. HEART: S1 and S2 regular. ABDOMEN: Soft. EXTREMITIES: Clubbing and cyanosis negative. LABORATORY DATA: Blood workup as follows: WBC 6.5, hemoglobin 8.3, hematocrit 26.8, platelet 121. Chemistry shows sodium 142, potassium 3.6, chloride 102, carbon dioxide 27, anion gap of 7, BUN 26, and creatinine 0.7. IMPRESSION: An 81-year-old female with a past medical history significant for coronary artery disease status post history of multiple percutaneous transluminal coronary angioplasty, advanced dementia, admitted with heriberto hemoptysis, severe anemia, status post multiple packed red blood cell transfusion, history of endoscopy and biopsy was done. 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 The patient had a recent echocardiography done on 12/12/2016, ejection fraction 25%, mild mitral regurgitation, history of deep vein thrombosis, was on Eliquis at home. Yesterday, the patient was hypernatremic, so endoscopy was canceled and scheduled today. Today, sodium is normal. RECOMMENDATION: Supplement potassium, the patient is cleared from cardiac point of view to go for removal of the polyp, which is in the body of the stomach and another polyp that is in the gastroduodenal junction mass will be done later versus medical treatment. The patient is off Eliquis since admission. In the interim, continue IV fluid. TSH was low because of probably which thyroid was given. T3, T4 was low and free T4 was high consistent with levothyroxine therapy. We will follow up with you. The patient again is cleared from cardiac point of view to go for endoscopy and removal of the polyp with moderate to high risk and underlying comorbidity, but no associated contraindication. We will follow with you. We will supplement potassium. Patient is continuously dropping H&H, posttransfusion hemoglobin buildup to the 2 hours, now it is 8.3. Patient needs resection of the polyp which is possibly bleeding site. We will repeat H&H, CBC and SMA-7 in the morning. Dayana Steward MD
[2016-12-19] MEDS ORDERED: Sodium Chloride 0.9% 1,000 ML IV SCH (14:30)
[2016-12-19] MEDS ORDERED: Methylene Blue 10 mg/mL(10ml) IV ONE (14:40)
--- NOTE | 2016-12-19 16:07 | CP.PCM.CON ---
<Mik Matias - Last Filed: 12/19/16 15:58> History of Present Illness - History of Present Illness History of Present Illness: ICU Consult note. Dr. Rausch Patient with baseline advanced dementia. History obtained as per chart review. 81yo F w/ PMHx of HTN, COPD, advanced dementia, CHF, CAD, DM here for evaluation of upper GI bleeding. ICU was consulted today for close monitoring s/ p Upper EGD with evidence of active bleeding from polyp in gastric fundus/ cardia. Patient received two clips and epi was injected with hemostasis. As per GI, patient has advanced dementia, and patient's son has been making all medical decisions. As per chart, patient has had prior episodes of GI bleeding. Patient has hx of prior PEG tube insertions with infections. PMHx: Advanced dementia, HTN, COPD, CHF, CAD, DM PSHx: CABG Social Hx: No tobacco, no etoh, no drugs Unable to obtain full ROS due to patient's baseline condition Review of Systems - Review of Systems Systems not reviewed;Unavailable: Dementia, Altered Mental Status Past Patient History - Infectious Disease Hx of Infectious Diseases: None - Tetanus Immunizations Tetanus Immunization: Unknown - Past Medical History & Family History Past Medical History?: Yes - Past Social History Smoking Status: Never Smoked Alcohol: None - CARDIAC Hx Congestive Heart Failure: Yes Hx Hypertension: Yes - PULMONARY Hx Chronic Obstructive Pulmonary Disease (COPD): Yes - NEUROLOGICAL Hx Neurological Disorder: Yes Hx Dementia: Yes - HEENT Hx HEENT Problems: No - RENAL Hx Chronic Kidney Disease: No - ENDOCRINE/METABOLIC Hx Diabetes Mellitus Type 2: Yes - HEMATOLOGICAL/ONCOLOGICAL Hx Blood Transfusions: Yes (12/11/16) Hx Blood Transfusion Reaction: No - INTEGUMENTARY Hx Dermatological Problems: Yes Other/Comment: bilateral heels/feet - MUSCULOSKELETAL/RHEUMATOLOGICAL Hx Musculoskeletal Disorders: No Hx Falls: No - GASTROINTESTINAL Hx Gastrointestinal Disorders: No - GENITOURINARY/GYNECOLOGICAL Hx Genitourinary Disorders: Yes Hx Urinary Tract Infection: Yes - PSYCHIATRIC Hx Psychophysiologic Disorder: Yes Hx Depression: Yes Hx Substance Use: No - SURGICAL HISTORY Hx Surgeries: Yes - ANESTHESIA Hx Anesthesia Reactions: No Hx Malignant Hyperthermia: No Meds Allergies/Adverse Reactions: Allergies Allergy/AdvReac Type Severity Reaction Status Date / Time No Known Allergies Allergy Verified 03/30/16 16:18 - Medications Medications: Current Medications Alprazolam (Xanax) 0.25 mg PO HS [facility] PRN Reason: Protocol Stop: 12/19/16 22:01 Last Admin: 12/18/16 21:04 Dose: 0.25 mg Cyanocobalamin (Vitamin B12 1000 Mcg/Ml Inj) 1,000 mcg IM DAILY [facility] Last Admin: 12/19/16 09:54 Dose: 1,000 mcg Iron Sucrose 100 mg/ Sodium (Chloride) 105 mls @ 210 mls/hr IVPB DAILY [facility] Last Admin: 12/19/16 09:53 Dose: 210 mls/hr Dextrose (Dextrose 5% In Water 1000 Ml) 1,000 mls @ 100 mls/hr IV .Q10H [facility] Last Admin: 12/19/16 09:55 Dose: 100 mls/hr Sodium Chloride (Sodium Chloride 0.9%) 1,000 mls @ 75 mls/hr IV .[id number] [facility] Stop: 12/19/16 16:31 Insulin Human Lispro (Humalog Low) 0 units SC ACHS [facility] PRN Reason: Protocol Last Admin: 12/19/16 11:58 Dose: Not Given Levothyroxine Sodium (Synthroid) 100 mcg PO ACB [facility] Last Admin: 12/14/16 12:01 Dose: 100 mcg Mupirocin (Bactroban Ointment) 0 gm TOP BID [facility] Last Admin: 12/19/16 09:55 Dose: 1 applic Pantoprazole Sodium (Protonix Inj) 40 mg IVP DAILY [facility] Last Admin: 12/19/16 09:54 Dose: 40 mg Zolpidem Tartrate (Ambien) 10 mg PO HS PRN; Protocol PRN Reason: Insomnia Last Admin: 12/18/16 21:04 Dose: 10 mg Physical Exam - Constitutional Appears: No Acute Distress - Head Exam Head Exam: ATRAUMATIC, NORMAL INSPECTION, NORMOCEPHALIC - Respiratory Exam Respiratory Exam: NORMAL BREATHING PATTERN. absent: Respiratory Distress - Cardiovascular Exam Cardiovascular Exam: RRR, +S1, +S2. absent: JVD - GI/Abdominal Exam GI & Abdominal Exam: Soft. absent: Distended, Firm, Guarding, Rebound, Rigid - Extremities Exam Extremities exam: Positive for: normal inspection. Negative for: calf tenderness - Back Exam Back exam: NORMAL INSPECTION - Neurological Exam Additional comments: Baseline dementia. Patient currently somnolent but does localize to painful stimuli Results - Vital Signs Recent Vital Signs: Last Vital Signs Temp 98.2 F 12/19/16 15:50 Pulse 51 L 12/19/16 15:50 Resp 17 12/19/16 15:50 BP 130/66 12/19/16 15:50 Pulse Ox 100 12/19/16 15:50 - Labs Result Diagrams: 12/19/16 07:11 12/19/16 07:11 Labs: Laboratory Results - last 24 hr 12/18/16 12/18/16 12/18/16 09:00 16:29 21:03 WBC RBC Hgb Hct MCV MCH MCHC RDW Plt Count MPV Gran % Lymph % (Auto) Jewell % (Auto) Eos % (Auto) Baso % (Auto) Gran # Lymph # Jewell # Eos # Baso # Sodium Potassium Chloride Carbon Dioxide Anion Gap BUN Creatinine Est GFR ( Amer) Est GFR (Non-Af Amer) POC Glucose (mg/dL) 216 H 182 H Random Glucose Calcium Phosphorus Magnesium Total Bilirubin AST ALT Alkaline Phosphatase Total Protein Albumin Globulin Albumin/Globulin Ratio Blood Type A POSITIVE Antibody Screen Negative Crossmatch See Detail BBK History Checked Patient has bt 12/18/16 12/19/16 12/19/16 21:43 07:11 07:11 WBC 6.4 D RBC 3.17 L Hgb 8.3 L Hct 26.8 L MCV 84.5 MCH 26.2 MCHC 31.0 RDW 22.4 H Plt Count 121 MPV 9.9 Gran % 58.4 Lymph % (Auto) 30.5 Jewell % (Auto) 8.3 H Eos % (Auto) 2.6 Baso % (Auto) 0.2 Gran # 3.75 Lymph # 2.0 Jewell # 0.5 Eos # 0.2 Baso # 0.01 Sodium 142 Potassium 3.6 Chloride 112 H Carbon Dioxide 27 Anion Gap 7 L BUN 23 H Creatinine 0.7 Est GFR ( Amer) > 60 Est GFR (Non-Af Amer) > 60 POC Glucose (mg/dL) 199 H Random Glucose 131 H Calcium 8.5 Phosphorus 1.7 L Magnesium 2.0 Total Bilirubin 0.6 AST 21 ALT 25 Alkaline Phosphatase 42 Total Protein 4.9 L Albumin 2.3 L Globulin 2.7 Albumin/Globulin Ratio 0.9 L Blood Type Antibody Screen Crossmatch BBK History Checked 12/19/16 12/19/16 07:33 11:19 WBC RBC Hgb Hct MCV MCH MCHC RDW Plt Count MPV Gran % Lymph % (Auto) Jewell % (Auto) Eos % (Auto) Baso % (Auto) Gran # Lymph # Jewell # Eos # Baso # Sodium Potassium Chloride Carbon Dioxide Anion Gap BUN Creatinine Est GFR ( Amer) Est GFR (Non-Af Amer) POC Glucose (mg/dL) 137 H 128 H Random Glucose Calcium Phosphorus Magnesium Total Bilirubin AST ALT Alkaline Phosphatase Total Protein Albumin Globulin Albumin/Globulin Ratio Blood Type Antibody Screen Crossmatch BBK History Checked Assessment & Plan - Assessment and Plan (Free Text) Assessment: 81yo F with PMHx of advanced dementia, HTN, DM, COPD, CHF, CAD, DM here for evaluation after upper GI bleeding. 12/19: s/p endoscopy with evidence of actively bleeding gastric fundus/cardia polyp; two clips placed and epi injected with hemostasis. Neuro: Baseline dementia localizes to painful stimuli Cardiac: Hx of CAD, s/p CABG K 3.6. will administer KCL 20meq Cardiology following, appreciate recs Resp: hx of COPD Pulmonology following GI: Hb down to 8.3 this morning, s/p 1U PRBC Taken for EGD 12/19: observed active bleeding from gastric fundus/cardia polyp. S /p clips x2 and epi injection with hemost Monitor h/h protonix 40mg IV q12 Endo: Hx of DM Accuckecks ACHS insulin SS Heme: Hb 8.3 this morning. Was given 1U pRBC f/u CBC q8h ID: Right heel diabetic wound Podiatry following continue wound care and heel pressure supports PPx: Patient is high risk for bed sores, continue q2 turns. No AC for now due active bleeding Protonix 40mg q12 [address] Miracle Matias PGY1 <Kb Rausch - Last Filed: 12/19/16 17:22> Meds - Medications Medications: Current Medications Alprazolam (Xanax) 0.25 mg PO HS [facility] PRN Reason: Protocol Stop: 12/19/16 22:01 Last Admin: 12/18/16 21:04 Dose: 0.25 mg Cyanocobalamin (Vitamin B12 1000 Mcg/Ml Inj) 1,000 mcg IM DAILY [facility] Last Admin: 12/19/16 09:54 Dose: 1,000 mcg Iron Sucrose 100 mg/ Sodium (Chloride) 105 mls @ 210 mls/hr IVPB DAILY [facility] Last Admin: 12/19/16 09:53 Dose: 210 mls/hr Potassium Chloride (Potassium Chloride 10 Meq/100 Ml) 10 meq in 100 mls @ 100 mls/hr IVPB Q2H [facility] Stop: 12/19/16 19:14 Last Admin: 12/19/16 17:05 Dose: 100 mls/hr Insulin Human Lispro (Humalog Low) 0 units SC ACHS [facility] PRN Reason: Protocol Last Admin: 12/19/16 17:11 Dose: Not Given Levothyroxine Sodium (Synthroid) 100 mcg PO ACB [facility] Last Admin: 12/14/16 12:01 Dose: 100 mcg Mupirocin (Bactroban Ointment) 0 gm TOP BID [facility] Last Admin: 12/19/16 17:02 Dose: 1 applic Pantoprazole Sodium (Protonix Inj) 40 mg IVP Q12 [facility] Zolpidem Tartrate (Ambien) 10 mg PO HS PRN; Protocol PRN Reason: Insomnia Last Admin: 12/18/16 21:04 Dose: 10 mg Results - Vital Signs Recent Vital Signs: Last Vital Signs Temp 98.2 F 12/19/16 16:02 Pulse 58 L 12/19/16 16:02 Resp 29 H 12/19/16 16:02 BP 132/64 12/19/16 16:02 Pulse Ox 100 12/19/16 16:02 - Labs Result Diagrams: 12/19/16 07:11 12/19/16 07:11 Labs: Laboratory Results - last 24 hr 12/18/16 12/18/16 12/18/16 09:00 21:03 21:43 WBC RBC Hgb Hct MCV MCH MCHC RDW Plt Count MPV Gran % Lymph % (Auto) Jewell % (Auto) Eos % (Auto) Baso % (Auto) Gran # Lymph # Jewell # Eos # Baso # Sodium Potassium Chloride Carbon Dioxide Anion Gap BUN Creatinine Est GFR ( Amer) Est GFR (Non-Af Amer) POC Glucose (mg/dL) 182 H 199 H Random Glucose Calcium Phosphorus Magnesium Total Bilirubin AST ALT Alkaline Phosphatase Total Protein Albumin Globulin Albumin/Globulin Ratio Blood Type A POSITIVE Antibody Screen Negative Crossmatch See Detail BBK History Checked Patient has bt 12/19/16 12/19/16 12/19/16 07:11 07:11 07:33 WBC 6.4 D RBC 3.17 L Hgb 8.3 L Hct 26.8 L MCV 84.5 MCH 26.2 MCHC 31.0 RDW 22.4 H Plt Count 121 MPV 9.9 Gran % 58.4 Lymph % (Auto) 30.5 Jewell % (Auto) 8.3 H Eos % (Auto) 2.6 Baso % (Auto) 0.2 Gran # 3.75 Lymph # 2.0 Jewell # 0.5 Eos # 0.2 Baso # 0.01 Sodium 142 Potassium 3.6 Chloride 112 H Carbon Dioxide 27 Anion Gap 7 L BUN 23 H Creatinine 0.7 Est GFR ( Amer) > 60 Est GFR (Non-Af Amer) > 60 POC Glucose (mg/dL) 137 H Random Glucose 131 H Calcium 8.5 Phosphorus 1.7 L Magnesium 2.0 Total Bilirubin 0.6 AST 21 ALT 25 Alkaline Phosphatase 42 Total Protein 4.9 L Albumin 2.3 L Globulin 2.7 Albumin/Globulin Ratio 0.9 L Blood Type Antibody Screen Crossmatch BBK History Checked 12/19/16 12/19/16 11:19 17:09 WBC RBC Hgb Hct MCV MCH MCHC RDW Plt Count MPV Gran % Lymph % (Auto) Jewell % (Auto) Eos % (Auto) Baso % (Auto) Gran # Lymph # Jewell # Eos # Baso # Sodium Potassium Chloride Carbon Dioxide Anion Gap BUN Creatinine Est GFR ( Amer) Est GFR (Non-Af Amer) POC Glucose (mg/dL) 128 H 124 H Random Glucose Calcium Phosphorus Magnesium Total Bilirubin AST ALT Alkaline Phosphatase Total Protein Albumin Globulin Albumin/Globulin Ratio Blood Type Antibody Screen Crossmatch BBK History Checked Assessment & Plan - Assessment and Plan (Free Text) Assessment: Patient seen and examined, with resident, agree with note with following additions/exceptions: Pt is 81yo F w/ PMHx of HTN, COPD, advanced dementia, CHF, CAD, DM here for evaluation of upper GI bleeding, s/p Upper EGD with evidence of active bleeding from polyp in gastric fundus/cardia, received two clips and epi was injected with hemostasis. Currently afebrile, HD stable, comfortable, mental status at baseline. HH 8.3, received 1u prbc, INR acceptable. Anemia GIB Dementia CAD DM CHF Recommend: - supp o2 as needed - follow up cultures - monitor HH closely, transfuse goal of HH>9 - hold Antiplatelet agents, HSQ - PPI - NPO - if further bleeding occurs may require IR embolization - SCDs - FS control - monitor in MICU
[2016-12-19 19:29] LABS: BASO # 0.01 K/mm3 (0.0-2.0); BASO % 0.2 % (0.0-3.0); EOS # 0.2 (0.0-0.7); EOS % 2.4 % (1.5-5.0); GRAN % 60.6 % (50.0-68.0); LYMPH # 1.9 (1.2-3.4); LYMPH % 29.2 % (22.0-35.0); MEAN CELL VOLUME 84.7 fl (80.0-105.0); MEAN CORPUSCULAR HEMOGLOBIN 26.7 pg (25.0-35.0); MEAN CORPUSCULAR HGB CONC 31.6 g/dl (31.0-37.0); MONO # 0.5 (0.1-0.6); MONO % 7.6 % (1.0-6.0); WHITE BLOOD COUNT 6.6 10^3/ul (4.5-11.0)
--- NOTE | 2016-12-19 22:33 | PN ---
PULMONARY PROGRESS NOTE DATE: 12/19/2016 REFERRING PHYSICIAN: Dr. Viera. SUBJECTIVE: The patient is examined and seen in recovery room status post EGD, found to have ulcerative bleeding, polyp requiring clipping and epinephrine injection which seems like helping with decreasing the bleed. She is comfortable and sleeping. No cough at this point. No hematemesis. No leg pain or leg swelling. PHYSICAL EXAMINATION: GENERAL: No acute distress. VITAL SIGNS: Temperature is 98, heart rate is 58, respiratory rate is 20, blood pressure 132/64, and pulse ox is 100% on 3 L of nasal cannula. HEENT: Moist mucous membrane. Crowded airway. NECK: Supple. No JVD. LUNGS: Fair airflow with few rhonchi. HEART: S1 and S2. ABDOMEN: Positive bowel sounds. Soft and nontender. No organomegaly. EXTREMITIES: No edema. NEUROLOGIC: Sleepy. MEDICATIONS: She is on Ambien 10 mg at bedtime p.r.n., Bactroban ointment to affected area, insulin coverage, IV iron, also getting IV fluid with potassium, Protonix 40 mg IV twice a day, Synthroid 100 mcg a.c.b., vitamin B12 1000 mcg IM daily and Xanax 0.25 mg at bedtime. LABORATORY DATA: Shows hemoglobin 8.3, hematocrit 26.8, WBC 6.4 and platelet count is 121. Sodium 142, potassium 3.6, chloride 112, bicarbonate 27, BUN 23, creatinine 0.7, glucose 131, calcium is 8.5, phosphorus 1.7, magnesium 2.0, AST 21, ALT 27, alkaline phosphatase is 42 and albumin is 2.3. IMPRESSION AND PLAN: Stomach ulcerated polyp with active bleed, status post esophagogastroduodenoscopy, status post epinephrine injection and clipping, severe anemia requiring transfusion, advanced dementia, oropharyngeal dysphagia, on modified diet, B12 and iron deficiency. Case discussed with Dr. Parry. Look at the video pictures in endoscopy room to appreciate . The patient will be seen by [facility] and transferred to ICU for close monitoring. Very poor candidate for any surgery. Have to manage conservatively. I did speak to the family for further workup. High risk for massive gastrointestinal bleed and . Followup plan in the morning and we will follow with you. Dayana Simms MD [facility] # [id number]
--- NOTE | 2016-12-20 03:25 | PN ---
DATE: SUBJECTIVE: The patient is an 81-year-old female. The patient is seen and examined at the bedside. She is transferred in the unit status post EGD, found to have ulcerative actively bleeding polyp located in the body of the stomach, a polyp requiring clipping and epinephrine injections, which seems slightly helping with decrease of bleeding as per Dr. Parry. 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 The patient looks comfortable. No nausea, vomiting or diarrhea. No hematuria or hematochezia, but the patient is n.p.o. because of recent procedure. PHYSICAL EXAMINATION: VITAL SIGNS: Temperature 98, heart rate 58, respiratory rate 20, blood pressure 130/60, and pulse oximetry 100% on 3 liters nasal cannula. HEENT: Head is normocephalic and atraumatic. Eyes; PERRLA. Extraocular muscles are intact. Conjunctivae are clear. Nose is patent. Mucous membrane moist. NECK: Supple. No carotid bruits, JVD, or thyromegaly. CHEST: Bilaterally symmetrical. HEART: S1 and S2 positive. LUNGS: Clear to auscultation. ABDOMEN: Soft. Bowel sounds present. No organomegaly. EXTREMITIES: No edema. No cyanosis. NEUROLOGIC: The patient is awake and alert. Moving all four extremities, but is confused. MEDICATIONS: Ambien, Bactroban ointment on effected area, potassium, Protonix, Synthroid, Vitamin B12, and Xanax. LABORATORY DATA: Hemoglobin 8.3, hematocrit 26.8, white blood cells 6.4, and platelets 121. Sodium 142, potassium 3.6, BUN 23, and creatinine 0.7. AST 21 and ALT 27. ASSESSMENT AND PLAN: Ms. Marge Still is an 81-year-old lady with upper gastrointestinal bleeding, severe anemia status post blood transfusion, has ulcerated bleeding stomach polyp status post esophagogastroduodenoscopy status post epinephrine injection and clipping of the bleeding ulcer, advanced dementia, and oropharyngeal dysphagia on modified diet, but today the patient is n.p.o. Discussion done with Dr. Parry. Occasional history of hypothyroidism, coronary artery disease. Gastrointestinal and deep venous thrombosis prophylaxis. Repeat labs. We will follow. Colette Viera MD
[2016-12-20 06:20] LABS: BASO # 0.01 K/mm3 (0.0-2.0); BASO % 0.1 % (0.0-3.0); EOS # 0.1 (0.0-0.7); EOS % 1.7 % (1.5-5.0); GRAN % 72.7 % (50.0-68.0); HEMATOCRIT 30.4 % (36.0-48.0); LYMPH # 1.3 (1.2-3.4); LYMPH % 19.4 % (22.0-35.0); MEAN CELL VOLUME 82.4 fl (80.0-105.0); MEAN CORPUSCULAR HEMOGLOBIN 26.6 pg (25.0-35.0); MEAN CORPUSCULAR HGB CONC 32.2 g/dl (31.0-37.0); MEAN PLATELET VOLUME 10.5 fl (7.0-11.0); MONO # 0.4 (0.1-0.6); MONO % 6.1 % (1.0-6.0); RED CELL DISTRIBUTION WIDTH 20.8 % (11.5-14.5); WHITE BLOOD COUNT 6.9 10^3/ul (4.5-11.0)
[2016-12-20 06:31] LABS: ALB/GLOB RATIO 0.9 (1.1-1.8); ALKALINE PHOSPHATASE 49 U/L (38-126); ALT/SGPT 26 U/L (7-56); AST/SGOT 23 U/L (14-36); BILIRUBIN,TOTAL 0.7 mg/dL (0.2-1.3); BLOOD UREA NITROGEN 22 mg/dL (7-21); CALCIUM 8.6 mg/dL (8.4-10.5); CARBON DIOXIDE 26 mmol/L (21-33); CHLORIDE 113 mmol/L (98-107); GFR AFRICAN-AMERICAN > 60; GLUCOSE,RANDOM 111 mg/dL (70-110); MAGNESIUM 1.9 mg/dL (1.7-2.2); PHOSPHOROUS 1.5 mg/dL (2.5-4.5); SODIUM 142 mmol/L (132-148); TOTAL PROTEIN 5.1 g/dL (5.8-8.3)
[2016-12-20] MEDS: Insulin Lispro (humaLOG) LOW Coverage SC SCH ×4 (08:17→22:16)
--- NOTE | 2016-12-20 09:54 | CP.PCM.PN ---
Subjective - Date & Time of Evaluation Date of Evaluation: 12/20/16 Time of Evaluation: 09:20 - Subjective Subjective: Comfortable in bed, no fevers overnight, had EGD and clipping of bleeding gastric polyp yesterday. Objective - Vital Signs/Intake and Output Vital Signs (last 24 hours): Temp Pulse Resp BP Pulse Ox 97.8 F 66 16 128/81 100 12/20/16 04:00 12/20/16 05:50 12/20/16 05:50 12/20/16 05:00 12/20/16 05:50 Intake and Output: 12/19/16 12/20/16 18:59 06:59 Intake Total 920 Output Total 250 Balance 670 - Medications Medications: Current Medications Cyanocobalamin (Vitamin B12 1000 Mcg/Ml Inj) 1,000 mcg IM DAILY [facility] Last Admin: 12/19/16 09:54 Dose: 1,000 mcg Iron Sucrose 100 mg/ Sodium (Chloride) 105 mls @ 210 mls/hr IVPB DAILY [facility] Last Admin: 12/19/16 09:53 Dose: 210 mls/hr Insulin Human Lispro (Humalog Low) 0 units SC ACHS [facility] PRN Reason: Protocol Last Admin: 12/19/16 21:49 Dose: Not Given Levothyroxine Sodium (Synthroid) 100 mcg PO ACB [facility] Last Admin: 12/14/16 12:01 Dose: 100 mcg Mupirocin (Bactroban Ointment) 0 gm TOP BID [facility] Last Admin: 12/19/16 17:02 Dose: 1 applic Pantoprazole Sodium (Protonix Inj) 40 mg IVP Q12 [facility] Last Admin: 12/19/16 21:20 Dose: 40 mg Zolpidem Tartrate (Ambien) 10 mg PO HS PRN; Protocol PRN Reason: Insomnia Last Admin: 12/18/16 21:04 Dose: 10 mg - Labs Labs: 12/20/16 05:10 12/19/16 07:11 PT 12.1 SECONDS (9.4-12.5) 12/18/16 09:00 INR 1.10 (0.93-1.08) H 12/18/16 09:00 APTT 29.1 Seconds (25.1-36.5) 12/18/16 09:00 - Constitutional Appears: Chronically Ill - Head Exam Head Exam: NORMAL INSPECTION - Neck Exam Neck Exam: absent: Meningismus - Respiratory Exam Respiratory Exam: Decreased Breath Sounds - Cardiovascular Exam Cardiovascular Exam: +S1, +S2 - GI/Abdominal Exam GI & Abdominal Exam: Soft. absent: Tenderness Assessment and Plan - Assessment and Plan (Free Text) Plan: Assessment bilateral heel infected ulcers without evidence of infection GI bleeding S/P EGD and clipping of bleeding gastric polyp POD #1 history of heel ulcer infections with VRE, Corynebacterium and Pseudomonas ( localized infection without systemic signs of infection) history of urinary tract infection with ESBL E. coli UTI history of right foot skin and skin structure infection history of PEG site skin and skin structure infection with Strep and Klebsiella dementia COPD HTN anxiety coronary artery disease atrial fibrillation history of E. coli bacteremia and UTI Plan continue to monitor off systemic antibiotics since she is at risk for hospital- acquired infections
--- NOTE | 2016-12-20 11:06 | CP.CCUPN ---
<Kannan Romero - Last Filed: 12/20/16 11:19> CCU Subjective - Physician Review Subjective (Free Text): Patient seen and examined at bedside. Resting comfortably in bed. No acute overnight events. Patient has baseline dementia and no further information could be ascertained at this time. 12/20/16 11:03 CCU Objective - Vital Signs / Intake & Output Vital Signs (Last 4 hours): Vital Signs Temp Pulse Resp BP Pulse Ox 12/20/16 08:30 62 18 100 12/20/16 08:20 63 15 100 12/20/16 08:10 64 29 H 100 12/20/16 08:00 98.7 F 60 18 135/47 L 100 12/20/16 07:50 62 11 L 100 12/20/16 07:40 60 12 100 12/20/16 07:30 63 22 100 12/20/16 07:20 63 17 100 12/20/16 07:10 66 12 100 Intake and Output (Last 8hrs): Intake & Output 12/19/16 12/20/16 12/20/16 22:59 06:59 14:59 Intake Total 920 Output Total 250 Balance 920 -250 Intake: IV 320 Left Wrist 320 Oral 600 Output: Urine 250 Urine, Voided 250 - Physical Exam Head: Positive for: Atraumatic, Normocephalic Pupils: Positive for: PERRL Conjunctiva: Positive for: Normal Ears: Positive for: Normal Mouth: Positive for: Dry Nose (External): Positive for: Atraumatic Respiratory/Chest: Positive for: Clear to Auscultation. Negative for: Good Air Exchange, Respiratory Distress, Accessory Muscle Use Cardiovascular: Positive for: Regular Rate and Rhythm, Bradycardic. Negative for: Murmurs, Normal S1, S2 Abdomen: Negative for: Tenderness, Distention, Normal Bowel Sounds, Peritoneal Signs, Rebound, Guarding Upper Extremity: Positive for: Other (contracted). Negative for: Edema Lower Extremity: Negative for: Edema Neurological: Positive for: Other (awake but not alert, nonverbal at baseline, contracted, does move all 4 extremities) Skin: Positive for: Warm, Dry Psychiatric: Positive for: Alert, Other (uncooperative with exam ). Negative for: Oriented x 3 - Medications Active Medications: Active Medications Generic Name Dose Route Start Last Admin Trade Name Freq PRN Reason Stop Dose Admin Cyanocobalamin 1,000 mcg 12/12/16 10:00 12/20/16 09:25 Vitamin B12 1000 Mcg/Ml Inj IM 1,000 mcg DAILY [facility] Administration Iron Sucrose 100 mg/ Sodium 105 mls @ 210 mls/hr 12/12/16 10:00 12/20/16 10: 06 Chloride IVPB 210 mls/hr DAILY [facility] Administration Insulin Human Lispro 0 units 12/18/16 16:30 12/20/16 08:17 Humalog Low SC Not Given ACHS [facility] Protocol Levothyroxine Sodium 100 mcg 12/12/16 07:30 12/14/16 12:01 Synthroid PO 100 mcg ACB [facility] Administration Mupirocin 0 gm 12/16/16 13:00 12/19/16 17:02 Bactroban Ointment TOP 1 applic BID [facility] Administration Pantoprazole Sodium 40 mg 12/19/16 22:00 12/20/16 09:25 Protonix Inj IVP 40 mg Q12 [facility] Administration Zolpidem Tartrate 10 mg 12/12/16 21:36 12/18/16 21:04 Ambien PO 10 mg HS PRN Administration Insomnia Protocol - Patient Studies Lab Studies: Lab Studies 12/20/16 12/20/16 12/19/16 Range/Units 05:10 05:10 21:44 WBC 6.9 (4.5-11.0) 10^3/ul RBC 3.69 (3.5-6.1) 10^6/uL Hgb 9.8 L (12.0-16.0) g/dL Hct 30.4 L (36.0-48.0) % MCV 82.4 (80.0-105.0) fl MCH 26.6 (25.0-35.0) pg MCHC 32.2 (31.0-37.0) g/dl RDW 20.8 H (11.5-14.5) % Plt Count 114 L (120.0-450.0) 10^3/uL MPV 10.5 (7.0-11.0) fl Gran % 72.7 H (50.0-68.0) % Lymph % (Auto) 19.4 L (22.0-35.0) % [place] % (Auto) 6.1 H (1.0-6.0) % Eos % (Auto) 1.7 (1.5-5.0) % Baso % (Auto) 0.1 (0.0-3.0) % Gran # 5.00 (1.4-6.5) Lymph # 1.3 (1.2-3.4) [place] # 0.4 (0.1-0.6) Eos # 0.1 (0.0-0.7) Baso # 0.01 (0.0-2.0) K/mm3 Sodium 142 (132-148) mmol/L Potassium 4.0 (3.6-5.0) mmol/L Chloride 113 H (98-107) mmol/L Carbon Dioxide 26 (21-33) mmol/L Anion Gap 7 L (10-20) BUN 22 H (7-21) mg/dL Creatinine 0.7 (0.7-1.2) mg/dL Est GFR ( Amer) > 60 Est GFR (Non-Af Amer) > 60 POC Glucose (mg/dL) 125 H (65-110) mg/dL Random Glucose 111 H (70-110) mg/dL Calcium 8.6 (8.4-10.5) mg/dL Phosphorus 1.5 L (2.5-4.5) mg/dL Magnesium 1.9 (1.7-2.2) mg/dL Total Bilirubin 0.7 (0.2-1.3) mg/dL AST 23 (14-36) U/L ALT 26 (7-56) U/L Alkaline Phosphatase 49 (38-126) U/L Total Protein 5.1 L (5.8-8.3) g/dL Albumin 2.3 L (3.0-4.8) g/dL Globulin 2.7 gm/dL Albumin/Globulin Ratio 0.9 L (1.1-1.8) Blood Type Antibody Screen Crossmatch BBK History Checked 12/19/16 12/19/16 12/19/16 Range/Units 19:28 17:09 11:19 WBC 6.6 (4.5-11.0) 10^3/ul RBC 3.78 (3.5-6.1) 10^6/uL Hgb 10.1 L (12.0-16.0) g/dL Hct 32.0 L (36.0-48.0) % MCV 84.7 (80.0-105.0) fl MCH 26.7 (25.0-35.0) pg MCHC 31.6 (31.0-37.0) g/dl RDW 21.0 H (11.5-14.5) % Plt Count (120.0-450.0) 10^3/uL MPV (7.0-11.0) fl Gran % 60.6 (50.0-68.0) % Lymph % (Auto) 29.2 (22.0-35.0) % [place] % (Auto) 7.6 H (1.0-6.0) % Eos % (Auto) 2.4 (1.5-5.0) % Baso % (Auto) 0.2 (0.0-3.0) % Gran # 4.00 (1.4-6.5) Lymph # 1.9 (1.2-3.4) [place] # 0.5 (0.1-0.6) Eos # 0.2 (0.0-0.7) Baso # 0.01 (0.0-2.0) K/mm3 Sodium (132-148) mmol/L Potassium (3.6-5.0) mmol/L Chloride (98-107) mmol/L Carbon Dioxide (21-33) mmol/L Anion Gap (10-20) BUN (7-21) mg/dL Creatinine (0.7-1.2) mg/dL Est GFR ( Amer) Est GFR (Non-Af Amer) POC Glucose (mg/dL) 124 H 128 H (65-110) mg/dL Random Glucose (70-110) mg/dL Calcium (8.4-10.5) mg/dL Phosphorus (2.5-4.5) mg/dL Magnesium (1.7-2.2) mg/dL Total Bilirubin (0.2-1.3) mg/dL AST (14-36) U/L ALT (7-56) U/L Alkaline Phosphatase (38-126) U/L Total Protein (5.8-8.3) g/dL Albumin (3.0-4.8) g/dL Globulin gm/dL Albumin/Globulin Ratio (1.1-1.8) Blood Type Antibody Screen Crossmatch BBK History Checked 12/18/16 Range/Units 09:00 WBC (4.5-11.0) 10^3/ul RBC (3.5-6.1) 10^6/uL Hgb (12.0-16.0) g/dL Hct (36.0-48.0) % MCV (80.0-105.0) fl MCH (25.0-35.0) pg MCHC (31.0-37.0) g/dl RDW (11.5-14.5) % Plt Count (120.0-450.0) 10^3/uL MPV (7.0-11.0) fl Gran % (50.0-68.0) % Lymph % (Auto) (22.0-35.0) % [place] % (Auto) (1.0-6.0) % Eos % (Auto) (1.5-5.0) % Baso % (Auto) (0.0-3.0) % Gran # (1.4-6.5) Lymph # (1.2-3.4) [place] # (0.1-0.6) Eos # (0.0-0.7) Baso # (0.0-2.0) K/mm3 Sodium (132-148) mmol/L Potassium (3.6-5.0) mmol/L Chloride (98-107) mmol/L Carbon Dioxide (21-33) mmol/L Anion Gap (10-20) BUN (7-21) mg/dL Creatinine (0.7-1.2) mg/dL Est GFR ( Amer) Est GFR (Non-Af Amer) POC Glucose (mg/dL) (65-110) mg/dL Random Glucose (70-110) mg/dL Calcium (8.4-10.5) mg/dL Phosphorus (2.5-4.5) mg/dL Magnesium (1.7-2.2) mg/dL Total Bilirubin (0.2-1.3) mg/dL AST (14-36) U/L ALT (7-56) U/L Alkaline Phosphatase (38-126) U/L Total Protein (5.8-8.3) g/dL Albumin (3.0-4.8) g/dL Globulin gm/dL Albumin/Globulin Ratio (1.1-1.8) Blood Type A POSITIVE Antibody Screen Negative Crossmatch See Detail BBK History Checked Patient has bt Laboratory Results - last 24 hr 12/18/16 12/19/16 12/19/16 09:00 11:19 17:09 WBC RBC Hgb Hct MCV MCH MCHC RDW Plt Count MPV Gran % Lymph % (Auto) [place] % (Auto) Eos % (Auto) Baso % (Auto) Gran # Lymph # [place] # Eos # Baso # Sodium Potassium Chloride Carbon Dioxide Anion Gap BUN Creatinine Est GFR ( Amer) Est GFR (Non-Af Amer) POC Glucose (mg/dL) 128 H 124 H Random Glucose Calcium Phosphorus Magnesium Total Bilirubin AST ALT Alkaline Phosphatase Total Protein Albumin Globulin Albumin/Globulin Ratio Blood Type A POSITIVE Antibody Screen Negative Crossmatch See Detail BBK History Checked Patient has bt 12/19/16 12/19/16 12/20/16 19:28 21:44 05:10 WBC 6.6 6.9 RBC 3.78 3.69 Hgb 10.1 L 9.8 L Hct 32.0 L 30.4 L MCV 84.7 82.4 MCH 26.7 26.6 MCHC 31.6 32.2 RDW 21.0 H 20.8 H Plt Count 114 L MPV 10.5 Gran % 60.6 72.7 H Lymph % (Auto) 29.2 19.4 L [place] % (Auto) 7.6 H 6.1 H Eos % (Auto) 2.4 1.7 Baso % (Auto) 0.2 0.1 Gran # 4.00 5.00 Lymph # 1.9 1.3 [place] # 0.5 0.4 Eos # 0.2 0.1 Baso # 0.01 0.01 Sodium Potassium Chloride Carbon Dioxide Anion Gap BUN Creatinine Est GFR ( Amer) Est GFR (Non-Af Amer) POC Glucose (mg/dL) 125 H Random Glucose Calcium Phosphorus Magnesium Total Bilirubin AST ALT Alkaline Phosphatase Total Protein Albumin Globulin Albumin/Globulin Ratio Blood Type Antibody Screen Crossmatch BBK History Checked 12/20/16 05:10 WBC RBC Hgb Hct MCV MCH MCHC RDW Plt Count MPV Gran % Lymph % (Auto) [place] % (Auto) Eos % (Auto) Baso % (Auto) Gran # Lymph # [place] # Eos # Baso # Sodium 142 Potassium 4.0 Chloride 113 H Carbon Dioxide 26 Anion Gap 7 L BUN 22 H Creatinine 0.7 Est GFR ( Amer) > 60 Est GFR (Non-Af Amer) > 60 POC Glucose (mg/dL) Random Glucose 111 H Calcium 8.6 Phosphorus 1.5 L Magnesium 1.9 Total Bilirubin 0.7 AST 23 ALT 26 Alkaline Phosphatase 49 Total Protein 5.1 L Albumin 2.3 L Globulin 2.7 Albumin/Globulin Ratio 0.9 L Blood Type Antibody Screen Crossmatch BBK History Checked Fingerstick Blood Sugar Results: 116 Review of Systems - Review of Systems Review of Systems: 12 point review of systems cannot be ascertained at this time due to altered mental status Critical Care Progress Note - Nutrition Nutrition: Nutrition Category Date Time Status NPO Diet [DIET] Diets 12/19/16 Dinner Ordered Assessment/Plan - Assessment and Plan (Free Text) Assessment: Patient is a 81 year old female with a PMHx of advanced dementia, HTN, DM, COPD , CHF, CAD, DM who was admitted for evaluation and treatment for an upper GI bleeding. Patient is s/p endoscopy with evidence of actively bleeding gastric fundus/cardia polyp. Two clips placed and epi injected with hemostasis. Plan: Neuro: Baseline dementia Localizes to painful stimuli Cardiac: HR trended, reviewed, and appreciated, will continue to monitor closely BPs trended, reviewed, and appreciated, will continue to monitor closely Hx of CAD, s/p CABG Cardiology following- appreciate recommendations Pulmonology: Hx of COPD Saturating above 92% on RA GI: Hb stable, s/p 1U pRBC Hgbs trended, reviewed, and appreciated, will continue to monitor closely Taken for EGD 12/19: observed active bleeding from gastric fundus/cardia polyp. S /p clips x2 and epi injection with hemost Protonix 40mg IV q12 Endo: Hx of DM Accuckecks ACHS Insulin SS Heme: Hb stable, s/p 1U pRBC Hgbs trended, reviewed, and appreciated, will continue to monitor closely ID: Right heel diabetic wound Podiatry following continue wound care and heel pressure supports PPx: Patient is high risk for bed sores, continue q2 turns. No AC for now due active bleeding Protonix 40mg q12 Dispo: Critical care team will sign off at this time. Transfer patient to tele. Please re-consult if needed. Thank you for the opportunity to participate in the care of this patient Patient seen, case discussed with, and plan approved by attending physician, Dr. Larios. <Rajinder Larios - Last Filed: 12/20/16 15:09> CCU Objective - Vital Signs / Intake & Output Vital Signs (Last 4 hours): Vital Signs Pulse Resp BP Pulse Ox 12/20/16 14:10 62 19 100 12/20/16 14:05 62 27 H 12/20/16 14:00 63 16 147/94 H 100 12/20/16 13:56 79 18 12/20/16 13:50 68 32 H 12/20/16 13:40 63 12 100 12/20/16 13:38 61 132/80 12/20/16 12:06 60 12 126/58 L 100 12/20/16 12:01 60 19 126/58 L 100 12/20/16 12:00 61 13 99 12/20/16 11:59 60 31 H 142/73 100 12/20/16 11:50 60 13 100 12/20/16 11:40 60 100 12/20/16 11:30 61 100 12/20/16 11:20 62 15 99 12/20/16 11:10 61 18 100 Intake and Output (Last 8hrs): Intake & Output 12/20/16 12/20/16 12/20/16 06:59 14:59 22:59 Output Total 250 Balance -250 Output: Urine 250 Urine, Voided 250 - Medications Active Medications: Active Medications Generic Name Dose Route Start Last Admin Trade Name Nasimq PRN Reason Stop Dose Admin Cyanocobalamin 1,000 mcg 12/12/16 10:00 12/20/16 09:25 Vitamin B12 1000 Mcg/Ml Inj IM 1,000 mcg DAILY [facility] Administration Iron Sucrose 100 mg/ Sodium 105 mls @ 210 mls/hr 12/12/16 10:00 12/20/16 10: 06 Chloride IVPB 210 mls/hr DAILY [facility] Administration Insulin Human Lispro 0 units 12/18/16 16:30 12/20/16 08:17 Humalog Low SC Not Given ACHS [facility] Protocol Levothyroxine Sodium 100 mcg 12/12/16 07:30 12/14/16 12:01 Synthroid PO 100 mcg ACB [facility] Administration Mupirocin 0 gm 12/16/16 13:00 12/20/16 10:09 Bactroban Ointment TOP 1 applic BID [facility] Administration Pantoprazole Sodium 40 mg 12/19/16 22:00 12/20/16 09:25 Protonix Inj IVP 40 mg Q12 [facility] Administration Zolpidem Tartrate 10 mg 12/12/16 21:36 12/18/16 21:04 Ambien PO 10 mg HS PRN Administration Insomnia Protocol - Patient Studies Lab Studies: Lab Studies 12/20/16 12/20/16 12/19/16 Range/Units 05:10 05:10 21:44 WBC 6.9 (4.5-11.0) 10^3/ul RBC 3.69 (3.5-6.1) 10^6/uL Hgb 9.8 L (12.0-16.0) g/dL Hct 30.4 L (36.0-48.0) % MCV 82.4 (80.0-105.0) fl MCH 26.6 (25.0-35.0) pg MCHC 32.2 (31.0-37.0) g/dl RDW 20.8 H (11.5-14.5) % Plt Count 114 L (120.0-450.0) 10^3/uL MPV 10.5 (7.0-11.0) fl Gran % 72.7 H (50.0-68.0) % Lymph % (Auto) 19.4 L (22.0-35.0) % [place] % (Auto) 6.1 H (1.0-6.0) % Eos % (Auto) 1.7 (1.5-5.0) % Baso % (Auto) 0.1 (0.0-3.0) % Gran # 5.00 (1.4-6.5) Lymph # 1.3 (1.2-3.4) [place] # 0.4 (0.1-0.6) Eos # 0.1 (0.0-0.7) Baso # 0.01 (0.0-2.0) K/mm3 Sodium 142 (132-148) mmol/L Potassium 4.0 (3.6-5.0) mmol/L Chloride 113 H (98-107) mmol/L Carbon Dioxide 26 (21-33) mmol/L Anion Gap 7 L (10-20) BUN 22 H (7-21) mg/dL Creatinine 0.7 (0.7-1.2) mg/dL Est GFR ( Amer) > 60 Est GFR (Non-Af Amer) > 60 POC Glucose (mg/dL) 125 H (65-110) mg/dL Random Glucose 111 H (70-110) mg/dL Calcium 8.6 (8.4-10.5) mg/dL Phosphorus 1.5 L (2.5-4.5) mg/dL Magnesium 1.9 (1.7-2.2) mg/dL Total Bilirubin 0.7 (0.2-1.3) mg/dL AST 23 (14-36) U/L ALT 26 (7-56) U/L Alkaline Phosphatase 49 (38-126) U/L Total Protein 5.1 L (5.8-8.3) g/dL Albumin 2.3 L (3.0-4.8) g/dL Globulin 2.7 gm/dL Albumin/Globulin Ratio 0.9 L (1.1-1.8) Blood Type Antibody Screen Crossmatch BBK History Checked 12/19/16 12/19/16 12/18/16 Range/Units 19:28 17:09 09:00 WBC 6.6 (4.5-11.0) 10^3/ul RBC 3.78 (3.5-6.1) 10^6/uL Hgb 10.1 L (12.0-16.0) g/dL Hct 32.0 L (36.0-48.0) % MCV 84.7 (80.0-105.0) fl MCH 26.7 (25.0-35.0) pg MCHC 31.6 (31.0-37.0) g/dl RDW 21.0 H (11.5-14.5) % Plt Count (120.0-450.0) 10^3/uL MPV (7.0-11.0) fl Gran % 60.6 (50.0-68.0) % Lymph % (Auto) 29.2 (22.0-35.0) % [place] % (Auto) 7.6 H (1.0-6.0) % Eos % (Auto) 2.4 (1.5-5.0) % Baso % (Auto) 0.2 (0.0-3.0) % Gran # 4.00 (1.4-6.5) Lymph # 1.9 (1.2-3.4) [place] # 0.5 (0.1-0.6) Eos # 0.2 (0.0-0.7) Baso # 0.01 (0.0-2.0) K/mm3 Sodium (132-148) mmol/L Potassium (3.6-5.0) mmol/L Chloride (98-107) mmol/L Carbon Dioxide (21-33) mmol/L Anion Gap (10-20) BUN (7-21) mg/dL Creatinine (0.7-1.2) mg/dL Est GFR ( Amer) Est GFR (Non-Af Amer) POC Glucose (mg/dL) 124 H (65-110) mg/dL Random Glucose (70-110) mg/dL Calcium (8.4-10.5) mg/dL Phosphorus (2.5-4.5) mg/dL Magnesium (1.7-2.2) mg/dL Total Bilirubin (0.2-1.3) mg/dL AST (14-36) U/L ALT (7-56) U/L Alkaline Phosphatase (38-126) U/L Total Protein (5.8-8.3) g/dL Albumin (3.0-4.8) g/dL Globulin gm/dL Albumin/Globulin Ratio (1.1-1.8) Blood Type A POSITIVE Antibody Screen Negative Crossmatch See Detail BBK History Checked Patient has bt Laboratory Results - last 24 hr 12/18/16 12/19/16 12/19/16 09:00 17:09 19:28 WBC 6.6 RBC 3.78 Hgb 10.1 L Hct 32.0 L MCV 84.7 MCH 26.7 MCHC 31.6 RDW 21.0 H Plt Count MPV Gran % 60.6 Lymph % (Auto) 29.2 [place] % (Auto) 7.6 H Eos % (Auto) 2.4 Baso % (Auto) 0.2 Gran # 4.00 Lymph # 1.9 [place] # 0.5 Eos # 0.2 Baso # 0.01 Sodium Potassium Chloride Carbon Dioxide Anion Gap BUN Creatinine Est GFR ( Amer) Est GFR (Non-Af Amer) POC Glucose (mg/dL) 124 H Random Glucose Calcium Phosphorus Magnesium Total Bilirubin AST ALT Alkaline Phosphatase Total Protein Albumin Globulin Albumin/Globulin Ratio Blood Type A POSITIVE Antibody Screen Negative Crossmatch See Detail BBK History Checked Patient has bt 12/19/16 12/20/16 12/20/16 21:44 05:10 05:10 WBC 6.9 RBC 3.69 Hgb 9.8 L Hct 30.4 L MCV 82.4 MCH 26.6 MCHC 32.2 RDW 20.8 H Plt Count 114 L MPV 10.5 Gran % 72.7 H Lymph % (Auto) 19.4 L [place] % (Auto) 6.1 H Eos % (Auto) 1.7 Baso % (Auto) 0.1 Gran # 5.00 Lymph # 1.3 [place] # 0.4 Eos # 0.1 Baso # 0.01 Sodium 142 Potassium 4.0 Chloride 113 H Carbon Dioxide 26 Anion Gap 7 L BUN 22 H Creatinine 0.7 Est GFR ( Amer) > 60 Est GFR (Non-Af Amer) > 60 POC Glucose (mg/dL) 125 H Random Glucose 111 H Calcium 8.6 Phosphorus 1.5 L Magnesium 1.9 Total Bilirubin 0.7 AST 23 ALT 26 Alkaline Phosphatase 49 Total Protein 5.1 L Albumin 2.3 L Globulin 2.7 Albumin/Globulin Ratio 0.9 L Blood Type Antibody Screen Crossmatch BBK History Checked Critical Care Progress Note - Nutrition Nutrition: Nutrition Category Date Time Status NPO Diet [DIET] Diets 12/19/16 Dinner Ordered Attending/Attestation - Attestation I have personally seen and examined this patient.: Yes I have fully participated in the care of the patient.: Yes I have reviewed all pertinent clinical information: Yes Notes (Text): 12/20/16 15:07 81 yo female with advanced dementia, came to icu with upper gi bleed, now s/p therapeutic upper GI endoscopy with acheived hemostasis. Hemodynamically and respiratory stable. Hb level is stable, no overt bleed. Ok to downgrade to tele ccm time 40 min
--- NOTE | 2016-12-20 11:41 | CP.PCM.PN ---
<Delaney Che - Last Filed: 12/20/16 11:42> Subjective - Date & Time of Evaluation Date of Evaluation: 12/20/16 Time of Evaluation: 06:40 - Subjective Subjective: Seen and examined and the chart was reviewed earlier this morning, the patient status post endoscopy found to have gastric polyp with bleeding, status post epinephrine injection and 2 hemoclips. The patient remains nothing by mouth, nursing staff denies any episodes of hematemesis or any overt GI bleed. Objective - Vital Signs/Intake and Output Vital Signs (last 24 hours): Temp Pulse Resp BP Pulse Ox 98.7 F 62 18 135/47 L 100 12/20/16 08:00 12/20/16 08:30 12/20/16 08:30 12/20/16 08:00 12/20/16 08:30 Intake and Output: 12/20/16 12/20/16 06:59 18:59 Intake Total 920 Output Total 250 Balance 670 - Medications Medications: Current Medications Cyanocobalamin (Vitamin B12 1000 Mcg/Ml Inj) 1,000 mcg IM DAILY [facility] Last Admin: 12/20/16 09:25 Dose: 1,000 mcg Iron Sucrose 100 mg/ Sodium (Chloride) 105 mls @ 210 mls/hr IVPB DAILY [facility] Last Admin: 12/20/16 10:06 Dose: 210 mls/hr Insulin Human Lispro (Humalog Low) 0 units SC ACHS [facility] PRN Reason: Protocol Last Admin: 12/20/16 08:17 Dose: Not Given Levothyroxine Sodium (Synthroid) 100 mcg PO ACB [facility] Last Admin: 12/14/16 12:01 Dose: 100 mcg Mupirocin (Bactroban Ointment) 0 gm TOP BID [facility] Last Admin: 12/20/16 10:09 Dose: 1 applic Pantoprazole Sodium (Protonix Inj) 40 mg IVP Q12 [facility] Last Admin: 12/20/16 09:25 Dose: 40 mg Zolpidem Tartrate (Ambien) 10 mg PO HS PRN; Protocol PRN Reason: Insomnia Last Admin: 12/18/16 21:04 Dose: 10 mg - Labs Labs: 12/20/16 05:10 12/20/16 05:10 PT 12.1 SECONDS (9.4-12.5) 12/18/16 09:00 INR 1.10 (0.93-1.08) H 12/18/16 09:00 APTT 29.1 Seconds (25.1-36.5) 12/18/16 09:00 - Constitutional Appears: No Acute Distress - Eye Exam Eye Exam: Normal appearance. absent: Scleral icterus - ENT Exam ENT Exam: Mucous Membranes Moist - Neck Exam Neck Exam: Normal Inspection - Respiratory Exam Respiratory Exam: Decreased Breath Sounds, NORMAL BREATHING PATTERN. absent: Respiratory Distress - Cardiovascular Exam Cardiovascular Exam: +S1, +S2 - GI/Abdominal Exam GI & Abdominal Exam: Soft, Normal Bowel Sounds. absent: Guarding, Tenderness, Organomegaly, Rebound - Neurological Exam Neurological Exam: Altered, Awake - Skin Skin Exam: Dry, Warm Assessment and Plan - Assessment and Plan (Free Text) Assessment: Assessment: Status post repeat EGD, found 15 mm polyp with bleeding, status post sclerotherapy and hemoclips 2 GI bleed and hematemesis/(+) guiac, s/p EGD ulcerated polyp, gastric antrum adenomatous polyp, no H pylori Anemia, secondary to GI bleed, status post a unit of packed RBC on 12/29/2016 Advanced dementia CAD CABG DM HTN PLAN: monitor H/H and for GI bleeding on IV Iron and B12 continue Protonix BID continue NPO and IVF for hydration. Seen and discussed w/ Dr. Parry. <Lee Parry V - Last Filed: 12/20/16 22:54> Objective - Vital Signs/Intake and Output Vital Signs (last 24 hours): Temp Pulse Resp BP Pulse Ox 98 F 65 16 98/74 L 100 12/20/16 20:00 12/20/16 20:00 12/20/16 20:00 12/20/16 20:00 12/20/16 20:00 Intake and Output: 12/20/16 12/21/16 18:59 06:59 Intake Total 337 Output Total 200 Balance 137 - Medications Medications: Current Medications Cyanocobalamin (Vitamin B12 1000 Mcg/Ml Inj) 1,000 mcg IM DAILY [facility] Last Admin: 12/20/16 09:25 Dose: 1,000 mcg Iron Sucrose 100 mg/ Sodium (Chloride) 105 mls @ 210 mls/hr IVPB DAILY [facility] Last Admin: 12/20/16 10:06 Dose: 210 mls/hr Insulin Human Lispro (Humalog Low) 0 units SC ACHS [facility] PRN Reason: Protocol Last Admin: 12/20/16 22:16 Dose: Not Given Levothyroxine Sodium (Synthroid) 100 mcg PO ACB [facility] Last Admin: 12/14/16 12:01 Dose: 100 mcg Mupirocin (Bactroban Ointment) 0 gm TOP BID [facility] Last Admin: 12/20/16 17:35 Dose: 1 applic Pantoprazole Sodium (Protonix Inj) 40 mg IVP Q12 [facility] Last Admin: 12/20/16 21:40 Dose: 40 mg Zolpidem Tartrate (Ambien) 10 mg PO HS PRN; Protocol PRN Reason: Insomnia Last Admin: 12/20/16 21:39 Dose: 10 mg - Labs Labs: 12/20/16 05:10 12/20/16 05:10 PT 12.1 SECONDS (9.4-12.5) 12/18/16 09:00 INR 1.10 (0.93-1.08) H 12/18/16 09:00 APTT 29.1 Seconds (25.1-36.5) 12/18/16 09:00 Attending/Attestation - Attestation I have personally seen and examined this patient.: Yes I have fully participated in the care of the patient.: Yes I have reviewed all pertinent clinical information, including history, physical exam and plan: Yes Notes (Text): This is an addendum to GI progress report dictated by Delaney Che APN.The patient was seen and examined earlier. Medical records, lab studies, imagings were reviewed. Last 24 hours events reviewed. Agreed with the above treatment plan as outlined in Delaney Che APN's notes the with the addition of the following patient comfortable no further episodes of vomiting had bowel movements brown stool On examination abdomen soft no tenderness Hemoglobin appears stable Discussed with the patient's family at length With start the patient on insurance supplement This patient had a large ulcerated polyp in the cardia extending to fundus with active bleeding noticed in during the last endoscopy done yesterday. No polypectomy was attempted anyactive bleeding. The base of the polyp was injected with epinephrine and clips were applied to the base perfect hemostasis was obtained. Patient may require repeat endoscopy to evaluate the area in few days time. patient also has a mother 1.5 cm polypoid lesion in the prepyloric area extending to the duodenal bulb across the pylorus. Biopsy was reported as adenomatous polyp Patient was on a liquids for paroxysmal atrial fibrillation and also history of DVT before we need to hold his anticoagulation. Active bleeding issue is resolved Will slowly advance the diet. The concern is the 2 clips were at the cardia area covering this EG junction. The plan is to start the pure diet at least after 48 hours 12/20/16 22:49
--- NOTE | 2016-12-20 12:54 | PN ---
DATE: 12/20/2016 REASON FOR CONSULTATION AND FOLLOWUP: Coronary artery disease, history of advance dementia, paroxysmal atrial fibrillation, massive GI bleed, anemia, status post EGD, status post polypectomy and sclerotherapy therapy, postprocedure in ICU. SUBJECTIVE: The patient was unable to communicate, history of advanced dementia. OBJECTIVE: Not in apparent distress, lying flat in the bed in ICU 128 bed 1. PHYSICAL EXAMINATION: VITAL SIGNS: Temperature afebrile, heart rate 66, blood pressure 122/81. HEENT: PERRLA. Extraocular muscles are intact. NECK: Supple. No carotid bruits or thyromegaly. CHEST: Clear to auscultation. HEART: S1 and S2 regular. ABDOMEN: Soft. EXTREMITIES: Clubbing and cyanosis negative. LABORATORY DATA: WBC 6.9, hemoglobin 9.8, hematocrit 30.4, platelet count . Chemistry shows sodium 142, potassium 4, chloride 101, carbon dioxide 26, anion gap of 7, BUN 22, and creatinine 0.7. Total protein 5.8, albumin 2.9, albumin-globulin ratio 0.7. IMPRESSION: Status post EGD, status post polypectomy of ulcerated polyp and sclerotherapy and clipping, history of massive GI bleed, history of multiple transfusions, history of coronary artery disease, status post PTCA, advanced dementia, paroxysmal atrial fibrillation of the normal sinus, history of deep venous thrombosis. RECOMMENDATION: Monitor H and H. If H and H remain stable, can be transferred to telemetry. Continue levothyroxine. History of PEG in the past, infected PEG, status post removal of the PEG. High risk of bleeding. History of another polyp at gastroduodenal junction and polyp fundus of the stomach is removed. We will repeat CBC in the morning to admit the patient. We will follow with you closely. Thank you Dr. Viera for providing us the opportunity in taking care of the patient. Dayana Steward MD
--- NOTE | 2016-12-20 18:53 | PN ---
DATE: 12/20/2016 PULMONARY PROGRESS NOTE REFERRING PHYSICIAN: Colette Viera MD. SUBJECTIVE: She is lying in the bed, comfortable, on supplement oxygen, has been n.p.o. since yesterday, EGD, daughter is at bedside. The patient awake, alert, nonverbal, does not follow much command. No hemoptysis or hematemesis. No hematuria. No leg pain or leg swelling reported. OBJECTIVE: GENERAL: No acute distress. VITAL SIGNS: Temperature is 98, heart rate is 62, respiratory rate is 19, blood pressure 147/94, and pulse ox is 100% on nasal cannula. HEENT: Small oral cavity. NECK: Supple. No JVD. LUNGS: Fair airflow with rhonchi. HEART: S1 and S2. ABDOMEN: Positive bowel sounds. Soft and nontender. No organomegaly. EXTREMITIES: There is no edema. NEUROLOGIC: Awake, alert, nonverbal. Does not follow command. MEDICATIONS: She is on Ambien 10 mg at bedtime p.r.n., insulin coverage, IV iron, Protonix 40 mg twice a day, Synthroid 100 mcg daily, vitamin B12 of 1000 mcg IM daily. LABORATORY DATA: Shows hemoglobin 9.8, hematocrit 30.4, WBC 6.9 and platelet count is 114. Sodium 142, potassium 4.0, chloride 113, bicarbonate 26, BUN 22, creatinine 0.7, glucose 111, calcium is 8.6, phosphorus 1.5, magnesium 1.9, AST 23, ALT 26, alk phos is 49, and albumin is 2.3. IMPRESSION AND PLAN: Had ulcerative bleeding ulcer in the stomach requiring injection as well as clipping with some success, advanced dementia, severe anemia, oropharyngeal dysphagia. Case discussed with the patient's daughter at bedside. All the questions answered. Also spoke to nursing staff. Requested out-of-bed to reclining chair, fall precaution though. Need to discuss with Dr. Parry for further approach should we keep the patient n.p.o. for now. Continue pump inhibitor and start PPN or TPN. It is a GI call. Keep head elevated at 45 degrees. If no TPN or PPN started, we will need to start IV fluid. Continue supplement oxygen. High risk for pressure ulcer, keep SCD to lower extremity. Also high risk for thromboembolic disease because of cardiomyopathy. Overall poor prognosis. Continue supportive care. Thank you, and we will follow with you. Dayana Simms MD
--- NOTE | 2016-12-21 02:09 | PN ---
DATE: 12/20/2016 SUBJECTIVE: The patient is an 81-year-old female. The patient was seen and examined on the bedside on 12/20/2016. Daughter and [id number] was sitting on the bedside, looking comfortable, hungry. The patient is awake, alert, nonverbal, does not follow much command. No hemoptysis or hematemesis. No hematuria. No leg pain or leg swelling reported. EGD was done yesterday. PHYSICAL EXAMINATION VITAL SIGNS: Temperature 98, heart rate 62, respiratory rate is 19, blood pressure 140/94, and pulse oximetry 100% on nasal cannula. HEENT: Head is normocephalic and atraumatic. Eyes; PERRLA. Extraocular muscles are intact. Conjunctivae are clear. Nose is patent. Mucous membrane moist. NECK: Supple. No carotid bruits, JVD, or thyromegaly. CHEST: Bilaterally symmetrical. HEART: S1 and S2 positive. LUNGS: Fair coarse with rhonchi. ABDOMEN: Bowel sounds positive. Soft, nontender. No organomegaly. EXTREMITIES: No edema, no cyanosis. NEUROLOGICAL: Awake, alert, nonverbal. Does not follow commands. MEDICATIONS: Ambien, insulin coverage, Protonix, Synthroid, and vitamin B12. LABORATORY DATA: Hemoglobin 9.8, hematocrit 30.4, white blood cells 6.9, and platelets 140. Sodium 142, potassium 4.0, BUN 22, and creatinine 0.7. AST 23 and ALT 26. ASSESSMENT AND PLAN: Ms. Marge Still is an 81-year-old lady came with severe anemia due to ulcerative lesion in the stomach having actively bleeding requiring ingestion as well as clipping with some successes, advanced dementia, severe anemia, oropharyngeal dysphagia. Dr. Parry started liquid diet. The patient has history of hypothyroidism, hypertension, hypercholesteremia, coronary artery disease, Physical Therapy, out of bed. Gastrointestinal and deep venous thrombosis prophylaxis. Repeat labs. We will follow up. Colette Viera MD
[2016-12-21 06:28] LABS: EOS # 0.2 (0.0-0.7); EOS % 2.9 % (1.5-5.0); GRAN # 3.12 (1.4-6.5); GRAN % 60.8 % (50.0-68.0); HEMATOCRIT 30.6 % (36.0-48.0); LYMPH # 1.5 (1.2-3.4); LYMPH % 28.3 % (22.0-35.0); MEAN CELL VOLUME 82.7 fl (80.0-105.0); MEAN CORPUSCULAR HEMOGLOBIN 26.8 pg (25.0-35.0); MEAN CORPUSCULAR HGB CONC 32.4 g/dl (31.0-37.0); MONO # 0.4 (0.1-0.6); RED CELL DISTRIBUTION WIDTH 21.1 % (11.5-14.5); WHITE BLOOD COUNT 5.1 10^3/ul (4.5-11.0)
[2016-12-21 06:49] LABS: ALB/GLOB RATIO 0.9 (1.1-1.8); ALKALINE PHOSPHATASE 60 U/L (38-126); ALT/SGPT 28 U/L (7-56); AST/SGOT 25 U/L (14-36); BILIRUBIN,TOTAL 0.7 mg/dL (0.2-1.3); BLOOD UREA NITROGEN 20 mg/dL (7-21); CALCIUM 8.7 mg/dL (8.4-10.5); CARBON DIOXIDE 27 mmol/L (21-33); CHLORIDE 111 mmol/L (98-107); GFR AFRICAN-AMERICAN > 60; GLUCOSE,RANDOM 91 mg/dL (70-110); POTASSIUM 3.9 mmol/L (3.6-5.0); SODIUM 142 mmol/L (132-148); TOTAL PROTEIN 5.1 g/dL (5.8-8.3)
[2016-12-21 06:56] LABS: PHOSPHOROUS 1.4 mg/dL (2.5-4.5)
[2016-12-21] MEDS: Insulin Lispro (humaLOG) LOW Coverage SC SCH ×4 (07:35→22:00)
[2016-12-21] MEDS: Levothyroxine 100 MCG TAB PO SCH (07:36)
[2016-12-21] MEDS ORDERED: Potassium Phosphate 3 mmol/ml Inj IV ONE (08:00)
[2016-12-21] MEDS ORDERED: Potassium Phosphate 15 MMOLE in Sodium Chloride 0.9% 250 ML IVPB ONE ×2 (08:15→08:53)
--- NOTE | 2016-12-21 09:24 | CP.PCM.PN ---
Subjective - Date & Time of Evaluation Date of Evaluation: 12/21/16 Time of Evaluation: 09:10 - Subjective Subjective: Comfortable in bed, no fevers. Objective - Vital Signs/Intake and Output Vital Signs (last 24 hours): Temp Pulse Resp BP Pulse Ox 98.3 F 56 L 17 139/73 100 12/21/16 04:00 12/21/16 04:00 12/21/16 04:00 12/21/16 04:00 12/21/16 04:00 Intake and Output: 12/20/16 12/21/16 18:59 06:59 Intake Total 337 Output Total 200 Balance 137 - Medications Medications: Current Medications Cyanocobalamin (Vitamin B12 1000 Mcg/Ml Inj) 1,000 mcg IM DAILY [facility] Last Admin: 12/20/16 09:25 Dose: 1,000 mcg Iron Sucrose 100 mg/ Sodium (Chloride) 105 mls @ 210 mls/hr IVPB DAILY [facility] Last Admin: 12/20/16 10:06 Dose: 210 mls/hr Insulin Human Lispro (Humalog Low) 0 units SC ACHS [facility] PRN Reason: Protocol Last Admin: 12/20/16 22:16 Dose: Not Given Levothyroxine Sodium (Synthroid) 100 mcg PO ACB [facility] Last Admin: 12/14/16 12:01 Dose: 100 mcg Mupirocin (Bactroban Ointment) 0 gm TOP BID [facility] Last Admin: 12/20/16 17:35 Dose: 1 applic Pantoprazole Sodium (Protonix Inj) 40 mg IVP Q12 [facility] Last Admin: 12/20/16 21:40 Dose: 40 mg Zolpidem Tartrate (Ambien) 10 mg PO HS PRN; Protocol PRN Reason: Insomnia Last Admin: 12/20/16 21:39 Dose: 10 mg - Labs Labs: 12/20/16 05:10 12/20/16 05:10 PT 12.1 SECONDS (9.4-12.5) 12/18/16 09:00 INR 1.10 (0.93-1.08) H 12/18/16 09:00 APTT 29.1 Seconds (25.1-36.5) 12/18/16 09:00 - Constitutional Appears: Non-toxic - Head Exam Head Exam: NORMAL INSPECTION - ENT Exam ENT Exam: Mucous Membranes Moist - Neck Exam Neck Exam: absent: Meningismus - Respiratory Exam Respiratory Exam: Decreased Breath Sounds - Cardiovascular Exam Cardiovascular Exam: +S1, +S2 - GI/Abdominal Exam GI & Abdominal Exam: Soft. absent: Tenderness Assessment and Plan - Assessment and Plan (Free Text) Plan: Assessment bilateral heel infected ulcers without evidence of infection GI bleeding S/P EGD and clipping of bleeding gastric polyp POD #2 history of heel ulcer infections with VRE, Corynebacterium and Pseudomonas ( localized infection without systemic signs of infection) history of urinary tract infection with ESBL E. coli UTI history of right foot skin and skin structure infection history of PEG site skin and skin structure infection with Strep and Klebsiella dementia COPD HTN anxiety coronary artery disease atrial fibrillation history of E. coli bacteremia and UTI Plan continue to monitor off systemic antibiotics since she is at risk for healthcare -associated infections
--- NOTE | 2016-12-21 19:29 | PN ---
DATE: 12/21/2016 REASON FOR CONSULTATION AND FOLLOWUP: Coronary artery disease, history of advanced dementia, paroxysmal atrial fibrillation, GI bleed, anemia, status post EGD, status post polypectomy and sclerotherapy, postprocedure in ICU for observation. SUBJECTIVE: The patient was unable to communicate because of advanced dementia. OBJECTIVE: GENERAL: Not in apparent distress, lying flat in the bed. VITAL SIGNS: As follows: Temperature afebrile, heart rate 64, blood pressure 122/75. HEENT: PERRLA. Extraocular muscles intact. NECK: Supple. No carotid bruits or thyromegaly. CHEST: Clear to auscultation. HEART: S1 and S2 regular. ABDOMEN: Soft. EXTREMITIES: Clubbing and cyanosis negative. LABORATORY DATA: Blood workup as follows: WBC 5.5, hemoglobin 9.9, hematocrit 30.6, platelet count 131. Chemistry shows sodium 141, potassium 3.9, chloride 111, carbon dioxide 26, anion gap of 8, BUN 20, creatinine 0.7, phosphorus 1.4, total protein 5.1, albumin 2.4, albumin-globulin ratio 0.9. IMPRESSION: Severe hypophosphatemia; mild hypokalemia; protein-calorie malnutrition, [id number] which was present on admission, mild; gastrointestinal bleed, massive, status post endoscopy, status post removal of the polyp and clipping and sclerotherapy; history of coronary artery disease; history of hypothyroidism; history of paroxysmal atrial fibrillation, now is normal sinus; history of deep vein thrombosis. RECOMMENDATIONS: Monitor H and H. Discussed with GI, Dr. Parry, who will put pureed diet and then progressively increase as tolerated, and also for melena or bright red blood per rectum, monitor for bleeding. Monitor for drop in H and H. History of PEG in the past, history of removal of the PEG. As mentioned, progress the diet to pureed and monitor H and H. We will follow with you. In the interim, continue supplement IV. Thank you Dr. Viera for providing us the opportunity in taking care of the patient, Marge Still. Dayana Steward MD [facility] # [id number]
--- NOTE | 2016-12-22 00:25 | PN ---
DATE: 12/21/2016 SUBJECTIVE: This patient was seen and evaluated earlier today. The patient is comfortable. The patient has no further episodes of bleeding. PHYSICAL EXAMINATION VITAL SIGNS: Temperature 98.1, blood pressure 115/66, pulse 82, O2 saturation 100%. HEENT: Atraumatic. Anicteric. NECK: Supple. HEART: S1 and S2 heard. LUNGS: Bilateral air entry present. ABDOMEN: Soft. There is no tenderness. EXTREMITIES: No cyanosis. No clubbing. LABORATORY DATA: Hemoglobin 9.9, hematocrit 30.6, WBC 5.1, platelets 131. Phosphorus 1.4. IMPRESSION: This 81-year-old patient with: 1. Status post upper gastrointestinal bleeding secondary to the ulcerated polyp,had status post clipping of the base and the injection hemostasis. No further episode of bleeding. Hemoglobin stable. Discussed with Dr. Galaviz, slowly advance the diet to pureed diet. 2. History of paroxysmal atrial fibrillation, deep venous thrombosis in the past. The patient is off the Eliquis. In view of this large bleeding, decision was to called off the Eliquis at least for 2 to 3 weeks. Consider repeating endoscopy before restarting the Eliquis. Followup of the hemoglobin and hematocrit. We will start on a pureed diet. Thank you very much for allowing us to participate in the care of the patient. Lee Parry MD
[2016-12-22 06:19] LABS: EOS # 0.2 (0.0-0.7); GRAN # 3.08 (1.4-6.5); GRAN % 58.6 % (50.0-68.0); HEMATOCRIT 30.5 % (36.0-48.0); LYMPH # 1.5 (1.2-3.4); LYMPH % 29.1 % (22.0-35.0); MEAN CELL VOLUME 82.4 fl (80.0-105.0); MEAN CORPUSCULAR HEMOGLOBIN 26.5 pg (25.0-35.0); MEAN CORPUSCULAR HGB CONC 32.1 g/dl (31.0-37.0); MEAN PLATELET VOLUME 10.6 fl (7.0-11.0); MONO # 0.5 (0.1-0.6); MONO % 9.3 % (1.0-6.0); RED CELL DISTRIBUTION WIDTH 21.6 % (11.5-14.5); WHITE BLOOD COUNT 5.3 10^3/ul (4.5-11.0)
[2016-12-22 06:36] LABS: ALB/GLOB RATIO 0.9 (1.1-1.8); ALKALINE PHOSPHATASE 61 U/L (38-126); ALT/SGPT 30 U/L (7-56); AST/SGOT 28 U/L (14-36); BILIRUBIN,TOTAL 0.5 mg/dL (0.2-1.3); BLOOD UREA NITROGEN 20 mg/dL (7-21); CALCIUM 8.8 mg/dL (8.4-10.5); CARBON DIOXIDE 28 mmol/L (21-33); CHLORIDE 111 mmol/L (98-107); GFR AFRICAN-AMERICAN > 60; GLUCOSE,RANDOM 108 mg/dL (70-110); MAGNESIUM 2.2 mg/dL (1.7-2.2); POTASSIUM 3.9 mmol/L (3.6-5.0); SODIUM 143 mmol/L (132-148); TOTAL PROTEIN 5.4 g/dL (5.8-8.3)
[2016-12-22 07:05] LABS: PHOSPHOROUS 1.3 mg/dL (2.5-4.5)
[2016-12-22] MEDS: Levothyroxine 100 MCG TAB PO SCH (07:30)
[2016-12-22] MEDS ORDERED: Sodium Phosphate 15 MMOLE in Sodium Chloride 0.9% 250 ML IVPB ONE ×2 (08:03→14:15)
[2016-12-22] MEDS: Insulin Lispro (humaLOG) LOW Coverage SC SCH ×4 (08:21→22:01)
--- NOTE | 2016-12-22 08:41 | PN ---
DATE: 12/21/2016 SUBJECTIVE: The patient is seen and examined at the bedside, looking comfortable. No nausea, vomiting, or diarrhea. No hematuria or hematochezia. No swelling of the legs. No chest pain. No palpitation. No headache or dizziness. The patient is awake and alert, but confused, looks anxious, looks like she is hungry. PHYSICAL EXAMINATION VITAL SIGNS: Temperature 98.2, pulse 56, respiratory rate 17, blood pressure 113/76, pulse oximetry 100. HEENT: Head is normocephalic and atraumatic. Eyes: PERRLA. Extraocular muscles are intact. Conjunctivae are clear. Nose is patent. Mucous membrane moist. NECK: Supple. No carotid bruits, JVD, or thyromegaly. CHEST: Bilaterally symmetrical. HEART: S1 and S2 positive. LUNGS: Clear to auscultation. ABDOMEN: Soft. Bowel sounds present. No organomegaly. EXTREMITIES: No edema. No cyanosis. NEUROLOGIC: The patient is awake and alert. Moving all 4 extremities. No focal deficits. MEDICATIONS: Iron, insulin, levothyroxine, Bactroban ointment, Protonix, and Ambien. LABORATORY DATA: White blood cells 6.9, hemoglobin 9.8, hematocrit 30.4, platelets 114. Sodium 142, potassium 4.0, BUN 32, creatinine 0.7, glucose 111. ASSESSMENT AND PLAN: lady with anemia, thrombocytopenia, hyperchloremia, hyperglycemia, has bilaterally heel infected ulcers without evidence of infection, gastrointestinal bleeding, status post EGD, clipped of bleeding gastric polyps, peptic ulcer disease #2, history of heel ulcer infected with vancomycin-resistant enterococcus, vitamin B12 deficiency, Corynebacterium and Pseudomonas localized infection without systemic signs of infection, history of urinary tract infection with extended-spectrum beta-lactamases and Escherichia coli urinary tract infection, history of right foot skin and skin structure infection, history of percutaneous endoscopic gastrostomy site skin and skin structure infection with Klebsiella, dementia, chronic obstructive pulmonary disease, hypertension, anxiety, coronary artery disease exacerbation, history of Escherichia coli bacteremia and urinary tract infection. The patient has history of dementia, hypothyroidism, coronary artery disease. We will follow up. Discussion done with the nursing staff and Dr. Galaviz. GI and prophylaxis. We will follow up. Colette Viera MD [facility]
--- NOTE | 2016-12-22 08:59 | PN ---
DATE: 12/21/2016 REFERRING PHYSICIAN: Dr. Viera. SUBJECTIVE: She is lying in the bed, head at 45 degrees. Started own diet today. Has a very poor appetite. No hematemesis, no melena, no leg swelling reported. PHYSICAL EXAMINATION GENERAL: In no acute distress. VITAL SIGNS: Temperature is 98, heart rate is 67, respiratory rate is 20, blood pressure 115/66, pulse ox 100% on nasal cannula. HEENT: Moist mucous membranes. Small oral cavity. Crowded airway. NECK: Supple. No JVD. LUNGS: Fair airflow with few rhonchi. HEART: S1 and S2. ABDOMEN: Soft and nontender. No organomegaly. EXTREMITIES: No edema. NEUROLOGIC: Awake, alert, nonverbal. Does not follow commands. MEDICATIONS: She is on Ambien 10 mg at bedtime p.r.n., Bactroban ointment to affected area, insulin coverage, IV sucrose daily, Protonix 40 mg twice a day, Synthroid 100 mcg , vitamin B12 of 1000 mcg daily. LABORATORY DATA: Shows hemoglobin 9.9, hematocrit 30.6, WBC 5.1, platelet count is 131. Sodium 142, potassium 3.9, chloride 111, bicarbonate 27, BUN 20, creatinine 0.7, glucose 91. Calcium 8.7, phosphorous 1.4, magnesium 2.0. AST 25, ALT 28, alkaline phosphatase is 60. Albumin is 2.4. IMPRESSION AND PLAN: Gastric ulcerative polyps with active bleed status post clipping and injection of the polyp, anemia, severe dementia, bronchitis secondary to aspiration, cardiomyopathy, cardiac arrhythmia. Spoke to nursing staff. Patient seen by Gastroenterology. May continue supportive care. Conservative therapy. Overall poor prognosis. SCD to lower extremity. H2 arturo. Follow up labs in the morning. Thank you, and we will follow with you. Dayana Simms MD
--- NOTE | 2016-12-22 09:51 | CP.PCM.PN ---
Subjective - Date & Time of Evaluation Date of Evaluation: 12/22/16 Time of Evaluation: 09:30 - Subjective Subjective: Comfortable in bed, not in distress, afebrile, no fevers overnight. Objective - Vital Signs/Intake and Output Vital Signs (last 24 hours): Temp Pulse Resp BP Pulse Ox 98.4 F 67 67 H 125/64 23 L 12/22/16 04:00 12/22/16 04:00 12/22/16 04:00 12/22/16 04:00 12/22/16 04:00 Intake and Output: 12/21/16 12/22/16 18:59 06:59 Intake Total 1350 50 Output Total 250 250 Balance 1100 -200 - Medications Medications: Current Medications Cyanocobalamin (Vitamin B12 1000 Mcg/Ml Inj) 1,000 mcg IM DAILY [facility] Last Admin: 12/21/16 09:10 Dose: 1,000 mcg Iron Sucrose 100 mg/ Sodium (Chloride) 105 mls @ 210 mls/hr IVPB DAILY [facility] Last Admin: 12/21/16 09:07 Dose: 210 mls/hr Insulin Human Lispro (Humalog Low) 0 units SC ACHS [facility] PRN Reason: Protocol Last Admin: 12/21/16 22:00 Dose: Not Given Levothyroxine Sodium (Synthroid) 100 mcg PO ACB [facility] Last Admin: 12/21/16 07:36 Dose: 100 mcg Mupirocin (Bactroban Ointment) 0 gm TOP BID [facility] Last Admin: 12/21/16 17:10 Dose: 1 applic Pantoprazole Sodium (Protonix Inj) 40 mg IVP Q12 [facility] Last Admin: 12/21/16 21:57 Dose: 40 mg Zolpidem Tartrate (Ambien) 10 mg PO HS PRN; Protocol PRN Reason: Insomnia Last Admin: 12/21/16 21:57 Dose: 10 mg - Labs Labs: 12/22/16 05:30 12/21/16 05:30 PT 12.1 SECONDS (9.4-12.5) 12/18/16 09:00 INR 1.10 (0.93-1.08) H 12/18/16 09:00 APTT 29.1 Seconds (25.1-36.5) 12/18/16 09:00 - Constitutional Appears: Non-toxic, Chronically Ill - Head Exam Head Exam: NORMAL INSPECTION - Neck Exam Neck Exam: absent: Meningismus - Respiratory Exam Respiratory Exam: Decreased Breath Sounds - Cardiovascular Exam Cardiovascular Exam: +S1, +S2 - GI/Abdominal Exam GI & Abdominal Exam: Soft. absent: Tenderness Assessment and Plan - Assessment and Plan (Free Text) Plan: Assessment bilateral heel infected ulcers without evidence of infection GI bleeding S/P EGD and clipping of bleeding gastric polyp POD #3 history of heel ulcer infections with VRE, Corynebacterium and Pseudomonas ( localized infection without systemic signs of infection) history of urinary tract infection with ESBL E. coli UTI history of right foot skin and skin structure infection history of PEG site skin and skin structure infection with Strep and Klebsiella dementia COPD HTN anxiety coronary artery disease atrial fibrillation history of E. coli bacteremia and UTI Plan continue to monitor off systemic antibiotics since she is at risk for nosocomial infections
--- NOTE | 2016-12-22 13:40 | PN ---
DATE: 12/22/2016 REASON FOR CONSULTATION AND FOLLOWUP: Coronary artery disease; history of advance dementia; paroxysmal atrial fibrillation; GI bleed, massive, status post EGD, status post removal of polyp and sclerotherapy; hypophosphatemia. SUBJECTIVE: The patient is unable to communicate, history of advanced dementia. PHYSICAL EXAMINATION: GENERAL: Not in any apparent distress, lying flat on the bed. Nursing staff at night did not mention any unusual symptoms. The patient is fairly stable. VITAL SIGNS: Temperature afebrile, heart rate 67, and blood pressure 125/64. HEENT: PERRLA. Extraocular muscles intact. NECK: Supple. No carotid bruits or thyromegaly. CHEST: Clear to auscultation. HEART: S1 and S2, regular. ABDOMEN: Soft. EXTREMITIES: Clubbing and cyanosis negative. LABORATORY DATA: Blood workup as follows: WBC 5.8, hemoglobin 9.8, hematocrit 30.5, platelet count 163. Chemistry shows sodium 143, potassium 3.9, chloride 111, carbon dioxide 28, anion gap of 8, BUN 20, creatinine 0.7, glucose 108, phosphorus 1.3, magnesium 2.2. Total protein 5.4, albumin 2.5, and albumin-globulin ratio 0.9. IMPRESSION: Severe hypophosphatemia; protein-calorie malnutrition, [id number], which was present since admission; anemia; gastrointestinal bleed, massive; gastric polyp, bleeding polyp, status post polypectomy, status post sclerotherapy; H and H is stable; history of advanced dementia; history of coronary artery disease with multiple stents; history of paroxysmal atrial fibrillation; history of deep venous thrombosis, was on Eliquis at home. Now, the patient is in normal sinus. RECOMMENDATION: Continue to hold anticoagulation. Pureed diet was started yesterday, is tolerating, is still monitored for bleeding the patient is having melena, but no bright red blood per rectum, not actively bleeding. History of PEG in the past, history of removal of PEG in the past because of infection. Hypophosphatemia; recommendation, supplement phosphorous. Monitor H and H. We will follow with you. Thank you Dr. Viera for providing us the opportunity in taking care of the patient, Marge Still. Dayana Steward MD
--- NOTE | 2016-12-22 23:11 | CP.PCM.PN ---
<Darlin Frank - Last Filed: 12/22/16 23:08> Subjective - Date & Time of Evaluation Date of Evaluation: 12/22/16 Time of Evaluation: 23:08 - Subjective Subjective: 81 yr female history of Advanced Dementia, COPD, HTN, Anxiety, CAD, Afib, UTI (ESBL, E. coli bacteremia), B/L ulcers (infection w/ VRE, corynebacterium, pseudomonas), GI bleed s/p EGD clipping of bleeding gastric polyp, PEG ( infection w/ Strep, Klebisella). Today, she is resting comfortably in bed, less agitation noted. Undetectable fever, chills, N/V, or urinary symptoms. No distress noted Objective - Vital Signs/Intake and Output Vital Signs (last 24 hours): Temp Pulse Resp BP Pulse Ox 98.8 F 81 19 131/65 98 12/22/16 16:25 12/22/16 16:25 12/22/16 16:25 12/22/16 16:25 12/22/16 16:25 Intake and Output: 12/22/16 12/23/16 18:59 06:59 Intake Total 850 480 Output Total 400 Balance 450 480 - Medications Medications: Current Medications Cyanocobalamin (Vitamin B12 1000 Mcg/Ml Inj) 1,000 mcg IM DAILY [facility] Last Admin: 12/22/16 10:02 Dose: 1,000 mcg Iron Sucrose 100 mg/ Sodium (Chloride) 105 mls @ 210 mls/hr IVPB DAILY [facility] Last Admin: 12/22/16 10:04 Dose: 210 mls/hr Insulin Human Lispro (Humalog Low) 0 units SC ACHS [facility] PRN Reason: Protocol Last Admin: 12/22/16 22:01 Dose: Not Given Levothyroxine Sodium (Synthroid) 100 mcg PO ACB [facility] Last Admin: 12/22/16 07:30 Dose: 100 mcg Mupirocin (Bactroban Ointment) 0 gm TOP BID [facility] Last Admin: 12/22/16 10:03 Dose: 1 applic Pantoprazole Sodium (Protonix Inj) 40 mg IVP Q12 [facility] Last Admin: 12/22/16 22:06 Dose: 40 mg Zolpidem Tartrate (Ambien) 10 mg PO HS PRN; Protocol PRN Reason: Insomnia Last Admin: 12/22/16 22:06 Dose: 10 mg - Labs Labs: 12/22/16 05:30 12/22/16 05:30 PT 12.1 SECONDS (9.4-12.5) 12/18/16 09:00 INR 1.10 (0.93-1.08) H 12/18/16 09:00 APTT 29.1 Seconds (25.1-36.5) 12/18/16 09:00 - Constitutional Appears: Confused, Chronically Ill - Head Exam Head Exam: NORMAL INSPECTION - Eye Exam Eye Exam: Normal appearance - ENT Exam ENT Exam: Mucous Membranes Dry - Neck Exam Neck Exam: Normal Inspection - Respiratory Exam Respiratory Exam: Decreased Breath Sounds, NORMAL BREATHING PATTERN - Cardiovascular Exam Cardiovascular Exam: +S1, +S4 - GI/Abdominal Exam GI & Abdominal Exam: Soft, Normal Bowel Sounds - Extremities Exam Additional comments: limited ROM - Neurological Exam Neurological Exam: Alert - Psychiatric Exam Psychiatric exam: Normal Affect, Normal Mood - Skin Skin Exam: Dry, Normal Color, Warm Assessment and Plan (1) Skin abnormality Status: Chronic (2) Anemia Status: Acute (3) Hypophosphatemia Status: Acute (4) Dementia Status: Chronic (5) Hypoalbuminemia due to protein-calorie malnutrition Status: Acute (6) Diabetes mellitus Status: Chronic (7) COPD (chronic obstructive pulmonary disease) Status: Chronic (8) CHF (congestive heart failure) Status: Chronic (9) Hypothyroidism Status: Chronic (10) GERD (gastroesophageal reflux disease) Status: Chronic (11) Insomnia Status: Chronic (12) Hematemesis Status: Resolved - Assessment and Plan (Free Text) Plan: Skin abnormalities * Dr. Dina Urrutia - ID * Continue to monitor off systemic abx since at risk for noscomial infxn Anemia * Prescribed iron IV & vitamin b12 * Will repeat labs. * GI on the case. Hypophosphatemia * Chronic Dementia * Chronic. Poor prognosis. Hypoalbuminuria, protein calorie malnutrition * Advanced diet to pureed. * Anorexia noted. DM II, Hyperglycemia * Prescribed Insulin COPD * Dr. Waylon Simms - Quality Project Manager * Poor prognosis, Supportive care. Conservative therapy. SCD to BLE. H2 arturo. CHF * Dr. Waylon Steward - Cardio * Hold anticoagulation, pureed diet. Hypothyroidism * Stable, on levothyroxine GERD * Stable Insomnia * Stable Hematemesis * Dr. Regina Parry - GI * May repeat Endoscopy before restarting eliquis. f/u Anemia. Pureed diet. <Colette Viera - Last Filed: 12/23/16 09:21> Objective - Vital Signs/Intake and Output Vital Signs (last 24 hours): Temp Pulse Resp BP Pulse Ox 98.0 F 68 20 121/71 96 12/23/16 07:30 12/23/16 07:30 12/23/16 07:30 12/23/16 07:30 12/23/16 07:30 Intake and Output: 12/23/16 12/23/16 06:59 18:59 Intake Total 1200 Balance 1200 - Medications Medications: Current Medications Cyanocobalamin (Vitamin B12 1000 Mcg/Ml Inj) 1,000 mcg IM DAILY [facility] Last Admin: 12/22/16 10:02 Dose: 1,000 mcg Iron Sucrose 100 mg/ Sodium (Chloride) 105 mls @ 210 mls/hr IVPB DAILY [facility] Last Admin: 12/22/16 10:04 Dose: 210 mls/hr Insulin Human Lispro (Humalog Low) 0 units SC ACHS [facility] PRN Reason: Protocol Last Admin: 12/23/16 08:23 Dose: Not Given Levothyroxine Sodium (Synthroid) 100 mcg PO ACB [facility] Last Admin: 12/23/16 08:17 Dose: 100 mcg Mupirocin (Bactroban Ointment) 0 gm TOP BID [facility] Last Admin: 12/22/16 10:03 Dose: 1 applic Pantoprazole Sodium (Protonix Inj) 40 mg IVP Q12 [facility] Last Admin: 12/22/16 22:06 Dose: 40 mg Zolpidem Tartrate (Ambien) 10 mg PO HS PRN; Protocol PRN Reason: Insomnia Last Admin: 12/22/16 22:06 Dose: 10 mg - Labs Labs: 12/23/16 07:00 12/23/16 07:00 PT 12.1 SECONDS (9.4-12.5) 12/18/16 09:00 INR 1.10 (0.93-1.08) H 12/18/16 09:00 APTT 29.1 Seconds (25.1-36.5) 12/18/16 09:00 Assessment and Plan - Assessment and Plan (Free Text) Assessment: Subjective: 81 yr female history of Advanced Dementia, COPD, HTN, Anxiety, CAD, Afib, UTI (ESBL, E. coli bacteremia), B/L ulcers (infection w/ VRE, corynebacterium, pseudomonas), GI bleed s/p EGD clipping of bleeding gastric polyp, PEG ( infection w/ Strep, Klebisella). Today, she is resting comfortably in bed, less agitation noted. Undetectable fever, chills, N/V, or urinary symptoms. No distress noted pt is s/e at bed side , looking comfortable .agreed all above . d/d with family
--- NOTE | 2016-12-22 23:46 | PN ---
DATE: 12/22/2016 SUBJECTIVE: This patient was seen and evaluated earlier today. The patient is now tolerating the pureed diet. PHYSICAL EXAMINATION: GENERAL: The patient is lying on the bed. VITAL SIGNS: Temperature is 98.8, pulse 81, blood pressure is 131/65, respirations 19 and O2 sat 98%. HEENT: Atraumatic. Anicteric. NECK: Supple. HEART: S1 and S2 heard. LUNGS: Bilateral air entry present. ABDOMEN: Soft. There is no mass palpable. No tenderness. EXTREMITIES: No cyanosis, no clubbing. Left heel dressing present. LABORATORY DATA: Hemoglobin 9.8, hematocrit 30.5, WBC 5.3 and platelets 163. Chemistry is essentially unremarkable except phosphate is 1.3. IMPRESSION: This 81-year-old patient status post gastrointestinal bleeding secondary to the ulcerated polyp, had a clip placement placed at the base of the polyp. The patient also got an injection of the epinephrine. This assisted complete hemostasis. The patient did have an active bleeding at the time of just before the endoscopy. No polypectomy was done, only the clipping of the base of the polyps are done, which has sustained the hemostasis. I did have detailed discussion with Dr. Galaviz. PLAN: The plan is to hold off the Eliquis at least for 2 to 3 weeks time and restart the pureed diet if the patient remains stable. The patient can be followed. The patient can have repeat endoscopy as an outpatient in 3 weeks time. The patient has dysphagia, able to tolerate the pureed food and thickened liquid. Thank you very much for allowing us to participate in the care of the patient. The patient has low phosphate level and the patient is being supplemented. Lee Parry MD
--- NOTE | 2016-12-23 02:40 | PN ---
PULMONARY PROGRESS NOTE DATE: 12/22/2016 REFERRING PHYSICIAN: Colette Viera MD SUBJECTIVE: The patient is lying in the bed, head at 45 degrees. No acute distress. Awake, nonverbal, and does not follow commands. No cough. No sputum production. No nausea. No vomiting. No diarrhea. No leg pain or leg swelling. OBJECTIVE: GENERAL: In no acute distress. VITAL SIGNS: Temperature is 98, heart rate is 81, respiratory rate is 18, blood pressure is 131/65, and pulse oximetry is 98% on room air. HEENT: Moist mucous membranes. Small oral cavity. NECK: Supple. No JVD. LUNGS: Has a fair airflow with rhonchi. HEART: S1 and S2. ABDOMEN: Soft and nontender. No organomegaly. EXTREMITIES: There is no edema. NEUROLOGIC: Awake and alert, nonverbal, and does not follow commands. LABORATORY DATA: Shows hemoglobin 9.8, hematocrit 30.5, WBC 5.3, and platelet count is 163. Sodium 143, potassium 3.9, chloride 111, bicarbonate 28, BUN 20, creatinine 0.7, glucose 108, calcium is 8.8, and phosphorous 1.3. AST 28, ALT 30, alkaline phosphatase is 61, and albumin is 2.4. MEDICATIONS: She is on Ambien 10 mg at bedtime p.r.n., Bactroban ointment to affected area, iron sucrose, Protonix 40 mg twice a day, Synthroid 100 mcg daily, and vitamin B12 of 1000 mcg IM daily. IMPRESSION AND PLAN: Ulcerative polyp with bleeding in the stomach, requiring clipping and injection; severe anemia; dementia; bronchitis secondary to aspiration; cardiomyopathy; cardiac arrhythmia; off anticoagulation; on pump inhibitor; aspiration precaution; keep head at 45 degrees; and gastric prophylaxis. Sequential compression device to lower extremity. Continue to follow electrolytes and replace phosphorus. Thank you and we will follow with you. Dayana Simms MD
[2016-12-23 07:41] LABS: BASO # 0.01 K/mm3 (0.0-2.0); BASO % 0.2 % (0.0-3.0); EOS # 0.2 (0.0-0.7); EOS % 3.4 % (1.5-5.0); GRAN # 2.44 (1.4-6.5); GRAN % 51.6 % (50.0-68.0); HEMATOCRIT 28.9 % (36.0-48.0); LYMPH # 1.6 (1.2-3.4); MEAN CELL VOLUME 83.8 fl (80.0-105.0); MEAN CORPUSCULAR HEMOGLOBIN 26.7 pg (25.0-35.0); MEAN CORPUSCULAR HGB CONC 31.8 g/dl (31.0-37.0); MEAN PLATELET VOLUME 10.7 fl (7.0-11.0); MONO # 0.6 (0.1-0.6); MONO % 11.8 % (1.0-6.0); WHITE BLOOD COUNT 4.7 10^3/ul (4.5-11.0)
[2016-12-23 08:12] LABS: BLOOD UREA NITROGEN 17 mg/dL (7-21); CALCIUM 8.5 mg/dL (8.4-10.5); CARBON DIOXIDE 28 mmol/L (21-33); CHLORIDE 112 mmol/L (98-107); GFR AFRICAN-AMERICAN > 60; GLUCOSE,RANDOM 92 mg/dL (70-110); MAGNESIUM 2.1 mg/dL (1.7-2.2); PHOSPHOROUS 2.1 mg/dL (2.5-4.5); POTASSIUM 3.8 mmol/L (3.6-5.0); SODIUM 143 mmol/L (132-148)
[2016-12-23] MEDS: Levothyroxine 100 MCG TAB PO SCH (08:17)
[2016-12-23] MEDS: Insulin Lispro (humaLOG) LOW Coverage SC SCH ×3 (08:23→17:34)
--- NOTE | 2016-12-23 13:32 | PN ---
DATE: 12/23/2016 REASON FOR CONSULTATION AND FOLLOWUP: Coronary artery disease, history of advanced dementia, paroxysmal atrial fibrillation, massive GI bleed, status post cauterization, status post endoscopy and sclerotherapy, and electrolyte imbalance. SUBJECTIVE: The patient is noncommunicable secondary to advanced dementia, lying flat, and not in apparent distress. OBJECTIVE: GENERAL: Not in apparent distress. VITAL SIGNS: As follows; temperature afebrile, heart rate 68, and blood pressure 121/71. HEENT: PERRLA. Extraocular muscles intact. NECK: Supple. No carotid bruit or thyromegaly. CHEST: Clear to auscultation. HEART: S1 and S2 regular. ABDOMEN: Soft. EXTREMITIES: Clubbing and cyanosis negative. LABORATORY DATA: Blood workup as follows; WBC 4.7, hemoglobin 9.1, hematocrit 28.9, and platelet count 169. Chemistry shows sodium 143, potassium 3.9, chloride 102, carbon dioxide 28, anion gap of 7, BUN 17, and creatinine is 0.7. TSH 5.52. IMPRESSION: Hypothyroidism, on Levoxyl; massive gastrointestinal bleed, status post endoscopy; status post sclerotherapy and polypectomy. Second polyp at gastroduodenal junction, history of coronary artery disease, advanced dementia, and paroxysmal atrial fibrillation, now in normal sinus. RECOMMENDATIONS: We will increase Levoxyl to 112 mcg daily, continue Prograf. Diet as tolerated. Supplement electrolyte as needed. We will give Neutra-Phos p.o. one pack 3 times a day. The patient get the benefit of TCU evaluation. Dayana Steward MD
[2016-12-23] MEDS: Potassium & Sodium Phosphate PO SCH ×2 (16:10→19:47)
--- NOTE | 2016-12-23 20:21 | PN ---
DATE: 12/23/2016 SUBJECTIVE: This patient was seen and evaluated earlier today. The patient is tolerating the pureed diet. No complaints. No further episodes of bleeding per rectum or vomiting. PHYSICAL EXAMINATION: VITAL SIGNS: The patient is afebrile, blood pressure is 121/71, her pulse 68. HEENT: Atraumatic. Anicteric. NECK: Supple. HEART: S1 and S2 heard. LUNGS: Bilateral air entry present. ABDOMEN: Soft. There is no tenderness. EXTREMITIES: Left heel dressing present. LABORATORY DATA: Hemoglobin is stable at 9.2, hematocrit 28.9 and white cell count 4.7. BUN 17 and creatinine 0.7. IMPRESSION: This 81-year-old patient admitted with gastrointestinal bleeding has a large polypoid lesion in the fundus extending to the cardia. The patient did have active bleeding, had an endoscopy, clipping of the base of the polyp was done with the patient attained hemostasis. The patient has a history of paroxysmal atrial fibrillation and deep venous thrombosis in the past. The patient was on Eliquis in the past, which has been on hold. PLAN: The plan is to continue the pureed diet, PPI and the patient would need a repeat endoscopy in about three week's time prior to the restarting the patient on Eliquis. Thank you very much for allowing us to participate in the care of the patient. The patient also has a hypophosphatemia on supplement. Lee Parry MD
--- NOTE | 2016-12-23 21:43 | PN ---
DATE: 12/23/2016 PULMONARY PROGRESS NOTE REFERRING PHYSICIAN: Colette Viera MD. SUBJECTIVE: The patient is lying on the bed, head 45 degrees. Awake, alert, nonverbal and does not follow commands. No acute distress. Not much cough. No sputum production. No hemoptysis, no hematemesis, no hematuria, no diarrhea reported. OBJECTIVE: GENERAL: In no acute distress. VITAL SIGNS: Temperature is 98, heart rate is 68, respiratory rate is 20, blood pressure 121/71, and pulse oximetry is 96% on nasal cannula. HEENT: Moist mucous membranes. Small oral cavity. NECK: Supple. No JVD. LUNGS: Has a few scattered rhonchi. HEART: S1, S2. ABDOMEN: Soft, nontender. No organomegaly. EXTREMITIES: No edema. NEUROLOGIC: Awake, alert, nonverbal and does not follow commands. MEDICATIONS: She is on Ambien 10 mg at bedtime p.r.n., insulin coverage, iron sucrose IV, also on K-Phos 1 pack 3 times a day, Protonix 40 mg twice a day, Synthroid 112 mcg and vitamin B12 1000 mcg daily. LABORATORY DATA: Shows hemoglobin 9.2, hematocrit 28.9, WBC is 4.7, platelets 169. Sodium 142, potassium 3.8, chloride 112, bicarbonate 28, BUN 17, creatinine 0.7, glucose 92, calcium is 8.5, phosphorus is 2.1, magnesium is 2.1. IMPRESSION AND PLAN: Ulcerative polyp in the stomach with bleeding requiring transfusions, advanced dementia, bronchitis, cardiomyopathy, cardiac arrhythmia, of anticoagulation; high risk thromboembolic disease, malnourished high risk for pressure ulcers, high risk for aspiration, high risk for bleeding. Continue present care. Followup H and H, supportive care. Overall poor prognosis. I will follow with you. Dayana Simms MD
[2016-12-24] MEDS: Insulin Lispro (humaLOG) LOW Coverage SC SCH ×2 (06:33→12:50)
[2016-12-24] MEDS ORDERED: Levothyroxine 100 MCG TAB PO SCH (07:30)
[2016-12-24 07:43] LABS: BASO # 0.01 K/mm3 (0.0-2.0); BASO % 0.2 % (0.0-3.0); EOS # 0.2 (0.0-0.7); EOS % 3.1 % (1.5-5.0); GRAN # 3.22 (1.4-6.5); GRAN % 59.3 % (50.0-68.0); HEMATOCRIT 30.2 % (36.0-48.0); LYMPH # 1.4 (1.2-3.4); LYMPH % 25.6 % (22.0-35.0); MEAN CELL VOLUME 84.6 fl (80.0-105.0); MEAN CORPUSCULAR HEMOGLOBIN 27.5 pg (25.0-35.0); MEAN CORPUSCULAR HGB CONC 32.5 g/dl (31.0-37.0); MEAN PLATELET VOLUME 10.7 fl (7.0-11.0); MONO # 0.6 (0.1-0.6); MONO % 11.8 % (1.0-6.0); RED CELL DISTRIBUTION WIDTH 23.3 % (11.5-14.5); WHITE BLOOD COUNT 5.4 10^3/ul (4.5-11.0)
[2016-12-24] MEDS: Levothyroxine 112 MCG TAB PO SCH (08:05)
[2016-12-24 08:07] LABS: ALB/GLOB RATIO 0.9 (1.1-1.8); ALKALINE PHOSPHATASE 63 U/L (38-126); ALT/SGPT 37 U/L (7-56); AST/SGOT 40 U/L (14-36); BILIRUBIN,TOTAL 0.6 mg/dL (0.2-1.3); BLOOD UREA NITROGEN 14 mg/dL (7-21); CALCIUM 8.9 mg/dL (8.4-10.5); CARBON DIOXIDE 25 mmol/L (21-33); CHLORIDE 110 mmol/L (98-107); GFR AFRICAN-AMERICAN > 60; GLUCOSE,RANDOM 94 mg/dL (70-110); MAGNESIUM 2.1 mg/dL (1.7-2.2); PHOSPHOROUS 1.8 mg/dL (2.5-4.5); POTASSIUM 4.2 mmol/L (3.6-5.0); SODIUM 137 mmol/L (132-148); TOTAL PROTEIN 5.4 g/dL (5.8-8.3)
[2016-12-24] MEDS: Potassium & Sodium Phosphate PO SCH ×3 (09:45→18:03)
--- NOTE | 2016-12-24 13:04 | PN ---
DATE: REASON FOR CONSULTATION AND FOLLOWUP: Coronary artery disease, history of advanced dementia, paroxysmal atrial fibrillation, massive GI bleed, status post cauterization, status post polypectomy from gastric wall, and electrolyte imbalance. PHYSICAL EXAMINATION: VITAL SIGNS: Temperature afebrile, heart rate 60 and blood pressure 126/72. HEENT: PERRLA. Extraocular muscles are intact. NECK: Supple. No carotid bruits or thyromegaly. CHEST: Clear to auscultation. HEART: S1 and S2 regular. ABDOMEN: Soft. EXTREMITIES: Clubbing and cyanosis negative. LABORATORY DATA: Blood workup as follows: WBC 5.5, hemoglobin 9.8, hematocrit 30.2, and platelet count 180. Chemistry shows sodium of 137, potassium of 4.2, chloride of 110, carbon dioxide of 25, anion gap of 16, BUN of 14, and creatinine of 0.7. Total protein of 5.6, albumin of 2.6, and albumin-globulin ratio of 0.6. IMPRESSION: Hypothyroidism on Levoxyl, massive gastrointestinal bleed status post endoscopy status post sclerotherapy and polypectomy, second polyp at gastroduodenal junction, history of coronary artery disease, advanced dementia, paroxysmal atrial fibrillation, now in normal sinus. RECOMMENDATIONS: Yesterday, I increased Levoxyl to 112 mcg daily, continue Neutra-Phos, continue pureed diet, advance the diet as tolerated, monitor H and H. So far hemoglobin remained stable. If remained stable, we will repeat tomorrow. Consider TCU evaluation. If H and H remain stable, we will follow with you. Repeat the blood workup tomorrow. Monitor electrolytes. Thank you Dr. Viera for providing us the opportunity in taking care of the patient. We will continue Neutra-Phos to supplement. We will follow with you. We will continue to supplement Neutra-Phos. We will repeat the blood workup in the morning. Dayana Steward MD
--- NOTE | 2016-12-24 17:00 | CP.PCM.PN ---
Subjective - Date & Time of Evaluation Date of Evaluation: 12/24/16 Time of Evaluation: 10:50 - Subjective Subjective: Comfortable, no fevers, not in distress. Objective - Vital Signs/Intake and Output Vital Signs (last 24 hours): Temp Pulse Resp BP Pulse Ox 98.4 F 74 20 141/73 98 12/24/16 16:00 12/24/16 16:00 12/24/16 16:00 12/24/16 16:00 12/24/16 16:00 Intake and Output: 12/24/16 12/24/16 06:59 18:59 Intake Total 240 240 Balance 240 240 - Medications Medications: Current Medications Cyanocobalamin (Vitamin B12 1000 Mcg/Ml Inj) 1,000 mcg IM DAILY [facility] Last Admin: 12/24/16 09:45 Dose: 1,000 mcg Iron Sucrose 100 mg/ Sodium (Chloride) 105 mls @ 210 mls/hr IVPB DAILY [facility] Last Admin: 12/24/16 12:51 Dose: 210 mls/hr Insulin Human Lispro (Humalog Low) 0 units SC ACHS [facility] PRN Reason: Protocol Last Admin: 12/24/16 12:50 Dose: Not Given Levothyroxine Sodium (Synthroid) 112 mcg PO ACB [facility] Last Admin: 12/24/16 08:05 Dose: 112 mcg Mupirocin (Bactroban Ointment) 0 gm TOP BID [facility] Last Admin: 12/24/16 09:45 Dose: 1 applic Pantoprazole Sodium (Protonix Inj) 40 mg IVP Q12 [facility] Last Admin: 12/24/16 09:45 Dose: 40 mg Potassium Phos/Sodium Phos (Neutra-Phos) 1 pkt PO TID [facility] Stop: 12/24/16 23:59 Last Admin: 12/24/16 13:01 Dose: 1 pkt Potassium Phos/Sodium Phos (Neutra-Phos) 1 pkt PO TID [facility] Stop: 12/26/16 23:59 Zolpidem Tartrate (Ambien) 10 mg PO HS PRN; Protocol PRN Reason: Insomnia Last Admin: 12/24/16 00:50 Dose: 10 mg - Labs Labs: 12/24/16 07:20 12/24/16 07:20 PT 12.1 SECONDS (9.4-12.5) 12/18/16 09:00 INR 1.10 (0.93-1.08) H 12/18/16 09:00 APTT 29.1 Seconds (25.1-36.5) 12/18/16 09:00 - Constitutional Appears: Non-toxic, No Acute Distress - Head Exam Head Exam: NORMAL INSPECTION - ENT Exam ENT Exam: Mucous Membranes Moist - Neck Exam Neck Exam: absent: Lymphadenopathy, Meningismus - Respiratory Exam Respiratory Exam: Decreased Breath Sounds - Cardiovascular Exam Cardiovascular Exam: +S1, +S2 - GI/Abdominal Exam GI & Abdominal Exam: Soft. absent: Tenderness Assessment and Plan - Assessment and Plan (Free Text) Plan: Assessment bilateral heel infected ulcers without evidence of infection GI bleeding S/P EGD and clipping of bleeding gastric polyp POD #5 history of heel ulcer infections with VRE, Corynebacterium and Pseudomonas ( localized infection without systemic signs of infection) history of urinary tract infection with ESBL E. coli UTI history of right foot skin and skin structure infection history of PEG site skin and skin structure infection with Strep and Klebsiella dementia COPD HTN anxiety coronary artery disease atrial fibrillation history of E. coli bacteremia and UTI Plan continue to monitor off systemic antibiotics since she is at risk for hospital- acquired infections
--- NOTE | 2016-12-25 01:54 | PN ---
DATE: 12/24/2016 PULMONARY PROGRESS NOTE REFERRING PHYSICIAN: Colette Viera MD SUBJECTIVE: She is lying on the bed, head 45 degrees. Son is feeding her lunch. Nonverbal, does not follow command. No significant cough. No sputum production. No hemoptysis, no hematemesis, no hematuria, no diarrhea reported. OBJECTIVE: GENERAL: In no acute distress. VITAL SIGNS: Temperature is 98, heart rate is 74, respiratory rate is 16, blood pressure 141/73, and pulse oximetry is 98% on room air. HEENT: Moist mucous membrane. No ulcer or thrush noted. NECK: Supple. No JVD. LUNGS: Has a fair airflow with rhonchi. HEART: S1 and S2. ABDOMEN: Soft and nontender. No organomegaly. EXTREMITIES: There is no edema. NEUROLOGIC: Awake and alert, nonverbal, and does not follow commands. MEDICATIONS: She is on Ambien 10 mg at bedtime p.r.n., iron IV, Neutra-Phos 1 pack 3 times a day, Protonix 40 mg twice a day, Synthroid 112 mcg a.c.b., vitamin B12 1000 mcg IM daily. LABORATORY DATA: Shows, hemoglobin 9.8, hematocrit 30.2, WBC 5.4, platelet count is 180. Sodium 137, potassium 4.2, chloride 110, bicarbonate 25, BUN 14, creatinine 0.7, glucose is 94, calcium is 8.9, phosphorus 1.8, magnesium 2.1. AST 40, ALT 37, alkaline phosphatase is 63, albumin 2.6. IMPRESSION AND PLAN: Ulcerative stomach polyp with bleeding, requiring transfusion, clipping, epinephrine injection, advance dementia, bronchitis, cardiomyopathy, cardiac arrhythmia, off anticoagulation because of high risk for bleed , and high risk for thromboembolic disease, overall poor prognosis, aspiration precaution, gastric prophylaxis, SCDs to lower extremity. Continue to follow CBC. Thank you and we will follow with you. Dayana Simms MD
--- NOTE | 2016-12-25 02:25 | PN ---
SUBJECTIVE: The patient is an 81-year-old female. The patient seen and examined at the bedside. Son was sitting on the bedside. Also, as per son today, she ate very well. Feeling better. Awake, alert, but still confused. No nausea or vomiting. No headache. No chest pain. No palpitation. The patient is not able to give good review of systems. PHYSICAL EXAMINATION: VITAL SIGNS: Temperature 98.4, pulse 74, blood pressure 141/73, and respiratory rate 20. HEENT: Head is normocephalic and atraumatic. Eyes: PERRLA. Extraocular muscles are intact. Conjunctivae are clear. Nose is patent. Mucous membrane moist. NECK: Supple. No carotid bruits, JVD, or thyromegaly. CHEST: Bilaterally symmetrical. HEART: S1 and S2 positive. LUNGS: Clear to auscultation. ABDOMEN: Soft. Bowel sounds present. No organomegaly. EXTREMITIES: No edema. No cyanosis. NEUROLOGIC: The patient is awake and alert. Moving all 4 extremities. No focal deficits, but confused. MEDICATIONS: Ambien, Bactroban, insulin, Neutra-Phos, Protonix, Synthroid, and vitamin B12. LABORATORY DATA: White blood cells 5.4, hemoglobin 9.8, hematocrit 30.2, platelets 180. Sodium 157, potassium 4.2, BUN 40, creatinine 0.7. ASSESSMENT AND PLAN: Ms. Marge Stlil is an 81-year-old lady with hyperchloremia, hypophosphatemia, and abnormal liver function test, came with severe anemia, status post couple of blood transfusions; history of coronary artery disease, congestive heart failure, status post cardiac stenting; hypothyroidism; advanced dementia; has history of infected ulcers without evidence of infection as per Infectious Disease; gastrointestinal bleeding, status post esophagogastroduodenoscopy and clipping and cauterization of bleeding gastric polyps, postoperative day 5; history of heel ulcer infections; history of urinary tract infection with extended-spectrum beta-lactamases Escherichia coli; history of percutaneous endoscopic gastrostomy tube placement; chronic obstructive pulmonary disease; and anxiety. Continue monitoring. The patient is off systemic antibiotics. Discussion done with the patient's sonLen has been done for a longtime about discharge planning. We will wait for tcu evaluation to accept the patient. Otherwise, we will discharge the patient to home. Continue present treatment. Repeat labs. We will follow up. Colette Viera MD MTDIgor
[2016-12-25] MEDS: Insulin Lispro (humaLOG) LOW Coverage SC SCH ×5 (03:20→21:43)
[2016-12-25 06:52] LABS: BASO # 0.01 K/mm3 (0.0-2.0); BASO % 0.2 % (0.0-3.0); EOS # 0.1 (0.0-0.7); EOS % 2.6 % (1.5-5.0); GRAN # 2.94 (1.4-6.5); GRAN % 55.2 % (50.0-68.0); HEMATOCRIT 30.4 % (36.0-48.0); LYMPH # 1.6 (1.2-3.4); MEAN CELL VOLUME 84.9 fl (80.0-105.0); MEAN CORPUSCULAR HEMOGLOBIN 27.1 pg (25.0-35.0); MEAN CORPUSCULAR HGB CONC 31.9 g/dl (31.0-37.0); MEAN PLATELET VOLUME 10.3 fl (7.0-11.0); MONO # 0.6 (0.1-0.6); WHITE BLOOD COUNT 5.3 10^3/ul (4.5-11.0)
[2016-12-25 07:23] LABS: BLOOD UREA NITROGEN 16 mg/dL (7-21); CALCIUM 8.9 mg/dL (8.4-10.5); CARBON DIOXIDE 27 mmol/L (21-33); CHLORIDE 108 mmol/L (98-107); GFR AFRICAN-AMERICAN > 60; GLUCOSE,RANDOM 98 mg/dL (70-110); MAGNESIUM 2.1 mg/dL (1.7-2.2); PHOSPHOROUS 2.1 mg/dL (2.5-4.5); POTASSIUM 4.2 mmol/L (3.6-5.0); SODIUM 137 mmol/L (132-148)
[2016-12-25] MEDS: Levothyroxine 112 MCG TAB PO SCH (08:20)
--- NOTE | 2016-12-25 09:39 | PN ---
DATE: 12/23/2016 SUBJECTIVE: The patient is seen and examined on the bedside. Looking comfortable. No nausea. No vomiting. No diarrhea. No hematemesis. No hematochezia. The patient is not a good historian. No fever. No chills. No headache. No dizziness. Status post endoscopy and sclerotherapy. PHYSICAL EXAMINATION: VITAL SIGNS: Temperature 98.6, pulse 68, blood pressure 121/71, and respiratory rate 18. HEENT: Head; normocephalic, atraumatic. Eyes, PERRLA. Extraocular muscles are intact. Conjunctivae are clear. Nose is patent. Mucous membranes moist. NECK: Supple. No carotid bruits. No JVD or thyromegaly. CHEST: Bilaterally symmetrical. HEART: S1 and S2 positive. LUNGS: Clear to auscultation. ABDOMEN: Soft. Bowel sounds present. No organomegaly. EXTREMITIES: No edema. No cyanosis. NEUROLOGIC: The patient is awake, alert. Moving all 4 extremities. No focal deficits. LABORATORY DATA: White blood cells 4.7, hemoglobin 9.1, hematocrit 28.9, and platelets 159. Sodium 143, potassium 3.9, BUN 17, and creatinine 0.7. TSH 5.52. ASSESSMENT AND PLAN: Ms. Cheko Bird is an 81-year-old with hypothyroidism, getting levothyroxine; history of anemia due to massive gastrointestinal bleeding status post endoscopy, status post polyp ligation and sclerotherapy; status post blood transfusion multiple times; coronary artery disease, cardiac stenting; advanced dementia; paroxysmal atrial fibrillation; and chronic obstructive pulmonary disease. Dr. Steward increased levothyroxine to 112. Continue iron replacement. Advance diet. Supplement electrolytes. Give Neutra-Phos p.o. We will try to do TCU. Review Dr. Simms's notes and Dr. Steward and Dr. Parry's notes also. Bronchitis secondary to aspiration and cardiomyopathy. He is on pump inhibitors. Aspiration precautions. We will follow up. Colette Viera MD
--- NOTE | 2016-12-25 10:07 | PN ---
DATE: 12/24/2016 SUBJECTIVE: This patient was seen and evaluated earlier today. The patient tolerating the pureed diet. No further episodes of bleeding. PHYSICAL EXAMINATION: VITAL SIGNS: On examination, afebrile. Blood pressure 141/73, pulse 74. HEENT: Atraumatic. Anicteric. NECK: Supple. HEART: S1 and S2 heard. LUNGS: Bilateral air entry present. ABDOMEN: Soft. There is not tenderness. EXTREMITIES: No cyanosis. No clubbing. Left heel ulcer dressing present. LABORATORY DATA: Hemoglobin is stable at 9.8. IMPRESSION: This is an 81-year-old patient with gastrointestinal bleeding from the large polypoid lesion in the fundus extending to cardia. The patient did have an active bleeding during the endoscopy, had status post clipping of the polyp base done along with epinephrine injection hemostasis. The patient remained stable now. Eliquis has been on hold. The patient is on Eliquis for paroxysmal atrial fibrillation and also history of DVT. The patient is on purred diet and PPI, tolerating hemoglobin stable. The patient is to repeat the endoscopy after about another 2 to 3 weeks' time. We will consider restarting the Eliquis at that time. The patient also has pyloric adenomatous lesion. Endoscopic management has to be addressed later once the bleeding source is taken care of. Thank you very much for allowing us to participate in the care of the patient. Lee Parry MD
[2016-12-25] MEDS: Potassium & Sodium Phosphate PO SCH ×3 (10:27→17:46)
--- NOTE | 2016-12-25 12:16 | CP.PCM.PN ---
Subjective - Date & Time of Evaluation Date of Evaluation: 12/25/16 Time of Evaluation: 11:35 - Subjective Subjective: Comfortable in bed, no fevers, no diarrhea noted. Objective - Vital Signs/Intake and Output Vital Signs (last 24 hours): Temp Pulse Resp BP Pulse Ox 98.2 F 62 20 119/69 97 12/25/16 07:30 12/25/16 07:30 12/25/16 07:30 12/25/16 07:30 12/25/16 07:30 Intake and Output: 12/25/16 12/25/16 06:59 18:59 Intake Total 480 Balance 480 - Medications Medications: Current Medications Cyanocobalamin (Vitamin B12 1000 Mcg/Ml Inj) 1,000 mcg IM DAILY [facility] Last Admin: 12/24/16 09:45 Dose: 1,000 mcg Iron Sucrose 100 mg/ Sodium (Chloride) 105 mls @ 210 mls/hr IVPB DAILY [facility] Last Admin: 12/24/16 12:51 Dose: 210 mls/hr Insulin Human Lispro (Humalog Low) 0 units SC ACHS [facility] PRN Reason: Protocol Last Admin: 12/25/16 03:20 Dose: Not Given Levothyroxine Sodium (Synthroid) 112 mcg PO ACB [facility] Last Admin: 12/24/16 08:05 Dose: 112 mcg Mupirocin (Bactroban Ointment) 0 gm TOP BID [facility] Last Admin: 12/24/16 18:03 Dose: 1 applic Pantoprazole Sodium (Protonix Inj) 40 mg IVP Q12 [facility] Last Admin: 12/24/16 22:46 Dose: 40 mg Potassium Phos/Sodium Phos (Neutra-Phos) 1 pkt PO TID [facility] Stop: 12/26/16 23:59 Zolpidem Tartrate (Ambien) 10 mg PO HS PRN; Protocol PRN Reason: Insomnia Last Admin: 12/24/16 20:36 Dose: 10 mg - Labs Labs: 12/25/16 06:30 12/25/16 06:30 PT 12.1 SECONDS (9.4-12.5) 12/18/16 09:00 INR 1.10 (0.93-1.08) H 12/18/16 09:00 APTT 29.1 Seconds (25.1-36.5) 11/06/17 09:00 - Constitutional Appears: Non-toxic - Head Exam Head Exam: NORMAL INSPECTION - Respiratory Exam Respiratory Exam: Decreased Breath Sounds - Cardiovascular Exam Cardiovascular Exam: +S1, +S2 - GI/Abdominal Exam GI & Abdominal Exam: Soft. absent: Tenderness Assessment and Plan - Assessment and Plan (Free Text) Plan: Assessment bilateral heel infected ulcers without evidence of infection GI bleeding S/P EGD and clipping of bleeding gastric polyp POD #6 history of heel ulcer infections with VRE, Corynebacterium and Pseudomonas ( localized infection without systemic signs of infection) history of urinary tract infection with ESBL E. coli UTI history of right foot skin and skin structure infection history of PEG site skin and skin structure infection with Strep and Klebsiella dementia COPD HTN anxiety coronary artery disease atrial fibrillation history of E. coli bacteremia and UTI Plan continue to monitor off systemic antibiotics since she is at risk for healthcare -associated infections
--- NOTE | 2016-12-25 15:55 | PN ---
DATE: 12/25/2016 LOCATION: The patient is in room 563, bed 1. REASON FOR CONSULTATION AND FOLLOWUP: Coronary artery disease, history of advanced dementia, paroxysmal atrial fibrillation, massive GI bleed, status post cauterization and clip insertion to the bleeding polyp in the stomach, status post electrolyte imbalance and blood transfusion. SUBJECTIVE: The patient is lying flat in bed without any respiratory distress. PHYSICAL EXAMINATION: VITAL SIGNS: Blood pressure is 119/69, respirations 20, pulse 62, temperature 98.2. HEENT: Head is normocephalic. Eyes: Pupils normal. Conjunctivae slightly pale. NECK: JVP low. Carotid equal. THORAX: AP diameter normal. LUNGS: Clear. CARDIOVASCULAR: S1 and S2. ABDOMEN: Soft, nontender. No organomegaly. Bowel sounds normal. EXTREMITIES: No clubbing. No cyanosis. LABORATORY DATA: WBC 5.3, hemoglobin 9.7, hematocrit 30.4, and platelet 185. Sodium 137, potassium 4.2, BUN 16, creatinine 0.8, sugar 98, calcium 8.9, phosphorus 2.1, magnesium 2.1, TSH on 12/23/2016 5.52. DIAGNOSES: Gastrointestinal bleeding, status post blood transfusions, insertion of clip to the bleeding polyp, coronary artery disease, history of angioplasty and stent insertion, paroxysmal atrial fibrillation, advanced dementia, hypothyroidism, hypophosphatemia. PLAN: The patient's Levoxyl has been increased to 112 mcg p.o. daily. The patient is on pureed diet. We will give phosphorus therapy. The patient also on Protonix 40 IV q. 12 hours, Neutra-Phos 1 packet p.o. t.i.d., vitamin B12 1000 mcg IM daily. We will try to transfer the patient to Transitional Care Unit. Dayana Galaviz MD
--- NOTE | 2016-12-25 23:54 | PN ---
DATE: 12/25/2016 PULMONARY PROGRESS NOTE REFERRING PHYSICIAN: Colette Viera MD SUBJECTIVE: She is lying in the bed, head at 45 degrees. Son is at bedside, feeding her dinner. There is no significant cough and no sputum production. No hematemesis and no melena. No leg pain or leg swelling. OBJECTIVE: GENERAL: In no acute distress. VITAL SIGNS: Temperature is 98, heart rate is 72, respiratory rate is 20, blood pressure is 116/64, and pulse oximetry is 96% on room air. HEENT: Moist mucous membrane. Small oral cavity. NECK: Supple. No JVD. LUNGS: Have a fair airflow with few rhonchi. HEART: S1 and S2. ABDOMEN: Soft and nontender. No organomegaly. EXTREMITIES: No edema. NEUROLOGIC: Awake and alert, nonverbal, and does not follow commands. MEDICATIONS: She is on Ambien 10 mg at bedtime p.r.n., insulin coverage, IV sucrose, Neutra-Phos p.o. 3 times a day, Protonix 40 mg twice a day, Synthroid 112 mcg daily, and vitamin B12 1000 mcg daily. LABORATORY DATA: Shows hemoglobin of 9.7, hematocrit of 30.4, WBC of 5.3, and platelet count is 185. Sodium is 137, potassium is 4.2, chloride is 108, bicarbonate is 27, BUN is 16, and creatinine is 0.8. Glucose is 98, calcium is 9.8, phosphorus is 2.1, and magnesium is 2.1. IMPRESSION AND PLAN: Ulcerative stomach polyp with bleeding, requiring transfusion, status post clipping of polyp; advanced dementia, bronchitis, cardiomyopathy, cardiac arrhythmia, off anticoagulation, high risk for thromboembolic disease, and also high risk for pressure ulcer. Need close monitoring for further bleed. Poor candidate for surgery. I spoke to the patient's son at bedside. All the questions answered. Continue gastric prophylaxis. Sequential compression devices to lower extremity. Follow up laboratories in the morning. Thank you and we will follow with you. Dayana Simms MD
[2016-12-26 07:16] LABS: MEAN CELL VOLUME 85.3 fl (80.0-105.0); MEAN CORPUSCULAR HEMOGLOBIN 26.9 pg (25.0-35.0); MEAN CORPUSCULAR HGB CONC 31.6 g/dl (31.0-37.0); MEAN PLATELET VOLUME 10.2 fl (7.0-11.0); RED CELL DISTRIBUTION WIDTH 24.8 % (11.5-14.5); WHITE BLOOD COUNT 4.5 10^3/ul (4.5-11.0)
[2016-12-26 07:26] VITALS: RESP 18
[2016-12-26] MEDS: Insulin Lispro (humaLOG) LOW Coverage SC SCH ×3 (07:30→17:23)
--- NOTE | 2016-12-26 08:46 | PN ---
DATE: 12/25/2016 SUBJECTIVE: This patient was seen and evaluated earlier today. The patient is tolerating the pureed diet and no further episodes of bleeding. PHYSICAL EXAMINATION: VITAL SIGNS: Stable. Temperature is 98, blood pressure is 116/64, respirations 20, and O2 saturation is 98%. HEENT: Atraumatic and anicteric. NECK: Supple. HEART: S1 and S2 heard. LUNGS: Bilateral air entry present. ABDOMEN: Soft. EXTREMITIES: There is a dressing present on the right heel area. LABORATORY DATA: Hemoglobin 9.7, hematocrit 30.4, WBC 5.3, and platelets 185. IMPRESSION: This is an 81-year-old patient, status post gastrointestinal bleeding with a large polyp ulcerated in the fundus extending into the cardia, status post clipping and injection. Hemoglobin is stable, tolerating the pureed diet. The patient also has another polyp in the pylorus extending from prepyloric area to pylorus area. Biopsy showed adenoma. I had a detailed discussion with the patient's son. The plan is to repeat the endoscopy in 3 weeks' time. Paroxysmal atrial fibrillation and deep venous thrombosis and anticoagulation is on hold. The patient was on Eliquis before. We will consider restarting it after evaluating the repeat endoscopy. The family prefers to have a conservative management. The patient is on PPI, we will continue that and other comorbidities include hypothyroidism. Lee Parry MD
--- NOTE | 2016-12-26 09:00 | PN ---
DATE: 12/25/2016 SUBJECTIVE: The patient is examined at the bedside. She is little bit anxious. No nausea or vomiting. Denies any hematuria or hematochezia. No swelling of the leg. No chest pain or palpitation. No headache or dizziness. The patient is not a big historian. PHYSICAL EXAMINATION VITAL SIGNS: Temperature 98.6, blood pressure 119/69, pulse oximetry 20. HEENT: Head is normocephalic and atraumatic. Eyes, PERRLA. Extraocular muscles are intact. Conjunctivae are clear. Nose is patent. Mucous membranes are moist. NECK: Supple. No carotid bruits, JVD or thyromegaly. CHEST: Bilaterally symmetrical. HEART: S1 and S2 positive. LUNGS: Clear to auscultation. ABDOMEN: Soft. Bowel sounds present. No organomegaly. EXTREMITIES: No edema. No cyanosis. NEUROLOGIC: The patient is awake and alert, but is confused. LABORATORY DATA: White blood cells 5.3, hemoglobin 9.7, hematocrit 30.4, platelet 185. Sodium 137, potassium 4.2, BUN 15, creatinine 0.9, sugar 98, TSH 5.52. ASSESSMENT AND PLAN: Ms. Marge Still is an 81-year-old lady with advanced dementia with gastrointestinal bleeding, severe anemia status post blood transfusion, upper endoscopy and gastric polyp was clipped and cauterization by Dr. Parry, coronary artery disease, history of angioplasty, cardiac stenting, paroxysmal atrial fibrillation, hypophosphatemia, electrolyte imbalance, increased the patient's Levoxyl to 112 mcg p.o. daily. The patient is getting pureed diet. Continue Protonix with GI prophylaxis. B12, also giving physical therapy with tcu transfer . As soon as we will get bed, we will transfer there. We will follow up. Colette Viera MD MTDD
[2016-12-26] MEDS: Levothyroxine 112 MCG TAB PO SCH (10:52)
[2016-12-26] MEDS: Potassium & Sodium Phosphate PO SCH ×3 (10:52→17:20)
--- NOTE | 2016-12-26 11:50 | CP.PCM.PN ---
<Delaney Che - Last Filed: 12/26/16 11:50> Subjective - Date & Time of Evaluation Date of Evaluation: 12/26/16 Time of Evaluation: 10:40 - Subjective Subjective: S&E at bedside, chart reviewed, no acute overnight events. No reports of overt GI bleeding. Objective - Vital Signs/Intake and Output Vital Signs (last 24 hours): Temp Pulse Resp BP Pulse Ox 98.1 F 62 18 156/79 H 99 12/26/16 07:24 12/26/16 07:24 12/26/16 07:24 12/26/16 07:24 12/26/16 07:24 Intake and Output: 12/26/16 12/26/16 06:59 18:59 Intake Total 240 Balance 240 - Medications Medications: Current Medications Cyanocobalamin (Vitamin B12 1000 Mcg/Ml Inj) 1,000 mcg IM DAILY [facility] Last Admin: 12/26/16 10:54 Dose: 1,000 mcg Iron Sucrose 100 mg/ Sodium (Chloride) 105 mls @ 210 mls/hr IVPB DAILY [facility] Last Admin: 12/26/16 10:57 Dose: 210 mls/hr Insulin Human Lispro (Humalog Low) 0 units SC ACHS [facility] PRN Reason: Protocol Last Admin: 12/25/16 21:43 Dose: Not Given Levothyroxine Sodium (Synthroid) 112 mcg PO ACB [facility] Last Admin: 12/26/16 10:52 Dose: 112 mcg Mupirocin (Bactroban Ointment) 0 gm TOP BID [facility] Last Admin: 12/26/16 10:51 Dose: 1 applic Pantoprazole Sodium (Protonix Inj) 40 mg IVP Q12 [facility] Last Admin: 12/26/16 10:53 Dose: 40 mg Potassium Phos/Sodium Phos (Neutra-Phos) 1 pkt PO TID [facility] Stop: 12/26/16 23:59 Last Admin: 12/26/16 10:52 Dose: 1 pkt Zolpidem Tartrate (Ambien) 10 mg PO HS PRN; Protocol PRN Reason: Insomnia Last Admin: 12/25/16 21:43 Dose: 10 mg - Labs Labs: 12/26/16 06:45 12/25/16 06:30 PT 12.1 SECONDS (9.4-12.5) 12/18/16 09:00 INR 1.10 (0.93-1.08) H 12/18/16 09:00 APTT 29.1 Seconds (25.1-36.5) 12/18/16 09:00 - Constitutional Appears: No Acute Distress - Eye Exam Eye Exam: Normal appearance. absent: Scleral icterus - ENT Exam ENT Exam: Mucous Membranes Moist - Respiratory Exam Respiratory Exam: NORMAL BREATHING PATTERN. absent: Respiratory Distress - Cardiovascular Exam Cardiovascular Exam: +S1, +S2 - GI/Abdominal Exam GI & Abdominal Exam: Soft, Normal Bowel Sounds. absent: Guarding, Tenderness, Rebound - Neurological Exam Neurological Exam: Altered, Awake - Skin Skin Exam: Dry, Warm Assessment and Plan - Assessment and Plan (Free Text) Assessment: Assessment: Status post repeat EGD, found 15 mm polyp with bleeding, status post sclerotherapy and hemoclips 2 GI bleed and hematemesis/(+) guiac, s/p EGD ulcerated polyp, gastric antrum adenomatous polyp, no H pylori Anemia, secondary to GI bleed, status post a unit of packed RBC on 12/29/2016 Advanced dementia CAD CABG DM HTN PLAN: monitor H/H and for GI bleeding on IV Iron and B12 decrease Protonix 40 mg from BID to daily continue puree diet repeat EGD in 3 weeks from last EGD (12/19/16) plan for DC to TCU Seen and discussed w/ Dr. Parry. <Lee Parry V - Last Filed: 12/26/16 20:05> Objective - Vital Signs/Intake and Output Vital Signs (last 24 hours): Temp Pulse Resp BP Pulse Ox 98 F 64 18 140/70 96 12/26/16 16:30 12/26/16 16:30 12/26/16 16:30 12/26/16 16:30 12/26/16 16:30 Intake and Output: 12/26/16 12/27/16 18:59 06:59 Intake Total 480 Balance 480 - Labs Labs: 12/26/16 06:45 12/25/16 06:30 PT 12.1 SECONDS (9.4-12.5) 12/18/16 09:00 INR 1.10 (0.93-1.08) H 12/18/16 09:00 APTT 29.1 Seconds (25.1-36.5) 12/18/16 09:00 Attending/Attestation - Attestation I have personally seen and examined this patient.: Yes I have fully participated in the care of the patient.: Yes I have reviewed all pertinent clinical information, including history, physical exam and plan: Yes Notes (Text): This is an addendum to GI progress report dictated by Delaney Che APN.The patient was seen and examined earlier. Medical records, lab studies, imagings were reviewed. Last 24 hours events reviewed. Agreed with the above treatment plan as outlined in Delaney Che APN's notes the with the addition of the following on examination abdomen soft no tenderness Hemoglobin stable We will reduce the dose of PPI to once daily Repeat EGD in 3 weeks from the time of last endoscopy Patient is off elaquis Could consider subcutaneous heparin for DVT prophylaxis 12/26/16 20:02
--- NOTE | 2016-12-26 12:20 | CP.PCM.PN ---
Subjective - Date & Time of Evaluation Date of Evaluation: 12/26/16 Time of Evaluation: 11:20 - Subjective Subjective: Comfortable in bed, no fevers. Objective - Vital Signs/Intake and Output Vital Signs (last 24 hours): Temp Pulse Resp BP Pulse Ox 98.1 F 62 18 156/79 H 99 12/26/16 07:24 12/26/16 07:24 12/26/16 07:24 12/26/16 07:24 12/26/16 07:24 Intake and Output: 12/26/16 12/26/16 06:59 18:59 Intake Total 240 Balance 240 - Medications Medications: Current Medications Cyanocobalamin (Vitamin B12 1000 Mcg/Ml Inj) 1,000 mcg IM DAILY [facility] Last Admin: 12/26/16 10:54 Dose: 1,000 mcg Iron Sucrose 100 mg/ Sodium (Chloride) 105 mls @ 210 mls/hr IVPB DAILY [facility] Last Admin: 12/26/16 10:57 Dose: 210 mls/hr Insulin Human Lispro (Humalog Low) 0 units SC ACHS [facility] PRN Reason: Protocol Last Admin: 12/25/16 21:43 Dose: Not Given Levothyroxine Sodium (Synthroid) 112 mcg PO ACB [facility] Last Admin: 12/26/16 10:52 Dose: 112 mcg Mupirocin (Bactroban Ointment) 0 gm TOP BID [facility] Last Admin: 12/26/16 10:51 Dose: 1 applic Pantoprazole Sodium (Protonix Ec Tab) 40 mg PO ACB [facility] Potassium Phos/Sodium Phos (Neutra-Phos) 1 pkt PO TID [facility] Stop: 12/26/16 23:59 Last Admin: 12/26/16 10:52 Dose: 1 pkt Zolpidem Tartrate (Ambien) 10 mg PO HS PRN; Protocol PRN Reason: Insomnia Last Admin: 12/25/16 21:43 Dose: 10 mg - Labs Labs: 12/26/16 06:45 12/25/16 06:30 PT 12.1 SECONDS (9.4-12.5) 12/18/16 09:00 INR 1.10 (0.93-1.08) H 12/18/16 09:00 APTT 29.1 Seconds (25.1-36.5) 12/18/16 09:00 - Constitutional Appears: Chronically Ill - Head Exam Head Exam: NORMAL INSPECTION - Respiratory Exam Respiratory Exam: Decreased Breath Sounds - Cardiovascular Exam Cardiovascular Exam: +S1, +S2 - GI/Abdominal Exam GI & Abdominal Exam: Soft. absent: Tenderness Assessment and Plan - Assessment and Plan (Free Text) Plan: Assessment bilateral heel infected ulcers without evidence of infection GI bleeding S/P EGD and clipping of bleeding gastric polyp POD #7 history of heel ulcer infections with VRE, Corynebacterium and Pseudomonas ( localized infection without systemic signs of infection) history of urinary tract infection with ESBL E. coli UTI history of right foot skin and skin structure infection history of PEG site skin and skin structure infection with Strep and Klebsiella dementia COPD HTN anxiety coronary artery disease atrial fibrillation history of E. coli bacteremia and UTI Plan continue to monitor off systemic antibiotics since she is at risk for nosocomial infections
--- NOTE | 2016-12-26 15:47 | PN ---
DATE: 12/26/2016 REASON FOR CONSULTATION: Coronary artery disease, history of advanced dementia, paroxysmal atrial fibrillation, massive GI bleed, and status post endoscopy and cauterization. SUBJECTIVE: The patient is lying flat in the bed. . No evidence of melena or hematemesis or hemoptysis noted. OBJECTIVE: GENERAL: Lying flat in the bed, not in apparent distress, not communicable because of dementia, but not in apparent distress. VITAL SIGNS: Temperature afebrile, heart rate is 98, and blood pressure 147/76. HEENT: PERRLA. Extraocular muscles intact. NECK: Supple. No carotid bruits or thyromegaly. CHEST: Clear to auscultation. HEART: S1 and S2 regular. ABDOMEN: Soft. EXTREMITIES: Clubbing and cyanosis negative. LABORATORY DATA: Blood workup as follows, WBC 4.5, hemoglobin 10.9, hematocrit 32.0, and platelet count 230. Chemistry shows sodium 130, potassium 4.2, chloride 108, carbon dioxide 27, anion gap of 6, BUN 15, and creatinine 0.8. TSH 5.52 on 100 mcg of Levoxyl, so increased to 112. IMPRESSION: Hypothyroidism, gastrointestinal bleed, dementia, paroxysmal atrial fibrillation, polyp and gastroparesis for removal of gastric polyp, and cauterization and clipping. No further episode of obvious bleeding noted, history of coronary artery disease, status post percutaneous transluminal coronary angioplasty. RECOMMENDATIONS: As mentioned, continue Levoxyl 112, continue Neutra-Phos, continue iron supplement, and repeat the blood workup in the morning. The patient will get the benefit from TCU evaluation and transfer to TCU when the bed is available. We will repeat the blood workup in the morning including CBC, calcium, magnesium, and phosphorous. Dayana Steward MD
[2016-12-26 16:31] VITALS: BP 140/70; PULSE 64; TEMP 98; O2SAT 96
--- NOTE | 2016-12-26 22:55 | PN ---
DATE: 12/26/2016 PULMONARY PROGRESS NOTE REFERRING PHYSICIAN: Colette Viera MD SUBJECTIVE: The patient is lying in the bed, head at 45 degrees, much more awake and alert, nonverbal, and does not follow much commands. No nausea. No vomiting. No diarrhea. No leg pain or leg swelling. OBJECTIVE: GENERAL: In no acute distress. VITAL SIGNS: Temperature 98, heart rate 64, respiratory rate is 18, blood pressure 140/70, pulse ox 96% on room air. HEENT: Moist mucous membrane. No ulcer or oral thrush noted. Has a poor dentition. NECK: Supple. No JVD. LUNGS: Has a fair airflow with few rhonchi. HEART: S1 and S2. ABDOMEN: Soft and nontender. No organomegaly. EXTREMITIES: No edema. NEUROLOGIC: Awake, alert, nonverbal, does not follow commands. MEDICATIONS: Reviewed and noted. No new changes in the medication reported since yesterday. LABORATORY DATA: Reviewed and noted. Hemoglobin 10.1, hematocrit 32.0, WBC 4.5, and platelet count is 203. Blood sugar 123. IMPRESSION AND PLAN: Ulcerative gastric polyp with bleeding, requiring multi units of transfusion, status post endoscopy and clipping of polyp, advanced dementia, bronchitis, cardiomyopathy, and cardiac arrhythmia. Keep head elevated at 45 degrees. Aspiration precaution. Gastric prophylaxis. Sequential compression devices to lower extremities. Supplement iron. Follow up H&H. Continue supportive care. Thank you and we will follow with you. Dayana Simms MD
[2016-12-27] MEDS ORDERED: Pantoprazole 40 mg EC Tab PO SCH (07:30)
--- NOTE | 2016-12-27 14:27 | DS ---
The patient is an 81 years old female. Patient was admitted in [facility] on 12/11/2016 and discharged on 12/26/2016, into TCU for further treatment. CHIEF COMPLAINT: Vomiting of the blood and lower GI bleeding. HISTORY OF PRESENT ILLNESS: Ms. Cheko Bird is an 81 years old female with past medical history of congestive heart failure, hypertension, hypothyroidism, COPD, diabetes mellitus, advanced dementia. She was brought to the Emergency Room Department via EMS for vomiting of the blood. It was fresh red blood. The family reports that the patient was vomiting of blood prior to coming to emergency room. We admitted the patient. A couple of blood transfusions were given. Did endoscopy by Dr. Parry. Neck and chest CAT scan done, seen by Dr. Rasta Urrutia, Dr. Parry, Dr. Simms, and Dr. Galaviz. Patient improved, started on a liquid diet, tolerated slowly, but is not able to do her ADL. Plan was to give her a little bit of physical therapy, so she can start her ADL, that is why TCU rehab evaluation done, PAST MEDICAL HISTORY: Hypothyroidism, congestive heart failure, hypertension, history of respiratory failure, COPD, dementia, diabetes mellitus type 2, history of bilateral heel ulcers, history of repeated urinary tract infection, and depression. FAMILY HISTORY: Father and mother noncontributory. HABITS: No smoking, no drugs, no ethanol. ALLERGIES: THE PATIENT IS NOT ALLERGIC TO ANY MEDICATIONS. HOME MEDICATIONS: Reviewed by me. REVIEW OF SYSTEMS: The patient is seen and examined on the bedside, looking comfortable. No nausea, vomiting, or diarrhea. No hematuria or hematochezia. No swelling of the legs. No chest pain. No palpitations. No headache. No dizziness. No fever. No chills. Tolerated food very well. PHYSICAL EXAMINATION: VITAL SIGNS: Temperature 98.1, pulse 62, respiratory rate 18, blood pressure 156/65, pulse oxymetry 99. HEENT: Normocephalic and atraumatic. Eyes: PERRLA. Extraocular muscles intact. Conjunctivae clear. Nose patent. Mucous membrane moist. NECK: Supple. No carotid bruits, JVD, or thyromegaly. HEART: S1 and S2 positive. LUNGS: Clear to auscultation. ABDOMEN: Soft. Bowel sounds present. No organomegaly. EXTREMITIES: No edema. No cyanosis. NEUROLOGIC: The patient is awake and alert. Moving all 4 extremities. No focal deficits. LABORATORY DATA: White blood cells 4.5, hemoglobin 10.1, hematocrit 32.2, platelets 230. Sodium 137, potassium 4.2, BUN 16, creatinine 0.8, glucose 98. ASSESSMENT: Ms. Cheko Bird is an 81 years old lady with anemia, hyperchloremia, bilateral heel ulcers without evidence of infection, gastrointestinal bleeding, status post esophagogastroduodenoscopy and clipping of bleeding gastric polyp, postoperative day #7, history of heel ulcers and infection with vancomycin-resistant enterococcus, history of advanced dementia, chronic obstructive pulmonary disease, hypertension, anxiety, coronary artery disease, atrial fibrillation, history of Escherichia coli bacteremia and urinary tract infection. PLAN: Continue present treatment, antibiotics, physical therapy, out of bed. Transfer the patient to TCU for the continuity of care. Colette Viera MD MTDD
== END 2016-12-26 18:13 | DRG 377 ==
LOC: ED 11:15 → ERH 12:48 → CCU 14:59 → 5RNO 12-12 19:03 → CCU 12-19 16:15 → 5RNO 12-22 13:50
PROVIDERS: ADMIT Internal Medicine; ATTEND Internal Medicine
PROC: 30233N1 Transfusion of Nonautologous Red Blood Cells into Peripheral Vein, Percutaneous Approach (ICD-10-PCS; 2016-12-11)
PROC: 0DB68ZX Excision of Stomach, Via Natural or Artificial Opening Endoscopic, Diagnostic (ICD-10-PCS; 2016-12-12)
PROC: 0W3P8ZZ Control Bleeding in Gastrointestinal Tract, Via Natural or Artificial Opening Endoscopic (ICD-10-PCS; principal; 2016-12-19 13:30)
PROC: 3E0G8GC Introduction of Other Therapeutic Substance into Upper GI, Via Natural or Artificial Opening Endoscopic (ICD-10-PCS; 2016-12-19 13:30)
DX: K25.4 Chronic or unspecified gastric ulcer with hemorrhage (principal); D62 Acute posthemorrhagic anemia; E43 Unspecified severe protein-calorie malnutrition; E87.0 Hyperosmolality and hypernatremia; I42.9 Cardiomyopathy, unspecified; L97.429 Non-pressure chronic ulcer of left heel and midfoot with unspecified severity; Z68.1 Body mass index [BMI] 19.9 or less, adult; K31.84 Gastroparesis; E83.42 Hypomagnesemia; I50.9 Heart failure, unspecified; L89.159 Pressure ulcer of sacral region, unspecified stage; I11.0 Hypertensive heart disease with heart failure; E11.43 Type 2 diabetes mellitus with diabetic autonomic (poly)neuropathy; G30.9 Alzheimer's disease, unspecified; F02.80 Dementia in other diseases classified elsewhere, unspecified severity, without behavioral disturbance, psychotic disturbance, mood disturbance, and anxiety; D13.1 Benign neoplasm of stomach; E11.621 Type 2 diabetes mellitus with foot ulcer; I48.0 Paroxysmal atrial fibrillation; E86.0 Dehydration; F32.9 Major depressive disorder, single episode, unspecified; I08.1 Rheumatic disorders of both mitral and tricuspid valves; J44.9 Chronic obstructive pulmonary disease, unspecified; I27.20 Pulmonary hypertension, unspecified; E03.9 Hypothyroidism, unspecified; E87.6 Hypokalemia; I25.10 Atherosclerotic heart disease of native coronary artery without angina pectoris; R13.12 Dysphagia, oropharyngeal phase; E78.00 Pure hypercholesterolemia, unspecified; F41.9 Anxiety disorder, unspecified; E53.8 Deficiency of other specified B group vitamins; E83.39 Other disorders of phosphorus metabolism; Z86.718 Personal history of other venous thrombosis and embolism; Z95.5 Presence of coronary angioplasty implant and graft; Z95.1 Presence of aortocoronary bypass graft; Z79.01 Long term (current) use of anticoagulants; Z79.4 Long term (current) use of insulin

== ENCOUNTER 2016-12-26 18:13 | Inpatient (IN) | payer MEDICARE, MEDICAID ==
[2016-12-26 18:44] VITALS: BMI 16.5
[2016-12-26 19:41] VITALS: BP 131/85; PULSE 67; RESP 20; TEMP 99.2; O2SAT 94
--- NOTE | 2016-12-26 19:59 | PCM.RRT ---
<TheresaMateo - Last Filed: 12/26/16 19:56> WOOD MACHINIST APPRENTICE Nurse Assessment - Situation Date: 12/26/16 Time WOOD MACHINIST APPRENTICE was called: 19:29 WOOD MACHINIST APPRENTICE Responder Arrival Time: 19:30 WOOD MACHINIST APPRENTICE Location:: Transitional Care Unit Room Number: 302-1 WOOD MACHINIST APPRENTICE Reason for Call: Respiratory Distress (Possible aspiration) WOOD MACHINIST APPRENTICE Called By: RN - IV IV Inserted during WOOD MACHINIST APPRENTICE?: No - Respiratory Oxygen Delivery Method: Room Air I.Reason for WOOD MACHINIST APPRENTICE - A) Acute Change in Patient: Subjective: Per nursing, son was at bedside with patient. Son stated that patient began coughing and he believed she may be choking. WOOD MACHINIST APPRENTICE was called due to possible aspiration. On response, patient was non-verbal, but mumbling, which according to nursing and son is her baseline. Pt has history of aspiration. According to nursing, pt did not have any seizure like activity, biting of tongue, LOC, or rolling of eyes. Pt was noted to have aspiration content on bed, nursing attempted to suction out aspiration but had minimal return. EKG and CXR was performed at bedside. Pt's PMD was contacted, who requested patient to be transferred to the ED. Start of WOOD MACHINIST APPRENTICE T 98.9 BP 158/86 HR 79 O2 99% Glucose 121 End of WOOD MACHINIST APPRENTICE BP 125/92 HR 84 - Neurological Status (Select all that apply): Follows Commands. absent: Verbal (non verbal) - Constitutional Appears: In Acute Distress, Cachectic - Head Head Exam: ATRAUMATIC, NORMAL INSPECTION, NORMOCEPHALIC - Eyes Eye Exam: EOMI, Normal appearance, PERRL - Respiratory Exam Respiratory Exam: Clear to Ausculation Bilateral. absent: Accessory Muscle Use , Rales, Rhonchi, Wheezes, Respiratory Distress - Cardiovascular Exam Cardiovascular Exam: RRR, +S1, +S2. absent: Diastolic murmur, Gallop, Rubs, Murmur - GI/Abdominal Exam GI & Abdominal Exam: Soft. absent: Distended, Guarding, Tenderness, Rebound - Neurological Exam Neurological Exam: Awake. absent: Alert, Oriented x3 - Extremities Exam Extremities Exam: Normal Capillary Refill, Normal Inspection Plan - Assessment of Findings&Treatment Plan 1. Possible Aspiration Pneumonia - CBC, CMP - CXR - EKG - elevate head of bed - Transferred to ED for further assessment <Kenia Hopper - Last Filed: 12/26/16 20:27> Attending/Attestation - Attestation I have personally seen and examined this patient.: Yes I have fully participated in the care of the patient.: Yes I have reviewed all pertinent clinical information, including history, physical exam and plan: Yes Notes (Text): 12/26/16 20:27 Agree with assessment and plan.
[2016-12-26] MEDS ORDERED: Insulin Lispro (humaLOG) LOW Coverage SC SCH (22:00)
--- NOTE | 2016-12-27 00:44 | DS ---
The patient is an 81-year-old female. The patient was admitted in the TCU on 12/26/2016. Just after few hours she started shortness of breath, may be aspiration and rapid response was on. Dr. Hopper did the rapid response. The patient was never seen on TCU. For more details see either Dr. Hopper's rapid response notes or see my discharge summary on the medical floor. Colette Viera MD
--- NOTE | 2016-12-27 01:01 | HP ---
The patient is an 81-year-old female. HISTORY OF PRESENT ILLNESS: Actually, the patient is an 81-year-old lady was admitted on medical side for upper GI bleeding, treatment got stabilized, transferred on 12/26/2016. The patient was seen last time by me on the medical floor on 12/26/2016, and I did discharge summary on 12/26/2016. The patient was transferred to TCU on the evening of 12/26/2016. Just after transfer, there was rapid response, handled by Dr. David Hopper. The patient has survived rapid response after transfer, but the patient was seen by me on the medical floor integrative medicine physician on 12/26/2016 and because of that response, the patient was transferred to ER. From ER, we will decide, I think the patient will go to medical floor. The patient was not seen by me on TCU. For details, see Dr. David Hopper's rapid response report or see my discharge summary on the medical side. Colette Viera MD
[2016-12-27] MEDS ORDERED: Iron Sucrose 100 mg/5 ml Inj IVPB SCH (06:00)
[2016-12-27] MEDS ORDERED: Levothyroxine 112 MCG TAB PO SCH (06:30)
--- NOTE | 2016-12-27 07:27 | RAD ---
HISTORY: rr COMPARISON: Portable chest 12/11/2016. FINDINGS: LUNGS: Patient rotated toward the right once again however no significant old changes appreciated in the pulmonary parenchyma grossly. No definite infiltrate bilaterally. PLEURA: No significant pleural effusion identified, no pneumothorax apparent. CARDIOVASCULAR: Normal. OSSEOUS STRUCTURES: No significant abnormalities. VISUALIZED UPPER ABDOMEN: Normal. OTHER FINDINGS: None. IMPRESSION: Patient remains rotated toward the right without definite interval acute cardiopulmonary disease appreciable.
[2016-12-27] MEDS ORDERED: Potassium & Sodium Phosphate PO SCH (10:00)
--- NOTE | 2016-12-27 17:19 | CARD ---
APPROVED REPORT EKG Measurement Heart [id number] <Conclusion> Normal sinus rhythm Left axis deviation Left bundle branch block Abnormal ECG
== END 2016-12-26 19:41 | disposition short-term general hospital (02) | DRG 377 ==
LOC: TRCU 18:13
PROVIDERS: ADMIT Internal Medicine; ATTEND Internal Medicine
DX: K92.2 Gastrointestinal hemorrhage, unspecified (principal); J69.0 Pneumonitis due to inhalation of food and vomit; R64 Cachexia; Z68.1 Body mass index [BMI] 19.9 or less, adult

== ENCOUNTER 2016-12-26 19:54 | Inpatient (IN) | payer MEDICARE, MEDICAID ==
[2016-12-26 19:55] VITALS: PULSE 81
--- NOTE | 2016-12-26 20:29 | ED PDOC ---
Arrival/HPI - General Chief Complaint: Seizure Time Seen by Provider: 12/26/16 19:56 Historian: Family (son ), Other (witnesses of seizure-like activity) - History of Present Illness Narrative History of Present Illness (Text): 12/26/16 20:20 A 81 year old female, whose past medical history includes hypertension, Alzheimer's/Dementia, recent upper GI bleed s/p gastric bypass, presents to the emergency department complaining of episode of witnessed possible partial seizure-like activity.According to witnesses, including patient's son, patient began shaking, face turned red, possibly gagging . Patient was suctioned at the time, urinary incontinence was questioned. Patient had no apparent LOC or vomiting. Patient was subsequently transferred to the ER from TCU for further evaluation. . PMD: Dr. Viera Past Medical History - Provider Review Nursing Documentation Reviewed: Yes - Infectious Disease Hx of Infectious Diseases: None - Tetanus Immunization Tetanus Immunization: Unknown - Cardiac Hx Congestive Heart Failure: Yes Hx Hypertension: Yes - Pulmonary Hx Chronic Obstructive Pulmonary Disease (COPD): Yes - Neurological Hx Neurological Disorder: Yes Hx Dementia: Yes - HEENT Hx HEENT Disorder: No - Renal Hx Renal Disorder: No - Endocrine/Metabolic Hx Diabetes Mellitus Type 2: Yes - Hematological/Oncological Hx Blood Transfusions: Yes (12/11/16) Hx Blood Transfusion Reaction: No - Integumentary Hx Dermatological Disorder: Yes Other/Comment: bilateral heels/feet - Musculoskeletal/Rheumatological Hx Musculoskeletal Disorders: No Hx Falls: No - Gastrointestinal Hx Gastrointestinal Disorders: No - Genitourinary/Gynecological Hx Genitourinary Disorders: Yes Hx Urinary Tract Infection: Yes - Psychiatric Hx Psychophysiologic Disorder: Yes Hx Depression: Yes Hx Substance Use: No - Past Surgical History Past Surgical History: Unable to Obtain - Surgical History Other/Comment: CABG- CARDIAC STENTS - Anesthesia Hx Anesthesia Reactions: No Hx Malignant Hyperthermia: No - Suicidal Assessment Feels Threatened In Home Enviroment: No Family/Social History - Physician Review Nursing Documentation Reviewed: Yes Family/Social History: Hypertension Smoking Status: Never Smoked Hx Alcohol Use: No Hx Substance Use: No Hx Substance Use Treatment: No Allergies/Home Meds Allergies/Adverse Reactions: Allergies No Known Allergies Allergy (Verified 03/30/16 16:18) Home Medications: Home Meds Medication Instructions Recorded Confirmed risperiDONE [RisperDAL Tab] 0.25 mg PO Q8 11/30/14 12/26/16 Simvastatin 80 mg PO DAILY 10/07/15 12/26/16 Alprazolam [Xanax] 0.5 mg PO BID 01/12/16 12/26/16 Donepezil [Aricept] 10 mg PO DAILY 01/12/16 12/26/16 amLODIPine [Norvasc] 10 mg PO DAILY 01/12/16 12/26/16 Apixaban [Eliquis] 5 mg PO BID 12/11/16 12/26/16 Clobetasol 0.05% [Temovate] 60 gm TP BID 12/11/16 12/26/16 Clopidogrel [Plavix] 75 mg PO DAILY 12/11/16 12/26/16 Review of Systems - Physician Review All systems were reviewed & negative as marked: Yes - Review of Systems Gastrointestinal: absent: Vomiting Neurological: absent: Other (no LOC ) Physical Exam Vital Signs Reviewed: Yes Vital Signs Temp Pulse Resp BP Pulse Ox 12/27/16 00:14 77 105/72 98 12/26/16 21:01 71 20 138/85 99 12/26/16 19:59 98 F 81 24 138/86 100 Temperature: Afebrile Blood Pressure: Normal Pulse: Regular Respiratory Rate: Normal Appearance: Positive for: Well-Appearing Pain Distress: None Mental Status: Positive for: Alert and Oriented X 3 - Systems Exam Head: Present: Atraumatic, Normocephalic Pupils: Present: PERRL Extroacular Muscles: Present: EOMI Conjunctiva: Present: Normal Mouth: Present: Moist Mucous Membranes Neck: Present: Normal Range of Motion Respiratory/Chest: Present: Clear to Auscultation, Good Air Exchange. No: Respiratory Distress, Accessory Muscle Use Cardiovascular: Present: Regular Rate and Rhythm, Normal S1, S2. No: Murmurs Abdomen: Present: Normal Bowel Sounds. No: Tenderness, Distention, Peritoneal Signs Back: Present: Normal Inspection Upper Extremity: Present: Normal Inspection. No: Cyanosis, Edema Lower Extremity: Present: Normal Inspection. No: Edema Neurological: Present: GCS=15, CN II-XII Intact, Speech Normal, Other (no focal deficits) Skin: Present: Warm, Dry, Normal Color. No: Rashes Psychiatric: Present: Alert, Oriented x 3, Normal Insight, Normal Concentration Medical Decision Making ED Course and Treatment: 12/26/16 20:25 Impression: 81 year old female with seizure-like activity. Differential Diagnosis included but are not limited to: near syncope vs. partial seizure vs. aspiration vs. mucus plug Plan: -- EKG -- Head CT -- Labs -- Reassess and disposition Prior Visits: Notes and results from previous visits were reviewed. Patient was last seen in the emergency department on 12/11/2016 for vomiting blood. Patient was admitted. Progress Notes: EKG: Ordered, reviewed, and independently interpreted the EKG. Rate : 81 BPM Rhythm : NSR Interpretation : Left axis deviation, non-specific IVD, non-specific T-wave changes. Comparison : No previous EKG for comparison. CT Head Without Intravenous Contrast FINDINGS: Brain: No acute intracranial hemorrhage. Age-appropriate periventricular white matter disease. No edema. Ventricles: Age-appropriate ventriculomegaly. Bones: No acute displaced fracture. Sinuses: Unremarkable as visualized. No acute sinusitis. Mastoid air cells: Unremarkable as visualized. No mastoid effusion. IMPRESSION: No acute intracranial hemorrhage, or suspicious mass effect. Dictated and Authenticated by: Serenity Chase MD 12/26/2016 9:50 PM Eastern Time ([place] & [place]) 12/26/16 23:24 Chest xray from TCU: grossly normal (rotated). 12/26/16 23:[address] Viera, who accepts patient under her service to be admitted to [facility] obs. Dr. Galaviz on consult. - Lab Interpretations Lab Results: 12/26/16 20:30 12/26/16 22:25 Lab Results 12/26/16 22:25: Sodium 137, Potassium 6.3 H* D, Chloride 109 H, Carbon Dioxide 24, Anion Gap 10, BUN 24 H, Creatinine 0.6 L, Est GFR ( Amer) > 60, Est GFR (Non-Af Amer) > 60, Random Glucose 109, Calcium 9.0, Total Bilirubin 1.5 H, AST 101 H D, ALT 28, Alkaline Phosphatase 70, Lactate Dehydrogenase 1741 H, Total Creatine Kinase 90, Troponin I 0.04 D, Total Protein 7.3, Albumin 3.5, Globulin 3.8, Albumin/Globulin Ratio 0.9 L 12/26/16 20:44: POC Glucose (mg/dL) 101 11/14/17 20:30: WBC 6.1 D, RBC 3.84, Hgb 10.8 L, Hct 33.0 L, MCV 85.9, MCH 28.1 , MCHC 32.7, RDW 25.4 H, Plt Count 249, MPV 9.9 12/26/16 20:30: PT 10.4, INR 0.96, APTT 29.1 - RAD Interpretation Radiology Orders: 12/26/16 20:13 HEAD W/O CONTRAST [CT] Stat - Medication Orders Current Medication Orders: Discontinued Medications Alprazolam (Xanax) 0.5 mg PO ONCE ONE Stop: 12/26/16 21:08 Last Admin: 12/26/16 22:00 Dose: 0.5 mg Zolpidem Tartrate (Ambien) 10 mg PO STAT STA PRN Reason: Protocol Stop: 12/26/16 21:08 Last Admin: 12/26/16 22:00 Dose: 10 mg - Scribe Statement The provider has reviewed the documentation as recorded by the Maria Hdez Provider Scribe Attestation: All medical record entries made by the Maria were at my direction and personally dictated by me. I have reviewed the chart and agree that the record accurately reflects my personal performance of the history, physical exam, medical decision making, and the department course for this patient. I have also personally directed, reviewed, and agree with the discharge instructions and disposition. Disposition/Present on Arrival - Present on Arrival Any Indicators Present on Arrival: No History of DVT/PE: Yes History of Uncontrolled Diabetes: Yes Urinary Catheter: No History of Decub. Ulcer: No History Surgical Site Infection Following: None - Disposition Have Diagnosis and Disposition been Completed?: Yes Diagnosis: Near syncope Disposition: HOSPITALIZED Disposition Time: 23:30 Patient Problems: Current Active Problems Problem Status Onset Near syncope Acute Condition: STABLE
[2016-12-26 20:55] LABS: INR 0.96 (0.93-1.08); PARTIAL THROMBOPLASTIN TIME 29.1 Seconds (25.1-36.5)
[2016-12-26 20:56] LABS: MEAN CELL VOLUME 85.9 fl (80.0-105.0); MEAN CORPUSCULAR HEMOGLOBIN 28.1 pg (25.0-35.0); MEAN CORPUSCULAR HGB CONC 32.7 g/dl (31.0-37.0); MEAN PLATELET VOLUME 9.9 fl (7.0-11.0); RED CELL DISTRIBUTION WIDTH 25.4 % (11.5-14.5); WHITE BLOOD COUNT 6.1 10^3/ul (4.5-11.0)
--- NOTE | 2016-12-26 21:50 | CT ---
EXAM: CT Head Without Intravenous Contrast CLINICAL HISTORY: 81 years old, female; Condition or disease; Convulsions or seizures; Unspecified; Additional info: Possible seizure TECHNIQUE: Axial computed tomography images of the head/brain without intravenous contrast. All CT scans at this facility use one or more dose reduction techniques, viz.: automated exposure control; ma/kV adjustment per patient size (including targeted exams where dose is matched to indication; i.e. head); or iterative reconstruction technique. COMPARISON: CT - HEAD W/O CONTRAST 2015-01-25 17:58 FINDINGS: Brain: No acute intracranial hemorrhage. Age-appropriate periventricular white matter disease. No edema. Ventricles: Age-appropriate ventriculomegaly. Bones: No acute displaced fracture. Sinuses: Unremarkable as visualized. No acute sinusitis. Mastoid air cells: Unremarkable as visualized. No mastoid effusion. IMPRESSION: No acute intracranial hemorrhage, or suspicious mass effect.
[2016-12-26 22:40] LABS: ALB/GLOB RATIO 0.9 (1.1-1.8); ALKALINE PHOSPHATASE 70 U/L (38-126); ALT/SGPT 28 U/L (7-56); AST/SGOT 101 U/L (14-36); BILIRUBIN,TOTAL 1.5 mg/dL (0.2-1.3); TOTAL PROTEIN 7.3 g/dL (5.8-8.3)
[2016-12-26 22:41] LABS: POTASSIUM 6.3 mmol/L (3.6-5.0)
[2016-12-26 22:42] LABS: BLOOD UREA NITROGEN 24 mg/dL (7-21); CARBON DIOXIDE 24 mmol/L (21-33); CHLORIDE 109 mmol/L (98-107); GFR AFRICAN-AMERICAN > 60; GLUCOSE,RANDOM 109 mg/dL (70-110); SODIUM 137 mmol/L (132-148); TROPONIN I 0.04 ng/mL
[2016-12-27 06:09] VITALS: BMI 152992.3
[2016-12-27] MEDS ORDERED: Levalbuterol 0.63 MG/3 ML Inhal Soln UD IH PRN (09:01)
[2016-12-27] MEDS: Pantoprazole 40 mg EC Tab PO SCH (09:30)
[2016-12-27] MEDS: Insulin Reg-LOW-Coverage SC SCH ×3 (11:23→21:23)
[2016-12-27] MEDS: Ferrous Sulfate 300 mg/5 mL Liq UD PO SCH ×2 (13:46→17:35)
--- NOTE | 2016-12-27 19:45 | CON ---
DATE: 12/27/2016 LOCATION: In room 272, bed 2. REASON FOR CONSULTATION: Coronary artery disease, paroxysmal atrial fibrillation, GI bleeding, LV dysfunction. HISTORY OF PRESENT ILLNESS: The patient is an 81-year-old female, who known to have coronary artery disease status post stent insertion, hypertension, COPD, diabetes, advanced dementia, who was admitted to the medical floor with massive GI bleeding. On endoscopy had shown 2 polyps, 1 of the polyp was ulcerated that was the cause of bleeding for which the patient has clipping done and the patient so far has stopped bleeding. The patient received multiple blood transfusion at the time of bleeding. The patient now lying flat in bed without any chest pain, shortness of breath, or palpitations. PAST MEDICAL HISTORY: Positive for coronary artery disease, status post stent insertion, paroxysmal atrial fibrillation, GI bleeding as mentioned above, hypertension, history of DVT, status post IVC filter, history of multiple stents in the past, hypothyroidism, advanced dementia, gastric polyps, adenomatous, 2 polyps. The patient's recent cardiac workup. The patient had an echo Doppler on 12/12/2016, which showed borderline dilated left ventricle, mild concentric left ventricle hypertrophy, proximal septal thickening is noted, systolic function is moderate to severely impaired with ejection fraction of 25%, trace aortic regurgitation, trace mitral regurgitation, mild tricuspid regurgitation, RVSP 49 mmHg, suggestive of mild pulmonary hypertension. HOME MEDICATION: Included aspirin, Eliquis, Xanax, Aricept, levothyroxine, lisinopril, simvastatin, amlodipine, and Risperdal. ALLERGIES: NO KNOWN ALLERGIES. PERSONAL HISTORY: No history of smoking or drinking. REVIEW OF SYSTEMS: All the systems reviewed. Positive mentioned in the history, otherwise negative. PHYSICAL EXAMINATION VITAL SIGNS: Blood pressure 120/64, respirations 21, pulse 60 and temperature 97.2. HEENT: Head is normocephalic. Eyes: Pupils normal. Conjunctiva slightly pale. NECK: JVP low. Carotids are equal. THORAX: AP diameter normal. LUNGS: Clear. CARDIOVASCULAR: S1 and S2. ABDOMEN: Soft. No tenderness. No organomegaly. Bowel sound normal. EXTREMITIES: No clubbing, no cyanosis. The patient has slight contracture on one of the lower limb. LABORATORY DATA: WBC is 6.1, hemoglobin 10.8, hematocrit 33.0, and platelets 249. Sodium 137, potassium 4.1, BUN 24, creatinine 0.6, sugar 107 and 83. Total bilirubin 1.5. AST of 101, ALT 28, LDH 1741. Total protein and albumin are normal. EKG showed normal sinus rhythm, left axis deviation, left bundle-branch block pattern. Chest x-ray; no significant abnormality noted. The patient remains rotated towards the right. CT scan of the head no acute intracranial hemorrhage or suspicions mass effect. DIAGNOSES: Coronary artery disease status post stent insertion, paroxysmal atrial fibrillation, advanced dementia, gastrointestinal bleeding, adenomatous polyps, one of them ulcerated polyp, left ventricular dysfunction, anemia, status post massive gastrointestinal bleeding, history of deep venous thrombosis, status post inferior vena cava filter, history of pulmonary embolism, advanced dementia, hypothyroidism, and hypertension. PLAN: The patient is on Ambien 10 mg at bedtime p.r.n., Aricept 10 mg p.o. daily, ferrous sulphate 300 mg p.o. t.i.d., folic acid 1 mg daily, amlodipine 10 mg daily, Protonix 40 mg p.o. a.c.b., levothyroxine 112 mcg p.o. daily, cyanocobalamin 100 mcg p.o. daily, Xopenex handheld nebulizer therapy. The patient due to GI bleeding, is not a candidate for anticoagulation at this point; however we will put Ecotrin 81 mg p.o. daily and the patient already on Protonix. Discussed the case with Dr. Parry, Register Repairer and will follow. Dayana Galaviz MD
[2016-12-27] MEDS ORDERED: Insulin Reg-LOW-Coverage SC SCH (22:00)
[2016-12-27 23:52] VITALS: O2SAT 99
[2016-12-28] MEDS: Levothyroxine 112 MCG TAB PO SCH ×2 (05:30→07:55)
[2016-12-28] MEDS: Pantoprazole 40 mg EC Tab PO SCH ×2 (05:30→07:54)
[2016-12-28 06:34] LABS: HEMATOCRIT 30.1 % (36.0-48.0); MEAN CELL VOLUME 86.7 fl (80.0-105.0); MEAN CORPUSCULAR HGB CONC 32.2 g/dl (31.0-37.0); MEAN PLATELET VOLUME 9.6 fl (7.0-11.0); RED CELL DISTRIBUTION WIDTH 25.6 % (11.5-14.5); WHITE BLOOD COUNT 4.1 10^3/ul (4.5-11.0)
[2016-12-28] MEDS ORDERED: Pantoprazole 40 mg EC Tab PO SCH (07:30)
[2016-12-28] MEDS: Insulin Reg-LOW-Coverage SC SCH ×4 (07:54→22:26)
[2016-12-28 08:01] LABS: ALB/GLOB RATIO 0.9 (1.1-1.8); ALKALINE PHOSPHATASE 56 U/L (38-126); ALT/SGPT 36 U/L (7-56); AST/SGOT 33 U/L (14-36); BILIRUBIN,TOTAL 0.5 mg/dL (0.2-1.3); BLOOD UREA NITROGEN 21 mg/dL (7-21); CALCIUM 8.7 mg/dL (8.4-10.5); CARBON DIOXIDE 28 mmol/L (21-33); CHLORIDE 108 mmol/L (98-107); GFR AFRICAN-AMERICAN > 60; GLUCOSE,RANDOM 90 mg/dL (70-110); POTASSIUM 3.8 mmol/L (3.6-5.0); SODIUM 139 mmol/L (132-148); TOTAL PROTEIN 5.4 g/dL (5.8-8.3)
--- NOTE | 2016-12-28 10:05 | CP.PCM.CON ---
<Richard Armstrong - Last Filed: 12/28/16 12:18> History of Present Illness - History of Present Illness History of Present Illness: Neurology consult note for Dr. Adkins's service - Zahra Armstrong PGY2 HPI: Patient is a 81 year-old female with past medical history of HTN, COPD, advanced dementia, CHF, CAD and DM that originally presented to [facility] 12/12/16 with reports of active gastrointestinal bleed. Patient with baseline advanced dementia therefore history obtained via chart review. Patient had been subsequently been transfused pRBC, admitted to the ICU and underwent an EGD which showed evidence of active bleeding from a polyp in gastric fundus/ cardia. She had received two clips and epinephrine was injected to obtain hemostasis. She had subsequently improved, was downgraded to the general medical floor and thereafter discharged to the transitional care unit for physical rehabilitation. On 12/26/16, a rapid response was called after the patient's son had witnessed the patient coughing/gaging and believed she may have choked or aspirated. Per nursing at that time, there was no report of loss of consciousness, tongue biting or seizure-like activity. She was noted to have aspiration content on the bed and her mouth was suctioned. She was thereafter transferred to the ED for further evaluation. A CT Head was done which revealed no acute intracranial abnormalities. Neurology was consulted for evaluation of altered mental status. 12point ROS limited due to patient's baseline condition PMHx: Advanced dementia, HTN, COPD, CHF, CAD, DM PSHx: CABG, prior PEG tube insertions complicated by infection and subsequently removed Allergies: NKDA Social Hx: No tobacco, alcohol or illicit drug use Family Hx: Non-contributory Past Patient History - Infectious Disease Hx of Infectious Diseases: None - Tetanus Immunizations Tetanus Immunization: Unknown - Past Medical History & Family History Past Medical History?: Yes - Past Social History Smoking Status: Unknown If Ever Smoked - CARDIAC Hx Cardiac Disorders: Yes Hx Cardia Arrhythmia: Yes Hx Congestive Heart Failure: Yes Hx Peripheral Edema: Yes - PULMONARY Hx Respiratory Disorders: Yes Hx Chronic Obstructive Pulmonary Disease (COPD): Yes - NEUROLOGICAL Hx Neurological Disorder: Yes Hx Alzheimer's Disease: Yes Hx Dementia: Yes - HEENT Hx HEENT Problems: No - RENAL Hx Chronic Kidney Disease: No - ENDOCRINE/METABOLIC Hx Diabetes Mellitus Type 2: Yes Hx Hypothyroidism: Yes - HEMATOLOGICAL/ONCOLOGICAL Hx Blood Transfusions: Yes (12/11/16) Hx Blood Transfusion Reaction: No - INTEGUMENTARY Hx Dermatological Problems: Yes Other/Comment: bilateral heels/feet - MUSCULOSKELETAL/RHEUMATOLOGICAL Hx Falls: No Hx Unsteady Gait: Yes - GASTROINTESTINAL Other/Comment: inguinal hernia repair - GENITOURINARY/GYNECOLOGICAL Hx Hematuria: Yes Hx Incontinence: Yes Hx Urinary Tract Infection: Yes - PSYCHIATRIC Hx Psychophysiologic Disorder: Yes Hx Depression: Yes Hx Substance Use: No - SURGICAL HISTORY Hx Coronary Stent: Yes - ANESTHESIA Hx Anesthesia Reactions: No Hx Malignant Hyperthermia: No Meds Allergies/Adverse Reactions: Allergies Allergy/AdvReac Type Severity Reaction Status Date / Time No Known Allergies Allergy Verified 03/30/16 16:18 - Medications Medications: Current Medications Amlodipine Besylate (Norvasc) 10 mg PO DAILY [facility] Last Admin: 12/27/16 09:30 Dose: 10 mg Aspirin (Ecotrin) 81 mg PO DAILY [facility] Cyanocobalamin (Vitamin B12 100 Mcg Tab) 100 mcg PO DAILY [facility] Donepezil HCl (Aricept) 10 mg PO DAILY [facility] Last Admin: 12/27/16 09:30 Dose: 10 mg Ferrous Sulfate (Feosol Liq) 300 mg PO TID [facility] Last Admin: 12/27/16 17:35 Dose: 300 mg Folic Acid (Folic Acid) 1 mg PO DAILY [facility] Insulin Human Regular (Humulin R Low) 0 units SC ACHS [facility] PRN Reason: Protocol Last Admin: 12/28/16 07:54 Dose: Not Given Levalbuterol HCl (Xopenex) 0.63 mg IH [id number] PRN PRN Reason: Shortness of Breath Levothyroxine Sodium (Synthroid) 112 mcg PO ACB [facility] Last Admin: 12/28/16 07:55 Dose: Not Given Pantoprazole Sodium (Protonix Ec Tab) 40 mg PO ACB [facility] Last Admin: 12/28/16 07:54 Dose: Not Given Zolpidem Tartrate (Ambien) 10 mg PO HS PRN; Protocol PRN Reason: Insomnia Physical Exam - Constitutional Appears: No Acute Distress - Head Exam Head Exam: ATRAUMATIC, NORMOCEPHALIC - Eye Exam Eye Exam: EOMI, PERRL - ENT Exam ENT Exam: Mucous Membranes Moist - Neck Exam Neck exam: Positive for: Normal Inspection - Respiratory Exam Respiratory Exam: Clear to Auscultation Bilateral. absent: Rales, Rhonchi, Wheezes - Cardiovascular Exam Cardiovascular Exam: RRR, +S1, +S2. absent: Gallop, JVD, Rubs - GI/Abdominal Exam GI & Abdominal Exam: Soft. absent: Distended, Firm, Guarding, Rebound, Tenderness - Extremities Exam Extremities exam: Negative for: pedal edema, tenderness - Neurological Exam Additional comments: awake, alert, advanced dementia at baseline EOMI PERRL CN2-12 grossly intact moves extremities spontaneously gait deferred - Skin Skin Exam: Dry, Intact, Normal Color, Warm Results - Vital Signs Recent Vital Signs: Last Vital Signs Temp 98.7 F 12/28/16 06:00 Pulse 57 L 12/28/16 06:00 Resp 18 12/28/16 06:00 BP 118/51 L 12/28/16 06:00 Pulse Ox 99 12/28/16 06:00 - Labs Result Diagrams: 12/28/16 05:30 12/28/16 05:30 Labs: Laboratory Results - last 24 hr 12/27/16 12/28/16 12/28/16 21:21 05:30 05:30 WBC 4.1 L D RBC 3.47 L Hgb 9.7 L Hct 30.1 L MCV 86.7 MCH 28.0 MCHC 32.2 RDW 25.6 H Plt Count 204 MPV 9.6 Sodium 139 Potassium 3.8 Chloride 108 H Carbon Dioxide 28 Anion Gap 7 L BUN 21 Creatinine 0.7 Est GFR ( Amer) > 60 Est GFR (Non-Af Amer) > 60 POC Glucose (mg/dL) 116 H Random Glucose 90 Calcium 8.7 Total Bilirubin 0.5 AST 33 ALT 36 Alkaline Phosphatase 56 Total Protein 5.4 L Albumin 2.6 L Globulin 2.9 Albumin/Globulin Ratio 0.9 L 12/28/16 07:25 WBC RBC Hgb Hct MCV MCH MCHC RDW Plt Count MPV Sodium Potassium Chloride Carbon Dioxide Anion Gap BUN Creatinine Est GFR ( Amer) Est GFR (Non-Af Amer) POC Glucose (mg/dL) 87 Random Glucose Calcium Total Bilirubin AST ALT Alkaline Phosphatase Total Protein Albumin Globulin Albumin/Globulin Ratio Assessment & Plan - Assessment and Plan (Free Text) Plan: 81yo female with history of HTN, COPD, advanced dementia, CHF, CAD and DM that originally presented to [facility] 12/12/16 with active GI bleed s/p endoscopic intervention and subsequently transferred to the TCU for physical rehabilitation. Thereafter transferred to the emergency room post ENVIRONMENT[facility] HEALTH NURSE for concerns of aspiration. Neurology consulted for evaluation of altered mental status. -Patient with advanced dementia presently appearing to be at her baseline per reports; No report of loss of consciousness, post-ictal like state or seizure- like episodes -CT Head reviewed which revealed no acute intracranial abnormalities -Maintain systolic blood pressure between 120-130 to avoid transient cerebral hypoperfusion; patient had fluctuating BP's with significant drop -Monitor and correct electrolyte abnormalities as indicated; metabolic derangements may cause change in mental status -EEG ordered and will be reviewed when available -Aspiration and fall precautions -Avoid sedating medications -HOB>30' during feeding -Speech/swallow evaluation -Follow up GI recommendations regarding recent GI bleed -CXR reviewed; no definite evidence of acute cardiopulmonary pathology -Recommend physical therapy/occupational therapy evaluation and treatment -Continue present medical management as per primary team Patient seen and case to be discussed/reviewed with attending, Dr. Adkins - Date & Time Date: 12/28/16 Time: 11:12 <Stuart Adkins - Last Filed: 12/28/16 13:39> Meds - Medications Medications: Current Medications Amlodipine Besylate (Norvasc) 10 mg PO DAILY [facility] Last Admin: 12/28/16 10:06 Dose: 10 mg Aspirin (Ecotrin) 81 mg PO DAILY [facility] Last Admin: 12/28/16 10:06 Dose: 81 mg Cyanocobalamin (Vitamin B12 100 Mcg Tab) 100 mcg PO DAILY [facility] Last Admin: 12/28/16 10:07 Dose: 100 mcg Donepezil HCl (Aricept) 10 mg PO DAILY [facility] Last Admin: 12/28/16 10:04 Dose: 10 mg Ferrous Sulfate (Feosol Liq) 300 mg PO TID [facility] Last Admin: 12/28/16 10:06 Dose: 300 mg Folic Acid (Folic Acid) 1 mg PO DAILY [facility] Last Admin: 12/28/16 10:06 Dose: 1 mg Insulin Human Regular (Humulin R Low) 0 units SC ACHS [facility] PRN Reason: Protocol Last Admin: 12/28/16 12:33 Dose: 2 units Levalbuterol HCl (Xopenex) 0.63 mg IH [id number] PRN PRN Reason: Shortness of Breath Levothyroxine Sodium (Synthroid) 112 mcg PO ACB [facility] Last Admin: 12/28/16 07:55 Dose: Not Given Pantoprazole Sodium (Protonix Ec Tab) 40 mg PO ACB [facility] Last Admin: 12/28/16 07:54 Dose: Not Given Zolpidem Tartrate (Ambien) 10 mg PO HS PRN; Protocol PRN Reason: Insomnia Results - Vital Signs Recent Vital Signs: Last Vital Signs Temp 99.1 F 12/28/16 12:00 Pulse 57 L 12/28/16 12:22 Resp 20 12/28/16 12:00 BP 141/91 H 12/28/16 12:00 Pulse Ox 99 12/28/16 06:00 - Labs Result Diagrams: 12/28/16 05:30 12/28/16 05:30 Labs: Laboratory Results - last 24 hr 12/27/16 12/28/16 12/28/16 21:21 05:30 05:30 WBC 4.1 L D RBC 3.47 L Hgb 9.7 L Hct 30.1 L MCV 86.7 MCH 28.0 MCHC 32.2 RDW 25.6 H Plt Count 204 MPV 9.6 Sodium 139 Potassium 3.8 Chloride 108 H Carbon Dioxide 28 Anion Gap 7 L BUN 21 Creatinine 0.7 Est GFR ( Amer) > 60 Est GFR (Non-Af Amer) > 60 POC Glucose (mg/dL) 116 H Random Glucose 90 Calcium 8.7 Total Bilirubin 0.5 AST 33 ALT 36 Alkaline Phosphatase 56 Total Protein 5.4 L Albumin 2.6 L Globulin 2.9 Albumin/Globulin Ratio 0.9 L 12/28/16 12/28/16 07:25 11:32 WBC RBC Hgb Hct MCV MCH MCHC RDW Plt Count MPV Sodium Potassium Chloride Carbon Dioxide Anion Gap BUN Creatinine Est GFR ( Amer) Est GFR (Non-Af Amer) POC Glucose (mg/dL) 87 203 H Random Glucose Calcium Total Bilirubin AST ALT Alkaline Phosphatase Total Protein Albumin Globulin Albumin/Globulin Ratio
[2016-12-28] MEDS: Ferrous Sulfate 300 mg/5 mL Liq UD PO SCH ×3 (10:06→18:18)
--- NOTE | 2016-12-28 13:59 | CON ---
DATE: 12/27/2016 PULMONARY CONSULTATION REFERRING PHYSICIAN: Colette Viera MD REASON FOR CONSULT: Recurring aspiration with bronchitis. HISTORY OF PRESENT ILLNESS: This is an 81-year-old female well-known to me from previous admission, has known history of advanced dementia, severe cardiomyopathy, cardiac arrhythmia, pulmonary hypertension, hypertension, diabetes, chronic aspiration with bronchitis, originally admitted to the acute side of the hospital with questionable hemoptysis, hematemesis. Had endoscopy done. Followup endoscopy showed had a gastric polyp with ulceration and active bleeding requiring injection and clipping of the bleeding site. Since last endoscopy, she has been stable, H and H has been okay. Originally required multiple units of packed RBCs. Presently, she is on modified diet because of oropharyngeal dysphagia, was doing okay, transferred to [facility] yesterday. While in [facility] apparently she had episode of choking on a food particle, rapid response was called, able to clear secretion. The patient was transferred to ER and finally admitted on the floor, questionable syncopal episode at the time of aspiration and choking. At presently, she is lying in the bed, head at 45 degrees, comfortable, in her usual status, not much cough. No hemoptysis. No hematemesis. No hematuria. No diarrhea reported. PAST MEDICAL HISTORY: As per history of present illness. SOCIAL HISTORY: Nonsmoker, nondrinker. FAMILY HISTORY: No significant cardiopulmonary disease reported. ALLERGIES: NONE KNOWN. MEDICATIONS: She is on Ambien 10 mg at bedtime p.r.n., Aricept 10 mg daily, insulin coverage, Norvasc 10 mg daily, Protonix 40 mg daily, Synthroid 112 mcg daily, and Xopenex inhaled q.6 hours. REVIEW OF SYSTEMS: As per history of present illness. Presently, there is mild cough. No sputum production. No hemoptysis, no hematemesis, no hematuria, no melena, no leg pain or leg swelling. PHYSICAL EXAMINATION: GENERAL: Lying in the bed, in no acute distress. VITAL SIGNS: Temperature 98, heart rate 60, respiratory rate is 20, blood pressure 120/64, and pulse ox 92% on nasal cannula. HEENT: Small oral cavity. Crowded airway. NECK: Supple. No JVD. LUNGS: Have fair airflow with few rhonchi. HEART: S1 and S2. ABDOMEN: Soft, nontender and nondistended. EXTREMITIES: There is on edema. NEUROLOGIC: Awake and alert, nonverbal, does not follow commands. LABORATORY DATA: Shows hemoglobin 10.8, hematocrit 33.0 and WBC 6.1. Blood sugar this morning is 83. Last potassium is 4.1. Had a CAT scan of the head done yesterday, no acute intracranial hemorrhage or any suspicious mass noted. IMPRESSION AND PLAN: Ulcerative gastric polyp with bleeding, requiring multi unit transfusion, status post endoscopy requiring clipping of the polyp, advanced dementia, aspiration related bronchitis, cardiomyopathy, cardiac arrhythmia, most likely the event last night seems like is aspiration related. The patient's family understand the risk of not placing gastrostomy tube, they wish continue supportive care, so we will keep close monitoring while eating, she should be sitting up and fed by somebody, understand aspiration. Also the high risk for syncopal episode because of the cardiomyopathy and ejection fraction about 20%, off anticoagulation because of bleeding. Continue folic acid, vitamin B12 and iron supplement. Followup H and H. Overall poor prognosis. I will be following. Dayana Simms MD
--- NOTE | 2016-12-28 16:18 | PN ---
DATE: REASON FOR CONSULTATION AND FOLLOWUP: Coronary artery disease, paroxysmal atrial fibrillation, GI bleed, and LV dysfunction. SUBJECTIVE: The patient is demented, unable to give history, lying flat on the bed, not in apparent distress. PHYSICAL EXAMINATION: VITAL SIGNS: Temperature afebrile, heart rate 57, and blood pressure 120/70. HEENT: PERRLA. Extraocular muscles intact. NECK: Supple. No carotid bruit or thyromegaly. CHEST: Clear to auscultation. HEART: S1 and S2, regular. ABDOMEN: Soft. EXTREMITIES: Clubbing and cyanosis negative. LABORATORY DATA: Blood workup as follows; WBC 4.2, hemoglobin 9.7, hematocrit 30.1, and platelets 207. Chemistry shows sodium 130, potassium 3.8, chloride 108, CO2 28, anion gap of 7, BUN 21, and creatinine 0.7. Total protein 5.4, albumin 2.6, and albumin/globulin ratio is 0.9. IMPRESSION: An 81-year-old female with past medical history significant for coronary artery disease status post stent, paroxysmal atrial fibrillation, advanced dementia, gastrointestinal bleed, edematous polyp, one of them ulcerated, removed, GI bleed massive, status post inferior vena cava filter, history of deep venous thrombosis, pulmonary embolism, hypothyroidism, and hypertension. RECOMMENDATIONS: The patient is off aspirin, off Plavix, off Eliquis, restarted baby aspirin as tolerated, continue amlodipine. Levothyroxine increased to 112 mcg daily. We will follow with you. We will repeat the blood workup in the morning. Thank you Dr. Viera for providing us the opportunity in taking care of the patient. Dayana Steward MD
--- NOTE | 2016-12-29 01:21 | PN ---
DATE: 12/28/2016 REFERRING PHYSICIAN: Colette Viera MD SUBJECTIVE: The patient is lying in the bed, head 45-degree. Awake, alert, no acute distress. No cough, no sputum production, no hemoptysis, no recent hematuria. No diarrhea reported. OBJECTIVE: VITAL SIGNS: Temperature is 98, heart is 99, respiratory rate is 20, blood pressure 131/84, pulse ox 99% on nasal cannula. HEENT: Small oral cavity. NECK: Supple. No JVD. LUNGS: Fair airflow with a few rhonchi. HEART: S1 and S2. ABDOMEN: Soft, nontender. No organomegaly. EXTREMITIES: No edema. NEUROLOGIC: Awake, alert, nonverbal, does not follow commands. MEDICATIONS: She is on Ambien 10 mg at bedtime p.r.n., Aricept 10 mg daily, Ecotrin 81 mg daily, ferrous sulfate 300 mg three times a day, folic acid 1 mg daily, insulin coverage, Norvasc 10 mg daily, Protonix 40 mg daily, vitamin B12 100 mcg p.o. daily, Xopenex inhaler q.6 hours, Synthroid 112 mcg daily. LABORATORY DATA: Shows hemoglobin 9.7, hematocrit 30.1, WBC 4.1, platelets 204. Sodium 139, potassium 3.8, chloride 108, bicarbonate 28, BUN 21, creatinine 0.7, glucose 90, calcium 8.7, AST 33, ALT 36, alk phos is 56, albumin is 2.6. IMPRESSION AND PLAN: Status post rapid response mostly secondary to aspiration related respiratory insufficiency, presently much better. She has a gastrointestinal bleed from ulcerative gastric polyp, status post clipping of polyp. Advanced dementia, hypothyroid, cardiomyopathy, cardiac arrhythmia. Pulmonary point of view, doing okay. Keep head at 45 degrees. Aspiration precaution. Gastric prophylaxis. Sequential compression devices to lower extremity. High risk for thromboembolic disease, also high risk for bleed. Continue supportive care. Thank you and we will follow with you. Dayana Simms MD
[2016-12-29] MEDS: Pantoprazole 40 mg EC Tab PO SCH ×2 (06:00→07:10)
[2016-12-29] MEDS: Levothyroxine 112 MCG TAB PO SCH ×2 (06:01→07:10)
[2016-12-29 06:15] LABS: HEMATOCRIT 33.6 % (36.0-48.0); MEAN CELL VOLUME 87.5 fl (80.0-105.0); MEAN CORPUSCULAR HEMOGLOBIN 28.1 pg (25.0-35.0); MEAN CORPUSCULAR HGB CONC 32.1 g/dl (31.0-37.0); MEAN PLATELET VOLUME 9.1 fl (7.0-11.0); RED CELL DISTRIBUTION WIDTH 26.3 % (11.5-14.5); WHITE BLOOD COUNT 5.4 10^3/ul (4.5-11.0)
[2016-12-29 07:05] LABS: ALB/GLOB RATIO 0.9 (1.1-1.8); ALKALINE PHOSPHATASE 62 U/L (38-126); ALT/SGPT 40 U/L (7-56); AST/SGOT 41 U/L (14-36); BILIRUBIN,TOTAL 0.7 mg/dL (0.2-1.3); BLOOD UREA NITROGEN 23 mg/dL (7-21); CALCIUM 9.2 mg/dL (8.4-10.5); CARBON DIOXIDE 25 mmol/L (21-33); CHLORIDE 113 mmol/L (98-107); GFR AFRICAN-AMERICAN > 60; GLUCOSE,RANDOM 105 mg/dL (70-110); POTASSIUM 4.2 mmol/L (3.6-5.0); SODIUM 143 mmol/L (132-148); TOTAL PROTEIN 6.4 g/dL (5.8-8.3)
[2016-12-29] MEDS: Insulin Reg-LOW-Coverage SC SCH ×3 (07:45→17:04)
--- NOTE | 2016-12-29 08:09 | HP ---
CHIEF COMPLAINT: Seizure and shortness of breath. HISTORY OF PRESENT ILLNESS: Ms. Marge Still is an 81-year-old female, past medical history of hypertension, dementia, who was admitted last time in [facility] with upper GI bleeding and was seen by Dr. Parry, he did endoscopy and found the patient has bleeding polyp in the stomach then he did a cauterization and put the aga, bleeding stopped. The patient improved. We transferred patient to TCU. The patient was just couple of hours in TCU, she started shortness of breath and according to family seizure like activity. According to the family the patient became shaky possibly gagging then rapid responses called. The patient was transferred to ER. The patient got Rapid response ,. The patient found to have loss of consciousness or vomiting. The patient was transferred to ER from TCU for further evaluation and then the patient was admitted to Telemetry. Discussion done with the patient's brother and family. All questions answered. PAST MEDICAL HISTORY: Congestive heart failure, hypertension, COPD, diabetes mellitus type 2, anemia, status post blood transfusion, bilateral heel and feet infection, depression, coronary artery disease, status post cardiac stenting. FAMILY HISTORY: Father and mother noncontributory. HABITS: Not a smoker. No drugs. No ethanol. ALLERGIES: THE PATIENT IS NOT ALLERGIC TO ANY MEDICATIONS. HOME MEDICATIONS: Risperdal, Xanax, Aricept, Norvasc, Eliquis, Plavix. REVIEW OF SYSTEMS: The patient is seen and examined on the bedside. Looking comfortable. Sleepy, arousable. Moving all four extremities. No focal deficits. No fever. No chills. The patient is not able to give me review of system. PHYSICAL EXAMINATION: VITAL SIGNS: Temperature 98.0, pulse 81, respiratory rate 24, blood pressure 138/ , pulse oximetry 100. HEENT: Head is normocephalic and atraumatic. Eyes: PERRLA. Extraocular muscles intact. Conjunctivae are clear. Nose is patent. Mucous membranes are moist. NECK: Supple. No carotid bruit. No JVD or thyromegaly. CHEST: Bilaterally symmetrical. HEART: S1 and S2 positive. LUNGS: Clear to auscultation. ABDOMEN: Soft. Bowel sounds present. No organomegaly. EXTREMITIES: No edema. No cyanosis. NEUROLOGIC: The patient is awake and alert. Moving all four extremities. No focal deficits. LABORATORY DATA: White blood cell is 6.1, hemoglobin 10.8, hematocrit 33.0, platelets 249. Sodium 137; potassium, it was 6.3 and repeat is 4.1; BUN 24; creatinine 0.6; AST 101. ASSESSMENT AND PLAN: Ms. Marge Still is an 81-year-old lady with anemia, hyperkalemia. Her Physical Therapy is within normal limit. Hyperchloremia, renal insufficiency, abnormal liver function test, rule out seizures, rule out aspiration. CAT scan of the head done, reviewed by me. History of hypothyroidism, upper gastrointestinal bleeding, congestive heart failure, hypertension, chronic obstructive pulmonary disease. Discussion done with Dr. Galaviz, diabetes mellitus borderline, history of bilateral heel infection, history of repeated urinary tract infection, depression, history of cardiac stenting, admitted the patient to telemetry, medicines reordered, aspiration precautions. We will follow up. Colette Viera MD MTDD
--- NOTE | 2016-12-29 08:43 | PN ---
DATE: 12/28/2016 SUBJECTIVE: The patient is an 81-year-old female. The patient is seen and examined on the bedside. Daughter was on the bedside also, eating food and tolerating very well. No nausea, vomiting or diarrhea. No hematuria or hematochezia. No swelling of the leg. No chest pain or palpitations. No headache or dizziness. No fever and no chills. PHYSICAL EXAMINATION VITAL SIGNS: Temperature is 98.6, heart rate is 57, blood pressure is 120/70 and respiratory rate is 20. HEENT: Head is normocephalic and atraumatic. Eyes; PERRLA. Extraocular muscles are intact. Conjunctivae are clear. Nose is patent. Mucous membranes are moist. NECK: Supple. No carotid bruits. No JVD or thyromegaly. CHEST: Bilaterally symmetrical. HEART: S1 and S2 positive. LUNGS: Clear to auscultation. ABDOMEN: Soft. Bowel sounds present. No organomegaly. EXTREMITIES: No edema. No cyanosis. NEUROLOGIC: The patient is awake and alert. Moving all 4 extremities. No focal deficits, but is confused. LABORATORY DATA: White blood cell count is 4.2, hemoglobin is 9.7, hematocrit is 30.1 and platelets are 207. Sodium is 130, potassium is 3.8, BUN is 21 and creatinine is 0.7. ASSESSMENT: Ms. Marge Still is an 81-year-old female with past medical history of multiple medical problems, hypothyroidism, coronary artery disease status post cardiac stenting, paroxysmal atrial fibrillation. She was on blood thinners due to upper gastrointestinal bleeding, we will stop the blood thinners. History of anemia status post blood transfusion, advanced dementia, gastric polyp status post ulceration and now has stapling and cauterization, vena cava filter, history of deep vein thrombosis, pulmonary embolism, and hypertension. PLAN: Continue present treatment. No more Plavix ,taking baby aspirin, levothyroxine increased to 112. Gastrointestinal and deep venous thrombosis prophylaxis. Discussion done with the patient's daughter and the patient's brother. Repeat labs and we will follow with you. Colette Viera MD MTDD
--- NOTE | 2016-12-29 10:41 | PN ---
DATE: 12/29/2016 REASON FOR CONSULTATION AND FOLLOWUP: Coronary artery disease, paroxysmal atrial fibrillation, gastrointestinal bleed, and left ventricular dysfunction. SUBJECTIVE: The patient is lying flat and not communicable, advanced dementia, not in apparent distress. OBJECTIVE/PHYSICAL EXAMINATION: As follows: GENERAL: Not in apparent distress. VITAL SIGNS: Temperature is afebrile, heart rate is 90, and blood pressure is 120/76. HEENT: PERRLA. Extraocular muscles intact. NECK: Supple. No carotid bruit or thyromegaly. CHEST: Clear to auscultation. HEART: S1 and S2, regular. ABDOMEN: Soft. EXTREMITIES: Clubbing and cyanosis negative. LABORATORY DATA: Blood workup as follows: WBC of 5.1, hemoglobin is 10.8, hematocrit is 33.6, and platelet count is 223. Chemistry shows sodium of 140, potassium of 4.3, chloride of 113, carbon dioxide of 25, anion gap of 9, BUN of 20 and creatinine of 0.7. IMPRESSION: Gastrointestinal bleed, massive; status post polypectomy, ulcerated polyp; dementia, advanced; coronary artery disease, paroxysmal atrial fibrillation, and deep venous thrombosis and pulmonary embolism in the past, status post cauterization. RECOMMENDATIONS: The patient is off Eliquis and was off aspirin, restarted baby aspirin as tolerated. Continue levothyroxine. Monitor H and H. We will follow with you. Thank you Dr. Viera for providing us the opportunity in taking care of the patient, Marge Still. Dayana Steward MD
[2016-12-29] MEDS: Ferrous Sulfate 300 mg/5 mL Liq UD PO SCH ×3 (11:09→17:04)
--- NOTE | 2016-12-29 12:46 | CP.PCM.PN ---
<Richard Armstrong - Last Filed: 12/29/16 12:47> Subjective - Date & Time of Evaluation Date of Evaluation: 12/29/16 Time of Evaluation: 12:43 - Subjective Subjective: Neurology progress note for Dr. Adkins's service - Zahra Armstrong PGY2 No acute overnight events or new complaints were reported by staff. EEG reviewed ; revealed mild bcd with no seizure activity. ROS limited due to patients advanced dementia. Objective - Vital Signs/Intake and Output Vital Signs (last 24 hours): Temp Pulse Resp BP Pulse Ox 98.6 F 63 19 151/96 H 99 12/29/16 12:00 12/29/16 12:00 12/29/16 12:00 12/29/16 12:00 12/28/16 06:00 - Medications Medications: Current Medications Amlodipine Besylate (Norvasc) 10 mg PO DAILY [facility] Last Admin: 12/29/16 11:09 Dose: 10 mg Aspirin (Ecotrin) 81 mg PO DAILY [facility] Last Admin: 12/29/16 11:10 Dose: 81 mg Cyanocobalamin (Vitamin B12 100 Mcg Tab) 100 mcg PO DAILY [facility] Last Admin: 12/29/16 11:10 Dose: 100 mcg Donepezil HCl (Aricept) 10 mg PO DAILY [facility] Last Admin: 12/29/16 11:09 Dose: 10 mg Ferrous Sulfate (Feosol Liq) 300 mg PO TID [facility] Last Admin: 12/29/16 11:09 Dose: 300 mg Folic Acid (Folic Acid) 1 mg PO DAILY [facility] Last Admin: 12/29/16 11:09 Dose: 1 mg Insulin Human Regular (Humulin R Low) 0 units SC ACHS [facility] PRN Reason: Protocol Last Admin: 12/29/16 11:11 Dose: Not Given Levalbuterol HCl (Xopenex) 0.63 mg IH [id number] PRN PRN Reason: Shortness of Breath Levothyroxine Sodium (Synthroid) 112 mcg PO ACB [facility] Last Admin: 12/29/16 07:10 Dose: Not Given Pantoprazole Sodium (Protonix Ec Tab) 40 mg PO ACB [facility] Last Admin: 12/29/16 07:10 Dose: Not Given Zolpidem Tartrate (Ambien) 10 mg PO HS PRN; Protocol PRN Reason: Insomnia - Labs Labs: 12/29/16 05:35 12/29/16 05:35 PT 10.4 SECONDS (9.4-12.5) 12/26/16 20:30 INR 0.96 (0.93-1.08) 12/26/16 20:30 APTT 29.1 Seconds (25.1-36.5) 12/26/16 20:30 - Constitutional Appears: No Acute Distress - Head Exam Head Exam: ATRAUMATIC, NORMOCEPHALIC - Eye Exam Eye Exam: EOMI, PERRL - ENT Exam ENT Exam: Mucous Membranes Moist - Respiratory Exam Respiratory Exam: Clear to Ausculation Bilateral. absent: Rales, Rhonchi, Wheezes - Cardiovascular Exam Cardiovascular Exam: +S1, +S2. absent: Gallop, JVD, Rubs - GI/Abdominal Exam GI & Abdominal Exam: Soft. absent: Distended, Firm, Guarding, Rigid, Tenderness , Rebound - Neurological Exam Neurological Exam: Alert, Awake Additional comments: awake, alert, advanced dementia at baseline EOMI PERRL CN2-12 grossly intact upper extremity muscular hypertonicity bilateral lower extremity contracture gait deferred - Skin Skin Exam: Dry, Intact, Normal Color, Warm Assessment and Plan - Assessment and Plan (Free Text) Plan: 81yo female with history of HTN, COPD, advanced dementia, CHF, CAD and DM that originally presented to [facility] 12/12/16 with active GI bleed s/p endoscopic intervention and subsequently transferred to the TCU for physical rehabilitation. Thereafter transferred to the emergency room post [facility] for concerns of aspiration. Neurology consulted for evaluation of altered mental status. -Patient with advanced dementia presently appearing to be at her baseline per reports; No report of loss of consciousness, post-ictal like state or seizure- like episodes -CT Head reviewed which revealed no acute intracranial abnormalities -EEG reviewed; which revealed mild bcd with no evidence of seizure activity -Maintain systolic blood pressure between 120-130 to avoid transient cerebral hypoperfusion; patient had fluctuating BP's with significant drop -Monitor and correct electrolyte abnormalities as indicated; metabolic derangements may cause change in mental status -Aspiration and fall precautions -Avoid sedating medications -HOB>30' during feeding -Speech/swallow evaluation -Follow up GI recommendations regarding recent GI bleed -CXR reviewed; no definite evidence of acute cardiopulmonary pathology -Recommend physical therapy/occupational therapy evaluation and treatment -Continue present medical management as per primary team Patient seen and case to be discussed/reviewed with attending, Dr. Adkins <Stuart Adkins - Last Filed: 12/29/16 16:21> Objective - Vital Signs/Intake and Output Vital Signs (last 24 hours): Temp Pulse Resp BP Pulse Ox 98.6 F 63 19 151/96 H 99 12/29/16 12:00 12/29/16 12:00 12/29/16 12:00 12/29/16 12:00 12/28/16 06:00 Intake and Output: 12/29/16 12/29/16 06:59 18:59 Intake Total 600 Balance 600 - Medications Medications: Current Medications Amlodipine Besylate (Norvasc) 10 mg PO DAILY [facility] Last Admin: 12/29/16 11:09 Dose: 10 mg Aspirin (Ecotrin) 81 mg PO DAILY [facility] Last Admin: 12/29/16 11:10 Dose: 81 mg Cyanocobalamin (Vitamin B12 100 Mcg Tab) 100 mcg PO DAILY [facility] Last Admin: 12/29/16 11:10 Dose: 100 mcg Donepezil HCl (Aricept) 10 mg PO DAILY [facility] Last Admin: 12/29/16 11:09 Dose: 10 mg Ferrous Sulfate (Feosol Liq) 300 mg PO TID [facility] Last Admin: 12/29/16 11:09 Dose: 300 mg Folic Acid (Folic Acid) 1 mg PO DAILY [facility] Last Admin: 12/29/16 11:09 Dose: 1 mg Insulin Human Regular (Humulin R Low) 0 units SC ACHS [facility] PRN Reason: Protocol Last Admin: 12/29/16 11:11 Dose: Not Given Levalbuterol HCl (Xopenex) 0.63 mg IH [id number] PRN PRN Reason: Shortness of Breath Levothyroxine Sodium (Synthroid) 112 mcg PO ACB [facility] Last Admin: 12/29/16 07:10 Dose: Not Given Pantoprazole Sodium (Protonix Ec Tab) 40 mg PO ACB [facility] Last Admin: 12/29/16 07:10 Dose: Not Given Zolpidem Tartrate (Ambien) 10 mg PO HS PRN; Protocol PRN Reason: Insomnia - Labs Labs: 12/29/16 05:35 12/29/16 05:35 PT 10.4 SECONDS (9.4-12.5) 12/26/16 20:30 INR 0.96 (0.93-1.08) 12/26/16 20:30 APTT 29.1 Seconds (25.1-36.5) 12/26/16 20:30 Attending/Attestation - Attestation I have personally seen and examined this patient.: Yes I have fully participated in the care of the patient.: Yes I have reviewed all pertinent clinical information, including history, physical exam and plan: Yes
--- NOTE | 2016-12-29 13:32 | EEG ---
DATE: 12/29/2016 CONDITION OF THE RECORDING: History of altered mental status. PAST MEDICAL HISTORY: Hypertension, COPD, advanced dementia, coronary artery disease. MEDICATIONS: Ambien. DESCRIPTION: It is a lot of muscle artifact and reading through the artifacts, it is a unsatisfactory record and lot of beta activity and also mixed with theta activity and was seen in most of the record. No paroxysmal activity was seen in the record. IMPRESSION: Bilateral cerebral dysfunction, diffuse. May need a repeat electroencephalogram. Marko Adkins MD
--- NOTE | 2016-12-29 13:40 | EEG ---
DATE: 12/29/2016 DIAGNOSIS: Change in mental status. MEDICATIONS: Reviewed by nurse's reconciliation sheet. DESCRIPTION: This is a 16-channel international recording. The background activity of this tracing was composed of 6 to 7 cycles per second. There was a small amount of beta activity, 16 to 20 cycles per second seen in this regarding. There was increased amount of theta activity 5-7 cycles per second seen in this tracing. Drowsiness was characterized by mixed beta and theta activities. Sleep was characterized by vertex transient waves, sleep spindles, and bilateral slowing. Photic stimulation showed no change in the tracing. No paroxysmal activity is noted in this recording. CONCLUSION: Abnormal EEG due to presence of mild diffuse slowing throughout the recording consistent with mild bilateral cerebral dysfunction. No evidence of any epileptiform activity. Please clinically correlate. Stuart Adkins MD
[2016-12-29 17:43] VITALS: BP 124/61; PULSE 60; RESP 18; TEMP 98.1
--- NOTE | 2016-12-29 21:50 | PN ---
PULMONARY PROGRESS NOTE DATE: 12/29/2016 REFERRING PHYSICIAN: Colette Viera MD SUBJECTIVE: She is lying in the bed, head at 45 degrees. Night was unremarkable. On and off has a cough, especially after eating. No nausea, no vomiting, diarrhea. No leg pain or leg swelling. OBJECTIVE: GENERAL: In no acute distress. VITAL SIGNS: Temperature 98, heart rate 63, respiratory rate is 20, blood pressure 151/61, pulse ox 99% on nasal cannula. HEENT: Moist mucous membranes. Small oral cavity. Poor dentition. LUNGS: Has a fair airflow with few rhonchi. HEART: S1 and S2. ABDOMEN: Soft, nontender. No organomegaly. EXTREMITIES: There is no edema. NEUROLOGIC: Awake, alert, nonverbal, does not follow commands. MEDICATIONS: She is on Ambien 10 mg at bedtime p.r.n., Aricept 10 mg daily, Ecotrin 81 mg daily, ferrous sulfate 300 mg three times a day, folic acid 1 mg daily, insulin coverage, Norvasc 10 mg daily, Protonix 40 mg daily, Synthroid 112 mcg daily, vitamin B12 100 mcg daily, and Xopenex inhale q.6 hours. LABORATORY DATA: Shows hemoglobin 10.8, hematocrit 33.6, WBC 5.4, platelet count is 223. Sodium 143, potassium 4.2, chloride 113, bicarbonate 25, BUN 23, creatinine 0.7, glucose 119, calcium is 9.2, AST 41, ALT 40, alk phos is 62, albumin is 3.1. IMPRESSION AND PLAN: Status post rapid response almost 2 days ago after aspiration with respiratory insufficiency, has a severe dementia with oropharyngeal dysphagia, gastrointestinal bleed from ulcerated polyp requiring clipping, cardiomyopathy, cardiac arrhythmia. Off anticoagulation because of gastrointestinal bleed, on proton inhibitor. Also, continue SCD, aspiration precaution. Continue supplement ferrous sulfate and B12. Careful with platelet inhibitor, need to monitor closely. Thank you and we will follow with you. Dayana Simms MD
--- NOTE | 2016-12-29 21:57 | CP.PCM.DIS ---
<ZacDarlinfederico Luther - Last Filed: 12/29/16 21:54> Provider - Provider Date of Admission: 12/27/16 16:20 Attending physician: Colette Viera MD Primary care physician: Colette Viera MD Hospital Course - Lab Results Lab Results: Most Recent Lab Values WBC 5.4 10^3/ul (4.5-11.0) D 12/29/16 05:35 RBC 3.84 10^6/uL (3.5-6.1) 12/29/16 05:35 Hgb 10.8 g/dL (12.0-16.0) L 12/29/16 05:35 Hct 33.6 % (36.0-48.0) L 12/29/16 05:35 MCV 87.5 fl (80.0-105.0) 12/29/16 05:35 MCH 28.1 pg (25.0-35.0) 12/29/16 05:35 MCHC 32.1 g/dl (31.0-37.0) 12/29/16 05:35 RDW 26.3 % (11.5-14.5) H 12/29/16 05:35 Plt Count 223 10^3/uL (120.0-450.0) 12/29/16 05:35 MPV 9.1 fl (7.0-11.0) 12/29/16 05:35 PT 10.4 SECONDS (9.4-12.5) 12/26/16 20:30 INR 0.96 (0.93-1.08) 12/26/16 20:30 APTT 29.1 Seconds (25.1-36.5) 12/26/16 20:30 Sodium 143 mmol/L (132-148) 12/29/16 05:35 Potassium 4.2 mmol/L (3.6-5.0) 12/29/16 05:35 Chloride 113 mmol/L (98-107) H 12/29/16 05:35 Carbon Dioxide 25 mmol/L (21-33) 12/29/16 05:35 Anion Gap 9 (10-20) L 12/29/16 05:35 BUN 23 mg/dL (7-21) H 12/29/16 05:35 Creatinine 0.7 mg/dl (0.7-1.2) 12/29/16 05:35 Est GFR ( Amer) > 60 12/29/16 05:35 Est GFR (Non-Af Amer) > 60 12/29/16 05:35 POC Glucose (mg/dL) 119 mg/dL (65-110) H 12/29/16 16:11 Random Glucose 105 mg/dL (70-110) 12/29/16 05:35 Calcium 9.2 mg/dL (8.4-10.5) 12/29/16 05:35 Total Bilirubin 0.7 mg/dL (0.2-1.3) 12/29/16 05:35 AST 41 U/L (14-36) H D 12/29/16 05:35 ALT 40 U/L (7-56) 12/29/16 05:35 Alkaline Phosphatase 62 U/L (38-126) 12/29/16 05:35 Lactate Dehydrogenase 1741 U/L (333-699) H 12/26/16 22:25 Total Creatine Kinase 90 U/L (35-230) 12/26/16 22:25 Troponin I 0.04 ng/mL D 12/26/16 22:25 Total Protein 6.4 g/dL (5.8-8.3) 12/29/16 05:35 Albumin 3.1 g/dL (3.0-4.8) 12/29/16 05:35 Globulin 3.3 gm/dL 12/29/16 05:35 Albumin/Globulin Ratio 0.9 (1.1-1.8) L 12/29/16 05:35 Discharge Exam - Head Exam Head Exam: ATRAUMATIC, NORMOCEPHALIC - Eye Exam Eye Exam: Normal appearance - ENT Exam ENT Exam: Mucous Membranes Moist - Respiratory Exam Respiratory Exam: NORMAL BREATHING PATTERN - Cardiovascular Exam Cardiovascular Exam: REGULAR RHYTHM - GI/Abdominal Exam GI & Abdominal Exam: Normal Bowel Sounds, Soft - Extremities Exam Additional comments: contracted BLE - Neurological Exam Additional comments: Demented, Aphasic. - Psychiatric Exam Psychiatric exam: Normal Affect, Normal Mood - Skin Skin Exam: Normal Color Discharge Plan - Follow Up Plan Condition: GOOD Disposition: HOME/ ROUTINE Instructions: Alzheimer Disease (GEN), Aphasia (GEN), Dementia (GEN), Cholesterol and Your Health (GEN), Chronic Dysphagia (GEN) Additional Instructions: Patient discharge instructions: continue home medications. Follow up with primary care physician next week. Continue to utilize heel pillows and turn/ reposition patient every two hours. If condition occurs again, go to the nearest emergency room. Diet: Puree diet with thin liquids. Please keep head of bed elevated at 90 degrees during and after meals. Referrals: Colette Viera MD [Primary Care Provider] - <Colette Viera - Last Filed: 12/31/16 09:21> Provider - Provider Date of Admission: 12/27/16 16:20 Attending physician: Colette Viera MD Primary care physician: Colette Viera MD Time Spent in preparation of Discharge (in minutes): 60 Hospital Course - Lab Results Lab Results: Most Recent Lab Values WBC 5.4 10^3/ul (4.5-11.0) D 12/29/16 05:35 RBC 3.84 10^6/uL (3.5-6.1) 12/29/16 05:35 Hgb 10.8 g/dL (12.0-16.0) L 12/29/16 05:35 Hct 33.6 % (36.0-48.0) L 12/29/16 05:35 MCV 87.5 fl (80.0-105.0) 12/29/16 05:35 MCH 28.1 pg (25.0-35.0) 12/29/16 05:35 MCHC 32.1 g/dl (31.0-37.0) 12/29/16 05:35 RDW 26.3 % (11.5-14.5) H 12/29/16 05:35 Plt Count 223 10^3/uL (120.0-450.0) 12/29/16 05:35 MPV 9.1 fl (7.0-11.0) 12/29/16 05:35 PT 10.4 SECONDS (9.4-12.5) 12/26/16 20:30 INR 0.96 (0.93-1.08) 12/26/16 20:30 APTT 29.1 Seconds (25.1-36.5) 12/26/16 20:30 Sodium 143 mmol/L (132-148) 12/29/16 05:35 Potassium 4.2 mmol/L (3.6-5.0) 12/29/16 05:35 Chloride 113 mmol/L (98-107) H 12/29/16 05:35 Carbon Dioxide 25 mmol/L (21-33) 12/29/16 05:35 Anion Gap 9 (10-20) L 12/29/16 05:35 BUN 23 mg/dL (7-21) H 12/29/16 05:35 Creatinine 0.7 mg/dl (0.7-1.2) 12/29/16 05:35 Est GFR ( Amer) > 60 12/29/16 05:35 Est GFR (Non-Af Amer) > 60 12/29/16 05:35 POC Glucose (mg/dL) 119 mg/dL (65-110) H 12/29/16 16:11 Random Glucose 105 mg/dL (70-110) 12/29/16 05:35 Calcium 9.2 mg/dL (8.4-10.5) 12/29/16 05:35 Total Bilirubin 0.7 mg/dL (0.2-1.3) 12/29/16 05:35 AST 41 U/L (14-36) H D 12/29/16 05:35 ALT 40 U/L (7-56) 12/29/16 05:35 Alkaline Phosphatase 62 U/L (38-126) 12/29/16 05:35 Lactate Dehydrogenase 1741 U/L (333-699) H 12/26/16 22:25 Total Creatine Kinase 90 U/L (35-230) 12/26/16 22:25 Troponin I 0.04 ng/mL D 12/26/16 22:25 Total Protein 6.4 g/dL (5.8-8.3) 12/29/16 05:35 Albumin 3.1 g/dL (3.0-4.8) 12/29/16 05:35 Globulin 3.3 gm/dL 12/29/16 05:35 Albumin/Globulin Ratio 0.9 (1.1-1.8) L 12/29/16 05:35 - Hospital Course Hospital Course: pt was admitted for upper gi bleeding , gi consult called , endo done , pt stabilized , h/h was stable . d/d with family , rehab offered , refuse by family , dc home
== END 2016-12-29 18:41 | disposition home or self-care (01) | DRG 378 ==
LOC: ED 19:54 → ERH 23:28 → 2RSO 12-27 00:37 → OBSVTOIN 12-27 16:20
PROVIDERS: ADMIT Internal Medicine; ATTEND Internal Medicine
DX: K25.4 Chronic or unspecified gastric ulcer with hemorrhage (principal); I42.9 Cardiomyopathy, unspecified; E87.5 Hyperkalemia; R06.89 Other abnormalities of breathing; I11.0 Hypertensive heart disease with heart failure; I50.9 Heart failure, unspecified; R13.12 Dysphagia, oropharyngeal phase; I48.0 Paroxysmal atrial fibrillation; G30.9 Alzheimer's disease, unspecified; F32.9 Major depressive disorder, single episode, unspecified; F02.80 Dementia in other diseases classified elsewhere, unspecified severity, without behavioral disturbance, psychotic disturbance, mood disturbance, and anxiety; R55 Syncope and collapse; K31.7 Polyp of stomach and duodenum; I08.3 Combined rheumatic disorders of mitral, aortic and tricuspid valves; D64.9 Anemia, unspecified; E11.9 Type 2 diabetes mellitus without complications; J44.9 Chronic obstructive pulmonary disease, unspecified; E03.9 Hypothyroidism, unspecified; I25.10 Atherosclerotic heart disease of native coronary artery without angina pectoris; I27.20 Pulmonary hypertension, unspecified; Z95.5 Presence of coronary angioplasty implant and graft; Z79.4 Long term (current) use of insulin; Z86.718 Personal history of other venous thrombosis and embolism; Z86.711 Personal history of pulmonary embolism; Z87.440 Personal history of urinary (tract) infections

== ENCOUNTER 2017-12-17 13:05 | Inpatient (IN) | payer MEDICAID, MEDICARE ==
[2017-12-17 13:05] VITALS: PULSE 81
[2017-12-17] MEDS ORDERED: Sodium Chloride 0.9% 1,000 ML IV SCH ×3 (15:30→23:30)
--- NOTE | 2017-12-17 16:16 | RAD ---
Date of service: 12/17/2017 HISTORY: cough COMPARISON: 12/26/2016 FINDINGS: LUNGS: No active pulmonary disease. PLEURA: No significant pleural effusion identified, no pneumothorax apparent. CARDIOVASCULAR: Aortic calcification Normal cardiac size. No pulmonary vascular congestion. OSSEOUS STRUCTURES: No significant abnormalities. VISUALIZED UPPER ABDOMEN: Normal. OTHER FINDINGS: None. IMPRESSION: No active disease.
[2017-12-17 17:03] LABS: BASO # 0.01 K/mm3 (0.0-2.0); BASO % 0.1 % (0.0-3.0); EOS # 0.1 (0.0-0.7); EOS % 0.7 % (1.5-5.0); GRAN # 5.88 (1.4-6.5); HEMOGLOBIN 13.5 g/dL (12.0-16.0); LYMPH # 1.7 (1.2-3.4); LYMPH % 21.3 % (22.0-35.0); MEAN CELL VOLUME 97.2 fl (80.0-105.0); MEAN CORPUSCULAR HEMOGLOBIN 31.5 pg (25.0-35.0); MEAN CORPUSCULAR HGB CONC 32.5 g/dl (31.0-37.0); MEAN PLATELET VOLUME 10.9 fl (7.0-11.0); MONO # 0.5 (0.1-0.6); MONO % 5.9 % (1.0-6.0); RBC 4.28 10^6/uL (3.5-6.1); RED CELL DISTRIBUTION WIDTH 14.1 % (11.5-14.5); WHITE BLOOD COUNT 8.2 10^3/uL (4.5-11.0)
[2017-12-17 17:04] LABS: VENOUS BLOOD GAS BASE EXCESS 3.8 mmol/L (0.0-2.0); VENOUS BLOOD GAS PO2 55 mm/Hg (30-55); VENOUS BLOOD PH 7.41 (7.32-7.43)
--- NOTE | 2017-12-17 17:07 | CARD ---
APPROVED REPORT Date of service: 12/17/2017 EKG Measurement Heart [id number] <Conclusion> Possible NSR with prolong NE,( first degree) Vs Accelerated Junctional rhythm Incomplete LBBB Left axis deviation Anterolateral infarct, age undetermined Abnormal ECG
[2017-12-17 17:08] LABS: INR 1.02; PARTIAL THROMBOPLASTIN TIME 27.3 Seconds (25.1-36.5); PROTHROMBIN TIME 11.6 SECONDS (9.4-12.5)
[2017-12-17 17:34] LABS: TROPONIN I 0.02 ng/mL
[2017-12-17 17:36] LABS: ALBUMIN 3.2 g/dL (3.0-4.8); CALCIUM 9.9 mg/dL (8.4-10.5)
--- NOTE | 2017-12-17 19:45 | ED PDOC ---
Arrival/HPI - General Chief Complaint: ENT Problem Time Seen by Provider: 12/17/17 13:20 Historian: Family EM Caveat: Dementia - History of Present Illness Narrative History of Present Illness (Text): 12/17/17 15:24 82 year old female whose past medical history includes Alzheimer's disease, dementia, CHF, COPD, diabetes, and hypothyroidism, who presents to the Emergency department with her daughter for one week of dysphagia, weight loss, and coughs. Patient is nonverbal and bed bound, who lives with her son. Per daughter, for the past 3 weeks she has had decreased appetite, generalized weakness, and weight loss, which has worsened this week with associated dysphagia and coughs. Of note daughter states that the only time the patient has moved is when she was lifted to be placed in a wheelchair. Patient doesn't have shortness of breath, vomiting, or diarrhea. PMD: Dr.Akhtar FERGUSON and ROS limited due to patient's dementia and being nonverbal. Time/Duration: > week Symptom Onset: Gradual Symptom Course: Worsening Context: Home Past Medical History - Provider Review Nursing Documentation Reviewed: Yes - Infectious Disease Hx of Infectious Diseases: None - Tetanus Immunization Tetanus Immunization: Unknown - Reproductive Menopause: Yes - Cardiac Hx Cardiac Disorders: Yes Hx Cardiac Arrhythmia: Yes Hx Congestive Heart Failure: Yes Hx Peripheral Edema: Yes - Pulmonary Hx Respiratory Disorders: Yes Hx Chronic Obstructive Pulmonary Disease (COPD): Yes - Neurological Hx Neurological Disorder: Yes Hx Alzheimer's Disease: Yes Hx Dementia: Yes - HEENT Hx HEENT Disorder: No - Renal Hx Renal Disorder: No - Endocrine/Metabolic Hx Diabetes Mellitus Type 2: Yes Hx Hypothyroidism: Yes - Hematological/Oncological Hx Blood Transfusions: Yes (12/11/16) Hx Blood Transfusion Reaction: No - Integumentary Hx Dermatological Disorder: Yes Other/Comment: bilateral heels/feet - Musculoskeletal/Rheumatological Hx Falls: No Hx Unsteady Gait: Yes - Gastrointestinal Other/Comment: inguinal hernia repair - Genitourinary/Gynecological Hx Hematuria: Yes Hx Incontinence: Yes Hx Urinary Tract Infection: Yes - Psychiatric Hx Psychophysiologic Disorder: Yes Hx Depression: Yes Hx Substance Use: No - Past Surgical History Past Surgical History: Unable to Obtain - Surgical History Hx Coronary Stent: Yes - Anesthesia Hx Anesthesia Reactions: No Hx Malignant Hyperthermia: No - Suicidal Assessment Feels Threatened In Home Enviroment: No Family/Social History - Physician Review Nursing Documentation Reviewed: Yes Family/Social History: Unknown Family HX Smoking Status: Unknown If Ever Smoked Hx Alcohol Use: No Hx Substance Use: No Hx Substance Use Treatment: No Allergies/Home Meds Allergies/Adverse Reactions: Allergies No Known Allergies Allergy (Verified 03/30/16 16:18) Home Medications: Home Meds Medication Instructions Recorded Confirmed risperiDONE [RisperDAL Tab] 0.25 mg PO Q8 11/30/14 12/26/16 Simvastatin 80 mg PO DAILY 10/07/15 12/26/16 Alprazolam [Xanax] 0.5 mg PO BID 01/12/16 12/26/16 Donepezil [Aricept] 10 mg PO DAILY 01/12/16 12/26/16 amLODIPine [Norvasc] 10 mg PO DAILY 01/12/16 12/26/16 Apixaban [Eliquis] 5 mg PO BID 12/11/16 12/26/16 Clobetasol 0.05% [Temovate] 60 gm TP BID 12/11/16 12/26/16 Clopidogrel [Plavix] 75 mg PO DAILY 12/11/16 12/26/16 Review of Systems - Review of Systems Systems not reviewed;Unavailable: Dementia ENT: Other (dysphagia) Respiratory: Cough. absent: SOB Gastrointestinal: Appetite Changes. absent: Diarrhea, Vomiting Physical Exam Vital Signs Reviewed: Yes Vital Signs Temp Pulse Resp BP Pulse Ox 12/17/17 18:27 98.4 F 95 H 18 118/62 100 12/17/17 14:05 98.1 F 94 H 18 122/59 L 95 Temperature: Afebrile Blood Pressure: Normal Pulse: Regular Respiratory Rate: Normal Appearance: Positive for: Cachectic Mental Status: Positive for: other (Alert and responds to painful stimuli.) Finger Stick Blood Glucose: 103 - Systems Exam Head: Present: Atraumatic, Normocephalic Pupils: Present: PERRL Extroacular Muscles: Present: EOMI Conjunctiva: Present: Normal Mouth: Present: Dry Neck: Present: Normal Range of Motion Respiratory/Chest: Present: Clear to Auscultation, Good Air Exchange. No: Respiratory Distress, Accessory Muscle Use Cardiovascular: Present: Regular Rate and Rhythm, Normal S1, S2. No: Murmurs Abdomen: No: Tenderness, Distention, Peritoneal Signs Back: Present: Normal Inspection Upper Extremity: Present: Normal Inspection. No: Cyanosis, Edema Lower Extremity: Present: Normal Inspection. No: Edema Neurological: Present: GCS=15, CN II-XII Intact, Speech Normal Skin: Present: Warm, Dry, Other (Bed sores on each buttock, R buttock is stage 1 decubitus, L buttock has a stage 2 decubitus ulcer. Both bedsores were examined by PA and FOOD AND DRUG RESEARCH SCIENTIST. ). No: Rashes Psychiatric: Present: Alert. No: Oriented x 3 Medical Decision Making ED Course and Treatment: 12/17/17 15:24 Impression: 82 year old female with Alzheimer's and dementia who has had reduced appetite and generalized weakness for the past 3 weeks, and dysphagia and coughs for the past week. Differential Diagnosis included but are not limited to: Plan: -- VBG -- Blood work -- Cardiac enzyme -- Labs -- Blood and urine culture -- Urinalysis -- Reassess and disposition Prior Visits: Notes and results from previous visits were reviewed. Patient was last seen in the emergency department on Progress Notes: CXR : NAD. EKG: Junctional rhythm at 88 bpm with LAD, (-) acute ST changes. Labs reviewed : patient noted to be hypernatremic with severe dehydration. On re-evaluation, patient is laying in bed comfortably in no acute distress, breathing easy and unlabored. Case d/w Dr. Viera, agrees with plan to admit with consult to Dr. Galaviz. Plan for admission d/w the family member and lab results d/w them. - Lab Interpretations Lab Results: 12/17/17 16:55 12/17/17 16:55 Lab Results 12/17/17 16:55: PT 11.6, INR 1.02, APTT 27.3 12/17/17 16:55: Sodium 155 H, Chloride 123 H, Potassium 3.4 L, Carbon Dioxide 27, Anion Gap 8 L, BUN 60 H, Creatinine 1.3 H, Est GFR ( Amer) 48, Est GFR (Non-Af Amer) 39, Random Glucose 93, Calcium 9.9, Magnesium 2.8 H, Total Bilirubin 0.6, AST 31, ALT 18, Alkaline Phosphatase 79, Lactate Dehydrogenase 494, Total Creatine Kinase 105, Troponin I 0.02 D, NT-Pro-B Natriuret Pep 390, Total Protein 6.5, Albumin 3.2, Globulin 3.3, Albumin/Globulin Ratio 1.0 L 12/17/17 16:55: pO2 55, VBG pH 7.41, VBG pCO2 46.0, VBG HCO3 29.2 H, VBG Total CO2 30.6 H, VBG O2 Sat (Calc) 92.1 H, VBG Base Excess 3.8 H, VBG Potassium 3.6, Sodium 160.0 H*, Chloride 123.0 H, Glucose 91, Lactate 1.6, FiO2 21.0, Venous Blood Potassium 3.6 12/17/17 16:55: WBC 8.2, RBC 4.28, Hgb 13.5 D, Hct 41.6, MCV 97.2 D, MCH 31.5, MCHC 32.5, RDW 14.1, Plt Count 186, MPV 10.9, Gran % 72.0 H, Lymph % (Auto) 21.3 L, [place] % (Auto) 5.9, Eos % (Auto) 0.7 L, Baso % (Auto) 0.1, Gran # 5.88, Lymph # (Auto) 1.7, [place] # (Auto) 0.5, Eos # (Auto) 0.1, Baso # (Auto) 0.01 - RAD Interpretation Radiology Orders: 12/17/17 15:25 CHEST PORTABLE [RAD] Stat - Medication Orders Current Medication Orders: Apixaban (Eliquis) 5 mg PO BID [facility]; Protocol Donepezil HCl (Aricept) 10 mg PO HS [facility] Hydralazine HCl (Apresoline) 10 mg IVP Q6H PRN PRN Reason: for sbp>170 Sodium Chloride (Sodium Chloride 0.9%) 1,000 mls @ 500 mls/hr IV .Q2H [facility] Last Admin: 12/17/17 16:51 Dose: 500 mls/hr eMAR Start Stop Document 12/17/17 16:51 BB (Rec: 12/17/17 16:51 BB [id number]) Intravenous Solution Start Date 12/17/17 Start Time 16:51 End Date 12/17/17 Sodium Chloride (Sodium Chloride 0.45%) 1,000 mls @ 100 mls/hr IV .Q10H [facility] Stop: 12/18/17 08:00 Sodium Chloride (Sodium Chloride 0.45%) 1,000 mls @ 50 mls/hr IV .Q20H [facility] Potassium Chloride (Potassium Chloride 20 Meq/100 Ml) 20 meq in 100 mls @ 50 ml s/hr IVPB ONCE ONE Stop: 12/17/17 21:36 Levothyroxine Sodium (Synthroid) 112 mcg PO ACB [facility] Risperidone (Risperdal Tab) 0.25 mg PO Q8 [facility]; Protocol - PA / PROFESSIONAL SKATER / Resident Statement MD/DO has reviewed & agrees with the documentation as recorded. - Scribe Statement The provider has reviewed the documentation as recorded by the Scribe Richard Todd Provider Scribe Attestation: All medical record entries made by the Scribe were at my direction and personally dictated by me. I have reviewed the chart and agree that the record accurately reflects my personal performance of the history, physical exam, medical decision making, and the department course for this patient. I have also personally directed, reviewed, and agree with the discharge instructions and disposition. Disposition/Present on Arrival - Present on Arrival Any Indicators Present on Arrival: Yes History of DVT/PE: Yes History of Uncontrolled Diabetes: Yes Urinary Catheter: No History of Decub. Ulcer: Yes History Surgical Site Infection Following: None - Disposition Have Diagnosis and Disposition been Completed?: Yes Diagnosis: Dehydration, Hypernatremia Disposition: HOSPITALIZED Disposition Time: 18:12 Patient Plan: Admission Patient Problems: Current Active Problems Problem Status Onset Dehydration Acute Hypernatremia Acute Condition: FAIR
[2017-12-17] MEDS: Sodium Chloride 0.45% 1,000 ML IV SCH (20:11)
--- NOTE | 2017-12-17 21:53 | CON ---
DATE: 12/17/2017 CONSULT SERVICE: Cardiology. REASON FOR CONSULTATION: History of coronary artery disease, cardiac evaluation, admitted with failure to thrive, dehydration, inability to eat for a couple of days. The patient is demented, unable to give history. No family member at the time is available. BRIEF CLINICAL HISTORY: This is an 82-year-old female with past medical history significant for coronary artery disease, status post stent in the remote; hypertension; COPD; diabetes; Alzheimer's dementia; at one point, the patient had PEG placement, which later on removed; history of GI bleed in the past, admitted this time because of failure to thrive, inability to eat for a couple of days, was brought here by the family member. The patient is unable to give any history, not in apparent distress, lying on ER bed 19. PAST MEDICAL HISTORY: Significant for hypothyroidism; dementia; coronary artery disease, status post stent in the past; history of paroxysmal atrial fibrillation; VRE; anemia; hypertension; history of DVT, status post IVC filter; history of multiple stents in the past, many years ago. Recent cardiac workup as follows: The patient had echocardiography done on 12/12/2016 that revealed trace aortic regurgitation, trace mitral regurgitation, mild tricuspid regurgitation, RV systolic pressure 49. The patient had a last EKG dated 12/26/2016, normal sinus, left bundle-branch block. Prior to that, the patient had an echo on 07/07/2014, that showed ejection fraction of 55% to 60%, mild to moderate tricuspid regurg, RV systolic pressure of 46. REVIEW OF SYSTEMS: As per HPI. CURRENT MEDICATIONS: The patient is taking at home: Risperdal, Norvasc, Ambien, simvastatin, Neutra-Phos one pack three times a day, lisinopril 20 mg daily, levothyroxine, cyanocobalamin, clopidogrel, Eliquis 5 mg p.o. twice a day. PHYSICAL EXAMINATION GENERAL: Height of the patient is 5 feet and 4 inches, weight of the patient is 100 pounds, and body mass index is 17.2 kg per meter square. VITAL SIGNS: Temperature afebrile, heart rate 95, blood pressure 118/62. HEENT: PERRLA. Extraocular muscles are intact. NECK: Supple. No carotid bruit or thyromegaly. CHEST: Clear to auscultation. HEART: S1 and S2, regular. ABDOMEN: Soft. EXTREMITIES: Clubbing and cyanosis negative. LABORATORY DATA: WBC is 8.8, hemoglobin 13.5, hematocrit 41.6, platelet count 186. Chemistry shows sodium 155, potassium 3.4, chloride 123, carbon dioxide 27, anion gap of 8, BUN 16, creatinine 1.3. Troponin 0.2. Chest x-ray essentially normal. No acute process noted. EKG showed either prolonged, first-degree, FL, incomplete left bundle, versus accelerate junctional. IMPRESSION: An 82-year-old female with a history of advanced dementia, brought by the family because of failure to thrive and inability to eat or drink, rule out urinary tract infection, rule out progression of the disease; history of coronary artery disease, history of a stent many years ago; history of gastrointestinal bleed in the past; history of paroxysmal atrial fibrillation; history of vancomycin-resistant enterococcal urinary tract infection; history of anemia; hypertension; history of deep venous thrombosis, extensive; history of inferior vena cava filter; status post multiple percutaneous transluminal coronary angioplasties, on Eliquis at home. Last echocardiogram shows ejection fraction preserved, mild mitral insufficiency and mild tricuspid insufficiency. Ulcers on the heel. The patient at this time is admitted with hypernatremia. RECOMMENDATIONS: We will start IV fluid, hold p.o. medication, not sure about the swallowing evaluation. We will get echo to assess LV function, lipid profile, TSH, hemoglobin A1c, blood culture and urine culture to rule out sepsis. We will follow with you. Thank you, Dr. Viera, for providing us the opportunity in taking care of the patient. Dayana Steward MD
[2017-12-17 23:38] VITALS: BMI 17.2
[2017-12-18 01:17] LABS: HDL CHOLESTEROL 29 mg/dL (29-60)
[2017-12-18 01:22] LABS: IRON 41 ug/dL (45-180)
[2017-12-18 01:28] LABS: LDL CHOLESTEROL 109 mg/dL (0-129)
[2017-12-18 01:31] LABS: % IRON SATURATION 22 % (20-55); TOTAL IRON BINDING CAPACITY 186 ug/dL (265-497)
--- NOTE | 2017-12-18 03:02 | HP ---
DATE OF EXAM:12/17/17 CHIEF COMPLAINT: Fatigue and tired. HISTORY OF PRESENT ILLNESS: Ms. Marge Still is an 82-year-old female with past medical history of dementia, congestive heart failure, COPD, hypothyroidism, came to the emergency room with daughter , dysphagia, weight loss, coughing, feeling fatigue and tired. The patient is nonverbal and bed bound. Lives with Son, Dr. Harrington. The patient's appetite is decreasing, worsening this week associated with dysphagia and cough, has decubitus ulcer on the back, sometimes having shortness of breath. PAST MEDICAL HISTORY: As above. Congestive heart failure, peripheral edema, COPD, dementia, diabetes mellitus type 2, hypothyroidism, bilateral heel pain, inguinal hernia, hematuria, incontinence, urinary tract infection, depression, and coronary stenting. FAMILY HISTORY: Father and mother, noncontributory. HABITS: Never smoked. No drug. No ethanol. ALLERGIES: THE PATIENT IS NOT ALLERGIC WITH ANY MEDICATION. HOME MEDICATIONS: Reviewed by me. Risperdal, simvastatin, Xanax, Aricept, Norvasc, Eliquis, and Plavix. REVIEW OF SYSTEMS: The patient is seen and examined at the bedside in the emergency room, sometimes coughing with shortness of breath, appetite. No fever. No chills. No hematuria or hematochezia. No swelling of the legs. PHYSICAL EXAMINATION VITAL SIGNS: Temperature 98.4, pulse 95, respiratory rate 18, blood pressure 118/62, pulse oximetry 100. HEENT: Head is normocephalic, atraumatic. Eyes; PERRLA. Extraocular muscles intact. Conjunctivae clear. Nose patent. NECK: Supple. No carotid bruit. No JVD or thyromegaly. CHEST: Bilaterally symmetrical. HEART: S1 and S2 positive. LUNGS: Clear to auscultation. ABDOMEN: Soft. Bowel sounds positive. No organomegaly. EXTREMITIES: No edema. No cyanosis. NEUROLOGIC: The patient is awake and alert, but is confused. LABORATORY DATA: White blood cells 20, hemoglobin 13.5, hematocrit 41.4. Sodium 155, potassium 3.4, BUN 16, creatinine 1.3, glucose 93. ASSESSMENT AND PLAN: Ms. Marge Still is an 82-year-old female with hypernatremia, hypokalemia, renal insufficiency, hyperchloremia, has dehydration, feeling fatigue and tired, has history of deep venous thrombosis and pulmonary embolism, uncontrolled diabetes mellitus, sacral decubitus ulcer, history of advanced dementia, congestive heart failure, chronic obstructive pulmonary disease, hypothyroidism. We admitted the patient and started on IV fluids, started home medications. Gastrointestinal and deep venous thrombosis prophylaxis. Repeat labs. We will follow. Colette Viera MD MTDD
[2017-12-18 06:34] LABS: EOS # 0.1 (0.0-0.7); EOS % 0.7 % (1.5-5.0); GRAN # 6.12 (1.4-6.5); GRAN % 73.4 % (50.0-68.0); HEMOGLOBIN 11.6 g/dL (12.0-16.0); LYMPH # 1.6 (1.2-3.4); LYMPH % 19.1 % (22.0-35.0); MEAN CELL VOLUME 96.8 fl (80.0-105.0); MEAN CORPUSCULAR HEMOGLOBIN 30.8 pg (25.0-35.0); MEAN CORPUSCULAR HGB CONC 31.8 g/dl (31.0-37.0); MEAN PLATELET VOLUME 10.6 fl (7.0-11.0); MONO # 0.6 (0.1-0.6); MONO % 6.8 % (1.0-6.0); RBC 3.77 10^6/uL (3.5-6.1); WHITE BLOOD COUNT 8.3 10^3/uL (4.5-11.0)
[2017-12-18 06:42] LABS: LDL CHOLESTEROL 95 mg/dL (0-129)
[2017-12-18 06:46] LABS: ALB/GLOB RATIO 0.9 (1.1-1.8); ALBUMIN 2.7 g/dL (3.0-4.8); ALT/SGPT 27 U/L (7-56); AST/SGOT 24 U/L (14-36); BLOOD UREA NITROGEN 36 mg/dL (7-21); CALCIUM 9.2 mg/dL (8.4-10.5); GFR NON-AFRICAN AMERICAN > 60; HDL CHOLESTEROL 27 mg/dL (29-60)
[2017-12-18] MEDS: Insulin Reg-LOW-Coverage SC SCH ×4 (07:22→22:48)
--- NOTE | 2017-12-18 07:49 | CP.PCM.PN ---
Subjective - Date & Time of Evaluation Date of Evaluation: 12/18/17 Time of Evaluation: 06:45 - Subjective Subjective: awake, alert, no distress Reason for consultation and follow up: Cardiac evaluation of coronary artery disease, admitted for failure to thrive,dehydration Seen and examined by me and Dr. Steward Objective - Vital Signs/Intake and Output Vital Signs (last 24 hours): Temp Pulse Resp BP Pulse Ox 98.9 F 86 20 118/74 98 12/17/17 22:04 12/17/17 22:04 12/17/17 22:04 12/17/17 22:04 12/17/17 22:04 Intake and Output: 12/18/17 12/18/17 06:59 18:59 Intake Total 1200 Balance 1200 - Medications Medications: Current Medications Alprazolam (Xanax) 0.5 mg PO BID [facility]; Protocol Amlodipine Besylate (Norvasc) 10 mg PO DAILY [facility] Apixaban (Eliquis) 5 mg PO BID [facility]; Protocol Atorvastatin Calcium (Lipitor) 40 mg PO DAILY [facility] Clobetasol Propionate (Temovate 0.05%) 0 gm TOP BID [facility] Clopidogrel Bisulfate (Plavix) 75 mg PO DAILY [facility] Cyanocobalamin (Vitamin B12 1000 Mcg/Ml Inj) 1,000 mcg IM DAILY [facility] Donepezil HCl (Aricept) 10 mg PO HS [facility] Last Admin: 12/17/17 22:22 Dose: 10 mg Hydralazine HCl (Apresoline) 10 mg IVP Q6H PRN PRN Reason: for sbp>170 Sodium Chloride (Sodium Chloride 0.9%) 1,000 mls @ 500 mls/hr IV .Q2H [facility] Last Admin: 12/17/17 16:51 Dose: 500 mls/hr Sodium Chloride (Sodium Chloride 0.45%) 1,000 mls @ 100 mls/hr IV .Q10H [facility] Stop: 12/18/17 08:00 Last Admin: 12/17/17 20:11 Dose: 100 mls/hr Sodium Chloride (Sodium Chloride 0.45%) 1,000 mls @ 50 mls/hr IV .Q20H [facility] Iron Sucrose 100 mg/ Sodium (Chloride) 105 mls @ 210 mls/hr IVPB DAILY [facility] Sodium Chloride (Sodium Chloride 0.9%) 1,000 mls @ 100 mls/hr IV .Q10H [facility] Insulin Human Regular (Humulin R Low) 0 units SC ACHS [facility]; Protocol Levothyroxine Sodium (Synthroid) 112 mcg PO ACB [facility] Lisinopril (Zestril) 20 mg PO DAILY [facility] Pantoprazole Sodium (Protonix Ec Tab) 40 mg PO ACB [facility] Potassium Phos/Sodium Phos (Neutra-Phos) 1 pkt PO TID [facility] Risperidone (Risperdal Tab) 0.25 mg PO Q8 [facility]; Protocol Last Admin: 12/18/17 05:22 Dose: 0.25 mg Zolpidem Tartrate (Ambien) 10 mg PO HS PRN; Protocol PRN Reason: Insomnia - Labs Labs: 12/18/17 06:00 12/18/17 06:00 PT 11.6 SECONDS (9.4-12.5) 12/17/17 16:55 INR 1.02 12/17/17 16:55 APTT 27.3 Seconds (25.1-36.5) 12/17/17 16:55 - Constitutional Appears: Non-toxic, No Acute Distress - Head Exam Head Exam: NORMAL INSPECTION, NORMOCEPHALIC - Eye Exam Eye Exam: Normal appearance - ENT Exam ENT Exam: Mucous Membranes Dry - Respiratory Exam Respiratory Exam: Decreased Breath Sounds, Clear to Ausculation Bilateral, NORMAL BREATHING PATTERN - Cardiovascular Exam Cardiovascular Exam: +S1, +S2 Additional comments: No JVD - GI/Abdominal Exam GI & Abdominal Exam: Soft, Normal Bowel Sounds - Exam Additional comments: incontinent - Extremities Exam Extremities Exam: Normal Capillary Refill Additional comments: bed bound - Neurological Exam Neurological Exam: Alert, Awake Additional comments: demented,non verbal - Psychiatric Exam Psychiatric exam: Flat Affect - Skin Skin Exam: Dry, Normal Color, Warm Assessment and Plan - Assessment and Plan (Free Text) Assessment: A 82 year old female who was brought in to the ER due to failure to thrive. Unable to eat, generalized weakness for the past few weeks. History of coronary artery disease, post stent, hypertension, COPD, diabetes, Alzheimer's disease, dementia, DVT with IVC filter,hypothyroidism,atrial fibrillation, VRE, anemia. Patient non-verbal and bed bound. Plan: No distress, patient non-verbal Swallowing evaluation Controlled heart rate Controlled blood pressure Cardiac status stable Continue IV hydration Continue current treatment Keep NPO, awaits swallowing evaluation Will follow up Further recommendation during hospital course Plan and treatment discussed with Dr. Steward
[2017-12-18] MEDS ORDERED: Sodium Chloride 0.45% 1,000 ML IV SCH ×2 (08:00→09:52)
[2017-12-18] MEDS: Levothyroxine 112 MCG TAB PO SCH (09:30)
[2017-12-18] MEDS: Pantoprazole 40 mg EC Tab PO SCH (09:30)
[2017-12-18] MEDS: Potassium & Sodium Phosphate PO SCH ×3 (09:31→18:49)
[2017-12-18] MEDS ORDERED: Iron Sucrose 100 mg/5 ml Inj IVPB SCH (10:00)
[2017-12-18] MEDS: Clobetasol 0.05% Cream(30 gm) TOP SCH ×2 (10:18→18:19)
--- NOTE | 2017-12-18 11:23 | PN ---
DATE: 12/18/2017 REASON FOR CONSULTATION AND FOLLOWUP: Cardiac evaluation, history of coronary artery disease, admitted with failure to thrive. Today's lab improved. Chemistry shows decreased BUN and creatinine. Currently on IV fluid and so far blood culture is pending. This note is addition to note dictated by our nurse practitioner. IMPRESSION AND PLAN: In summary, this is an 82-year-old female with past medical history significant for advanced dementia, history of coronary artery disease, history of paroxysmal atrial fibrillation, history of deep venous thrombosis. In the past, admitted with failure to thrive. Currently on IV fluid 100 mL of half normal and now changed to 50 mL an hour. Patient is on clear liquid diet and resume medication for Eliquis, atorvastatin and Neutra-Phos. We will repeat the lab in the morning. We will get echo to assess LV function. Thank you Dr. Viera for providing us the opportunity in taking care of the patient, Marge Still. Dayana Steward MD
--- NOTE | 2017-12-18 12:38 | CARD ---
APPROVED REPORT Date of service: 12/18/2017 EXAM: Two-dimensional and M-mode echocardiogram with Doppler and color Doppler. INDICATION CAD 2D DIMENSIONS Left Atrium (2D)2.1 (1.6-4.0cm)IVSd0.9 (0.7-1.1cm) LVDd3.1 (3.9-5.9cm)PWd0.8 (0.7-1.1cm) LVDs2.1 (2.5-4.0cm)FS (%) 30.2 % LVEF (%)59.1 (>50%) M-Mode DIMENSIONS Aortic Root2.00 (2.2-3.7cm)Aortic Cusp Exc.0.70 (1.5-2.0cm) Aortic Valve AoV Peak Lmjxxamg545.0cm/Jareth Peak GR.13mmHg Mitral Valve MV E Bqxbblkc42.7cm/sMV A Rnnmlezp20.8cm/sE/A ratio0.7 TDI Lateral E' Peak V5.36cm/sMedial E' Peak V4.76cm/sE/Lateral E'11.3 E/Medial E'12.8 Tricuspid Valve TR Peak Qdilejem944gm/sRAP [id number] Peak Gr.27mmHg [id number] LEFT VENTRICLE The left ventricle is normal size. There is normal left ventricular wall thickness. The left ventricular function is normal.EF-55% There is normal LV segmental wall motion. Transmitral Doppler flow pattern is Grade III-reversible restrictive diastolic dysfunction. No left ventricle thrombus noted on this study. There is no ventricular septal defect visualized. There is no left ventricular aneurysm. There is no mass noted in the left ventricle. RIGHT VENTRICLE The right ventricle is normal size. There is normal right ventricular wall thickness. The right ventricular systolic function is normal. ATRIA The left atrium size is normal. The right atrium size is normal. The interatrial septum is intact with no evidence for an atrial septal defect. AORTIC VALVE The aortic valve is calcified and displays decreased opening. The aortic valve is moderately sclerotic. The aortic valve is not well visualized. There is trace aortic regurgitation. Not well visualized, possibly Mild to Moderate MITRAL VALVE The mitral valve is thickened but opens well. Mitral annular calcification is mild to moderate. Mitral regurgitation is trace to mild. There is no mitral valve stenosis. There is no evidence of mitral valve prolapse. TRICUSPID VALVE The tricuspid valve leaflets are thickened , but open well. There is mild tricuspid regurgitation.RVSP-37 mmof hg. There is no tricuspid valve stenosis. There is no tricuspid valve prolapse or vegetation. PULMONIC VALVE The pulmonary valve is normal in structure. There is trace pulmonic valvular regurgitation. There is no pulmonic valvular stenosis. GREAT VESSELS The aortic root is normal in size. The ascending aorta is normal in size. The pulmonary artery is normal. The IVC is normal in size and collapses >50% with inspiration. PERICARDIAL EFFUSION There is no pleural effusion. There is no pericardial effusion. <Conclusion> Normal Chamber Size. EF-55%. There is trace aortic regurgitation. Not well visualized,possibly Mild to Moderate Mitral regurgitation is trace to mild. There is mild tricuspid regurgitation.RVSP-37 mmof hg. The IVC is normal in size and collapses >50% with inspiration. No vegetation or thrombus noted.
[2017-12-18 13:16] LABS: FOLATE > 20.0 ng/mL
[2017-12-18] MEDS: Sodium Chloride 0.45% 1,000 ML IV SCH ×2 (15:32→20:19)
--- NOTE | 2017-12-19 04:09 | PN ---
DATE: 12/18/2017 SUBJECTIVE: The patient was seen and examined at bedside on 12/18/2017, this progress note is for 12/18/2017. The patient was seen and examined at bedside nurse are feeding the patient tolerating food very well. No fever, no chills. No nausea, vomiting, diarrhea. No hematuria, hematochezia. No swelling of the legs. The patient is a poor historian. PHYSICAL EXAMINATION VITAL SIGNS: Temperature 98.9, pulse 86, respiratory rate 18, blood pressure 120/74, pulse oximetry 98. HEENT: Head is normocephalic, atraumatic. Eyes PERRLA. Extraocular muscles are intact. Conjunctivae clear. Nose patent. Mucous membranes moist. NECK: Supple. No carotid bruits. No JVD or thyromegaly. CHEST: Bilaterally symmetrical. HEART: :S1,S2 positive. LUNGS: Clear to auscultation. ABDOMEN: Soft. Bowel sounds positive. No organomegaly. EXTREMITIES: No edema. No cyanosis. NEUROLOGIC: The patient is awake, alert. He is not able to follow simple commands. LABORATORY DATA: White blood cell is 8.3, hemoglobin 11.6, hematocrit 36.5, platelets 146,000. Sodium 136, potassium 3.6, BUN 36, creatinine 0.9, glucose 115. MEDICATIONS: Xanax ,Plavix, Aricept, hydralazine, sodium chloride, iron, insulin, Synthroid, Zestril, Protonix,Risperdal. 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 Swallow evaluation done. Fluid started. GI and DVT prophylaxis, repeat labs. We will follow up. Colette Viera MD [facility]
[2017-12-19 06:56] LABS: BASO # 0.01 K/mm3 (0.0-2.0); BASO % 0.2 % (0.0-3.0); EOS # 0.2 (0.0-0.7); EOS % 3.5 % (1.5-5.0); GRAN # 3.77 (1.4-6.5); GRAN % 60.6 % (50.0-68.0); HEMOGLOBIN 12.1 g/dL (12.0-16.0); LYMPH # 1.7 (1.2-3.4); LYMPH % 27.8 % (22.0-35.0); MEAN CELL VOLUME 96.3 fl (80.0-105.0); MEAN CORPUSCULAR HEMOGLOBIN 31.9 pg (25.0-35.0); MEAN CORPUSCULAR HGB CONC 33.2 g/dl (31.0-37.0); MEAN PLATELET VOLUME 10.6 fl (7.0-11.0); MONO # 0.5 (0.1-0.6); MONO % 7.9 % (1.0-6.0); RBC 3.79 10^6/uL (3.5-6.1); RED CELL DISTRIBUTION WIDTH 13.5 % (11.5-14.5); WHITE BLOOD COUNT 6.2 10^3/uL (4.5-11.0)
--- NOTE | 2017-12-19 07:22 | CP.PCM.PN ---
Subjective - Date & Time of Evaluation Date of Evaluation: 12/19/17 Time of Evaluation: 06:30 - Subjective Subjective: No distress, awake, alert Reason for consultation and follow up: Cardiac evaluation of coronary artery disease, admitted for failure to thrive,dehydration Seen and examined by me and Dr. Steward Objective - Vital Signs/Intake and Output Vital Signs (last 24 hours): Temp Pulse Resp BP Pulse Ox 97 F L 56 L 16 99/38 L 94 L 12/18/17 16:44 12/18/17 16:44 12/18/17 16:44 12/18/17 16:44 12/18/17 16:44 Intake and Output: 12/19/17 12/19/17 06:59 18:59 Intake Total 1600 Balance 1600 - Medications Medications: Current Medications Alprazolam (Xanax) 0.5 mg PO BID [facility]; Protocol Last Admin: 12/18/17 18:49 Dose: 0.5 mg Amlodipine Besylate (Norvasc) 10 mg PO DAILY [facility] Last Admin: 12/18/17 09:30 Dose: 10 mg Apixaban (Eliquis) 5 mg PO BID [facility]; Protocol Last Admin: 12/18/17 18:49 Dose: 5 mg Atorvastatin Calcium (Lipitor) 40 mg PO DAILY [facility] Last Admin: 12/18/17 09:29 Dose: 40 mg Clobetasol Propionate (Temovate 0.05%) 0 gm TOP BID [facility] Last Admin: 12/18/17 18:19 Dose: Not Given Clopidogrel Bisulfate (Plavix) 75 mg PO DAILY [facility] Last Admin: 12/18/17 09:30 Dose: 75 mg Cyanocobalamin (Vitamin B12 1000 Mcg/Ml Inj) 1,000 mcg IM DAILY [facility] Last Admin: 12/18/17 09:30 Dose: 1,000 mcg Donepezil HCl (Aricept) 10 mg PO HS [facility] Last Admin: 12/18/17 21:53 Dose: 10 mg Hydralazine HCl (Apresoline) 10 mg IVP Q6H PRN PRN Reason: for sbp>170 Iron Sucrose 100 mg/ Sodium (Chloride) 105 mls @ 210 mls/hr IVPB DAILY [facility] Last Admin: 12/18/17 12:20 Dose: 210 mls/hr Sodium Chloride (Sodium Chloride 0.45%) 1,000 mls @ 50 mls/hr IV .Q20H [facility] Last Admin: 12/18/17 20:19 Dose: 50 mls/hr Insulin Human Regular (Humulin R Low) 0 units SC ACHS [facility]; Protocol Last Admin: 12/18/17 22:48 Dose: Not Given Levothyroxine Sodium (Synthroid) 112 mcg PO ACB [facility] Last Admin: 12/18/17 09:30 Dose: 112 mcg Lisinopril (Zestril) 20 mg PO DAILY [facility] Last Admin: 12/18/17 09:31 Dose: 20 mg Pantoprazole Sodium (Protonix Ec Tab) 40 mg PO ACB [facility] Last Admin: 12/18/17 09:30 Dose: 40 mg Potassium Phos/Sodium Phos (Neutra-Phos) 1 pkt PO TID [facility] Last Admin: 12/18/17 18:49 Dose: 1 pkt Risperidone (Risperdal Tab) 0.25 mg PO Q8 [facility]; Protocol Last Admin: 12/19/17 06:17 Dose: 0.25 mg Zolpidem Tartrate (Ambien) 10 mg PO HS PRN; Protocol PRN Reason: Insomnia - Labs Labs: 12/19/17 05:20 12/18/17 06:00 PT 11.6 SECONDS (9.4-12.5) 12/17/17 16:55 INR 1.02 12/17/17 16:55 APTT 27.3 Seconds (25.1-36.5) 12/17/17 16:55 - Constitutional Appears: Non-toxic, No Acute Distress - Head Exam Head Exam: NORMAL INSPECTION, NORMOCEPHALIC - Eye Exam Eye Exam: Normal appearance Pupil Exam: NORMAL ACCOMODATION - ENT Exam ENT Exam: Mucous Membranes Dry - Respiratory Exam Respiratory Exam: Clear to Ausculation Bilateral, NORMAL BREATHING PATTERN - Cardiovascular Exam Cardiovascular Exam: +S1, +S2 Additional comments: No JVD - GI/Abdominal Exam GI & Abdominal Exam: Soft, Normal Bowel Sounds - Neurological Exam Neurological Exam: Alert, Awake - Psychiatric Exam Psychiatric exam: Normal Affect, Normal Mood - Skin Skin Exam: Dry, Normal Color, Warm Assessment and Plan - Assessment and Plan (Free Text) Assessment: A 82 year old female who was brought in to the ER due to failure to thrive. Unable to eat, generalized weakness for the past few weeks. History of coronary artery disease, post stent, hypertension, COPD, diabetes, Alzheimer's disease, dementia, DVT with IVC filter,hypothyroidism,atrial fibrillation, VRE, anemia. Patient non-verbal and bed bound.Started on IV fluid for hydration.Failure to thrive. Echo done. Plan: Echo done- Normal size LVEF 55% Trace aortic regurgitation,mild mitral regurgitation Not well visualized possibly mild to moderate aortic stenosis Mild tricuspid regurgitation RVSP 37 mmHg No vegetation of thrombus No distress, patient non-verbal Started on clear liquid, advance diet as tolerated Controlled heart rate Controlled blood pressure Cardiac status stable Continue IV hydration On Norvasc 10 mg daily, Eliquis 5 mg BID,Lipitor 40 mg daily, Plavix 75 mg daily,Eliquis 5 mg BID,Synthroid 112mcg daily, Lisinopril 20 mg daily Continue current treatment Continue current medications Nutritional support Chart reviewed Will follow up Plan and treatment discussed with Dr. Steward
[2017-12-19] MEDS: Insulin Reg-LOW-Coverage SC SCH ×4 (07:31→22:25)
[2017-12-19 07:54] LABS: ALBUMIN 2.7 g/dL (3.0-4.8); ALT/SGPT 26 U/L (7-56); AST/SGOT 24 U/L (14-36); BLOOD UREA NITROGEN 18 mg/dL (7-21); CALCIUM 9.1 mg/dL (8.4-10.5); GFR NON-AFRICAN AMERICAN > 60
[2017-12-19] MEDS: Levothyroxine 112 MCG TAB PO SCH (08:18)
[2017-12-19] MEDS: Pantoprazole 40 mg EC Tab PO SCH (08:18)
[2017-12-19] MEDS: Clobetasol 0.05% Cream(30 gm) TOP SCH ×2 (09:25→18:30)
[2017-12-19] MEDS: Potassium & Sodium Phosphate PO SCH ×3 (10:17→17:22)
[2017-12-19] MEDS: Sodium Chloride 0.45% 1,000 ML IV SCH (17:22)
--- NOTE | 2017-12-20 03:58 | PN ---
DATE: 12/19/2017 SUBJECTIVE: The patient is 82 years old female. The patient was seen and examined on the bedside, looking comfortable. Notes are for 12/19/2017. The patient was seen and examined on the bedside on 12/19/2017. Looking comfortable. The patient is unable to give review of systems, but do not have fever or chills. No nausea, vomiting, diarrhea. PHYSICAL EXAMINATION: VITAL SIGNS: Temperature 97.5, pulse 53, respiratory rate 16, blood pressure 99/38, pulse oximetry 94. HEENT: Head normocephalic, atraumatic. Eyes PERRLA. Extraocular muscles intact. Conjunctivae clear. Nose patent. Mucous membrane moist. NECK: Supple. No carotid bruit. No JVD or thyromegaly. CHEST: Bilaterally symmetrical. HEART: S1 and S2 positive. LUNGS: Clear to auscultation. ABDOMEN: Soft. Bowel sounds positive. No organomegaly. EXTREMITIES: No edema. No cyanosis. NEUROLOGICAL: The patient is sleepy, arousable. Is not able to give a complete neurological examination. MEDICATIONS: Xanax, Norvasc, Eliquis, Lipitor, Plavix, vitamins, Aricept, insulin, Protonix. LABORATORY DATA: White blood cells 6.3, hemoglobin 12.1, hematocrit 36.5, platelets 131. Sodium 156, potassium 3.7, BUN 33, creatinine 0.9, glucose 116. ASSESSMENT AND PLAN: Ms. Marge Still, 82-year-old lady with hypernatremia, renal insufficiency, hyperchloremia, hyperglycemia, brought in the emergency room due to the failure to thrive, unable to eat, generalized weakness, coronary artery disease, status post cardiac stenting, hypertension, chronic obstructive pulmonary disease, diabetes mellitus, dementia, deep venous thrombosis with inferior vena cava filter, hypothyroidism, atrial fibrillation, vancomycin-resistant Enterococcus, anemia. Started on IV fluid hydration. At this time, the patient do not look like in distress. Started on a clear liquid diet. Continue IV hydration, Norvasc, Plavix, Claritin. I appreciated Dr. Steward's input. Repeat labs. We will follow up. Colette Viera MD [facility] # [id number] [facility]
--- NOTE | 2017-12-20 07:59 | CP.PCM.PN ---
Subjective - Date & Time of Evaluation Date of Evaluation: 12/20/17 Time of Evaluation: 06:55 - Subjective Subjective: Lying in bed,no distress, awake, alert Reason for consultation and follow up: Cardiac evaluation of coronary artery disease, admitted for failure to thrive,dehydration Seen and examined by me and Dr. Steward Objective - Vital Signs/Intake and Output Vital Signs (last 24 hours): Temp Pulse Resp BP Pulse Ox 98.6 F 61 18 118/73 95 12/19/17 16:55 12/19/17 16:55 12/19/17 16:55 12/19/17 16:55 12/19/17 16:55 Intake and Output: 12/20/17 12/20/17 06:59 18:59 Intake Total 600 Output Total 100 Balance 500 - Medications Medications: Current Medications Alprazolam (Xanax) 0.5 mg PO BID [facility]; Protocol Last Admin: 12/19/17 17:23 Dose: 0.5 mg Amlodipine Besylate (Norvasc) 10 mg PO DAILY [facility] Last Admin: 12/19/17 10:17 Dose: 10 mg Apixaban (Eliquis) 5 mg PO BID [facility]; Protocol Last Admin: 12/19/17 17:22 Dose: 5 mg Atorvastatin Calcium (Lipitor) 40 mg PO DAILY [facility] Last Admin: 12/19/17 10:17 Dose: 40 mg Clobetasol Propionate (Temovate 0.05%) 0 gm TOP BID [facility] Last Admin: 12/19/17 18:30 Dose: Not Given Clopidogrel Bisulfate (Plavix) 75 mg PO DAILY [facility] Last Admin: 12/19/17 10:18 Dose: 75 mg Cyanocobalamin (Vitamin B12 1000 Mcg/Ml Inj) 1,000 mcg IM DAILY [facility] Last Admin: 12/19/17 10:19 Dose: 1,000 mcg Donepezil HCl (Aricept) 10 mg PO HS [facility] Last Admin: 12/19/17 22:25 Dose: 10 mg Hydralazine HCl (Apresoline) 10 mg IVP Q6H PRN PRN Reason: for sbp>170 Iron Sucrose 100 mg/ Sodium (Chloride) 105 mls @ 210 mls/hr IVPB DAILY [facility] Last Admin: 12/19/17 10:19 Dose: 210 mls/hr Sodium Chloride (Sodium Chloride 0.45%) 1,000 mls @ 50 mls/hr IV .Q20H [facility] Last Admin: 12/19/17 17:22 Dose: 50 mls/hr Insulin Human Regular (Humulin R Low) 0 units SC ACHS [facility]; Protocol Last Admin: 12/19/17 22:25 Dose: Not Given Levothyroxine Sodium (Synthroid) 112 mcg PO ACB [facility] Last Admin: 12/19/17 08:18 Dose: 112 mcg Lisinopril (Zestril) 20 mg PO DAILY [facility] Last Admin: 12/19/17 10:20 Dose: 20 mg Pantoprazole Sodium (Protonix Ec Tab) 40 mg PO ACB [facility] Last Admin: 12/19/17 08:18 Dose: 40 mg Potassium Phos/Sodium Phos (Neutra-Phos) 1 pkt PO TID [facility] Last Admin: 12/19/17 17:22 Dose: 1 pkt Risperidone (Risperdal Tab) 0.25 mg PO Q8 [facility]; Protocol Last Admin: 12/20/17 05:52 Dose: 0.25 mg Zolpidem Tartrate (Ambien) 10 mg PO HS PRN; Protocol PRN Reason: Insomnia - Labs Labs: 12/19/17 05:20 12/19/17 05:20 PT 11.6 SECONDS (9.4-12.5) 12/17/17 16:55 INR 1.02 12/17/17 16:55 APTT 27.3 Seconds (25.1-36.5) 12/17/17 16:55 - Constitutional Appears: Non-toxic, No Acute Distress - Head Exam Head Exam: NORMAL INSPECTION, NORMOCEPHALIC - ENT Exam ENT Exam: Mucous Membranes Dry - Respiratory Exam Respiratory Exam: Clear to Ausculation Bilateral, NORMAL BREATHING PATTERN - Cardiovascular Exam Cardiovascular Exam: +S1, +S2 Additional comments: No JVD - GI/Abdominal Exam GI & Abdominal Exam: Soft, Normal Bowel Sounds - Extremities Exam Additional comments: right leg contracted - Neurological Exam Neurological Exam: Alert, Awake - Skin Skin Exam: Dry, Normal Color, Warm Assessment and Plan - Assessment and Plan (Free Text) Assessment: A 82 year old female who was brought in to the ER due to failure to thrive. Unable to eat, generalized weakness for the past few weeks. History of coronary artery disease, post stent, hypertension, COPD, diabetes, Alzheimer's disease, dementia, DVT with IVC filter,hypothyroidism,atrial fibrillation, VRE, anemia. Patient non-verbal and bed bound.Started on IV fluid for hydration.Failure to thrive. Echo done. Normal size LVEF 55%,Trace aortic regurgitation,mild mitral regurgitation, Not well visualized possibly mild to moderate aortic stenosis, Mild tricuspid regurgitation RVSP 37 mmHg, No vegetation of thrombus. Plan: No distress, patient non-verbal Started on clear liquid, advance diet as tolerated Controlled heart rate Controlled blood pressure Cardiac status stable Improved BUN/Creatinine but Sodium high, change IV to 1/2 NSS at 50 cc /hr Continue IV hydration until patient adequately eating. Continue Ensure supplement as ordered On Norvasc 10 mg daily, Eliquis 5 mg BID,Lipitor 40 mg daily, Plavix 75 mg daily,Eliquis 5 mg BID,Synthroid 112mcg daily, Lisinopril 20 mg daily Blood cultures no growth after 48 hours Continue current treatment Continue current medications Nutritional support, assist with meals Chart reviewed Will follow up Plan and treatment discussed with Dr. Steward
[2017-12-20] MEDS: Insulin Reg-LOW-Coverage SC SCH ×4 (08:03→22:23)
--- NOTE | 2017-12-20 08:23 | PN ---
DATE: 12/19/2017 Addendum to the progress note, which already written by Brisa Alcantara. LOCATION: The patient in room 377, bed 2. SUBJECTIVE: The patient with Alzheimer's disease, CAD, stent insertion, diabetes, DVT with IVC filter insertion, hypothyroidism, atrial fibrillation, anemia, admitted with dehydration, found to have hypernatremia, high BUN and creatinine. The patient given IV fluid in the home. The patient's BUN and creatinine improved. High sodium also improved, but still sodium is elevated. DIAGNOSES: Dehydration, hypernatremia, Alzheimer's disease, coronary artery disease, history of paroxysmal atrial fibrillation, history of deep venous thrombosis in the past, bedsore. The patient continued on the IV fluid, Aricept 10 mg at bedtime, Eliquis 5 mg b.i.d., Lipitor 40 daily, 1 packet p.o. t.i.d., amlodipine 10 daily, Plavix 75 daily, Protonix 40 daily, Risperdal 0.25 mg every 8 hours, levothyroxine 112 mcg p.o. daily, iron sucrose 100 mg in 100 mL IV fluid piggyback daily, cyanocobalamin 1000 mcg IM daily, lisinopril 20 daily. We will do the followup labs and we will continue fluid therapy. We will follow up. Dayana Galaviz MD
[2017-12-20] MEDS: Pantoprazole 40 mg EC Tab PO SCH (08:53)
[2017-12-20] MEDS: Levothyroxine 112 MCG TAB PO SCH (08:53)
[2017-12-20] MEDS: Potassium & Sodium Phosphate PO SCH ×3 (10:42→17:41)
[2017-12-20] MEDS: Clobetasol 0.05% Cream(30 gm) TOP SCH ×2 (11:59→17:28)
--- NOTE | 2017-12-20 20:27 | PN ---
DATE: 12/20/2017 REASON FOR CONSULTATION: History of coronary artery disease, admitted with dehydration, hypernatremia, and Alzheimer's disease advanced. SUBJECTIVE: The patient is lying flat in the bed, history of paroxysmal atrial fibrillation, history of DVT, history of bed sores, left side is stage I and right is stage II. Admitted with hypernatremia, on IV fluid now, the sodium yesterday was 150, came down. Today, lab is pending as not back as of yet. RECOMMENDATION: Continue half normal saline at 50 mL an hour. Continue rest of the medication. Monitor electrolytes. Continue lisinopril. She was on Eliquis by extensive DVT, on Eliquis 5 mg p.o. b.i.d. We will repeat the lab in the morning. We started Eliquis, but is on hold. We will check with Dr. Viera's reason for discontinuation, possibly the patient needs some debridement, but now is on hold. We will discuss with doctor. Thank you Dr. Viera for providing us the opportunity in taking care of the patient, Marge Still. Dayana Steward MD
--- NOTE | 2017-12-21 02:21 | PN ---
DATE: 12/20/2017 SUBJECTIVE: The patient is an 82-year-old female. The patient is seen and examined at the bedside on 12/20/2017. Looking comfortable. No nausea, vomiting or diarrhea. No hematuria or hematochezia. No swelling of the leg. No chest pain or palpitations. The patient is not a very good historian. PHYSICAL EXAMINATION: VITAL SIGNS: Temperature is 98.6, pulse 61, respiratory rate 18, blood pressure is 115/73 and pulse oximetry 95. HEENT: Head is normocephalic and atraumatic. Eyes; PERRLA. Extraocular muscles are intact. Conjunctivae are clear. Nose is patent. Mucous membranes are moist. NECK: Supple. No carotid bruits. No JVD or thyromegaly. CHEST: Bilaterally symmetrical. HEART: S1 and S2 positive. LUNGS: Clear to auscultation. ABDOMEN: Soft. Bowel sounds present. No organomegaly. EXTREMITIES: No edema. No cyanosis. NEUROLOGIC: The patient is sleepy and arousable. She is not able to follow the commands. MEDICATIONS: Xanax, Norvasc, Eliquis, Lipitor, Aricept, hydralazine, sodium chloride, levothyroxine, Zestril, and Ambien. LABORATORY DATA: White blood cell is 6.2, hemoglobin 12.1, hematocrit 36.8, platelets 131. Sodium 150, potassium 3.7, BUN 18, creatinine 0.7, glucose 94. ASSESSMENT AND PLAN: Ms. Marge Still is an 82-year-old lady with hypernatremia, hyperchloremia, failure to thrive, anorexia, coronary artery disease, still with cardiac stenting, chronic obstructive pulmonary disease, diabetes mellitus, dementia, history of deep venous thrombosis with inferior vena cava filter, hypothyroidism, vancomycin-resistant Enterococcus, anemia. The patient is nonverbal. Started IV fluid for hydration, failure to thrive. Echo was done. Results are pending . Gastrointestinal and deep venous thrombosis prophylaxis given. Repeat labs. We will follow up. Colette Viera MD [facility]
[2017-12-21] MEDS: Sodium Chloride 0.45% 1,000 ML IV SCH (06:24)
--- NOTE | 2017-12-21 07:14 | CP.PCM.PN ---
Subjective - Date & Time of Evaluation Date of Evaluation: 12/21/17 Time of Evaluation: 06:30 - Subjective Subjective: Lying in bed, no distress, awake, alert, non verbal Reason for consultation and follow up: Cardiac evaluation of coronary artery disease, admitted for failure to thrive,dehydration Seen and examined by me and Dr. Steward Objective - Vital Signs/Intake and Output Vital Signs (last 24 hours): Temp Pulse Resp BP Pulse Ox 97.6 F 63 19 102/67 100 12/20/17 17:28 12/20/17 17:28 12/20/17 17:28 12/20/17 17:28 12/20/17 17:28 - Medications Medications: Current Medications Alprazolam (Xanax) 0.5 mg PO BID [facility]; Protocol Last Admin: 12/20/17 17:41 Dose: 0.5 mg Amlodipine Besylate (Norvasc) 10 mg PO DAILY [facility] Last Admin: 12/20/17 10:41 Dose: 10 mg Atorvastatin Calcium (Lipitor) 40 mg PO DAILY [facility] Last Admin: 12/20/17 10:41 Dose: 40 mg Clobetasol Propionate (Temovate 0.05%) 0 gm TOP BID [facility] Last Admin: 12/20/17 17:28 Dose: Not Given Clopidogrel Bisulfate (Plavix) 75 mg PO DAILY [facility] Last Admin: 12/20/17 10:42 Dose: 75 mg Cyanocobalamin (Vitamin B12 1000 Mcg/Ml Inj) 1,000 mcg IM DAILY [facility] Last Admin: 12/20/17 10:41 Dose: 1,000 mcg Donepezil HCl (Aricept) 10 mg PO HS [facility] Last Admin: 12/20/17 21:25 Dose: 10 mg Hydralazine HCl (Apresoline) 10 mg IVP Q6H PRN PRN Reason: for sbp>170 Iron Sucrose 100 mg/ Sodium (Chloride) 105 mls @ 210 mls/hr IVPB DAILY [facility] Last Admin: 12/20/17 10:42 Dose: 210 mls/hr Sodium Chloride (Sodium Chloride 0.45%) 1,000 mls @ 50 mls/hr IV .Q20H [facility] Last Admin: 12/21/17 06:24 Dose: 50 mls/hr Insulin Human Regular (Humulin R Low) 0 units SC ACHS [facility]; Protocol Last Admin: 12/20/17 22:23 Dose: Not Given Levothyroxine Sodium (Synthroid) 112 mcg PO ACB [facility] Last Admin: 12/20/17 08:53 Dose: 112 mcg Lisinopril (Zestril) 20 mg PO DAILY [facility] Last Admin: 12/20/17 10:41 Dose: 20 mg Pantoprazole Sodium (Protonix Ec Tab) 40 mg PO ACB [facility] Last Admin: 12/20/17 08:53 Dose: 40 mg Potassium Phos/Sodium Phos (Neutra-Phos) 1 pkt PO TID [facility] Last Admin: 12/20/17 17:41 Dose: 1 pkt Risperidone (Risperdal Tab) 0.25 mg PO Q8 [facility]; Protocol Last Admin: 12/21/17 06:00 Dose: 0.25 mg Zolpidem Tartrate (Ambien) 10 mg PO HS PRN; Protocol PRN Reason: Insomnia - Labs Labs: 12/19/17 05:20 12/19/17 05:20 PT 11.6 SECONDS (9.4-12.5) 12/17/17 16:55 INR 1.02 12/17/17 16:55 APTT 27.3 Seconds (25.1-36.5) 12/17/17 16:55 - Constitutional Appears: Non-toxic, No Acute Distress - Head Exam Head Exam: NORMAL INSPECTION, NORMOCEPHALIC - ENT Exam ENT Exam: Mucous Membranes Dry - Respiratory Exam Respiratory Exam: Clear to Ausculation Bilateral, NORMAL BREATHING PATTERN - Cardiovascular Exam Cardiovascular Exam: +S1, +S2 Additional comments: no JVD - GI/Abdominal Exam GI & Abdominal Exam: Soft, Normal Bowel Sounds - Extremities Exam Additional comments: right leg contracted - Neurological Exam Neurological Exam: Alert, Awake - Psychiatric Exam Psychiatric exam: Normal Affect, Normal Mood - Skin Skin Exam: Dry, Normal Color, Warm Assessment and Plan - Assessment and Plan (Free Text) Assessment: A 82 year old female who was brought in to the ER due to failure to thrive. Unable to eat, generalized weakness for the past few weeks. History of coronary artery disease, post stent, hypertension, COPD, diabetes, Alzheimer's disease, dementia, DVT with IVC filter,hypothyroidism,atrial fibrillation, VRE, anemia. Patient non-verbal and bed bound.Started on IV fluid for hydration.Failure to thrive. Echo done. Normal size LVEF 55%,Trace aortic regurgitation,mild mitral regurgitation, Not well visualized possibly mild to moderate aortic stenosis, Mild tricuspid regurgitation RVSP 37 mmHg, No vegetation of t hrombus.Advanced diet as tolerated with supplement. Plan: No distress, patient non-verbal Advance diet to puree Controlled heart rate Controlled blood pressure Cardiac status stable Continue IV hydration until patient adequately eating. Continue Ensure supplement as ordered On Norvasc 10 mg daily, Eliquis 5 mg BID (on hold) Lipitor 40 mg daily, Plavix 75 mg daily,Synthroid 112mcg daily, Lisinopril 20 mg daily Blood cultures no growth after 48 hours Continue current treatment Continue current medications Nutritional support, assist with meals Chart reviewed Will follow up Plan and treatment discussed with Dr. Steward
[2017-12-21 07:17] LABS: BASO # 0.01 K/mm3 (0.0-2.0); BASO % 0.1 % (0.0-3.0); EOS # 0.2 (0.0-0.7); EOS % 1.9 % (1.5-5.0); GRAN # 6.88 (1.4-6.5); GRAN % 77.3 % (50.0-68.0); HEMOGLOBIN 11.2 g/dL (12.0-16.0); LYMPH # 1.3 (1.2-3.4); LYMPH % 14.8 % (22.0-35.0); MEAN CELL VOLUME 92.8 fl (80.0-105.0); MEAN CORPUSCULAR HEMOGLOBIN 31.2 pg (25.0-35.0); MEAN CORPUSCULAR HGB CONC 33.6 g/dl (31.0-37.0); MEAN PLATELET VOLUME 10.8 fl (7.0-11.0); MONO # 0.5 (0.1-0.6); MONO % 5.9 % (1.0-6.0); RBC 3.59 10^6/uL (3.5-6.1); WHITE BLOOD COUNT 8.9 10^3/uL (4.5-11.0)
[2017-12-21 07:33] LABS: BLOOD UREA NITROGEN 8 mg/dL (7-21); CALCIUM 8.4 mg/dL (8.4-10.5); GFR NON-AFRICAN AMERICAN > 60
[2017-12-21] MEDS: Insulin Reg-LOW-Coverage SC SCH ×4 (08:11→22:41)
[2017-12-21] MEDS: Pantoprazole 40 mg EC Tab PO SCH (08:17)
[2017-12-21] MEDS: Potassium & Sodium Phosphate PO SCH ×3 (09:15→17:35)
[2017-12-21] MEDS: Levothyroxine 112 MCG TAB PO SCH (09:17)
[2017-12-21] MEDS: Clobetasol 0.05% Cream(30 gm) TOP SCH ×2 (10:00→17:36)
[2017-12-21] MEDS ORDERED: Magnesium Sulfate 1 gm in D5W 1 GM/100 ML BAG IVPB ONE (10:56)
--- NOTE | 2017-12-21 23:24 | PN ---
DATE: 12/21/2017 SUBJECTIVE: The patient is 82-year-old female. The patient was seen at bedside on 12/21/2017. The patient was lying down comfortably. Her health aide was feeding her. The patient not able to give review of systems, but looks like no fever, no chills. No changes of status. No headache, no dizziness. PHYSICAL EXAMINATION: VITAL SIGNS: Temperature 97.6, pulse 53, respiratory rate 19, blood pressure 102/67, pulse oximetry 100. HEENT: Head normocephalic, atraumatic. Eyes: PERRLA. Extraocular muscles intact. Conjunctivae clear. Nose patent. NECK: Supple. No carotid bruit. No JVD or thyromegaly. CHEST: Bilaterally symmetrical. HEART: S1, S2 positive. LUNGS: Clear to auscultation. ABDOMEN: Soft. Bowel sounds present, no organomegaly. EXTREMITIES: No edema, no cyanosis. NEUROLOGIC: The patient is awake, alert, but cannot follow simple commands. MEDICATIONS: Xanax, Norvasc, Lipitor, Plavix, B12, Aricept, hydralazine, insulin, levothyroxine, lisinopril, pantoprazole. LABORATORY DATA: White blood cell is 6.2, hemoglobin 12.1, hematocrit 36.5, platelets 131. Sodium 150, potassium 3.7, BUN 13, creatinine 0.7, glucose 94. ASSESSMENT AND PLAN: Ms. Marge Still is an 82-year-old lady with hypernatremia, hyperchloremia, failure to thrive, unable to eat, generalized weakness, history of coronary artery disease, cardiac stenting, chronic obstructive pulmonary disease, diabetes mellitus, dementia, deep venous thrombosis with inferior vena cava filter, hypothyroidism, vancomycin-resistant Enterococcus, nonverbal, bedbound, getting IV fluid. Echo was done, reviewed by me. No vegetation or thrombosis. Advance diet as tolerated. The patient is now on puree. Gastrointestinal and deep venous thrombosis prophylaxes. Control heart rate, control blood pressure medications, IV hydration, Ensure supplement. Continue Norvasc, Plavix, lisinopril. Nutritional support. Discussion done with the lady on the bedside. Bedside physical therapy. Repeat labs. We will follow up. Colette Viera MD [facility] # [id number]
[2017-12-22] MEDS: Sodium Chloride 0.45% 1,000 ML IV SCH ×3 (05:44→21:44)
[2017-12-22 07:05] LABS: HEMOGLOBIN 10.7 g/dL (12.0-16.0); MEAN CELL VOLUME 92.8 fl (80.0-105.0); MEAN CORPUSCULAR HGB CONC 33.4 g/dl (31.0-37.0); MEAN PLATELET VOLUME 10.6 fl (7.0-11.0); RBC 3.45 10^6/uL (3.5-6.1); WHITE BLOOD COUNT 7.5 10^3/uL (4.5-11.0)
[2017-12-22 07:42] LABS: BLOOD UREA NITROGEN 6 mg/dL (7-21); CALCIUM 8.4 mg/dL (8.4-10.5); GFR NON-AFRICAN AMERICAN > 60
[2017-12-22] MEDS: Insulin Reg-LOW-Coverage SC SCH ×4 (07:58→22:02)
[2017-12-22] MEDS: Levothyroxine 112 MCG TAB PO SCH (08:16)
[2017-12-22] MEDS: Pantoprazole 40 mg EC Tab PO SCH (08:16)
[2017-12-22] MEDS: Potassium & Sodium Phosphate PO SCH ×3 (09:33→17:19)
[2017-12-22] MEDS: Clobetasol 0.05% Cream(30 gm) TOP SCH ×2 (10:00→17:20)
[2017-12-22] MEDS ORDERED: Potassium Chloride 10 mEq ER Tab PO ONE (12:50)
--- NOTE | 2017-12-23 05:51 | PN ---
DATE: 12/22/2017 SUBJECTIVE: The patient is an 82-year-old female. The patient was seen and examined at bedside on 12/22/2017. Looking comfortable. No nausea, vomiting, diarrhea. No hematuria or hematochezia. No swelling of the legs. No chest pain, no palpitation. No headache, no dizziness. PHYSICAL EXAMINATION VITAL SIGNS: Temperature 98.4, pulse 70, blood pressure 110/55, respiratory rate 20. HEENT: Head normocephalic, atraumatic. Eyes PERRLA. Extraocular muscles intact. Conjunctivae clear. Nose patent. Mucous membranes moist. NECK: Supple. No carotid bruit. No JVD or thyromegaly. CHEST: Bilaterally symmetrical. HEART: S1, S2 positive. LUNGS: Clear to auscultation. ABDOMEN: Soft. Bowel sounds present. No organomegaly. EXTREMITIES: No edema, no cyanosis. NEUROLOGIC: The patient is awake, alert. Moving all 4 extremities. No focal deficits. LABORATORY DATA: White blood cells 7.5, hemoglobin 10.7, hematocrit 32.0, platelets 141. Sodium 140, potassium 3.5, BUN 6, creatinine 0.7, glucose 87. MEDICATIONS: Ambien, hydralazine, Aricept, Ecotrin, insulin, iron, Lipitor, potassium, Norvasc, Plavix, Protonix, Risperdal, Synthroid, Xanax, Zestril. 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 GI, DVT prophylaxis. Repeat labs. Cardiology is on the case. We will follow. Colette Viera MD
[2017-12-23] MEDS: Pantoprazole 40 mg EC Tab PO SCH (06:31)
[2017-12-23] MEDS: Levothyroxine 112 MCG TAB PO SCH (06:32)
[2017-12-23] MEDS: Insulin Reg-LOW-Coverage SC SCH ×4 (08:16→21:16)
[2017-12-23] MEDS: Potassium & Sodium Phosphate PO SCH ×3 (09:33→17:24)
[2017-12-23] MEDS: Clobetasol 0.05% Cream(30 gm) TOP SCH ×2 (10:30→17:24)
[2017-12-23] MEDS: Sodium Chloride 0.45% 1,000 ML IV SCH (17:31)
[2017-12-23] MEDS ORDERED: Sodium Chloride 0.45% 1,000 ML IV SCH (21:05)
--- NOTE | 2017-12-23 23:01 | PN ---
DATE: 12/23/2017 SUBJECTIVE: Patient is an 82-year-old female. Patient was seen and examined at the bedside on 12/23/2017, looking comfortable. Her programming development project manager is sitting on the bedside. She fed her. Patient has good lunch. Looks like coming back to her baseline. PHYSICAL EXAMINATION: VITAL SIGNS: Temperature 98.4, pulse 57, respiratory rate 18, blood pressure 124/69. HEENT: Head normocephalic, atraumatic. Eyes, PERRLA. Extraocular muscles intact. Conjunctivae clear. Nose patent. NECK: Supple. No carotid bruit. No JVD, no thyromegaly. CHEST: Bilaterally symmetrical. HEART: S1 and S2 positive. LUNGS: Clear to auscultation. ABDOMEN: Soft. Bowel sounds present. No organomegaly. EXTREMITIES: No edema. No cyanosis. NEUROLOGIC: The patient is awake and alert, moving all four extremities, but is not able to follow commands. MEDICATIONS: Ambien, hydralazine, Aricept, Ecotrin, insulin, iron sulfate, Lipitor, potassium, Plavix, Protonix, Risperdal, NS, and Synthroid. LABORATORY DATA: White blood cells 7.5, hemoglobin 10.7, hematocrit 32, platelets 141. ASSESSMENT AND PLAN: Ms. Marge Still, 82-year-old lady with anemia, hypokalemia, hyperchloremia, hypomagnesemia, has advanced dementia, coronary artery disease, history of PEG tube placement, doing better, looks like came to her baseline. I think dehydration is over. Deep vein thrombosis with inferior vena cava filter, hypothyroidism, vancomycin-resistant Enterococcus. Gastrointestinal and deep vein thrombosis prophylaxes. Repeat labs. We will follow up. Colette Viera MD
[2017-12-24 07:01] LABS: HEMOGLOBIN 11.1 g/dL (12.0-16.0); MEAN CELL VOLUME 92.2 fl (80.0-105.0); MEAN CORPUSCULAR HGB CONC 33.6 g/dl (31.0-37.0); MEAN PLATELET VOLUME 10.1 fl (7.0-11.0); RBC 3.58 10^6/uL (3.5-6.1); RED CELL DISTRIBUTION WIDTH 12.9 % (11.5-14.5); WHITE BLOOD COUNT 6.1 10^3/uL (4.5-11.0)
[2017-12-24 07:45] LABS: BLOOD UREA NITROGEN 6 mg/dL (7-21); CALCIUM 8.2 mg/dL (8.4-10.5); GFR NON-AFRICAN AMERICAN > 60
--- NOTE | 2017-12-24 07:56 | CP.PCM.PN ---
Subjective - Date & Time of Evaluation Date of Evaluation: 12/24/17 Time of Evaluation: 06:40 - Subjective Subjective: Lying in bed, no distress, awake, alert, non verbal Reason for consultation and follow up: Cardiac evaluation of coronary artery dis ease, admitted for failure to thrive,dehydration Seen and examined by me and Dr. Steward Objective - Vital Signs/Intake and Output Vital Signs (last 24 hours): Temp Pulse Resp BP Pulse Ox 97.9 F 68 18 124/68 100 12/24/17 06:00 12/24/17 06:00 12/24/17 06:00 12/24/17 06:00 12/24/17 06:00 Intake and Output: 12/24/17 12/24/17 06:59 18:59 Intake Total 1680 Balance 1680 - Medications Medications: Current Medications Amlodipine Besylate (Norvasc) 10 mg PO DAILY [facility] Last Admin: 12/23/17 09:39 Dose: 10 mg Aspirin (Ecotrin) 81 mg PO DAILY [facility] Last Admin: 12/23/17 09:33 Dose: 81 mg Atorvastatin Calcium (Lipitor) 40 mg PO DAILY [facility] Last Admin: 12/23/17 09:33 Dose: 40 mg Clobetasol Propionate (Temovate 0.05%) 0 gm TOP BID [facility] Last Admin: 12/23/17 17:24 Dose: Not Given Clopidogrel Bisulfate (Plavix) 75 mg PO DAILY [facility] Last Admin: 12/23/17 09:33 Dose: 75 mg Cyanocobalamin (Vitamin B12 1000 Mcg/Ml Inj) 1,000 mcg IM DAILY [facility] Last Admin: 12/23/17 09:33 Dose: 1,000 mcg Donepezil HCl (Aricept) 10 mg PO HS [facility] Last Admin: 12/23/17 21:14 Dose: 10 mg Hydralazine HCl (Apresoline) 10 mg IVP Q6H PRN PRN Reason: for sbp>170 Iron Sucrose 100 mg/ Sodium (Chloride) 105 mls @ 210 mls/hr IVPB DAILY [facility] Last Admin: 12/23/17 10:29 Dose: 210 mls/hr Sodium Chloride (Sodium Chloride 0.45%) 1,000 mls @ 40 mls/hr IV .Q24H [facility] Insulin Human Regular (Humulin R Low) 0 units SC ACHS [facility]; Protocol Last Admin: 12/23/17 21:16 Dose: Not Given Levothyroxine Sodium (Synthroid) 112 mcg PO ACB [facility] Last Admin: 12/23/17 06:32 Dose: 112 mcg Lisinopril (Zestril) 20 mg PO DAILY [facility] Last Admin: 12/23/17 09:39 Dose: 20 mg Pantoprazole Sodium (Protonix Ec Tab) 40 mg PO ACB [facility] Last Admin: 12/23/17 06:31 Dose: 40 mg Potassium Phos/Sodium Phos (Neutra-Phos) 1 pkt PO TID [facility] Last Admin: 12/23/17 17:24 Dose: 1 pkt Risperidone (Risperdal Tab) 0.25 mg PO Q8 [facility]; Protocol Last Admin: 12/24/17 05:16 Dose: 0.25 mg Zolpidem Tartrate (Ambien) 10 mg PO HS PRN; Protocol PRN Reason: Insomnia - Labs Labs: 12/24/17 06:15 12/24/17 06:15 PT 11.6 SECONDS (9.4-12.5) 12/17/17 16:55 INR 1.02 12/17/17 16:55 APTT 27.3 Seconds (25.1-36.5) 12/17/17 16:55 - Constitutional Appears: Non-toxic, No Acute Distress - Head Exam Head Exam: NORMAL INSPECTION, NORMOCEPHALIC - Eye Exam Eye Exam: Normal appearance Pupil Exam: NORMAL ACCOMODATION - ENT Exam ENT Exam: Mucous Membranes Dry - Respiratory Exam Respiratory Exam: Decreased Breath Sounds, NORMAL BREATHING PATTERN - Cardiovascular Exam Cardiovascular Exam: +S1, +S2 Additional comments: No JVD - GI/Abdominal Exam GI & Abdominal Exam: Soft, Normal Bowel Sounds - Extremities Exam Additional comments: right leg contracted - Neurological Exam Neurological Exam: Alert, Awake - Psychiatric Exam Psychiatric exam: Flat Affect - Skin Skin Exam: Dry, Normal Color, Warm Assessment and Plan - Assessment and Plan (Free Text) Assessment: A 82 year old female who was brought in to the ER due to failure to thrive. Unable to eat, generalized weakness for the past few weeks. History of coronary artery disease, post stent, hypertension, COPD, diabetes, Alzheimer's disease, dementia, DVT with IVC filter,hypothyroidism,atrial fibrillation, VRE, anemia. Patient non-verbal and bed bound.Started on IV fluid for hydration.Failure to thrive. Echo done. Normal size LVEF 55%,Trace aortic regurgitation,mild mitral regurgitation, Not well visualized possibly mild to moderate aortic stenosis, Mild tricuspid regurgitation RVSP 37 mmHg, No vegetation of thrombus.Advanced diet as tolerated with supplement. Plan: Lying in bed, open eyes to verbal stimuli No distress, patient non-verbal Cardiac status stable Controlled heart rate Controlled blood pressure Clinically improved, seems like she is eating fairly well. Continue IV hydration Continue Ensure supplement as ordered On Norvasc 10 mg daily, Eliquis 5 mg BID (on hold) Lipitor 40 mg daily, Plavix 75 mg daily,Synthroid 112mcg daily, Lisinopril 20 mg daily Continue current treatment Continue current medications Nutritional support, assist with meals Chart reviewed Will follow up Plan and treatment discussed with Dr. Steward
[2017-12-24] MEDS: Insulin Reg-LOW-Coverage SC SCH ×2 (08:03→13:10)
[2017-12-24] MEDS: Levothyroxine 112 MCG TAB PO SCH (08:03)
[2017-12-24] MEDS: Pantoprazole 40 mg EC Tab PO SCH (08:03)
[2017-12-24] MEDS: Potassium & Sodium Phosphate PO SCH ×2 (10:42→14:51)
[2017-12-24] MEDS: Clobetasol 0.05% Cream(30 gm) TOP SCH (10:45)
--- NOTE | 2017-12-24 18:49 | PN ---
DATE: 12/24/2017 REASON FOR CONSULTATION AND FOLLOWUP: Cardiac evaluation, history of coronary artery disease, history of stent in the past. SUBJECTIVE: With advanced dementia, failure to thrive, dehydration, hypernatremia. Echo done shows normal LV function, trace aortic regurgitation, and mild mitral regurgitation. LABORATORY DATA: Today's lab shows WBC 7, hemoglobin 11.8, hematocrit 33.1, platelet count 171,000. Chemistry shows sodium 130, potassium 3.9, chloride 111, carbon dioxide 24, anion gap of 7, BUN 6, creatinine 0.6. IMPRESSION AND PLAN: An 82-year-old female with past medical history of coronary artery disease, paroxysmal atrial fibrillation, history of DVT, status post IVC filter, dementia, admitted with failure to thrive and hypernatremia. CVS status is stable. I will discontinue IV fluid, Increase nutritional support. Free the head at 30-degree up. We will discontinue IV fluid today. Discharge planning. Thank you Dr. Viera for providing us the opportunity in taking care of the patient. Dayana Steward MD
--- NOTE | 2017-12-25 02:31 | PN ---
DATE: 12/24/2017 SUBJECTIVE: Patient is an 82-year-old female. Patient was seen and examined at the bedside on 12/24/2017, looking comfortable. No fever, no chills. No nausea, vomiting, or diarrhea. No hematuria or hematochezia. No swelling of legs. No chest pain, no palpitation. No headache, no dizziness. Patient is very poor historian. PHYSICAL EXAMINATION: VITAL SIGNS: Temperature 97.9, pulse 68, respiratory rate 18, blood pressure 124/68, pulse oximetry 100. HEENT: Head is normocephalic, atraumatic. Eyes; PERRLA. Extraocular muscles are intact. Conjunctivae clear. Nose patent. Mucous membranes moist. NECK: Supple. No carotid bruits. No JVD. No thyromegaly. CHEST: Bilaterally symmetrical. HEART: S1 and S2 positive. LUNGS: Clear to auscultation. ABDOMEN: Soft. Bowel sounds present. No organomegaly. EXTREMITIES: No edema. No cyanosis. NEUROLOGIC: Patient is awake, alert. Follow simple commands. MEDICATIONS: Norvasc, Ecotrin, atorvastatin, Plavix, cyanocobalamin, Aricept, hydralazine, iron, and levothyroxine. LABORATORY DATA: White blood cells 6.1, hemoglobin 11.1, hematocrit 33, platelets 130. Sodium 139, BUN 6, creatinine 0.6, glucose 83. ASSESSMENT AND PLAN: Ms. 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 Patient is bedbound and nonverbal, getting IV fluid hydration. Echocardiogram done shows left ventricular ejection fraction 55%. No vegetation or thrombus. Patient is eating very well now. Do not look like in distress. Continue hydration, lisinopril, Plavix, Norvasc. Gastrointestinal and deep vein thrombosis prophylaxes given. Repeat labs. Bedside physical therapy. Dr. Steward discontinued the IV fluid. Repeat labs. We will follow up. Colette Viera MD
--- NOTE | 2017-12-25 06:10 | CP.PCM.PN ---
Subjective - Date & Time of Evaluation Date of Evaluation: 12/25/17 Time of Evaluation: 06:35 - Subjective Subjective: No distress, Lying in bed, awake, alert, non verbal Reason for consultation and follow up: Cardiac evaluation of coronary artery disease, admitted for failure to thrive,dehydration Seen and examined by me and Dr. Steward Objective - Vital Signs/Intake and Output Vital Signs (last 24 hours): Temp Pulse Resp BP Pulse Ox 97.9 F 79 19 126/67 97 12/24/17 17:10 12/24/17 17:10 12/24/17 17:10 12/24/17 17:10 12/24/17 17:10 Intake and Output: 12/24/17 12/25/17 18:59 06:59 Intake Total 860 Balance 860 - Medications Medications: Current Medications Amlodipine Besylate (Norvasc) 10 mg PO DAILY [facility] Last Admin: 12/24/17 10:42 Dose: 10 mg Aspirin (Ecotrin) 81 mg PO DAILY [facility] Last Admin: 12/24/17 10:42 Dose: 81 mg Atorvastatin Calcium (Lipitor) 40 mg PO DAILY [facility] Last Admin: 12/24/17 10:42 Dose: 40 mg Clobetasol Propionate (Temovate 0.05%) 0 gm TOP BID [facility] Last Admin: 12/24/17 10:45 Dose: Not Given Clopidogrel Bisulfate (Plavix) 75 mg PO DAILY [facility] Last Admin: 12/24/17 10:43 Dose: 75 mg Donepezil HCl (Aricept) 10 mg PO HS [facility] Last Admin: 12/24/17 21:11 Dose: 10 mg Hydralazine HCl (Apresoline) 10 mg IVP Q6H PRN PRN Reason: for sbp>170 Levothyroxine Sodium (Synthroid) 112 mcg PO ACB [facility] Last Admin: 12/24/17 08:03 Dose: 112 mcg Lisinopril (Zestril) 20 mg PO DAILY [facility] Last Admin: 12/24/17 10:47 Dose: 20 mg Pantoprazole Sodium (Protonix Ec Tab) 40 mg PO ACB [facility] Last Admin: 12/24/17 08:03 Dose: 40 mg Potassium Phos/Sodium Phos (Neutra-Phos) 1 pkt PO TID [facility] Last Admin: 12/24/17 14:51 Dose: 1 pkt Risperidone (Risperdal Tab) 0.25 mg PO Q8 [facility]; Protocol Last Admin: 12/25/17 05:12 Dose: 0.25 mg Zolpidem Tartrate (Ambien) 10 mg PO HS PRN; Protocol PRN Reason: Insomnia - Labs Labs: 12/24/17 06:15 12/24/17 06:15 PT 11.6 SECONDS (9.4-12.5) 12/17/17 16:55 INR 1.02 12/17/17 16:55 APTT 27.3 Seconds (25.1-36.5) 12/17/17 16:55 - Constitutional Appears: Non-toxic, No Acute Distress - Head Exam Head Exam: NORMAL INSPECTION, NORMOCEPHALIC - Eye Exam Eye Exam: Normal appearance Pupil Exam: NORMAL ACCOMODATION - ENT Exam ENT Exam: Mucous Membranes Dry - Respiratory Exam Respiratory Exam: Decreased Breath Sounds, Clear to Ausculation Bilateral, NORMAL BREATHING PATTERN - Cardiovascular Exam Cardiovascular Exam: +S1, +S2 Additional comments: no JVD - GI/Abdominal Exam GI & Abdominal Exam: Soft, Normal Bowel Sounds - Extremities Exam Additional comments: right leg contracted - Neurological Exam Neurological Exam: Alert, Awake - Psychiatric Exam Psychiatric exam: Flat Affect - Skin Skin Exam: Dry, Normal Color, Warm Additional comments: hip decubitus present on admission Assessment and Plan - Assessment and Plan (Free Text) Assessment: A 82 year old female who was brought in to the ER due to failure to thrive. Unable to eat, generalized weakness for the past few weeks. History of coronary artery disease, post stent, hypertension, COPD, diabetes, Alzheimer's disease, dementia, DVT with IVC filter,hypothyroidism,atrial fibrillation, VRE, anemia. Patient non-verbal and bed bound.Started on IV fluid for hydration.Failure to thrive. Echo done. Normal size LVEF 55%,Trace aortic regurgitation,mild mitral regurgitation, Not well visualized possibly mild to moderate aortic stenosis, Mild tricuspid regurgitation RVSP 37 mmHg, No vegetation of thrombus.Advanced diet as tolerated with supplement. IV fluid discontinued, Eating fairly well, needs assistance in eating. Plan: Clinically improved, seems like she is eating fairly well. IV fluids discontinued Lying in bed, open eyes to verbal stimuli No distress, patient non-verbal Cardiac status stable Controlled heart rate Controlled blood pressure Continue Ensure supplement as ordered On Norvasc 10 mg daily, Eliquis 5 mg BID (on hold) Lipitor 40 mg daily, Plavix 75 mg daily,Synthroid 112mcg daily, Lisinopril 20 mg daily Continue current treatment Continue current medications Nutritional support, assist with meals Discharge planning Chart reviewed Will follow up Plan and treatment discussed with Dr. Steward
[2017-12-25] MEDS: Pantoprazole 40 mg EC Tab PO SCH (08:37)
[2017-12-25] MEDS: Levothyroxine 112 MCG TAB PO SCH (08:37)
[2017-12-25] MEDS: Potassium & Sodium Phosphate PO SCH ×3 (08:59→17:21)
[2017-12-25] MEDS: Clobetasol 0.05% Cream(30 gm) TOP SCH ×2 (11:42→17:22)
--- NOTE | 2017-12-25 13:21 | PN ---
DATE: 12/25/2017 Dayana Steward MD [facility] # [id number]
[2017-12-25 17:55] VITALS: BP 116/61; PULSE 74; RESP 19; TEMP 97.9; O2SAT 98
== END 2017-12-25 22:07 | disposition home or self-care (01) | DRG 422 ==
LOC: ED 13:05 → ERH 18:12 → 3RSO 21:43
PROVIDERS: ADMIT Internal Medicine; ATTEND Internal Medicine
DX: E87.0 Hyperosmolality and hypernatremia (principal); E86.0 Dehydration; L89.311 Pressure ulcer of right buttock, stage 1; R64 Cachexia; Z68.1 Body mass index [BMI] 19.9 or less, adult; E11.621 Type 2 diabetes mellitus with foot ulcer; I11.0 Hypertensive heart disease with heart failure; L89.322 Pressure ulcer of left buttock, stage 2; E11.65 Type 2 diabetes mellitus with hyperglycemia; I50.9 Heart failure, unspecified; R13.10 Dysphagia, unspecified; G30.9 Alzheimer's disease, unspecified; F02.80 Dementia in other diseases classified elsewhere, unspecified severity, without behavioral disturbance, psychotic disturbance, mood disturbance, and anxiety; L97.409 Non-pressure chronic ulcer of unspecified heel and midfoot with unspecified severity; E87.6 Hypokalemia; R62.7 Adult failure to thrive; I25.10 Atherosclerotic heart disease of native coronary artery without angina pectoris; E03.9 Hypothyroidism, unspecified; I48.0 Paroxysmal atrial fibrillation; J44.9 Chronic obstructive pulmonary disease, unspecified; E83.42 Hypomagnesemia; D64.9 Anemia, unspecified; Z74.01 Bed confinement status; Z79.01 Long term (current) use of anticoagulants; Z86.718 Personal history of other venous thrombosis and embolism; Z86.711 Personal history of pulmonary embolism; Z95.5 Presence of coronary angioplasty implant and graft